=== PATIENT | female | born 1945 | race Caucasian/White ===

== ENCOUNTER 2021-07-09 05:37 | Emergency (ER) | payer MEDICARE ==
[2021-07-09 05:46] VITALS: TEMP 98.7
[2021-07-09] MEDS ORDERED: ACETAMINOPHEN TAB 325 MG TAB PO STA (06:08)
[2021-07-09] MEDS ORDERED: LIDOCAINE 1% INJ 10MG/ML (20 ML MDV) SQ ONE (06:08)
--- NOTE | 2021-07-09 06:48 | ED ---
General Adult HPI - General Chief complaint: Fall Stated complaint: Fall Source: patient, EMS, RN notes reviewed Mode of arrival: EMS Limitations: no limitations - History of Present Illness Initial comments: 76-year-old female that presents the emergency department via EMS. She notes that she was rolling over a bed when she fell out and hit her chin on a bedside table and gave herself a laceration to the right side of her chin upper neck. Galvanizing Pot Runner notes that the side table is a thick wood table with sharp edges. Gal[employer]izing Pot Runner notes the patient is up-to-date on her tetanus. Patient denied any other issues or complaints at this time. She was otherwise a well-appearing 76-year-old female in no apparent distress or pain. Patient denied any chest pain short of breath headache nausea vomiting diarrhea constipation fever fatigue chills. - Related Data Home Medications Medication Instructions Recorded Confirmed Dulaglutide [Trulicity] 0.75 mg SQ TH 08/26/15 08/26/15 Ezetimibe [Zetia] 10 mg PO DAILY 08/26/15 08/26/15 Valsartan [Diovan] 320 mg PO DAILY 08/26/15 08/26/15 gemfibroziL [Lopid] 600 mg PO DAILY 08/26/15 08/26/15 hydroCHLOROthiazide 25 mg PO DAILY 08/26/15 08/26/15 Previous Rx's Medication Instructions Recorded INSULIN ASPART (NovoLOG) [NovoLOG 12 unit SQ QAM #0 08/31/15 (formulary)] INSULIN ASPART (NovoLOG) [NovoLOG 13 unit SQ BID@1200,1700 #0 08/31/15 (formulary)] Insulin Glargine [Lantus Vial] 60 unit SQ HS #0 08/31/15 Levofloxacin [Levaquin] 500 mg PO DAILY #7 tab 08/31/15 amLODIPine [Norvasc] 5 mg PO DAILY #30 tab 08/31/15 Cephalexin [Keflex] 500 mg PO Q6HR #40 cap 07/09/21 Allergies Allergy/AdvReac Type Severity Reaction Status Date / Time No Known Allergies Allergy Verified 07/09/21 06:37 Review of Systems ROS Statement: Those systems with pertinent positive or pertinent negative responses have been documented in the HPI. ROS Other: All systems not noted in ROS Statement are negative. Past Medical History Past Medical History: Diabetes Mellitus, Hyperlipidemia, Hypertension Additional Past Medical History / Comment(s): high functioning developmentally disabled History of Any Multi-Drug Resistant Organisms: None Reported Past Surgical History: Appendectomy, Hysterectomy, Tonsillectomy Past Psychological History: No Psychological Hx Reported Smoking Status: Never smoker Past Alcohol Use History: None Reported Past Drug Use History: None Reported - Past Family History Father Family Medical History: Cancer, Diabetes Mellitus Additional Family Medical History / Comment(s): prostate and lung Mother Family Medical History: Cancer Additional Family Medical History / Comment(s): colon General Exam Limitations: no limitations General appearance: alert, in no apparent distress Head exam: Present: atraumatic, normocephalic, normal inspection Eye exam: Present: normal appearance, PERRL, EOMI. Absent: scleral icterus, conjunctival injection, periorbital swelling Neck exam: Present: normal inspection Respiratory exam: Present: normal lung sounds bilaterally. Absent: respiratory distress, wheezes, rales, rhonchi, stridor Cardiovascular Exam: Present: regular rate, normal rhythm, normal heart sounds. Absent: systolic murmur, diastolic murmur, rubs, gallop, clicks Extremities exam: Present: normal inspection, full ROM, normal capillary refill. Absent: tenderness, pedal edema, joint swelling, calf tenderness Neurological exam: Present: alert, oriented X3 Psychiatric exam: Present: normal affect, normal mood Skin exam: Present: warm, dry, intact, normal color. Absent: rash Expanded Type of lesion: Present: laceration (/Laceration to the right espinoza upper neck, clean margins, minimal bleeding, no debris seen.). Absent: foreign body Course Vital Signs 07/09/21 05:38 Temperature 98.7 F Pulse Rate 90 Respiratory 16 Rate Blood Pressure 176/78 O2 Sat by Pulse 96 Oximetry Procedures - Laceration Laceration #1 Consent Obtained: verbal consent Indication: laceration Site: neck (Right upper neck) Size (cm): 10 Description: linear Depth: simple, single layer Anesthetic Used: lidocaine 1% Anesthesia Technique: local infiltration Amount (mls): 5 Pre-repair: irrigated extensively Type of Sutures: nylon Size of Sutures: 4-0 Number of Sutures: 11 Technique: simple, interrupted Patient Tolerated Procedure: well, no complications Medical Decision Making - Medical Decision Making 76-year-old female with laceration to right espinoza upper neck. Lidocaine ordered for local anesthesia. Patient is up-to-date on tetanus. Patient tolerated suturing well. Antibiotics sent to pharmacy. Case discussed with Dr. Penn, patient can discharge home with follow-up primary care Disposition Clinical Impression: Fall, Laceration of neck without foreign body Disposition: HOME SELF-CARE Condition: Stable Instructions (If sedation given, give patient instructions): Fall Prevention for Older Adults (ED) Additional Instructions: Please return to the Emergency Department if symptoms worsen or any other concerns. Follow-up primary care 1-2 days. Please return in 7-10 days to have sutures removed. Take antibiotics as prescribed until complete. Is patient prescribed a controlled substance at d/c from ED?: No Referrals: Sarita Anderson MD [Primary Care Provider] - 1-2 days Time of Disposition: 06:47
[2021-07-09 07:01] VITALS: BP 155/68; PULSE 81; RESP 18
== END 2021-07-09 06:58 | disposition home or self-care (01) ==
LOC: EC 05:37
DX: S11.91XA Laceration without foreign body of unspecified part of neck, initial encounter (principal); S01.81XA Laceration without foreign body of other part of head, initial encounter; E11.9 Type 2 diabetes mellitus without complications; I10 Essential (primary) hypertension; Z79.899 Other long term (current) drug therapy; Z79.84 Long term (current) use of oral hypoglycemic drugs; W06.XXXA Fall from bed, initial encounter; W22.03XA Walked into furniture, initial encounter; Y92.009 Unspecified place in unspecified non-institutional (private) residence as the place of occurrence of the external cause
CPT/HCPCS: 99283; 12004; J2001

== ENCOUNTER 2021-10-30 16:17 | Inpatient (IN) | payer MEDICARE ==
--- NOTE | 2021-10-30 17:07 | ED ---
General Adult HPI - General Chief complaint: Neuro Symptoms/Deficit Stated complaint: facial drooping, slurred speech Time Seen by Provider: 10/30/21 16:32 Source: patient Mode of arrival: wheelchair Limitations: no limitations - History of Present Illness Initial comments: Dictation was produced using [employer] dictation software. please excuse any g rammatical, word or spelling errors. Chief Complaint: 76-year-old female presents emergency department for stroke symptoms History of Present Illness: Patient is 76-year-old female past medical history of diabetes, dyslipidemia and hypertension presents to emergency department for symptoms concerning for cerebrovascular accident. On patient was noticed to have symptoms concerning for CVA. She is noted to have slurred speech, confusion, left facial droop and left-sided weakness. Patient is never had a stroke before. Patient has history of developmental delay. She noticed her symptoms while trying to pull her pants felt like she had trouble lifting up her left leg to put her right leg. The ROS documented in this emergency department record has been reviewed and confirmed by me. Those systems with pertinent positive or negative responses have been documented in the HPI. All other systems are other negative and/or noncontributory. PHYSICAL EXAM: General Impression: Alert and oriented x3, not in acute distress HEENT: Normocephalic atraumatic, extra-ocular movements intact, pupils equal and reactive to light bilaterally, mucous membranes moist. Cardiovascular: Heart regular rate and rhythm Chest: Able to complete full sentences, no retractions, no tachypnea Abdomen: abdomen soft, non-tender, non-distended, no organomegaly Musculoskeletal: Pulses present and equal in all extremities, no peripheral edema Motor: no focal deficits noted Neurological: Slurred speech, left upper extremity drift, left lower extremity drift, slight left lower facial droop NIH of 4 Skin: Intact with no visualized rashes Psych: Normal affect and mood ED course: 76-year-old female presents emergency department for symptoms concerning for stroke. Alleged time of onset was 2 days ago. Patient medicated for TPA due to to be outside the window. Vital signs upon arrival are within acceptable limits. Lavatory evaluation obtained. CBC, coag panel, metabolic panel is unremarkable. Patient is negative for coronavirus. Computed tomography scan of the brain and CT angios shows no acute processes. Chest x-ray shows some prominence of the lung interstitium and cardiomegaly. Patient reevaluated the bedside at 7:30 PM on to be in stable medical condition. Patient not showing any signs of distress however still does have positive neurologic findings. Patient given an aspirin. Patient be admitted to [facility] with consultation to neurology. EKG interpretation: Ventricular rate 77, normal sinus rhythm, TX interval 142, QRS 84, QTC 450. No TX prolongation, no QTC prolongation, no ST or T-wave changes noted. EKG compared to a cover 2014 showing no changes. Overall, this EKG is unremarkable - Related Data Home Medications Medication Instructions Recorded Confirmed Dulaglutide [Trulicity] 0.75 mg SQ TH 08/26/15 08/26/15 Ezetimibe [Zetia] 10 mg PO DAILY 08/26/15 08/26/15 Valsartan [Diovan] 320 mg PO DAILY 08/26/15 08/26/15 gemfibroziL [Lopid] 600 mg PO DAILY 08/26/15 08/26/15 hydroCHLOROthiazide 25 mg PO DAILY 08/26/15 08/26/15 Previous Rx's Medication Instructions Recorded INSULIN ASPART (NovoLOG) [NovoLOG 12 unit SQ QAM #0 08/31/15 (formulary)] INSULIN ASPART (NovoLOG) [NovoLOG 13 unit SQ BID@1200,1700 #0 08/31/15 (formulary)] Insulin Glargine [Lantus Vial] 60 unit SQ HS #0 08/31/15 Levofloxacin [Levaquin] 500 mg PO DAILY #7 tab 08/31/15 amLODIPine [Norvasc] 5 mg PO DAILY #30 tab 08/31/15 Cephalexin [Keflex] 500 mg PO Q6HR #40 cap 07/09/21 Allergies Allergy/AdvReac Type Severity Reaction Status Date / Time No Known Allergies Allergy Verified 10/30/21 16:26 Review of Systems ROS Statement: Those systems with pertinent positive or pertinent negative responses have been documented in the HPI. ROS Other: All systems not noted in ROS Statement are negative. Past Medical History Past Medical History: Diabetes Mellitus, Hyperlipidemia, Hypertension Additional Past Medical History / Comment(s): high functioning developmentally disabled History of Any Multi-Drug Resistant Organisms: None Reported Past Surgical History: Appendectomy, Hysterectomy, Tonsillectomy Past Psychological History: No Psychological Hx Reported Smoking Status: Never smoker Past Alcohol Use History: None Reported Past Drug Use History: None Reported - Past Family History Father Family Medical History: Cancer, Diabetes Mellitus Additional Family Medical History / Comment(s): prostate and lung Mother Family Medical History: Cancer Additional Family Medical History / Comment(s): colon General Exam Limitations: no limitations Course Vital Signs 10/30/21 10/30/21 16:24 18:24 Temperature 98.4 F Pulse Rate 83 77 Respiratory 16 16 Rate Blood Pressure 175/83 166/82 O2 Sat by Pulse 100 97 Oximetry Medical Decision Making - Lab Data Result diagrams: 10/30/21 17:37 10/30/21 17:37 Lab Results 10/30/21 10/30/21 10/30/21 Range/Units 17:37 17:37 17:37 WBC 12.6 H (3.8-10.6) k/uL RBC 4.09 (3.80-5.40) m/uL Hgb 13.0 (11.4-16.0) gm/dL Hct 39.1 (34.0-46.0) % MCV 95.6 (80.0-100.0) fL MCH 31.8 (25.0-35.0) pg MCHC 33.3 (31.0-37.0) g/dL RDW 12.4 (11.5-15.5) % Plt Count 372 (150-450) k/uL MPV 9.2 Neutrophils % 72 % Lymphocytes % 17 % Monocytes % 5 % Eosinophils % 2 % Basophils % 1 % Neutrophils # 9.1 H (1.3-7.7) k/uL Lymphocytes # 2.2 (1.0-4.8) k/uL Monocytes # 0.6 (0-1.0) k/uL Eosinophils # 0.2 (0-0.7) k/uL Basophils # 0.1 (0-0.2) k/uL PT 10.1 (9.0-12.0) sec INR 0.9 (<1.2) APTT 24.8 (22.0-30.0) sec Sodium 138 (137-145) mmol/L Potassium 4.3 (3.5-5.1) mmol/L Chloride 103 (98-107) mmol/L Carbon Dioxide 20 L (22-30) mmol/L Anion Gap 15 mmol/L BUN 38 H (7-17) mg/dL Creatinine 1.15 H (0.52-1.04) mg/dL Est GFR (CKD-EPI)AfAm 54 (>60 ml/min/1.73 sqM) Est GFR (CKD-EPI)NonAf 47 (>60 ml/min/1.73 sqM) Glucose 201 H (74-99) mg/dL Calcium 9.4 (8.4-10.2) mg/dL Magnesium 1.8 (1.6-2.3) mg/dL Coronavirus (PCR) (Not Detectd) 10/30/21 Range/Units 17:37 WBC (3.8-10.6) k/uL RBC (3.80-5.40) m/uL Hgb (11.4-16.0) gm/dL Hct (34.0-46.0) % MCV (80.0-100.0) fL MCH (25.0-35.0) pg MCHC (31.0-37.0) g/dL RDW (11.5-15.5) % Plt Count (150-450) k/uL MPV Neutrophils % % Lymphocytes % % Monocytes % % Eosinophils % % Basophils % % Neutrophils # (1.3-7.7) k/uL Lymphocytes # (1.0-4.8) k/uL Monocytes # (0-1.0) k/uL Eosinophils # (0-0.7) k/uL Basophils # (0-0.2) k/uL PT (9.0-12.0) sec INR (<1.2) APTT (22.0-30.0) sec Sodium (137-145) mmol/L Potassium (3.5-5.1) mmol/L Chloride (98-107) mmol/L Carbon Dioxide (22-30) mmol/L Anion Gap mmol/L BUN (7-17) mg/dL Creatinine (0.52-1.04) mg/dL Est GFR (CKD-EPI)AfAm (>60 ml/min/1.73 sqM) Est GFR (CKD-EPI)NonAf (>60 ml/min/1.73 sqM) Glucose (74-99) mg/dL Calcium (8.4-10.2) mg/dL Magnesium (1.6-2.3) mg/dL Coronavirus (PCR) Not Detected (Not Detectd) Disposition Clinical Impression: Cerebrovascular accident (CVA) Disposition: ADMITTED IP TO THIS HOSP Condition: Fair Referrals: None,Stated [Primary Care Provider] - 1-2 days
[2021-10-30 17:49] LABS: Basophils # (A) 0.1 k/uL (0-0.2); Basophils % (A) 1 %; Eosinophils # (A) 0.2 k/uL (0-0.7); Eosinophils % (A) 2 %; HCT 39.1 % (34.0-46.0); Lymphocytes # (A) 2.2 k/uL (1.0-4.8); Lymphocytes % (A) 17 %; MCH 31.8 pg (25.0-35.0); MCHC 33.3 g/dL (31.0-37.0); MCV 95.6 fL (80.0-100.0); Mean Platelet Volume 9.2; Monocytes # (A) 0.6 k/uL (0-1.0); Monocytes % (A) 5 %; Neutrophils # (A) 9.1 k/uL (1.3-7.7); Neutrophils % (A) 72 %; Platelet Count 372 k/uL (150-450); RBC 4.09 m/uL (3.80-5.40); RDW 12.4 % (11.5-15.5); WBC 12.6 k/uL (3.8-10.6)
[2021-10-30 18:16] LABS: Calcium 9.4 mg/dL (8.4-10.2); Magnesium 1.8 mg/dL (1.6-2.3); Potassium 4.3 mmol/L (3.5-5.1)
--- NOTE | 2021-10-30 18:23 | CT ---
EXAMINATION TYPE: CT brain wo con DATE OF EXAM: 10/30/2021 COMPARISON: CT head 08/26/2015 HISTORY: Slurred speech x [address] DLP: 1085.8 mGycm. Automated Exposure Control for Dose Reduction was Utilized. TECHNIQUE: Multiple contiguous axial CT images of the head were performed from the skull base through the vertex without the administration of intravenous contrast. 2-D sagittal and coronal reformats we re obtained. FINDINGS: No acute intracranial hemorrhage, mass effect, or midline shift. The ventricles and sulci are within normal limits in size. Mcknight-white differentiation is preserved. No CT evidence of acute large vessel territorial ischemia. Mild burden of decreased attenuation within the periventricular white matter li suzi sequela of chronic small vessel ischemic change. Calvarium appears intact. Mild mucosal thickening of the maxillary sinuses. Mastoid air cells are alex ar. Bilateral lens extractions are present. IMPRESSION: No acute intracranial process.
--- NOTE | 2021-10-30 18:24 | XR ---
EXAMINATION TYPE: XR chest 1V portable DATE OF EXAM: 10/30/2021 COMPARISON: Chest radiograph 08/31/2015 HISTORY: Slurred speech for 2 days, cerebrovascular accident TECHNIQUE: Single frontal view of the chest is obtained. FINDINGS: Heart size appears enlarged. There is prominence of the lung interstitium. No definite pleural effusi on or pneumothorax. No dense focal consolidations. Osseous structures appear intact. IMPRESSION: Cardiomegaly with prominence of the lung interstitium. Findings may relate to fluid overload.
[2021-10-30 18:28] LABS: INR 0.9 (<1.2); Partial Thromboplastin Time 24.8 sec (22.0-30.0); Prothrombin Time 10.1 sec (9.0-12.0)
--- NOTE | 2021-10-30 18:46 | CT ---
EXAMINATION TYPE: CT angio head neck DATE OF EXAM: 10/30/2021 HISTORY: Slurred speech x 2 days. COMPARISON: None available CT DLP: 378.1 mGycm. Automated Exposure Control for Dose Reduction was Utilized. TECHNIQUE: CTA scan of the neck is performed with IV Contrast, patient injected with 65 mL of Isovue 370, axial images are obtained, coronal and sagittal reformatted images are reviewed. 3D reconstruct ed images are created on an independent workstation and reviewed. FINDINGS: Carotid/Vascular Structures: Three-vessel aortic arch with patent origins of the great vessels. Mild atherosclerotic vascular calcifications of the right carotid bifurcation and proximal right inte rnal carotid artery with minimal luminal narrowing (less than 10%). Mild atherosclerotic vascular kennedy cifications of the left carotid bifurcation and proximal internal carotid artery without luminal narr owing. Patent origins of the vertebral arteries. Dominant left vertebral artery. Hypoplastic right vertebral artery which terminates as the right posterior inferior cerebellar artery. Moderate atherosclerotic vascular calcifications of the cavernous and supraclinoid portions of the in tracranial internal carotid arteries with moderate luminal narrowing of the right supraclinoid portio n. Atretic A1 segment of the right anterior cerebral artery. Right A2 segment and distal appear patent. Left anterior cerebral artery appears normal. Anterior communicating artery is present. Middle cerebral arteries appear normal. Basilar artery appears normal. Posterior cerebral arteries appear normal. Other: Mild mucosal thickening of the maxillary sinuses. Moderate multilevel degenerative changes of the cervical spine. IMPRESSION: No high-grade stenosis, focal occlusion, or aneurysm involving the carotid arteries, vertebral arteri es, or major branches of the [place]. NASCET criteria was used in interpretation of this exam?
[2021-10-30] MEDS ORDERED: NALOXONE 0.4 MG/ML 1 ML VIAL IV PRN ×2 (19:23→19:31)
[2021-10-30] MEDS ORDERED: ASPIRIN 81 MG PO STA (19:24)
[2021-10-30] MEDS ORDERED: SODIUM CHLORIDE 0.9% 1,000 ML IV SCH (19:30)
[2021-10-30] MEDS ORDERED: ACETAMINOPHEN TAB 325 MG TAB PO PRN (19:31)
[2021-10-30 20:42] LABS: Glucose,Whole Blood 225 mg/dL (75-99)
--- NOTE | 2021-10-30 21:16 | P.HPIM ---
History of Present Illness H&P Date: 10/30/21 Chief Complaint: left sided weakness 76-year-old woman who is a person with mental disability and medical history of diabetes/hypertension/hyperlipidemia, chronic kidney disease stage III presented with left-sided weakness and slurred speech. Patient says that her symptoms started yesterday morning at [place]. She knows that she was having trouble lifting her leg on the left side to get dressed, also noted handgrip weakness on the left side. Her home care nurse also mentioned the patient was having slurring of speech which began at her visit yesterday. However, patient did not want to go to the hospital yesterday, and instead presented today with ongoing symptoms which have not improved. Patient otherwise denies fevers, chills, nausea, vomiting, chest pain, significant, presyncope, palpitations, cough, dyspnea, abdominal pain, diarrhea, constipation, dysuria, dyschezia, numbness of extremities. In the emergency room, patient was noted to be afebrile, hypertensive to 175/83, heart rate 83, 100% on room air. CBC was remarkable for mild leukocytosis. C reatinine was notable for mild elevation to 1.15, which represents her baseline from 2015. EKG demonstrates normal sinus rhythm with left axis deviation, no ischemic changes. Brain CT was negative for intracranial hemorrhage or large vessel occlusion. CT angiography of the head and neck did not demonstrate any high-grade stenosis or occlusion. Patient was loaded with aspirin, admitted for further stroke workup, neurology consult. Review of Systems All Systems reviewed and pertinent positives and negatives noted in HPI, all other symptoms are negative Past Medical History Past Medical History: Diabetes Mellitus, Hyperlipidemia, Hypertension Additional Past Medical History / Comment(s): high functioning developmentally disabled History of Any Multi-Drug Resistant Organisms: None Reported Past Surgical History: Appendectomy, Hysterectomy, Tonsillectomy Past Psychological History: No Psychological Hx Reported Smoking Status: Never smoker Past Alcohol Use History: None Reported Past Drug Use History: None Reported - Past Family History Father Family Medical History: Cancer, Diabetes Mellitus Additional Family Medical History / Comment(s): prostate and lung Mother Family Medical History: Cancer Additional Family Medical History / Comment(s): colon Medications and Allergies Home Medications Medication Instructions Recorded Confirmed Type Ezetimibe [Zetia] 10 mg PO DAILY 08/26/15 10/30/21 History gemfibroziL [Lopid] 600 mg PO BID 08/26/15 10/30/21 History hydroCHLOROthiazide 25 mg PO DAILY 08/26/15 10/30/21 History amLODIPine [Norvasc] 5 mg PO DAILY #30 tab 08/31/15 10/30/21 Rx INSULIN ASPART (NovoLOG) [NovoLOG 10 unit SQ DAILY@1200 10/30/21 10/30/21 History (formulary)] INSULIN ASPART (NovoLOG) [NovoLOG See Protocol SQ BID-W/MEALS 10/30/21 10/30/21 History (formulary)] Insulin Detemir (Levemir) [Levemir] 45 unit SQ HS 10/30/21 10/30/21 History Insulin Detemir (Levemir) [Levemir] 50 unit SQ QAM 10/30/21 10/30/21 History Metoprolol Succinate [Toprol XL] 100 mg PO DAILY 10/30/21 10/30/21 History Allergies Allergy/AdvReac Type Severity Reaction Status Date / Time No Known Allergies Allergy Verified 10/30/21 19:51 Physical Exam Osteopathic Statement: *. No significant issues noted on an osteopathic structural exam other than those noted in the History and Physical/Consult. Vitals: Vital Signs Temp Pulse Resp BP Pulse Ox 10/30/21 20:16 78 18 157/83 97 10/30/21 18:24 77 16 166/82 97 10/30/21 16:24 98.4 F 83 16 175/83 100 Intake and Output 10/30/21 10/30/21 10/30/21 06:59 14:59 22:59 Other: Weight 56.699 kg Gen: awake, alert HEENT: normocephalic, atraumatic, good hearing acuity, moist mucous membranes, poor dentition Resp: good air exchange, breathing comfortably with no accessory muscle use, clear to auscultation bilaterally CVS: good distal perfusion x 4, regular rate and rhythm without murmurs GI: soft, NTTP, ND : no SPT, no CVAT, ceron catheter not present MSK: no pitting edema, no clubbing Neuro: Left-sided 4 out of 5 hand equipment associate weakness on the left, 4 out of 5 lower extremity weakness on the left, pronator drift on the left, no sensory deficits Psych: cooperative, euthymic mood Results CBC & Chem 7: 10/30/21 17:37 10/30/21 17:37 Labs: Abnormal Lab Results - Last 24 Hours (Table) 10/30/21 10/30/21 10/30/21 Range/Units 17:37 17:37 20:41 WBC 12.6 H (3.8-10.6) k/uL Neutrophils # 9.1 H (1.3-7.7) k/uL Carbon Dioxide 20 L (22-30) mmol/L BUN 38 H (7-17) mg/dL Creatinine 1.15 H (0.52-1.04) mg/dL Glucose 201 H (74-99) mg/dL POC Glucose (mg/dL) 225 H (75-99) mg/dL Assessment and Plan Assessment: Left-sided weakness -Admit to inpatient, telemetry -MRI of the brain -Neurology consult -Echocardiogram -Lipid panel, TSH, A1c -Neurochecks -Aspirin, statin -Hold home blood pressure medications, except for metoprolol, until stroke is ruled out or in -PT/OT/ST Hypertension Hyperlipidemia Diabetes type 2 Chronic kidney disease, stage III -Home medications reviewed and reconciled, changes noted above Patient is a full code
[2021-10-30] MEDS: INSULIN DETEMIR (LEVEMIR) 100 UNIT/ML SYR SQ SCH (21:55)
[2021-10-31] MEDS: ATORVASTATIN 40 MG TAB PO SCH ×2 (01:43→20:53)
[2021-10-31 06:17] LABS: HCT 42.2 % (34.0-46.0); HGB 13.1 gm/dL (11.4-16.0); MCH 31.1 pg (25.0-35.0); MCV 100.2 fL (80.0-100.0); Mean Platelet Volume 9.3; Platelet Count 329 k/uL (150-450); RBC 4.21 m/uL (3.80-5.40); RDW 12.5 % (11.5-15.5); WBC 9.5 k/uL (3.8-10.6)
[2021-10-31 06:32] LABS: Glucose,Whole Blood 292 mg/dL (75-99)
[2021-10-31 06:36] LABS: Band Neutrophils % 2 %; Eosinophils # (M) 0.48 k/uL (0-0.7); Monocytes # (M) 0.38 k/uL (0-1.0); Neutrophils % (M) 68 %; Nucleated Red Blood Cells 0 /100 WBC (0-0); Total Cells Counted 100
[2021-10-31 06:37] LABS: Toxic Granulation Present
[2021-10-31 06:45] LABS: Calcium 9.1 mg/dL (8.4-10.2); Magnesium 1.9 mg/dL (1.6-2.3); Potassium 4.7 mmol/L (3.5-5.1)
[2021-10-31] MEDS: INSULIN ASPART (NovoLOG) 100 UNIT/ML VIAL SQ SCH ×3 (06:54→16:54)
[2021-10-31] MEDS: METOPROLOL SUCCINATE (ER) 100 MG TAB.ER.24H PO SCH (07:31)
[2021-10-31] MEDS: FENOFIBRATE 160 MG TAB PO SCH (07:32)
[2021-10-31] MEDS: EZETIMIBE 10 MG TAB PO SCH (07:32)
[2021-10-31] MEDS: INSULIN DETEMIR (LEVEMIR) 100 UNIT/ML SYR SQ SCH ×2 (07:34→20:48)
[2021-10-31] MEDS: ENOXAPARIN 30 MG/0.3 ML SYRINGE SQ SCH (09:50)
--- NOTE | 2021-10-31 11:00 | ECHOF ---
Referral Reason:cva MEASUREMENTS -------- HEIGHT: 132.1 cm WEIGHT: 56.7 kg BP: IVSd: 1.4 cm (0.6 - 1.1) LVIDd: 3.5 cm (3.9 - 5.3) LVPWd: 1.0 cm (0.6 - 1.1) IVSs: 2.2 cm LVIDs: 2.1 cm LVPWs: 1.5 cm LAESV Index (A-L): 39.43 ml/m Ao Diam: 3.1 cm (2.0 - 3.7) AV Cusp: 2.1 cm (1.5 - 2.6) LA Diam: 3.1 cm (2.7 - 3.8) RAP: 5.00 mmHg RVSP: 28.37 mmHg FINDINGS -------- Sinus rhythm. This was a technically adequate study. The left ventricular size is normal. There is moderate concentric left ventricular hypertrophy. O verall left ventricular systolic function is low-normal with, an EF between 50 - 55 %. The right ventricle is normal in size. LA is moderately dilated 34-39 ml/m2 The right atrial size is normal. The aortic valve is trileaflet, and appears structurally normal. No aortic stenosis or regurgitation. Mild mitral regurgitation is present. Mild tricuspid regurgitation present. Right ventricular systolic pressure is normal at < 35 mmHg. There is no pulmonic regurgitation present. The aortic root size is normal. There is no pericardial effusion. CONCLUSIONS -------- 1. The left ventricular size is normal. 2. There is moderate concentric left ventricular hypertrophy. 3. Overall left ventricular systolic function is low-normal with, an EF between 50 - 55 %. 4. The right ventricle is normal in size. 5. LA is moderately dilated 34-39 ml/m2 6. The right atrial size is normal. 7. The aortic valve is trileaflet, and appears structurally normal. No aortic stenosis or regurgitati on. 8. Mild mitral regurgitation is present. 9. Mild tricuspid regurgitation present. 10. The aortic root size is normal. 11. There is no pericardial effusion. GALLERY OR MUSEUM ATTENDANT: Sindy Cano RDCS
[2021-10-31 11:18] LABS: Glucose,Whole Blood 466 mg/dL (75-99)
[2021-10-31] MEDS: ASPIRIN 325 MG TAB PO SCH (11:29)
--- NOTE | 2021-10-31 13:36 | P.CNNES ---
History of Present Illness Consult date: 10/31/21 Requesting physician: Thanh Freed Reason for Consult: CVA History of Present Illness: This is a 76-year-old right-handed female with history of some developmental delays, hypertension, diabetes came to the hospital yesterday at 4:24 PM for slurred speech and left-sided weakness. Apparently symptoms started on the 10 2402/22/2021 in the evening with some slurring and left-sided weakness. Patient did not arrive to the hospital yesterday. Patient was not a candidate for TPA, as she was clearly outside the window. Patient states that she came to the hospital because she is having strokelike symptoms. She feels some slurred speech, and also notices that she keeps dropping things with her left hand. States she cannot walk far with her left leg, feels as if she will fall. Vital signs on arrival blood pressure 175/83, pulse rate 83 temperature 98.4. Computed tomography scan of head showed no acute intracranial process. Chest x- ray revealed cardiomegaly with prominence of the lung interstitial. Findings may related to fluid overload. CTA of head and neck showed no high-grade stenosis, focal occlusion, or aneurysm involving the carotid arteries, vertebral arteries or major branches of the [place]. EKG shows normal sinus rhythm, left axis deviation. Blood test shows WBC 12.6 hemoglobin 13.0, normal platelets 372. PT/PTT normal, electrolytes are normal, BUN 38, creatinine 1.15. TSH is normal. Regan virus PCR negative. Patient's last hemoglobin A1c 9.1 on 08/26/2015. Patient states that she has history of diabetes for couple years. She has hypertension. She has never smoked or drink alcohol. She has a caregiver Emma. Home medications includes Lopid 600 mg twice a day, Zetia 10 mg daily HCTZ 25 mg, amlodipine 5 mg, insulin, metoprolol. Patient does not take any antiplatelet medication at home. Review of Systems Denies any headache, any problem with the vision, any hoarseness, sore throat, dysphagia. Patient is very hard of hearing. Denies any chest pain, shortness of breath, wheezing or cough. Denies any abdominal pain nausea vomiting diarrhea. Denies any fever or chills. No rash. All other review of systems reviewed and unremarkable. Past Medical History Past Medical History: Diabetes Mellitus, Hyperlipidemia, Hypertension Additional Past Medical History / Comment(s): high functioning developmentally disabled History of Any Multi-Drug Resistant Organisms: None Reported Past Surgical History: Appendectomy, Hysterectomy, Tonsillectomy Past Psychological History: No Psychological Hx Reported Smoking Status: Never smoker Past Alcohol Use History: None Reported Past Drug Use History: None Reported - Past Family History Father Family Medical History: Cancer, Diabetes Mellitus Additional Family Medical History / Comment(s): prostate and lung Mother Family Medical History: Cancer Additional Family Medical History / Comment(s): colon Medications and Allergies Home Medications Medication Instructions Recorded Confirmed Type Ezetimibe [Zetia] 10 mg PO DAILY 08/26/15 10/30/21 History gemfibroziL [Lopid] 600 mg PO BID 08/26/15 10/30/21 History hydroCHLOROthiazide 25 mg PO DAILY 08/26/15 10/30/21 History amLODIPine [Norvasc] 5 mg PO DAILY #30 tab 08/31/15 10/30/21 Rx INSULIN ASPART (NovoLOG) [NovoLOG 10 unit SQ DAILY@1200 10/30/21 10/30/21 History (formulary)] INSULIN ASPART (NovoLOG) [NovoLOG See Protocol SQ BID-W/MEALS 10/30/21 10/30/21 History (formulary)] Insulin Detemir (Levemir) [Levemir] 45 unit SQ HS 10/30/21 10/30/21 History Insulin Detemir (Levemir) [Levemir] 50 unit SQ QAM 10/30/21 10/30/21 History Metoprolol Succinate [Toprol XL] 100 mg PO DAILY 10/30/21 10/30/21 History Allergies Allergy/AdvReac Type Severity Reaction Status Date / Time No Known Allergies Allergy Verified 10/30/21 19:51 Physical Examination - Vital Signs Vital Signs: Vital Signs Temp Pulse Pulse Resp BP BP Pulse Ox 10/31/21 07:41 96.9 F L 79 16 141/77 99 10/31/21 03:53 97.8 F 72 18 138/74 97 10/31/21 02:29 18 10/30/21 23:53 83 18 153/83 96 10/30/21 20:16 78 18 157/83 97 10/30/21 18:24 77 16 166/82 97 10/30/21 16:24 98.4 F 83 16 175/83 100 Intake and Output 10/30/21 10/31/21 10/31/21 22:59 06:59 14:59 Intake Total 30 Output Total 550 Balance -550 30 Intake: IV 10 Invasive Line 1 10 Oral 20 Output: Urine 550 Other: Voiding Method Bedside Commode Bedside Commode Diaper # Voids 1 Weight 56.699 kg 56.699 kg Patient is an elderly female, in no acute distress. Patient is alert awake oriented to time place and person. Patient knows it is October, thinks it's the and the year is 1920. She knows she is in [place] in [place], could not tell name of the current president although she states it is a "the new one". She knows name of the previous president Doroteo Mims. Speech and language functions are normal. She can name and repeat. Attention, concentration is intact and fund of knowledge is mild to moderately impaired. On cranial examination, pupils are round and reacting to light, visual engel are full on confrontation, extraocular muscles are intact with no nystagmus. Patient has left facial weakness, central type. Her tongue protrudes to the midline. Palatal elevation and sensation normal, hearing is at least moderately decreased and shoulder shrug normal, facial sensation normal. Shoulder shrug normal. On muscle strength testing, there is left-sided pronator drift and the strength is (right/left), deltoid has some pain bilaterally right worse. 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 Had hip flexion are weak bilaterally, but left worse. Ankle dorsiflexion is 5 on the right, 4-on the left. Deep tendon reflexes are 1+ in the upper limbs, 2+ at the knees, plantar is probably down on the right, but upon left. Sensory to touch is decreased on the left side as compared to right. Temperature is equal bilaterally.. Cerebellar function showed no ataxia for [id number] testing. Tone and bulk of muscles normal. Gait deferred. On general examination, there is no carotid bruit or murmur, S1-S2 audible. Abdomen is slightly protuberant, but soft nontender, no organomegaly. Chest is clear. Peripheral pulses are present. No edema. 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 Possible lacunar from small vessel disease. * Hypertension, not controlled * Diabetes, not controlled * History of mild developmental delays * Hard of hearing Plan: * MRI of the brain to evaluate for an acute stroke. * Patient to be placed on dual antiplatelet medications aspirin 81 mg and Plavix 75 mg for 21 days. Then may stop Plavix and continue aspirin 81 mg indefinitely. * CTA of head and neck showed no large vessel occlusion, no significant stenosis. * 2-D echo revealed normal left ventricle size. Moderate concentric LVH. Left ventricular systolic function is low normal with EF between 50-55%. The right ventricle is normal in size. Left atrium is moderately dilated. Mild MR. * Hemoglobin A1c * Lipid panel * Telemetry monitoring, rule out arrhythmia. * PT OT, speech therapy. * DVT prophylaxis. * Neurology will follow. Thank you for the consult.
[2021-10-31 13:45] LABS: Appearance,Urine Clear (Clear); Bilirubin,Urine Negative (Negative); Blood,Urine Negative (Negative); Color,Urine Light Yellow; Glucose,Urine (UA) 4+ (Negative); Hyaline Casts,Urine 5 /lpf (0-2); Ketones,Urine Negative (Negative); Leukocyte Esterase,Urine Moderate (Negative); Mucus,Urine Rare /hpf; Nitrite,Urine Negative (Negative); PH, Urine 5.5 (5.0-8.0); Protein,Urine 2+ (Negative); RBC,Urine 1 /hpf (0-5); Specific Gravity,Urine 1.018 (1.001-1.035); Squamous Epithelial Cell,Urine <1 /hpf (0-4); Urobilinogen,Urine <2.0 mg/dL (<2.0); WBC,Urine 7 /hpf (0-5)
--- NOTE | 2021-10-31 14:29 | MR ---
EXAMINATION TYPE: MR brain wo con DATE OF EXAM: 10/31/2021 2:15 PM COMPARISON: NONE HISTORY: Slurred speech upon arrival t0 hosipital, CVA FINDINGS: The ventricles, basal cisterns and sulci overlying the cerebral convexities are mildly enlarged. There is evidence of mild periventricular white matter ischemic demyelination. Remote deep white matter insults are also noted. There is acute edema noted on diffusion-weighted imaging within the right portion of the lupe compati ble with acute vascular insult. No additional abnormal areas of abnormal signal identified. There is no evidence for midline shift or mass effect. Acute intracranial hemorrhage or extra-axial collection is not evident. The paranasal sinuses and mastoid air cells are well-aerated. IMPRESSION: There is acute edema noted on diffusion-weighted imaging within the right portion of the lupe compati ble with acute vascular insult.
[2021-10-31] MEDS: CLOPIDOGREL 75 MG TAB PO SCH (14:50)
[2021-10-31 16:32] LABS: Chol/HDL Ratio 5.98 Ratio; LDL Cholesterol,Calculated 104.1 mg/dL (0.0-131.0)
[2021-10-31 16:32] LABS: Glucose,Whole Blood 246 mg/dL (75-99)
--- NOTE | 2021-10-31 19:11 | P.PN ---
<Naif Louie - Last Filed: 10/31/21 19:03> Subjective Progress Note Date: 10/31/21 Hospital course: Patient is a 76-year-old woman who is a person with mental disability and medical history of diabetes/hypertension/hyperlipidemia, chronic kidney disease stage III who presented to the emergency department on 10/30/21 with a chief complaint of left-sided weakness and slurred speech beginning approximately 24 hours prior to arrival. She was seen and fully evaluated in the emergency department and found to be hypertensive with blood pressure 175/83, have mild leukocytosis with WBC count of 12.6, and a slightly elevated creatinine of 1.15. EKG demonstrates normal sinus rhythm with left axis deviation, no ischemic changes. Brain CT was negative for intracranial hemorrhage or large vessel occl usion. CT angiography of the head and neck did not demonstrate any high-grade stenosis or occlusion. Patient was loaded with aspirin, and admitted under our services for further stroke workup, neurology consulted. Physical exam: Patient seen and fully evaluated at bedside this morning she continues to have expressive aphasia and reports of weakness in her left lower extremity. Full range of motion, strength, and sensation has returned to left upper extremity. Patient denies any dysphasia. Patient denies having any headache, lightheadedness, dizziness, chest pain, palpitations, shortness of breath, abdominal pain, nausea, or vomiting. Vital signs reviewed and stable. General: Nontoxic, no distress and appears stated age. Derm: Skin warm and dry, normal coloration for ethnicity. Head: Atraumatic, normocephalic and symmetric. Eyes: EOMs intact, no lid lag, and anicteric sclera Mouth: no lip lesions, mucus membranes moist Cardiovascular: regular rate and rhythm with normal S1S2, no murmur, positive posterior tibial pulses bilaterally, and cap refill < 2 seconds. Lungs: Respirations even, regular, and unlabored on room air. Lungs CTA bilaterally, no rhonchi, no rales, no wheezing, and no accessory muscle usage. Abdominal: soft, nontender to palpation, no guarding, no appreciable organomegaly Ext: ROM intact. No gross muscle atrophy, no edema, no contractures Neuro: Speech clear, face symmetrical and CN II-XII grossly intact with no noted focal neuro deficits Psych: Alert and oriented to person, place, time, and situation. Appropriate and pleasant affect. Assessment and Plan of Care: Expressive aphasia Left-sided weakness -Telemetry monitoring -MRI of the brain -Neurology consult -Echocardiogram -Lipid panel, TSH, A1c pending -Neurochecks -Aspirin, statin -Hold home blood pressure medications, except for metoprolol, until stroke is ruled out or in -PT/OT/ST Hypertension Hyperlipidemia Diabetes type 2 Chronic kidney disease, stage III -Home medications reviewed and reconciled, changes noted above CODE STATUS: Full code DVT prophylaxis: Lovenox Discussed with: Patient and RN Anticipated discharge date: Clinical course to determine Anticipated discharge place: Home versus SNF A total of 40 minutes was spent on the care of this complex patient more than 50% of the time was spent in counseling and care coordination. Objective - Vital Signs Vital signs: Vital Signs Temp 96.9 F L 10/31/21 07:41 Pulse 79 10/31/21 07:41 Resp 16 10/31/21 07:41 BP 141/77 10/31/21 07:41 Pulse Ox 99 10/31/21 07:41 Intake & Output 10/30/21 10/31/21 10/31/21 18:59 06:59 18:59 Intake Total 30 Output Total 550 Balance -550 30 Weight 56.699 kg 56.699 kg Intake: IV 10 Invasive Line 1 10 Oral 20 Output: Urine 550 Other: Voiding Method Bedside Commode Bedside Commode Diaper # Voids 1 - Labs CBC & Chem 7: 10/31/21 05:16 10/31/21 05:16 Labs: Abnormal Lab Results - Last 24 Hours (Table) 10/30/21 10/30/21 10/30/21 Range/Units 17:37 17:37 20:41 WBC 12.6 H (3.8-10.6) k/uL MCV (80.0-100.0) fL Neutrophils # 9.1 H (1.3-7.7) k/uL Chloride (98-107) mmol/L Carbon Dioxide 20 L (22-30) mmol/L BUN 38 H (7-17) mg/dL Creatinine 1.15 H (0.52-1.04) mg/dL Glucose 201 H (74-99) mg/dL POC Glucose (mg/dL) 225 H (75-99) mg/dL 10/31/21 10/31/21 10/31/21 Range/Units 05:16 05:16 06:31 WBC (3.8-10.6) k/uL MCV 100.2 H (80.0-100.0) fL Neutrophils # (1.3-7.7) k/uL Chloride 109 H (98-107) mmol/L Carbon Dioxide 19 L (22-30) mmol/L BUN 36 H (7-17) mg/dL Creatinine 1.23 H (0.52-1.04) mg/dL Glucose 293 H (74-99) mg/dL POC Glucose (mg/dL) 292 H (75-99) mg/dL <Tami Reyes - Last Filed: 10/31/21 20:38> Subjective Naif Louie NP rendered care for this patient independently, reviewed the findings and plan as documented in the note above. I did not physically speak with or examine the patient on this date. Objective - Vital Signs Vital signs: Vital Signs Temp 99.1 F 10/31/21 16:00 Pulse 73 10/31/21 16:00 Resp 16 10/31/21 16:00 BP 135/74 10/31/21 16:00 Pulse Ox 100 10/31/21 16:00 Intake & Output 10/31/21 10/31/21 11/01/21 06:59 18:59 06:59 Intake Total 210 Output Total 550 Balance -550 210 Weight 56.699 kg Intake: IV 10 Invasive Line 1 10 Oral 200 Output: Urine 550 Other: Voiding Method Bedside Commode Bedside Commode Diaper # Voids 1 - Labs CBC & Chem 7: 10/31/21 05:16 10/31/21 05:16 Labs: Abnormal Lab Results - Last 24 Hours (Table) 10/30/21 10/31/21 10/31/21 Range/Units 20:41 05:16 05:16 MCV 100.2 H (80.0-100.0) fL Chloride 109 H (98-107) mmol/L Carbon Dioxide 19 L (22-30) mmol/L BUN 36 H (7-17) mg/dL Creatinine 1.23 H (0.52-1.04) mg/dL Glucose 293 H (74-99) mg/dL POC Glucose (mg/dL) 225 H (75-99) mg/dL Hemoglobin A1c (4.0-6.0) % Triglycerides (0.00-149.00) mg/dL VLDL Cholesterol, Calc (5.00-40.00) mg/dL HDL Cholesterol (40.00-60.00) mg/dL Urine Protein (Negative) Urine Glucose (UA) (Negative) Ur Leukocyte Esterase (Negative) Urine WBC (0-5) /hpf Hyaline Casts (0-2) /lpf Urine Mucus (None) /hpf 10/31/21 10/31/21 10/31/21 Range/Units 05:16 05:16 06:31 MCV (80.0-100.0) fL Chloride (98-107) mmol/L Carbon Dioxide (22-30) mmol/L BUN (7-17) mg/dL Creatinine (0.52-1.04) mg/dL Glucose (74-99) mg/dL POC Glucose (mg/dL) 292 H (75-99) mg/dL Hemoglobin A1c 8.7 H (4.0-6.0) % Triglycerides 304.00 H (0.00-149.00) mg/dL VLDL Cholesterol, Calc 60.80 H (5.00-40.00) mg/dL HDL Cholesterol 33.10 L (40.00-60.00) mg/dL Urine Protein (Negative) Urine Glucose (UA) (Negative) Ur Leukocyte Esterase (Negative) Urine WBC (0-5) /hpf Hyaline Casts (0-2) /lpf Urine Mucus (None) /hpf 10/31/21 10/31/21 10/31/21 Range/Units 11:15 13:18 16:30 MCV (80.0-100.0) fL Chloride (98-107) mmol/L Carbon Dioxide (22-30) mmol/L BUN (7-17) mg/dL Creatinine (0.52-1.04) mg/dL Glucose (74-99) mg/dL POC Glucose (mg/dL) 466 H 246 H (75-99) mg/dL Hemoglobin A1c (4.0-6.0) % Triglycerides (0.00-149.00) mg/dL VLDL Cholesterol, Calc (5.00-40.00) mg/dL HDL Cholesterol (40.00-60.00) mg/dL Urine Protein 2+ H (Negative) Urine Glucose (UA) 4+ H (Negative) Ur Leukocyte Esterase Moderate H (Negative) Urine WBC 7 H (0-5) /hpf Hyaline Casts 5 H (0-2) /lpf Urine Mucus Rare H (None) /hpf 10/31/21 Range/Units 20:16 MCV (80.0-100.0) fL Chloride (98-107) mmol/L Carbon Dioxide (22-30) mmol/L BUN (7-17) mg/dL Creatinine (0.52-1.04) mg/dL Glucose (74-99) mg/dL POC Glucose (mg/dL) 319 H (75-99) mg/dL Hemoglobin A1c (4.0-6.0) % Triglycerides (0.00-149.00) mg/dL VLDL Cholesterol, Calc (5.00-40.00) mg/dL HDL Cholesterol (40.00-60.00) mg/dL Urine Protein (Negative) Urine Glucose (UA) (Negative) Ur Leukocyte Esterase (Negative) Urine WBC (0-5) /hpf Hyaline Casts (0-2) /lpf Urine Mucus (None) /hpf
[2021-10-31 20:17] LABS: Glucose,Whole Blood 319 mg/dL (75-99)
[2021-11-01 06:30] LABS: Glucose,Whole Blood 122 mg/dL (75-99)
[2021-11-01] MEDS: INSULIN ASPART (NovoLOG) 100 UNIT/ML VIAL SQ SCH ×3 (06:38→16:40)
[2021-11-01] MEDS: INSULIN DETEMIR (LEVEMIR) 100 UNIT/ML SYR SQ SCH (08:26)
[2021-11-01] MEDS: ENOXAPARIN 30 MG/0.3 ML SYRINGE SQ SCH (08:26)
[2021-11-01] MEDS: FENOFIBRATE 160 MG TAB PO SCH (08:27)
[2021-11-01] MEDS: METOPROLOL SUCCINATE (ER) 100 MG TAB.ER.24H PO SCH (08:27)
[2021-11-01] MEDS: ASPIRIN 325 MG TAB PO SCH (08:27)
[2021-11-01] MEDS: EZETIMIBE 10 MG TAB PO SCH (08:27)
[2021-11-01] MEDS: CLOPIDOGREL 75 MG TAB PO SCH (08:27)
[2021-11-01 11:31] LABS: Glucose,Whole Blood 264 mg/dL (75-99)
--- NOTE | 2021-11-01 15:35 | P.PN ---
<Naif Louie - Last Filed: 11/01/21 15:18> Subjective Progress Note Date: 11/01/21 Hospital course: Patient is a 76-year-old woman who is a person with mental disability and [facility] history of diabetes/hypertension/hyperlipidemia, chronic kidney disease stage III who presented to the emergency department on 10/30/21 with a chief complaint of left-sided weakness and slurred speech beginning approximately 24 hours prior to arrival. She was seen and fully evaluated in the emergency department and found to be hypertensive with blood pressure 175/83, have mild leukocytosis with WBC count of 12.6, and a slightly elevated creatinine of 1.15. EKG demonstrates normal sinus rhythm with left axis deviation, no ischemic changes. Brain CT was negative for intracranial hemorrhage or large vessel occlusion. CT angiography of the head and neck did not demonstrate any high-grade stenosis or occlusion. Patient was loaded with aspirin, and admitted under our services for further stroke workup, neurology consulted. Echocardiogram completed revealing an EF of 50-55% with moderate concentric left ventricular hypertrophy and moderately dilated left atrium. MRI revealed acute edema noted on diffuse weighted imaging within the right portion of the lupe compatible with acute vascular insults. Physical exam: Patient seen and fully evaluated at bedside this morning she continues to have expressive aphasia along with weakness in her left lower extremity. She also continues to have full range of motion, strength, and sensation to her left upper extremity with the exception of left hand in which weakness has returned and she is unable to make a fist or squeeze an object. Patient denies any dysphasia. Patient denies having any headache, lightheadedness, dizziness, chest pain, palpitations, shortness of breath, abdominal pain, nausea, or vomiting. She was updated on her MRI results. She has been placed on Plavix along with aspirin as well as fenofibrate and Zetia secondary to hypertriglyceridemia. Vital signs reviewed and stable. General: Nontoxic, no distress and appears stated age. Derm: Skin warm and dry, normal coloration for ethnicity. Head: Atraumatic, normocephalic and symmetric. Eyes: EOMs intact, no lid lag, and anicteric sclera Mouth: no lip lesions, mucus membranes moist Cardiovascular: regular rate and rhythm with normal S1S2, no murmur, positive posterior tibial pulses bilaterally, and cap refill < 2 seconds. Lungs: Respirations even, regular, and unlabored on room air. Lungs CTA bilaterally, no rhonchi, no rales, no wheezing, and no accessory muscle usage. Abdominal: soft, nontender to palpation, no guarding, no appreciable organomegaly Ext: ROM intact. No gross muscle atrophy, no edema, no contractures Neuro: Expressive aphasia present, face symmetrical and CN II-XII grossly intac t. 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 Patient reports sensation intact. Psych: Alert and oriented to person, place, time, and situation. Appropriate and pleasant affect. Assessment and Plan of Care: Acute CVA Expressive aphasia Left-sided weakness -Telemetry monitoring -MRI of the brain -Neurology consult -Echocardiogram -Lipid panel, TSH, A1c pending -Neurochecks -Aspirin, Plavix, and Lovenox -May resume metoprolol -PT/OT/ST Hypertriglyceridemia Hyperlipidemia -Fenofibrate 160 mg daily. -Zetia 10 mg daily -Continue atorvastatin 40 mg nightly. Hypertension Diabetes type 2 Chronic kidney disease, stage III -Home medications reviewed and reconciled, changes noted above CODE STATUS: Full code DVT prophylaxis: Lovenox Discussed with: Patient and RN Anticipated discharge date: Clinical course to determine Anticipated discharge place: Home versus SNF A total of 40 minutes was spent on the care of this complex patient more than 50% of the time was spent in counseling and care coordination. Objective - Vital Signs Vital signs: Vital Signs Temp 98.8 F 11/01/21 08:00 Pulse 80 11/01/21 08:00 Resp 16 11/01/21 08:00 BP 127/73 11/01/21 08:00 Pulse Ox 98 11/01/21 08:00 Intake & Output 10/31/21 11/01/21 11/01/21 18:59 06:59 18:59 Intake Total 210 118 Output Total 800 Balance 210 -800 118 Intake: IV 10 Invasive Line 1 10 Oral 200 118 Output: Urine 800 Other: Voiding Method Bedside Commode Bedside Commode Bedside Commode Diaper Diaper Diaper # Voids 1 1 - Labs CBC & Chem 7: 10/31/21 05:16 10/31/21 05:16 Labs: Abnormal Lab Results - Last 24 Hours (Table) 10/31/21 10/31/21 10/31/21 Range/Units 05:16 05:16 13:18 POC Glucose (mg/dL) (75-99) mg/dL Hemoglobin A1c 8.7 H (4.0-6.0) % Triglycerides 304.00 H (0.00-149.00) mg/dL VLDL Cholesterol, Calc 60.80 H (5.00-40.00) mg/dL HDL Cholesterol 33.10 L (40.00-60.00) mg/dL Urine Protein 2+ H (Negative) Urine Glucose (UA) 4+ H (Negative) Ur Leukocyte Esterase Moderate H (Negative) Urine WBC 7 H (0-5) /hpf Hyaline Casts 5 H (0-2) /lpf Urine Mucus Rare H (None) /hpf 10/31/21 10/31/21 11/01/21 Range/Units 16:30 20:16 06:02 POC Glucose (mg/dL) 246 H 319 H 122 H (75-99) mg/dL Hemoglobin A1c (4.0-6.0) % Triglycerides (0.00-149.00) mg/dL VLDL Cholesterol, Calc (5.00-40.00) mg/dL HDL Cholesterol (40.00-60.00) mg/dL Urine Protein (Negative) Urine Glucose (UA) (Negative) Ur Leukocyte Esterase (Negative) Urine WBC (0-5) /hpf Hyaline Casts (0-2) /lpf Urine Mucus (None) /hpf <Tami Reyes - Last Filed: 11/01/21 19:30> Subjective Naif Louie NP rendered care for this patient independently, reviewed the findings and plan as documented in the note above. I did not physically speak with or examine the patient on this date. Objective - Vital Signs Vital signs: Vital Signs Temp 98.8 F 11/01/21 08:00 Pulse 80 11/01/21 16:00 Resp 16 11/01/21 16:00 BP 175/74 11/01/21 16:00 Pulse Ox 97 11/01/21 16:00 Intake & Output 11/01/21 11/01/21 11/02/21 06:59 18:59 06:59 Intake Total 354 Output Total 800 Balance -800 354 Intake: Oral 354 Output: Urine 800 Other: Voiding Method Bedside Commode Bedside Commode Diaper Diaper # Voids 1 2 - Labs CBC & Chem 7: 10/31/21 05:16 10/31/21 05:16 Labs: Abnormal Lab Results - Last 24 Hours (Table) 10/31/21 11/01/21 11/01/21 Range/Units 20:16 06:02 11:29 POC Glucose (mg/dL) 319 H 122 H 264 H (75-99) mg/dL 11/01/21 Range/Units 16:29 POC Glucose (mg/dL) 343 H (75-99) mg/dL
[2021-11-01 16:31] LABS: Glucose,Whole Blood 343 mg/dL (75-99)
--- NOTE | 2021-11-01 19:15 | P.PN ---
Subjective Progress Note Date: 11/01/21 Patient was seen for a follow-up. Offers no new complaints. Continues to feel weak on the left side. Objective - Vital Signs Vital signs: Vital Signs Temp 98.8 F 11/01/21 08:00 Pulse 80 11/01/21 16:00 Resp 16 11/01/21 16:00 BP 175/74 11/01/21 16:00 Pulse Ox 97 11/01/21 16:00 Intake & Output 11/01/21 11/01/21 11/02/21 06:59 18:59 06:59 Intake Total 354 Output Total 800 Balance -800 354 Intake: Oral 354 Output: Urine 800 Other: Voiding Method Bedside Commode Bedside Commode Diaper Diaper # Voids 1 2 - Exam Patient is an elderly female, in no acute distress. Patient is alert awake oriented to time place and person. Speech is mildly slurred and language functions are normal. She can name and repeat. Attention, concentration is intact and fund of knowledge is mild to moderately impaired. On cranial examination, pupils are round and reacting to light, visual engel are full on confrontation, extraocular muscles are intact with no nystagmus. Patient has left facial weakness, central type. Her tongue protrudes to the midline. Palatal elevation and sensation normal, hearing is at least moderately decreased and shoulder shrug normal, facial sensation normal. Shoulder shrug normal. On muscle strength testing, there is left-sided pronator drift, almost hits the bed and the strength is (right/left), deltoid has some pain bilaterally right worse. Biceps 5/4+, triceps 5/4, court clerk is weak bilaterally, but left is worse 4- . Had hip flexion are weak bilaterally 4-/3+. Ankle dorsiflexion is 5/4. Deep tendon reflexes are 1+ in the upper limbs, 2+ at the knees, plantar is probably down on the right, but upon left. Sensory to touch is equal bilaterally, but temperature is decreased in the left side as compared to the right. (This is the correct exam, yesterday exam switched in error) Cerebellar function showed moderate ataxia for [id number] testing on the left (was present yesterday also). Tone and bulk of muscles normal. Gait deferred. 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 * Hypertension, not controlled * Diabetes, not controlled * History of mild developmental delays * Hard of hearing Plan: * MRI of the brain confirmed acute right pontine ischemic infarct. * Patient to be placed on dual antiplatelet medications aspirin 81 mg and Plavix 75 mg for 21 days. Then may stop Plavix and continue aspirin 81 mg indefinitely. * CTA of head and neck showed no large vessel occlusion, no significant stenosis. * 2-D echo revealed normal left ventricle size. Moderate concentric LVH. Left ventricular systolic function is low normal with EF between 50-55%. The right ventricle is normal in size. Left atrium is moderately dilated. Mild MR. * Hemoglobin A1c 8.7. Optimize control of diabetes to target A1c <7.0 * Lipid panel with cholesterol 198, LDL 104, HDL 33 and triglycerides 304. Continue Lipitor 40 mg. Patient placed on fenofibrate 160 mg daily. * Telemetry monitoring, showing sinus rhythm in the 70s. No other arrhythmia. * PT OT, speech therapy. * Blood pressure is 175/74. Continue permissive hypertension for 24 hours. * DVT prophylaxis. * Consider consultation with PMNR.
[2021-11-01 20:27] LABS: Glucose,Whole Blood 226 mg/dL (75-99)
[2021-11-01] MEDS ORDERED: INSULIN DETEMIR (LEVEMIR) 100 UNIT/ML SYR SQ SCH (21:00)
[2021-11-01] MEDS: ATORVASTATIN 40 MG TAB PO SCH (21:42)
[2021-11-02 05:42] VITALS: TEMP 97.9
[2021-11-02 06:19] LABS: Glucose,Whole Blood 139 mg/dL (75-99)
[2021-11-02] MEDS: INSULIN ASPART (NovoLOG) 100 UNIT/ML VIAL SQ SCH ×2 (06:34→12:30)
[2021-11-02] MEDS: ENOXAPARIN 30 MG/0.3 ML SYRINGE SQ SCH (08:21)
[2021-11-02] MEDS: INSULIN DETEMIR (LEVEMIR) 100 UNIT/ML SYR SQ SCH (08:21)
[2021-11-02] MEDS: CLOPIDOGREL 75 MG TAB PO SCH (08:22)
[2021-11-02] MEDS: ASPIRIN 325 MG TAB PO SCH (08:22)
[2021-11-02] MEDS: EZETIMIBE 10 MG TAB PO SCH (08:22)
[2021-11-02] MEDS: METOPROLOL SUCCINATE (ER) 100 MG TAB.ER.24H PO SCH (08:22)
[2021-11-02] MEDS: FENOFIBRATE 160 MG TAB PO SCH (08:22)
[2021-11-02 08:25] VITALS: RESP 16
--- NOTE | 2021-11-02 11:25 | P.DS ---
<Naif Louie - Last Filed: 11/02/21 12:52> Providers Expected date of discharge: 11/02/21 Hospital Course: Discharge Diagnosis: Acute ischemic CVA of the right lupe resulting in left-sided residual deficits and expressive aphasia Hypertriglyceridemia Hyperlipidemia Hypertension Diabetes type 2 with hemoglobin A1c of 8.7%. Chronic kidney disease, stage III Hospital Course: Patient is a 76-year-old woman who is a person with mental disability and medical history of diabetes/hypertension/hyperlipidemia, chronic kidney disease stage III who presented to the emergency department on 10/30/21 with a chief complaint of left-sided weakness and slurred speech beginning approximately 24 hours prior to arrival. She was seen and fully evaluated in the emergency department and found to be hypertensive with blood pressure 175/83, have mild leukocytosis with WBC count of 12.6, and a slightly elevated creatinine of 1.15. EKG demonstrates normal sinus rhythm with left axis deviation, no ischemic changes. Brain CT was negative for intracranial hemorrhage or large vessel occlusion. CT angiography of the head and neck did not demonstrate any high- grade stenosis or occlusion. Patient was loaded with aspirin, and admitted under our services for further stroke workup, neurology consulted. Echocardiogram completed revealing an EF of 50-55% with moderate concentric left ventricular hypertrophy and moderately dilated left atrium. MRI revealed acute edema noted on diffuse weighted imaging within the right portion of the lupe compatible with acute vascular insults. He medical and A1c 8.7. Lipid profile revealed elevated triglycerides at 304. Patient has been diagnosed with an acute ischemic CVA of the right lupe. She was started on dual antiplatelet therapy with Plavix and aspirin. Patient medically stabilized however she continues to have left-sided residual deficit and left lower extremity and left hand. Patient being discharged to rehabilitation Center where she will continue to receive PT/OT. Patient has been accepted at [facility]. Pt being discharged home on Lopid, Zetia, Atorvastatin, aspirin, and Plavix. Patient to continue Levemir, NovoLog sliding scale and scheduled insulin with meals and encouraged to follow heart healthy carb consistent diet to improve A1c and triglyceride levels. Patient to follow-up with neurology and PCP. Physical exam: Vital signs reviewed and stable. General: Nontoxic, no distress and appears stated age. Derm: Skin warm and dry, normal coloration for ethnicity. Head: Atraumatic, normocephalic and symmetric. Eyes: EOMs intact, no lid lag, and anicteric sclera Mouth: no lip lesions, mucus membranes moist Cardiovascular: regular rate and rhythm with normal S1S2, no murmur, positive posterior tibial pulses bilaterally, and cap refill < 2 seconds. Lungs: Respirations even, regular, and unlabored on room air. Lungs CTA bilaterally, no rhonchi, no rales, no wheezing, and no accessory muscle usage. Abdominal: soft, nontender to palpation, no guarding, no appreciable organomegaly Ext: ROM intact. No gross muscle atrophy, no edema, no contractures Neuro: Expressive aphasia present, face symmetrical and CN II-XII grossly intac t. 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 Patient reports sensation intact. Psych: Alert and oriented to person, place, time, and situation. Appropriate and pleasant affect. A total of 45 minutes of time were spent preparing this complex discharge summary. Patient Condition at Discharge: Stable Plan - Discharge Summary Discharge Rx Participant: No New Discharge Prescriptions: New Atorvastatin [Lipitor] 40 mg PO HS 30 Days #30 tab Pantoprazole [Protonix] 40 mg PO DAILY 30 Days #30 tab Aspirin 325 mg PO DAILY 30 Days #30 tab Clopidogrel [Plavix] 75 mg PO DAILY 30 Days #30 tab Continue gemfibroziL [Lopid] 600 mg PO BID Ezetimibe [Zetia] 10 mg PO DAILY hydroCHLOROthiazide 25 mg PO DAILY amLODIPine [Norvasc] 5 mg PO DAILY #30 tab Insulin Detemir (Levemir) [Levemir] 45 unit SQ HS Insulin Detemir (Levemir) [Levemir] 50 unit SQ QAM INSULIN ASPART (NovoLOG) [NovoLOG (formulary)] See Protocol SQ BID-W/MEALS INSULIN ASPART (NovoLOG) [NovoLOG (formulary)] 10 unit SQ DAILY@1200 Metoprolol Succinate [Toprol XL] 100 mg PO DAILY Discharge Medication List Ezetimibe [Zetia] 10 mg PO DAILY 08/26/15 [History] gemfibroziL [Lopid] 600 mg PO BID 08/26/15 [History] hydroCHLOROthiazide 25 mg PO DAILY 08/26/15 [History] amLODIPine [Norvasc] 5 mg PO DAILY #30 tab 08/31/15 [Rx] INSULIN ASPART (NovoLOG) [NovoLOG (formulary)] 10 unit SQ DAILY@1200 10/30/21 [History] INSULIN ASPART (NovoLOG) [NovoLOG (formulary)] See Protocol SQ BID-W/MEALS 10/30/21 [History] Insulin Detemir (Levemir) [Levemir] 45 unit SQ HS 10/30/21 [History] Insulin Detemir (Levemir) [Levemir] 50 unit SQ QAM 10/30/21 [History] Metoprolol Succinate [Toprol XL] 100 mg PO DAILY 10/30/21 [History] Aspirin 325 mg PO DAILY 30 Days #30 tab 11/02/21 [Rx] Atorvastatin [Lipitor] 40 mg PO HS 30 Days #30 tab 11/02/21 [Rx] Clopidogrel [Plavix] 75 mg PO DAILY 30 Days #30 tab 11/02/21 [Rx] Pantoprazole [Protonix] 40 mg PO DAILY 30 Days #30 tab 11/02/21 [Rx] Follow up Appointment(s)/Referral(s): Ezequiel Lambert MD [REFERRING] - 1-2 Days Nazia Girard MD [Medical Doctor] - 1 Week Activity/Diet/Wound Care/Special Instructions: Activity: As tolerated. Take breaks as needed. Diet: Heart healthy and carb consistent diet. Avoid salts, or foods with hidden salts such as canned or boxed foods and frozen dinners. Extra salt makes your heart work harder and traps the fluid in your body for longer. Special Instructions: Take all of your medications as directed and remember to keep all of your doctor's appointments and follow-up as needed. Wishing you a happy and healthy New Year!!! Thank you for allowing us to participate in your care, it was truly a pleasure having you for our patient!!! Discharge Disposition: TRANSFER TO SNF/ECF <EricTami A - Last Filed: 11/02/21 18:30> Providers Date of admission: 10/30/21 19:23 Attending physician: Trina Mustafa MD Consults: 10/30/21 19:24 Consult Physician Routine Consulting Provider: Leobardo Reid Consult Reason/Comments: cva Do you want consulting provider notified?: Yes Primary care physician: Stated None Hospital Course: Naif Louie NP rendered care for this patient independently, reviewed the findings and plan as documented in the note above. I did not physically speak with or examine the patient on this date.
[2021-11-02 11:48] LABS: Glucose,Whole Blood 320 mg/dL (75-99)
[2021-11-02 13:42] VITALS: BP 143/67; PULSE 78
== END 2021-11-02 15:08 | DRG 65 ==
LOC: EC 16:17 → 3SCARD 19:23
PROVIDERS: ADMIT Internal Medicine; ATTEND Internal Medicine
DX: I63.9 Cerebral infarction, unspecified (principal); G81.94 Hemiplegia, unspecified affecting left nondominant side; R29.810 Facial weakness; R47.81 Slurred speech; D72.829 Elevated white blood cell count, unspecified; E11.22 Type 2 diabetes mellitus with diabetic chronic kidney disease; E78.1 Pure hyperglyceridemia; E78.5 Hyperlipidemia, unspecified; E87.70 Fluid overload, unspecified; H91.90 Unspecified hearing loss, unspecified ear; I12.9 Hypertensive chronic kidney disease with stage 1 through stage 4 chronic kidney disease, or unspecified chronic kidney disease; I51.7 Cardiomegaly; Z20.822 Contact with and (suspected) exposure to COVID-19; N18.30 Chronic kidney disease, stage 3 unspecified; R47.01 Aphasia; Z79.4 Long term (current) use of insulin; Z79.899 Other long term (current) drug therapy; Z83.3 Family history of diabetes mellitus; Z90.710 Acquired absence of both cervix and uterus; F79 Unspecified intellectual disabilities
CPT/HCPCS: 36415; 70450; 70496; 70498; 70551; 71045; 80048; 80061; 81001; 83036; 83735; 84443; 85025; 85610; 85730; 87635; 93005; 93306; 99285

== ENCOUNTER → 2023-12-15 | Outpatient (CLI) | payer MEDICARE ==
[2023-12-15 13:30] LABS: Eosinophils # (A) 0.23 X 10*3/uL (0.04-0.35); Eosinophils % (A) 2.3 %; Lymphocytes # (A) 2.19 X 10*3/uL (0.90-5.00); Lymphocytes % (A) 22.1 %; MCH 29.5 pg (27.0-32.0); MCHC 32.4 g/dL (32.0-37.0); MCV 90.9 FL (80.0-97.0); Mean Platelet Volume 11.9 FL (9.5-12.2); Monocytes # (A) 0.73 X 10*3/uL (0.20-1.00); Monocytes % (A) 7.4 %; NRBC Per 100 WBC 0 X 10*3/uL (0.00-0.01); Neutrophils # (A) 6.63 X 10*3/uL (1.80-7.70); Neutrophils % (A) 66.7 %; Platelet Count 406 X 10*3/uL (140-440); RBC 4.07 X 10*6/uL (4.10-5.20); RDW 13.2 % (11.5-14.5); WBC 9.93 X 10*3/uL (4.50-10.00)
[2023-12-15 15:13] LABS: ALT 17 U/L (8-44); AST 28 U/L (13-35); Albumin 3.9 g/dL (3.8-4.9); Albumin/Globulin Ratio 1.08 Ratio (1.60-3.17); Alkaline Phosphatase 121 U/L (41-126); BUN/Creat Ratio 20.69 Ratio (12.00-20.00); Blood Urea Nitrogen 26.9 mg/dL (9.0-27.0); Calcium 9.5 mg/dL (8.7-10.3); Chloride 105 mmol/L (96-109); Chol/HDL Ratio 5.61 Ratio; Globulin 3.6 g/dL (1.6-3.3); Glucose 122 mg/dL (70-110); LDL Cholesterol,Calculated 111.5 mg/dL (0.0-131.0); Potassium 4.3 mmol/L (3.5-5.5); Sodium 143 mmol/L (135-145); Total Bilirubin <0.2 mg/dL (0.3-1.2); Total Protein 7.5 g/dL (6.2-8.2)
== END | disposition home or self-care (01) ==
LOC: LABWHC1 09:41
PROVIDERS: ATTEND Student in an Organized Health Care Education/Training Program
DX: Z79.899 Other long term (current) drug therapy (principal)
CPT/HCPCS: 36415; 80053; 80061; 82306; 83036; 85025

== ENCOUNTER 2024-04-16 12:03 | Emergency (ER) | payer MEDICARE ==
[2024-04-16 12:15] VITALS: TEMP 98
[2024-04-16] MEDS: DIPH,PERTUS(ACELL)TETVAC-LF 0.5 ML VIAL IM ONE (12:35)
[2024-04-16 12:43] LABS: Basophils % (A) 0 %; Eosinophils % (A) 0 %; HCT 29.1 % (34.0-46.0); HGB 9.5 gm/dL (11.4-16.0); Lymphocytes # (A) 1.2 k/uL (1.0-4.8); Lymphocytes % (A) 13 %; MCHC 32.8 g/dL (31.0-37.0); MCV 94.6 fL (80.0-100.0); Monocytes # (A) 0.5 k/uL (0-1.0); Monocytes % (A) 5 %; Neutrophils # (A) 7.2 k/uL (1.3-7.7); Neutrophils % (A) 77 %; Platelet Count 290 k/uL (150-450); RBC 3.08 m/uL (3.80-5.40); RDW 14.5 % (11.5-15.5); WBC 9.3 k/uL (3.8-10.6)
--- NOTE | 2024-04-16 12:43 | ED ---
General Adult HPI - General Chief complaint: Fall Stated complaint: fall head injury Time Seen by Provider: 04/16/24 12:10 Source: patient, EMS, RN notes reviewed, old records reviewed, Caregiver Mode of arrival: EMS Limitations: no limitations - History of Present Illness Initial comments: This is a 79-year-old female who presents to the emergency department with a past medical history significant for stroke and Plavix. Patient comes in today because she fell hit her head and there was quite a bit of bleeding. Patient denies any loss of consciousness. Patient denies any neck pain patient has numbness weakness. Patient denies any significant headache. Patient denies being lightheaded or dizzy prior to the fall she just tripped and fell. Patient denies any chest or back pain. Patient also complains of the right middle finger causing her quite a bit of pain and she is unable to straighten it. Patient states the finger hurts more than anything she has a little bit of pain where the scalp is bleeding. - Related Data Home Medications Medication Instructions Recorded Confirmed Ezetimibe [Zetia] 10 mg PO DAILY 08/26/15 10/30/21 gemfibroziL [Lopid] 600 mg PO BID 08/26/15 10/30/21 hydroCHLOROthiazide 25 mg PO DAILY 08/26/15 10/30/21 INSULIN ASPART (NovoLOG) [NovoLOG 10 unit SQ DAILY@1200 10/30/21 10/30/21 (formulary)] INSULIN ASPART (NovoLOG) [NovoLOG See Protocol SQ BID-W/MEALS 10/30/21 10/30/21 (formulary)] Insulin Detemir (Levemir) [Levemir] 45 unit SQ HS 10/30/21 10/30/21 Insulin Detemir (Levemir) [Levemir] 50 unit SQ QAM 10/30/21 10/30/21 Metoprolol Succinate [Toprol XL] 100 mg PO DAILY 10/30/21 10/30/21 Previous Rx's Medication Instructions Recorded amLODIPine [Norvasc] 5 mg PO DAILY #30 tab 08/31/15 Aspirin 325 mg PO DAILY 30 Days #30 tab 11/02/21 Atorvastatin [Lipitor] 40 mg PO HS 30 Days #30 tab 11/02/21 Clopidogrel [Plavix] 75 mg PO DAILY 30 Days #30 tab 11/02/21 Pantoprazole [Protonix] 40 mg PO DAILY 30 Days #30 tab 11/02/21 Allergies Allergy/AdvReac Type Severity Reaction Status Date / Time No Known Allergies Allergy Verified 04/16/24 12:15 Review of Systems ROS Statement: Those systems with pertinent positive or pertinent negative responses have been documented in the HPI. ROS Other: All systems not noted in ROS Statement are negative. 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 History of Any Multi-Drug Resistant Organisms: None Reported Past Surgical History: Appendectomy, Hysterectomy, Tonsillectomy Past Psychological History: No Psychological Hx Reported Smoking Status: Never smoker Past Alcohol Use History: None Reported Past Drug Use History: None Reported - Past Family History Father Family Medical History: Cancer, Diabetes Mellitus Additional Family Medical History / Comment(s): prostate and lung Mother Family Medical History: Cancer Additional Family Medical History / Comment(s): colon General Exam - General Exam Comments Initial Comments: GENERAL: Patient is well-developed and well-nourished. Patient is nontoxic and well- hydrated and is in mild distress. ENT: Neck is soft and supple. No significant lymphadenopathy is noted. Oropharynx is clear. Moist mucous membranes. Neck has full range of motion without eliciting any pain. EYES: The sclera were anicteric and conjunctiva were pink and moist. Extraocular movements were intact and pupils were equal round and reactive to light. Eyelids were unremarkable. PULMONARY: Unlabored respirations. Good breath sounds bilaterally. No audible rales rhonchi or wheezing was noted. CARDIOVASCULAR: There is a regular rate and rhythm without any murmurs gallops or rubs. ABDOMEN: Soft and nontender with normal bowel sounds. No palpable organomegaly was noted. There is no palpable pulsatile mass. SKIN: Patient has a scalp laceration NEUROLOGIC: Patient is alert and oriented x3. Cranial nerves II through XII are grossly intact. Motor and sensory are also intact. Normal speech, volume and content. Symmetrical smile. Cerebellar exam grossly intact. MUSCULOSKELETAL: The right middle finger is bent at the PIP joint and she is unable to completely extend at it is stuck in flexed position LYMPHATICS: No significant lymphadenopathy is noted PSYCHIATRIC: Normal psychiatric evaluation. Limitations: no limitations Course Vital Signs 04/16/24 04/16/24 04/16/24 12:09 13:47 14:06 Temperature 98.0 F Pulse Rate 78 77 77 Respiratory 16 18 18 Rate Blood Pressure 130/60 127/63 142/70 O2 Sat by Pulse 98 97 97 Oximetry Procedures - Orthopedic Joint Reduction Joint #1 Consent Obtained: verbal consent Side: right Joint Reduction Location: finger Analgesia: digital block Local Anesthetic Used: Lidocaine 1% Technique Used: traction/counter-traction Post Reduction X-Ray Obtained: No Post Reduction X-Ray Results: reduced Patient Tolerated Procedure: well Medical Decision Making - Medical Decision Making EKG is interpreted by myself but EKG shows a sinus rhythm at 77 bpm parables under 46 QRS is 82 QT interval is 387 QTc is 419. Patient's EKG shows no ST seg ment elevation Was pt. sent in by a medical professional or institution (ROGER Hinds, RING ROLLING MACHINE OPERATOR, urgent care, hospital, or skilled nursing...) When possible be specific @ -No Did you speak to anyone other than the patient for history (EMS, parent, family, police, friend...)? What history was obtained from this source @ -No Did you review nursing and triage notes (agree or disagree)? Why? @ -I reviewed and agree with nursing and triage notes Were old charts reviewed (outside hosp., previous admission, EMS record, old EKG, old radiological studies, urgent care reports/EKG's, skilled nursing records)? Report findings @ -No old charts were reviewed Differential Diagnosis (chest pain, altered mental status, abdominal pain women, abdominal pain men, vaginal bleeding, weakness, fever, dyspnea, syncope, headac he, dizziness, GI bleed, back pain, seizure, CVA, palpatations, mental health, musculoskeletal)? @ -Cervical spine fracture, skull fracture, subdural, intraparenchymal hemorrhage, subarachnoid, this is not an all-inclusive list EKG interpreted by me (3pts min.). @ -As above X-rays interpreted by me (1pt min.). @ -X-ray of the finger shows no obvious fracture possible dislocation of the PIP joint. CT interpreted by me (1pt min.). @ -CT of the brain shows a subdural acute hemorrhage. 8 mm in thickness. Patient has no cervical spine fracture on the CT of the C-spine U/S interpreted by me (1pt. min.). @ -None done What testing was considered but not performed or refused? (CT, X-rays, U/S, lab s)? Why? @ -None What meds were considered but not given or refused? Why? @ -None Did you discuss the management of the patient with other professionals (professionals i.e. ., PA, RING ROLLING MACHINE OPERATOR, lab, RT, psych nurse, psychosocial rehabilitation counselor, party bus driver, teacher, medical corps officer, community case manager)? Give summary @ -I spoke with Susanann Hook and he accepted the patient. Was smoking cessation discussed for >3mins.? @ -No Was critical care preformed (if so, how long)? @ -35 minutes Were there social determinants of health that impacted care today? How? (Homelessness, low income, unemployed, alcoholism, drug addiction, transportation, low edu. Level, literacy, decrease access to med. care, correction, rehab)? @ -No Was there de-escalation of care discussed even if they declined (Discuss DNR or withdrawal of care, Hospice)? DNR status @ -No What co-morbidities impacted this encounter? (DM, HTN, Smoking, COPD, CAD, Cancer, CVA, ARF, Chemo, Hep., AIDS, mental health diagnosis, sleep apnea, morbid obesity)? @ -None Was patient admitted / discharged? Hospital course, mention meds given and route, prescriptions, significant lab abnormalities, going to OR and other pertinent info. @ -I did a digital block in the patient's middle finger and put the PIP joint back in place. Patient had a subdural hemorrhage I spoke with trauma service at [facility] and will be transferring the patient there Undiagnosed new problem with uncertain prognosis? @ -No Drug Therapy requiring intensive monitoring for toxicity (Heparin, Nitro, Insulin, Cardizem)? @ -No Were any procedures done? @ -No Diagnosis/symptom? @ -Subdural hemorrhage Acute, or Chronic, or Acute on Chronic? @ -Acute Uncomplicated (without systemic symptoms) or Complicated (systemic symptoms)? @ -Complicated Side effects of treatment? @ -No Exacerbation, Progression, or Severe Exacerbation? @ -No Poses a threat to life or bodily function? How? (Chest pain, USA, VT, pneumonia, PE, COPD, DKA, ARF, appy, cholecystitis, CVA, Diverticulitis, Homicidal, Suicidal, threat to staff... and all critical care pts) @ -Yes this can lead to further bleeding and midline shift which can cause morbidity or mortality. Diagnosis/symptom? @ -PIP joint dislocation Acute, or Chronic, or Acute on Chronic? @ -Acute Uncomplicated (without systemic symptoms) or Complicated (systemic symptoms)? @ -Uncomplicated Side effects of treatment? @ -None Exacerbation, Progression, or Severe Exacerbation] @ -No Poses a threat to life or bodily function? @ -No - Lab Data Result diagrams: 04/16/24 12:27 04/16/24 12: Lab Results 04/16/24 04/16/24 04/16/24 Range/Units 12: 12: 12: WBC 9.3 (3.8-10.6) k/uL RBC 3.08 L (3.80-5.40) m/uL Hgb 9.5 L (11.4-16.0) gm/dL Hct 29.1 L (34.0-46.0) % MCV 94.6 (80.0-100.0) fL MCH 31.0 (25.0-35.0) pg MCHC 32.8 (31.0-37.0) g/dL RDW 14.5 (11.5-15.5) % Plt Count 290 (150-450) k/uL MPV 10.0 Neutrophils % 77 % Lymphocytes % 13 % Monocytes % 5 % Eosinophils % 0 % Basophils % 0 % Neutrophils # 7.2 (1.3-7.7) k/uL Lymphocytes # 1.2 (1.0-4.8) k/uL Monocytes # 0.5 (0-1.0) k/uL Eosinophils # 0.0 (0-0.7) k/uL Basophils # 0.0 (0-0.2) k/uL PT 10.5 (10.0-12.5) sec INR 1.0 (<1.2) APTT 22.5 (22.0-30.0) sec Sodium 138 (137-145) mmol/L Potassium 4.7 (3.5-5.1) mmol/L Chloride 112 H (98-107) mmol/L Carbon Dioxide 17 L (22-30) mmol/L Anion Gap 9 mmol/L BUN 39 H (7-17) mg/dL Creatinine 1.42 H (0.52-1.04) mg/dL Est GFR (CKD-EPI)AfAm 41 (>60 ml/min/1.73 sqM) Est GFR (CKD-EPI)NonAf 36 (>60 ml/min/1.73 sqM) Glucose 441 H (74-99) mg/dL Calcium 7.6 L (8.4-10.2) mg/dL Total Bilirubin 0.3 (0.2-1.3) mg/dL AST 23 (14-36) U/L ALT 14 (4-34) U/L Alkaline Phosphatase 86 (38-126) U/L Total Protein 5.9 L (6.3-8.2) g/dL Albumin 3.1 L (3.5-5.0) g/dL Disposition Clinical Impression: Fall, Subdural hemorrhage, Dislocation of PIP joint of finger Disposition: OTHER INSTITUTION NOT DEFINED Referrals: Lana Hunter [Primary Care Provider] - 1-2 days Time of Disposition: 14:13 - Out of Hospital Transfer - Req. Specs Out of Hospital Transfer - Requested Specifics: Other Emergency Center (Susan Funez)
[2024-04-16 12:47] LABS: Partial Thromboplastin Time 22.5 sec (22.0-30.0); Prothrombin Time 10.5 sec (10.0-12.5)
[2024-04-16 12:50] LABS: ALT 14 U/L (4-34); AST 23 U/L (14-36); African American GFR (CKD) 41 (>60 ml/min/1.73 sqM); Albumin 3.1 g/dL (3.5-5.0); Alkaline Phosphatase 86 U/L (38-126); Anion Gap 9 mmol/L; Blood Urea Nitrogen 39 mg/dL (7-17); Calcium 7.6 mg/dL (8.4-10.2); Carbon Dioxide 17 mmol/L (22-30); Chloride 112 mmol/L (98-107); Glucose 441 mg/dL (74-99); Non-African American GFR(CKD) 36 (>60 ml/min/1.73 sqM); Potassium 4.7 mmol/L (3.5-5.1); Sodium 138 mmol/L (137-145); Total Bilirubin 0.3 mg/dL (0.2-1.3); Total Protein 5.9 g/dL (6.3-8.2)
--- NOTE | 2024-04-16 13:00 | XR ---
EXAMINATION TYPE: XR finger RT DATE OF EXAM: 04/16/2024 CLINICAL HISTORY: pain TECHNIQUE: 5 views of the right-sided digits are submitted. The study is limited given overlapping os seous structures and soft tissues. The third digit is fixed in flexion at the PIP joint correlate for dislocation. There is well-corticated ossific density at the third metacarpal head which could refle ct a fracture. Correlate clinically point tenderness. COMPARISON: None FINDINGS: The study is limited given overlapping osseous structures and soft tissues. The third digit is fixed in flexion at the PIP joint correlate for dislocation. There is well-corticated ossific den sity at the third metacarpal head which could reflect a fracture versus ossicle. Correlate clinically point tenderness. IMPRESSION: As above
--- NOTE | 2024-04-16 13:43 | CT ---
EXAMINATION TYPE: CT brain cspine wo con DATE OF EXAM: 04/16/2024 COMPARISON: Prior brain CT October 30, 2021 HISTORY: FELL AND HIT HER HEAD ON TOILET. Trauma injury. CT DLP: 1273.6 mGycm. Automated Exposure Control for Dose Reduction was Utilized. TECHNIQUE: CT scan of the head and cervical spine are performed without contrast. FINDINGS: There is right-sided acute extra-axial dural or subdural hemorrhage measuring up to 8 mm in thickness axial image 35. Perhaps minimal left-sided midline shift. No new hydrocephalus. The calvar ium is intact.. Cervical spine is visualized in its entirety from C1 through upper thoracic levels and demonstrates s light grade 1 retrolisthesis C4 on C5 without evidence of acute fracture or dislocation. Prevertebra l soft tissue appears within normal limits. The C1-C2 articulation is within normal limits on the co halle images. Vertebral body heights are maintained. Moderate disc space narrowing and spurring at C 4-C5 and C5-C6 levels is seen. Lung apices are clear without pneumothorax. Mild/moderate calcified pl aque right carotid bulb level is seen. Multilevel facet arthropathy noted on axial images. IMPRESSION: 1. There is no acute fracture or dislocation evident in the cervical spine. 2. There is small right-sided acute subdural hemorrhage up to 8 mm with perhaps minimal left-sided sh ift. Results of acute intracranial hemorrhage discussed with ordering emergency room physician by phone nakul navarro at time of dictation.
[2024-04-16 13:49] VITALS: RESP 18
[2024-04-16] MEDS: LIDOCAINE 1% INJ 10MG/ML (20 ML MDV) SQ ONE (13:49)
[2024-04-16 14:53] VITALS: BP 135/74; PULSE 77
== END 2024-04-16 14:56 | disposition other institution (70) ==
LOC: EC 12:03
DX: S06.5X0A Traumatic subdural hemorrhage without loss of consciousness, initial encounter (principal); S63.272A Dislocation of unspecified interphalangeal joint of right middle finger, initial encounter; R40.2362 Coma scale, best motor response, obeys commands, at arrival to emergency department; R40.2142 Coma scale, eyes open, spontaneous, at arrival to emergency department; R40.2242 Coma scale, best verbal response, confused conversation, at arrival to emergency department; Z23 Encounter for immunization; Z86.73 Personal history of transient ischemic attack (TIA), and cerebral infarction without residual deficits; Z79.02 Long term (current) use of antithrombotics/antiplatelets; W01.0XXA Fall on same level from slipping, tripping and stumbling without subsequent striking against object, initial encounter
CPT/HCPCS: 99291; 90471; 36415; 93005; 80053; 85025; 85610; 85730; 73140; 72125; 70450; 90715; 26770; J2001

== ENCOUNTER 2024-07-07 17:31 | Inpatient (IN) | payer MEDICARE ==
[2024-07-07 17:35] LABS: Glucose,Whole Blood 39 mg/dL (70-110)
[2024-07-07] MEDS: DEXTROSE 50% SYRINGE 50 ML IVP STA (17:42)
[2024-07-07 17:59] LABS: Glucose,Whole Blood 205 mg/dL (70-110)
[2024-07-07 18:05] LABS: Anisocytosis Slight; Basophils % (A) 0 %; Eosinophils % (A) 0 %; HCT 33.8 % (34.0-46.0); HGB 10.7 gm/dL (11.4-16.0); Hypochromasia Moderate; Lymphocytes # (A) 0.4 k/uL (1.0-4.8); Lymphocytes % (A) 3 %; MCH 29.1 pg (25.0-35.0); MCHC 31.6 g/dL (31.0-37.0); MCV 91.9 fL (80.0-100.0); Monocytes # (A) 0.4 k/uL (0-1.0); Monocytes % (A) 4 %; Neutrophils # (A) 11.1 k/uL (1.3-7.7); Neutrophils % (A) 92 %; Platelet Count 223 k/uL (150-450); RBC 3.67 m/uL (3.80-5.40); RDW 16.7 % (11.5-15.5)
[2024-07-07 18:16] LABS: ALT 18 U/L (4-34); AST 26 U/L (14-36); African American GFR (CKD) 46 (>60 ml/min/1.73 sqM); Albumin 2.8 g/dL (3.5-5.0); Alkaline Phosphatase 113 U/L (38-126); Anion Gap 8 mmol/L; Blood Urea Nitrogen 27 mg/dL (7-17); Calcium 8.2 mg/dL (8.4-10.2); Carbon Dioxide 19 mmol/L (22-30); Chloride 107 mmol/L (98-107); Glucose 353 mg/dL (74-99); Magnesium 1.2 mg/dL (1.6-2.3); Non-African American GFR(CKD) 40 (>60 ml/min/1.73 sqM); Potassium 4.2 mmol/L (3.5-5.1); Sodium 134 mmol/L (137-145); Total Bilirubin 0.4 mg/dL (0.2-1.3); Total Protein 5.5 g/dL (6.3-8.2)
[2024-07-07 18:17] LABS: Glucose,Whole Blood 141 mg/dL (70-110)
[2024-07-07 18:24] LABS: Appearance,Urine Turbid (Clear); Bacteria,Urine Occasional /hpf; Bilirubin,Urine Negative (Negative); Blood,Urine Large (Negative); Color,Urine Red; Glucose,Urine (UA) Trace (Negative); Ketones,Urine Negative (Negative); Leukocyte Esterase,Urine Large (Negative); Nitrite,Urine Negative (Negative); Protein,Urine 2+ (Negative); RBC,Urine >182 /hpf (0-5); Specific Gravity,Urine 1.019 (1.001-1.035); Urobilinogen,Urine <2.0 mg/dL (<2.0); WBC,Urine >182 /hpf (0-5)
[2024-07-07 18:34] LABS: Glucose,Whole Blood 128 mg/dL (70-110)
--- NOTE | 2024-07-07 18:49 | ED ---
General Adult HPI - General Chief complaint: Altered Mental Status Stated complaint: AMS Time Seen by Provider: 07/07/24 17:37 Source: EMS Mode of arrival: EMS Limitations: altered mental status - History of Present Illness Initial comments: Dictation was produced using [employer] dictation software. please excuse any grammatical, word or spelling errors. 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 Per EMS patient was in her usual state of health when all of a sudden she had some seizure-like activity lasted for several seconds. She had her sugar checked was found to be extremely low. EMS was contacted patient was brought to the ER. Was attempted to be corrected by staff however unsuccessful. Is a poor historian secondary to mental debility. Allegedly tested positive for influenza A recently. She was just taken off her steroids per EMS. Obtain ROS secondary to mental status - Related Data Home Medications Medication Instructions Recorded Confirmed gemfibroziL [Lopid] 600 mg PO DAILY 08/26/15 07/07/24 Insulin Detemir (Levemir) [Levemir] 30 unit SQ Q12H 10/30/21 07/07/24 Metoprolol Succinate [Toprol XL] 100 mg PO DAILY 10/30/21 07/07/24 Aspirin EC [Ecotrin Low Dose] 81 mg PO DAILY 07/07/24 07/07/24 Budesonide [Pulmicort] 0.5 mg INHALATION RT-Q12H 07/07/24 07/07/24 Folic Acid 1 mg PO DAILY 07/07/24 07/07/24 HYDROcodone/APAP 5-325MG [[place] 0.5 tab PO Q6H PRN 07/07/24 07/07/24 5-325] INSULIN LISPRO (humaLOG) [humaLOG] See Protocol SQ ACHS 07/07/24 07/07/24 Insulin Lispro 5 units SQ TID-W/MEALS 07/07/24 07/07/24 Ipratropium-Albuterol Nebulize 3 ml INHALATION RT-Q6H 07/07/24 07/07/24 [Duoneb 0.5 mg-3 mg/3 ml Soln] Magnesium Hydroxide [Milk of 7,200 mg PO DAILY PRN 07/07/24 07/07/24 Magnesia Concentrate] Na Phos,M-B/Na Phos,Di-Ba [Fleet 133 ml RECTAL DAILY PRN 07/07/24 07/07/24 Adult] Pantoprazole [Protonix] 40 mg PO BID 07/07/24 07/07/24 QUEtiapine [SEROquel] 25 mg PO DAILY 07/07/24 07/07/24 Thiamine [Vitamin B-1] 100 mg PO DAILY 07/07/24 07/07/24 bisacodyL [Dulcolax] 10 mg RECTAL DAILY PRN 07/07/24 07/07/24 traZODone HCL [Desyrel] 25 mg PO DAILY 07/07/24 07/07/24 traZODone HCL [Desyrel] 50 mg PO DAILY 07/07/24 07/07/24 Previous Rx's Medication Instructions Recorded Atorvastatin [Lipitor] 40 mg PO HS 30 Days #30 tab 11/02/21 Clopidogrel [Plavix] 75 mg PO DAILY 30 Days #30 tab 11/02/21 Allergies Allergy/AdvReac Type Severity Reaction Status Date / Time No Known Allergies Allergy Verified 07/07/24 17:41 Review of Systems ROS Statement: Those systems with pertinent positive or pertinent negative responses have been documented in the HPI. ROS Other: All systems not noted in ROS Statement are negative. 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 History of Any Multi-Drug Resistant Organisms: None Reported Past Surgical History: Appendectomy, Hysterectomy, Tonsillectomy Past Psychological History: No Psychological Hx Reported Smoking Status: Never smoker Past Alcohol Use History: None Reported Past Drug Use History: None Reported - Past Family History Father Family Medical History: Cancer, Diabetes Mellitus Additional Family Medical History / Comment(s): prostate and lung Mother Family Medical History: Cancer Additional Family Medical History / Comment(s): colon General Exam - General Exam Comments Initial Comments: PHYSICAL EXAM: General Impression: Alert, speech HEENT: Normocephalic atraumatic, extra-ocular movements intact, pupils equal and reactive to light bilaterally, mucous membranes moist. Cardiovascular: Heart regular rate and rhythm Chest: Able to complete full sentences, no retractions, no tachypnea Abdomen: abdomen soft, non-tender, non-distended, no organomegaly Musculoskeletal: Pulses present and equal in all extremities, no peripheral edema Motor: no focal deficits noted Neurological: CN II-XII grossly intact, no focal motor or sensory deficits noted Skin: Ecchymoses to the abdomen Psych: Normal affect and mood Limitations: altered mental status Course Vital Signs 07/07/24 07/07/24 07/07/24 17:33 17:45 18:31 Temperature 99.5 F Pulse Rate 134 H 98 Respiratory 20 20 Rate Blood Pressure 163/94 128/6 O2 Sat by Pulse 96 95 Oximetry - Reevaluation(s) Reevaluation #1: 07/07/24 18:48 Blood glucose on arrival was 39. IV was placed patient was given dextrose with improvement to a 5. Laboratory evaluation obtained. Leukocytosis 12. Hemoglobin 10.7. Lactic acidosis 3.4. Urinalysis positive for UTI. Viral testing is negative. Procedures - [place] Protocol (Time Out) Nurse: Deepak Love Medical Decision Making - Medical Decision Making Was pt. sent in by a medical professional or institution (, PA, TRUCKMAN, urgent care, hospital, or intermediate...) When possible be specific @ -No Did you speak to anyone other than the patient for history (EMS, parent, family, police, friend...)? What history was obtained from this source @ -EMS as described above Did you review nursing and triage notes (agree or disagree)? Why? @ -I reviewed and agree with nursing and triage notes Were old charts reviewed (outside hosp., previous admission, EMS record, old EKG, old radiological studies, urgent care reports/EKG's, intermediate records)? Report findings @ -No old charts were reviewed Differential Diagnosis (chest pain, altered mental status, abdominal pain women, abdominal pain men, vaginal bleeding, musculoskeletal, weakness, fever, dyspnea, syncope, headache, dizziness, GI bleed, back pain, seizure, CVA, palpatations, mental health)? @ -Differential Altered Mental Status: Hypoglycemia, DKA, hypercapnia, ETOH, overdose, CO poisoning, trauma, myxedema coma, HTN encephalopathy, infection, encephalitis, psychosis, intercranial hemorrhage, hepatic encephalopathy, meningitis, CVA, this is not meant to be an all-inclusive list EKG interpreted by me (3pts min.). @ -My EKG interpretation: Ventricular rate 123, sinus tachycardia,. 127, QRS 74, QTc 369. No TN prolongation, no QTC prolongation, no ST or T-wave changes noted. Overall, this EKG is unremarkable X-rays interpreted by me (1pt min.). @ -None done CT interpreted by me (1pt min.). @ -None done U/S interpreted by me (1pt. min.). @ -None done What testing was considered but not performed or refused? (CT, X-rays, U/S, labs)? Why? @ -None What meds were considered but not given or refused? Why? @ -None Was smoking cessation discussed for >3mins.? @ -No Were there social determinants of health that impacted care today? How? (Homelessness, low income, unemployed, alcoholism, drug addiction, trans portation, low edu. Level, literacy, decrease access to med. care, fdc, rehab)? @ -No Was there de-escalation of care discussed even if they declined (Discuss DNR or withdrawal of care, Hospice)? DNR status @ -No What co-morbidities impacted this encounter? (DM, HTN, Smoking, COPD, CAD, Cancer, CVA, ARF, Chemo, Hep., AIDS, mental health diagnosis, sleep apnea, morbid obesity)? @ -None Was patient admitted / discharged? Hospital course, mention meds given and route, prescriptions, significant lab abnormalities, going to OR and other pertinent info. @ -79-year-old female presents to the emergency department for hypoglycemia. Vital signs upon arrival shows sinus tachycardia. Patient's blood glucose on arrival was 39. Access was obtained patient is given dextrose amp. Glucose improved. Laboratory evaluation obtained. Patient has UTI. Given antibiotics will be admitted. Did you discuss the management of the patient with other professionals (professionals i.e. , PA, TRUCKMAN, lab, RT, psych nurse, oncology social work, vacuum cleaner repair person, teacher, agricultural extension officer, rn case manager)? Give summary @ -No Was critical care preformed (if so, how long)? @ -No Undiagnosed new problem with uncertain prognosis? @ -No Drug Therapy requiring intensive monitoring for toxicity (Heparin, Nitro, Insulin, Cardizem)? @ -No Were any procedures done? @ -No Diagnosis/symptom? Acute, or Chronic, or Acute on Chronic? Uncomplicated (without systemic symptoms) or Complicated (systemic symptoms)? @ -hypoglycemia, UTI Side effects of treatment? @ -No Exacerbation, Progression, or Severe Exacerbation? @ -No Poses a threat to life or bodily function? How? (Chest pain, USA, DC, pneumonia, PE, COPD, DKA, ARF, appy, cholecystitis, CVA, Diverticulitis, Homicidal, Suicidal, threat to staff... and all critical care pts) @ -yes - Lab Data Result diagrams: 07/07/24 17:53 07/07/24 17:53 Lab Results 07/07/24 07/07/24 07/07/24 Range/Units 17:34 17:53 17:53 WBC 12.0 H (3.8-10.6) k/uL RBC 3.67 L (3.80-5.40) m/uL Hgb 10.7 L (11.4-16.0) gm/dL Hct 33.8 L (34.0-46.0) % MCV 91.9 (80.0-100.0) fL MCH 29.1 (25.0-35.0) pg MCHC 31.6 (31.0-37.0) g/dL RDW 16.7 H (11.5-15.5) % Plt Count 223 (150-450) k/uL MPV 9.0 Neutrophils % 92 % Lymphocytes % 3 % Monocytes % 4 % Eosinophils % 0 % Basophils % 0 % Neutrophils # 11.1 H (1.3-7.7) k/uL Lymphocytes # 0.4 L (1.0-4.8) k/uL Monocytes # 0.4 (0-1.0) k/uL Eosinophils # 0.0 (0-0.7) k/uL Basophils # 0.0 (0-0.2) k/uL Hypochromasia Moderate Anisocytosis Slight Sodium (137-145) mmol/L Potassium (3.5-5.1) mmol/L Chloride (98-107) mmol/L Carbon Dioxide (22-30) mmol/L Anion Gap mmol/L BUN (7-17) mg/dL Creatinine (0.52-1.04) mg/dL Est GFR (CKD-EPI)AfAm (>60 ml/min/1.73 sqM) Est GFR (CKD-EPI)NonAf (>60 ml/min/1.73 sqM) Glucose (74-99) mg/dL POC Glucose (mg/dL) 39 L* (70-110) mg/dL POC Glu Weighing Station Operator ID Amelia Melara Plasma Lactic Acid Ronaldo (0.7-2.0) mmol/L Calcium (8.4-10.2) mg/dL Magnesium (1.6-2.3) mg/dL Total Bilirubin (0.2-1.3) mg/dL AST (14-36) U/L ALT (4-34) U/L Alkaline Phosphatase (38-126) U/L Total Protein (6.3-8.2) g/dL Albumin (3.5-5.0) g/dL Urine Color Red Urine Appearance Turbid H (Clear) Urine pH 6.0 (5.0-8.0) Ur Specific [place] 1.019 (1.001-1.035) Urine Protein 2+ H (Negative) Urine Glucose (UA) Trace H (Negative) Urine Ketones Negative (Negative) Urine Blood Large H (Negative) Urine Nitrite Negative (Negative) Urine Bilirubin Negative (Negative) Urine Urobilinogen <2.0 (<2.0) mg/dL Ur Leukocyte Esterase Large H (Negative) Urine RBC >182 H (0-5) /hpf Urine WBC >182 H (0-5) /hpf Urine WBC Clumps Many H (None) /hpf Urine Bacteria Occasional H (None) /hpf Influenza Type A (PCR) (Not Detectd) Influenza Type B (PCR) (Not Detectd) RSV (PCR) (Not Detectd) SARS-CoV-2 (PCR) (Not Detectd) 07/07/24 07/07/24 07/07/24 Range/Units 17:53 17:53 17:53 WBC (3.8-10.6) k/uL RBC (3.80-5.40) m/uL Hgb (11.4-16.0) gm/dL Hct (34.0-46.0) % MCV (80.0-100.0) fL MCH (25.0-35.0) pg MCHC (31.0-37.0) g/dL RDW (11.5-15.5) % Plt Count (150-450) k/uL MPV Neutrophils % % Lymphocytes % % Monocytes % % Eosinophils % % Basophils % % Neutrophils # (1.3-7.7) k/uL Lymphocytes # (1.0-4.8) k/uL Monocytes # (0-1.0) k/uL Eosinophils # (0-0.7) k/uL Basophils # (0-0.2) k/uL Hypochromasia Anisocytosis Sodium 134 L (137-145) mmol/L Potassium 4.2 (3.5-5.1) mmol/L Chloride 107 (98-107) mmol/L Carbon Dioxide 19 L (22-30) mmol/L Anion Gap 8 mmol/L BUN 27 H (7-17) mg/dL Creatinine 1.30 H (0.52-1.04) mg/dL Est GFR (CKD-EPI)AfAm 46 (>60 ml/min/1.73 sqM) Est GFR (CKD-EPI)NonAf 40 (>60 ml/min/1.73 sqM) Glucose 353 H (74-99) mg/dL POC Glucose (mg/dL) (70-110) mg/dL POC Glu Weighing Station Operator ID Plasma Lactic Acid Ronaldo 3.4 H* (0.7-2.0) mmol/L Calcium 8.2 L (8.4-10.2) mg/dL Magnesium 1.2 L (1.6-2.3) mg/dL Total Bilirubin 0.4 (0.2-1.3) mg/dL AST 26 (14-36) U/L ALT 18 (4-34) U/L Alkaline Phosphatase 113 (38-126) U/L Total Protein 5.5 L (6.3-8.2) g/dL Albumin 2.8 L (3.5-5.0) g/dL Urine Color Urine Appearance (Clear) Urine pH (5.0-8.0) Ur Specific [place] (1.001-1.035) Urine Protein (Negative) Urine Glucose (UA) (Negative) Urine Ketones (Negative) Urine Blood (Negative) Urine Nitrite (Negative) Urine Bilirubin (Negative) Urine Urobilinogen (<2.0) mg/dL Ur Leukocyte Esterase (Negative) Urine RBC (0-5) /hpf Urine WBC (0-5) /hpf Urine WBC Clumps (None) /hpf Urine Bacteria (None) /hpf Influenza Type A (PCR) Not Detected (Not Detectd) Influenza Type B (PCR) Not Detected (Not Detectd) RSV (PCR) Not Detected (Not Detectd) SARS-CoV-2 (PCR) Not Detected (Not Detectd) 07/07/24 07/07/24 07/07/24 Range/Units 17:57 18:15 18:32 WBC (3.8-10.6) k/uL RBC (3.80-5.40) m/uL Hgb (11.4-16.0) gm/dL Hct (34.0-46.0) % MCV (80.0-100.0) fL MCH (25.0-35.0) pg MCHC (31.0-37.0) g/dL RDW (11.5-15.5) % Plt Count (150-450) k/uL MPV Neutrophils % % Lymphocytes % % Monocytes % % Eosinophils % % Basophils % % Neutrophils # (1.3-7.7) k/uL Lymphocytes # (1.0-4.8) k/uL Monocytes # (0-1.0) k/uL Eosinophils # (0-0.7) k/uL Basophils # (0-0.2) k/uL Hypochromasia Anisocytosis Sodium (137-145) mmol/L Potassium (3.5-5.1) mmol/L Chloride (98-107) mmol/L Carbon Dioxide (22-30) mmol/L Anion Gap mmol/L BUN (7-17) mg/dL Creatinine (0.52-1.04) mg/dL Est GFR (CKD-EPI)AfAm (>60 ml/min/1.73 sqM) Est GFR (CKD-EPI)NonAf (>60 ml/min/1.73 sqM) Glucose (74-99) mg/dL POC Glucose (mg/dL) 205 H 141 H 128 H (70-110) mg/dL POC Glu Weighing Station Operator Brenna Do Alayna KippFebruary Plasma Lactic Acid Ronaldo (0.7-2.0) mmol/L Calcium (8.4-10.2) mg/dL Magnesium (1.6-2.3) mg/dL Total Bilirubin (0.2-1.3) mg/dL AST (14-36) U/L ALT (4-34) U/L Alkaline Phosphatase (38-126) U/L Total Protein (6.3-8.2) g/dL Albumin (3.5-5.0) g/dL Urine Color Urine Appearance (Clear) Urine pH (5.0-8.0) Ur Specific [place] (1.001-1.035) Urine Protein (Negative) Urine Glucose (UA) (Negative) Urine Ketones (Negative) Urine Blood (Negative) Urine Nitrite (Negative) Urine Bilirubin (Negative) Urine Urobilinogen (<2.0) mg/dL Ur Leukocyte Esterase (Negative) Urine RBC (0-5) /hpf Urine WBC (0-5) /hpf Urine WBC Clumps (None) /hpf Urine Bacteria (None) /hpf Influenza Type A (PCR) (Not Detectd) Influenza Type B (PCR) (Not Detectd) RSV (PCR) (Not Detectd) SARS-CoV-2 (PCR) (Not Detectd) Disposition Clinical Impression: Hypoglycemia, UTI (urinary tract infection) Disposition: ADMITTED IP TO THIS [facility] Condition: Fair Referrals: Lana Hunter [Primary Care Provider] - 1-2 days Decision Time: 18:58
[2024-07-07] MEDS ORDERED: NALOXONE 0.4 MG/ML 1 ML VIAL IV PRN (18:52)
[2024-07-07 19:12] LABS: Glucose,Whole Blood 101 mg/dL (70-110)
[2024-07-07] MEDS: cefTRIAXone IN SWFI 1,000 MG/10 ML SYRINGE IVP STA (19:26)
[2024-07-07] MEDS: SODIUM CHLORIDE 0.9% 1,000 ML IV SCH (19:26)
[2024-07-07 20:01] LABS: Glucose,Whole Blood 84 mg/dL (70-110)
[2024-07-07] MEDS: QUEtiapine 25 MG TAB PO SCH (20:52)
[2024-07-07] MEDS: traZODone HCL 50 MG TAB PO SCH ×2 (20:52)
[2024-07-07] MEDS: DEXTROSE 10% IN WATER 1,000 ML with SODIUM CHLORIDE 4MEQ/ML VIAL 153.8 MEQ IV SCH (20:53)
[2024-07-07 20:55] LABS: Glucose,Whole Blood 74 mg/dL (70-110)
[2024-07-07 22:11] LABS: Glucose,Whole Blood 114 mg/dL (70-110)
[2024-07-07 23:31] LABS: Glucose,Whole Blood 173 mg/dL (70-110)
[2024-07-08] MEDS: HALOPERIDOL LACTATE 5 MG/ML 1 ML VIAL IM STA ×2 (01:46→13:43)
[2024-07-08 01:54] LABS: Glucose,Whole Blood 198 mg/dL (70-110)
[2024-07-08 03:44] LABS: Glucose,Whole Blood 204 mg/dL (70-110)
[2024-07-08 06:23] LABS: Glucose,Whole Blood 175 mg/dL (70-110)
[2024-07-08] MEDS: SODIUM CHLORIDE 0.9% 500 ML 500 ML IV ONE (06:44)
[2024-07-08] MEDS: HALOPERIDOL LACTATE 5 MG/ML 1 ML VIAL IVP ONE (09:49)
[2024-07-08] MEDS ORDERED: Magnesium Replacement Protocol 1 EACH MISC MISCELLANE PRN (10:18)
--- NOTE | 2024-07-08 10:19 | XR ---
EXAMINATION TYPE: XR chest 1V DATE OF EXAM: 07/08/2024 10:01 AM CLINICAL INDICATION: Female, 79 years old with history of hypotension; [facility] COMPARISON: Chest radiographs from 10/30/2021. TECHNIQUE: XR chest 1V Frontal view of the chest. FINDINGS: Lungs/Pleura: There is no evidence of pleural effusion, focal consolidation, or pneumothorax. Pulmonary vascularity: Pulmonary vascular congestion. Heart/mediastinum: Cardiomediastinal silhouette is enlarged. Musculoskeletal: No acute osseous pathology. Other findings: None Lines/Tubes: IMPRESSION: Cardiomegaly and mild pulmonary vascular congestion. Correlate with BNP for congestive heart failure.
--- NOTE | 2024-07-08 10:23 | P.HPIM ---
History of Present Illness This is a pleasant 79 years old female who was sent from monitor for hypoglycemia and seizure-like activity Patient is awake but not follow commands or answer questions appropriately. She could just tell me her name and then she keep saying" take it out" referring to her mittens in the right hand. She could not answer why it is bothering her. I called her caregiver And her power of field operations coordinator Josesito Blake at [phone] who confirmed to me she has son out of state and she is with her caregiver because there is no one to take care of her, she was with her at home till she fell about 2 to 3 months ago at her home and she had a brain bleed, after that she was sent tomorrow with because her caregiver thought is safer for her. At baseline she is awake alert and oriented x 3 as per caregiver. She was told she is sent to the hospital because of hypoglycemia and she is not aware about her seizure-like activity. No previous seizure history but she has history of brain bleed about 2 to 3 months ago. No further information available currently Patient blood pressure on the low side 96/49, slightly tachycardic around 102, she has some low-grade temperature 99.1 Labs showing WBC mildly elevated at 12,000, hemoglobin 10.7 Creatinine at baseline 1.3, baseline 1.2-1.4 Lactic acid elevated 3-5 Magnesium level is low 1.2 EKG showing sinus tachycardia at [address]-T changes and QTc 369 Urinalysis is suspicious of UTI 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 dysphagia History of Any Multi-Drug Resistant Organisms: None Reported Past Surgical History: Appendectomy, Hysterectomy, Tonsillectomy Past Anesthesia/Blood Transfusion Reactions: Unable to Obtain Past Psychological History: No Psychological Hx Reported, Unable to Obtain Smoking Status: Never smoker Past Alcohol Use History: None Reported Past Drug Use History: None Reported - Past Family History Father Family Medical History: Cancer, Diabetes Mellitus Additional Family Medical History / Comment(s): prostate and lung Mother Family Medical History: Cancer Additional Family Medical History / Comment(s): colon Medications and Allergies Home Medications Medication Instructions Recorded Confirmed Type gemfibroziL [Lopid] 600 mg PO DAILY 08/26/15 07/07/24 History Insulin Detemir (Levemir) [Levemir] 30 unit SQ Q12H 10/30/21 07/07/24 History Metoprolol Succinate [Toprol XL] 100 mg PO DAILY 10/30/21 07/07/24 History Atorvastatin [Lipitor] 40 mg PO HS 30 Days #30 tab 11/02/21 07/07/24 Rx Clopidogrel [Plavix] 75 mg PO DAILY 30 Days #30 tab 11/02/21 07/07/24 Rx Aspirin EC [Ecotrin Low Dose] 81 mg PO DAILY 07/07/24 07/07/24 History Budesonide [Pulmicort] 0.5 mg INHALATION RT-Q12H 07/07/24 07/07/24 History Folic Acid 1 mg PO DAILY 07/07/24 07/07/24 History HYDROcodone/APAP 5-325MG [Victoria 0.5 tab PO Q6H PRN 07/07/24 07/07/24 History 5-325] INSULIN LISPRO (humaLOG) [humaLOG] See Protocol SQ ACHS 07/07/24 07/07/24 History Insulin Lispro 5 units SQ TID-W/MEALS 07/07/24 07/07/24 History Ipratropium-Albuterol Nebulize 3 ml INHALATION RT-Q6H 07/07/24 07/07/24 History [Duoneb 0.5 mg-3 mg/3 ml Soln] Magnesium Hydroxide [Milk of 7,200 mg PO DAILY PRN 07/07/24 07/07/24 History Magnesia Concentrate] Na Phos,M-B/Na Phos,Di-Ba [Fleet 133 ml RECTAL DAILY PRN 07/07/24 07/07/24 History Adult] Pantoprazole [Protonix] 40 mg PO BID 07/07/24 07/07/24 History QUEtiapine [SEROquel] 25 mg PO DAILY 07/07/24 07/07/24 History Thiamine [Vitamin B-1] 100 mg PO DAILY 07/07/24 07/07/24 History bisacodyL [Dulcolax] 10 mg RECTAL DAILY PRN 07/07/24 07/07/24 History traZODone HCL [Desyrel] 25 mg PO DAILY 07/07/24 07/07/24 History traZODone HCL [Desyrel] 50 mg PO DAILY 07/07/24 07/07/24 History Allergies Allergy/AdvReac Type Severity Reaction Status Date / Time No Known Allergies Allergy Verified 07/07/24 17:41 Physical Exam Vitals: Vital Signs Temp Pulse Resp BP Pulse Ox 07/08/24 02:00 92 17 96/44 95 07/08/24 01:00 102 H 20 99/62 94 L 07/08/24 00:00 106 H 20 98/56 95 07/07/24 23:00 99.1 F 107 H 16 97/67 97 07/07/24 22:05 94 16 103/53 95 07/07/24 21:58 99.3 F 96 16 73/46 96 07/07/24 21:47 108 H 120/83 07/07/24 20:00 108 H 07/07/24 19:00 105 H 18 103/74 94 L 07/07/24 18:31 98 20 128/6 95 07/07/24 17:45 99.5 F 07/07/24 17:33 134 H 20 163/94 96 Intake and Output 07/07/24 07/08/24 07/08/24 22:59 06:59 14:59 Output Total 0 Balance 0 Output: Urine 0 Other: Weight 74.389 kg -GENERAL: The patient is awake but confused, she does not answer questions appropriately and does not follow commands, she keep repeating herself " take it out" referring to her mittens in the right hand HEENT: Pupils are round and equally reacting to light. EOMI. No scleral icterus. No conjunctival pallor. Normocephalic, atraumatic. No pharyngeal erythema. No thyromegaly. CARDIOVASCULAR: S1 and S2 present. No murmurs, rubs, or gallops. PULMONARY: Chest is clear to auscultation, no wheezing , no crackles. ABDOMEN: Soft, nontender, nondistended, normoactive bowel sounds. No palpable organomegaly. MUSCULOSKELETAL: No joint swelling or deformity. EXTREMITIES: No cyanosis, clubbing, or pedal edema. NEUROLOGICAL: Gross neurological examination did not reveal any focal deficits. SKIN: No rashes. no petechiae. Results CBC & Chem 7: 07/07/24 17:53 07/07/24 17:53 Labs: Abnormal Lab Results - Last 24 Hours (Table) 07/07/24 07/07/24 07/07/24 Range/Units 17:34 17:53 17:53 WBC 12.0 H (3.8-10.6) k/uL RBC 3.67 L (3.80-5.40) m/uL Hgb 10.7 L (11.4-16.0) gm/dL Hct 33.8 L (34.0-46.0) % RDW 16.7 H (11.5-15.5) % Neutrophils # 11.1 H (1.3-7.7) k/uL Lymphocytes # 0.4 L (1.0-4.8) k/uL Sodium (137-145) mmol/L Carbon Dioxide (22-30) mmol/L BUN (7-17) mg/dL Creatinine (0.52-1.04) mg/dL Glucose (74-99) mg/dL POC Glucose (mg/dL) 39 L* (70-110) mg/dL Plasma Lactic Acid Ronaldo (0.7-2.0) mmol/L Calcium (8.4-10.2) mg/dL Magnesium (1.6-2.3) mg/dL Total Protein (6.3-8.2) g/dL Albumin (3.5-5.0) g/dL Urine Appearance Turbid H (Clear) Urine Protein 2+ H (Negative) Urine Glucose (UA) Trace H (Negative) Urine Blood Large H (Negative) Ur Leukocyte Esterase Large H (Negative) Urine RBC >182 H (0-5) /hpf Urine WBC >182 H (0-5) /hpf Urine WBC Clumps Many H (None) /hpf Urine Bacteria Occasional H (None) /hpf 07/07/24 07/07/24 07/07/24 Range/Units 17:53 17:53 17:57 WBC (3.8-10.6) k/uL RBC (3.80-5.40) m/uL Hgb (11.4-16.0) gm/dL Hct (34.0-46.0) % RDW (11.5-15.5) % Neutrophils # (1.3-7.7) k/uL Lymphocytes # (1.0-4.8) k/uL Sodium 134 L (137-145) mmol/L Carbon Dioxide 19 L (22-30) mmol/L BUN 27 H (7-17) mg/dL Creatinine 1.30 H (0.52-1.04) mg/dL Glucose 353 H (74-99) mg/dL POC Glucose (mg/dL) 205 H (70-110) mg/dL Plasma Lactic Acid Ronaldo 3.4 H* (0.7-2.0) mmol/L Calcium 8.2 L (8.4-10.2) mg/dL Magnesium 1.2 L (1.6-2.3) mg/dL Total Protein 5.5 L (6.3-8.2) g/dL Albumin 2.8 L (3.5-5.0) g/dL Urine Appearance (Clear) Urine Protein (Negative) Urine Glucose (UA) (Negative) Urine Blood (Negative) Ur Leukocyte Esterase (Negative) Urine RBC (0-5) /hpf Urine WBC (0-5) /hpf Urine WBC Clumps (None) /hpf Urine Bacteria (None) /hpf 07/07/24 07/07/24 07/07/24 Range/Units 18:15 18:32 20:47 WBC (3.8-10.6) k/uL RBC (3.80-5.40) m/uL Hgb (11.4-16.0) gm/dL Hct (34.0-46.0) % RDW (11.5-15.5) % Neutrophils # (1.3-7.7) k/uL Lymphocytes # (1.0-4.8) k/uL Sodium (137-145) mmol/L Carbon Dioxide (22-30) mmol/L BUN (7-17) mg/dL Creatinine (0.52-1.04) mg/dL Glucose (74-99) mg/dL POC Glucose (mg/dL) 141 H 128 H (70-110) mg/dL Plasma Lactic Acid Ronaldo 3.3 H* (0.7-2.0) mmol/L Calcium (8.4-10.2) mg/dL Magnesium (1.6-2.3) mg/dL Total Protein (6.3-8.2) g/dL Albumin (3.5-5.0) g/dL Urine Appearance (Clear) Urine Protein (Negative) Urine Glucose (UA) (Negative) Urine Blood (Negative) Ur Leukocyte Esterase (Negative) Urine RBC (0-5) /hpf Urine WBC (0-5) /hpf Urine WBC Clumps (None) /hpf Urine Bacteria (None) /hpf 07/07/24 07/07/24 07/08/24 Range/Units 22:09 23:28 00:07 WBC (3.8-10.6) k/uL RBC (3.80-5.40) m/uL Hgb (11.4-16.0) gm/dL Hct (34.0-46.0) % RDW (11.5-15.5) % Neutrophils # (1.3-7.7) k/uL Lymphocytes # (1.0-4.8) k/uL Sodium (137-145) mmol/L Carbon Dioxide (22-30) mmol/L BUN (7-17) mg/dL Creatinine (0.52-1.04) mg/dL Glucose (74-99) mg/dL POC Glucose (mg/dL) 114 H 173 H (70-110) mg/dL Plasma Lactic Acid Ronaldo 3.0 H* (0.7-2.0) mmol/L Calcium (8.4-10.2) mg/dL Magnesium (1.6-2.3) mg/dL Total Protein (6.3-8.2) g/dL Albumin (3.5-5.0) g/dL Urine Appearance (Clear) Urine Protein (Negative) Urine Glucose (UA) (Negative) Urine Blood (Negative) Ur Leukocyte Esterase (Negative) Urine RBC (0-5) /hpf Urine WBC (0-5) /hpf Urine WBC Clumps (None) /hpf Urine Bacteria (None) /hpf 07/08/24 07/08/24 07/08/24 Range/Units 01:51 03:42 04:06 WBC (3.8-10.6) k/uL RBC (3.80-5.40) m/uL Hgb (11.4-16.0) gm/dL Hct (34.0-46.0) % RDW (11.5-15.5) % Neutrophils # (1.3-7.7) k/uL Lymphocytes # (1.0-4.8) k/uL Sodium (137-145) mmol/L Carbon Dioxide (22-30) mmol/L BUN (7-17) mg/dL Creatinine (0.52-1.04) mg/dL Glucose (74-99) mg/dL POC Glucose (mg/dL) 198 H 204 H (70-110) mg/dL Plasma Lactic Acid Ronaldo 5.9 H* (0.7-2.0) mmol/L Calcium (8.4-10.2) mg/dL Magnesium (1.6-2.3) mg/dL Total Protein (6.3-8.2) g/dL Albumin (3.5-5.0) g/dL Urine Appearance (Clear) Urine Protein (Negative) Urine Glucose (UA) (Negative) Urine Blood (Negative) Ur Leukocyte Esterase (Negative) Urine RBC (0-5) /hpf Urine WBC (0-5) /hpf Urine WBC Clumps (None) /hpf Urine Bacteria (None) /hpf 07/08/24 07/08/24 Range/Units 06:22 09:29 WBC (3.8-10.6) k/uL RBC (3.80-5.40) m/uL Hgb (11.4-16.0) gm/dL Hct (34.0-46.0) % RDW (11.5-15.5) % Neutrophils # (1.3-7.7) k/uL Lymphocytes # (1.0-4.8) k/uL Sodium (137-145) mmol/L Carbon Dioxide (22-30) mmol/L BUN (7-17) mg/dL Creatinine (0.52-1.04) mg/dL Glucose (74-99) mg/dL POC Glucose (mg/dL) 175 H (70-110) mg/dL Plasma Lactic Acid Ronaldo 3.6 H* (0.7-2.0) mmol/L Calcium (8.4-10.2) mg/dL Magnesium (1.6-2.3) mg/dL Total Protein (6.3-8.2) g/dL Albumin (3.5-5.0) g/dL Urine Appearance (Clear) Urine Protein (Negative) Urine Glucose (UA) (Negative) Urine Blood (Negative) Ur Leukocyte Esterase (Negative) Urine RBC (0-5) /hpf Urine WBC (0-5) /hpf Urine WBC Clumps (None) /hpf Urine Bacteria (None) /hpf Thrombosis Risk Factor Assmnt - Choose All That Apply Any of the Below Risk Factors Present?: Yes Each Factor Represents 1 point: Obesity (BMI >25), Swollen legs (current) Other Risk Factors: Yes Each Risk Factor Represents 3 Points: Age 75 years or older Thrombosis Risk Factor Assessment Total Risk Factor Score: 5 Thrombosis Risk Factor Assessment Level: High Risk Assessment and Plan Assessment: Altered mental status, could be toxic/metabolic encephalopathy. Rule out intracranial lesion Acute urinary tract infection Sepsis with low-grade fever, tachycardia and leukocytosis, also has high lactic acid Hyperglycemia Seizure-like activity related to hypoglycemia Hypotension with elevated lactic acid CKD stage III History of kidney stone with recent hospitalization for this purpose Elevated lactic acid Recent history of brain bleed about 2 to 3 months earlier Plan: Continue with aggressive fluid resuscitation Start midodrine to help with blood pressure support Follow-up urine culture Continue with ceftriaxone 2 g Check urinary bladder scan. Check renal ultrasound as well Obtain CT of the brain. Hold anticoagulation till came back negative Neurology consult Check chest x-ray DVT prophylaxis: Mechanical GI prophylaxis: Pepcid Full code this is confirmed with the caregiver Prognosis is guarded
[2024-07-08] MEDS: MIDODRINE 5 MG TAB PO SCH (11:15)
--- NOTE | 2024-07-08 11:16 | US ---
EXAMINATION TYPE: US renals and bladder DATE OF EXAM: 07/08/2024 COMPARISON: CT 2014 CLINICAL INDICATION: Female, 79 years old with history of uti, h/o stone; UTI, hx of stone. EXAM MEASUREMENTS: Right Kidney: 11.2 x 6.5 x 6.5 cm Left Kidney: 11.9 x 5.0 x 6.1 cm Right Kidney: Cortex appears thin. Hypoechoic area with posterior shadowing seen upper pole: 1.7 x1.8 x 2.2 cm. Left Kidney: Cortex appears thin. *Anechoic area seen upper pole: 1.2 x 1.1 x 1.1 cm. Bladder: Possible thickened wall measured at 0.47 cm. Bilateral Jets seen: No, unable to properly evaluate due to patient's movement. Incidental finding: *Multiple hyperechoic foci with posterior shadowing seen within the gallbladder . Appearance of fluid seen adjacent: 3.7 x 2.7 x 0.4 cm. Wall measured at: 0.42 cm-thickened. IMPRESSION: 1. Cholelithiasis with prominent berkowitz and pericholecystic fluid correlate for cholecystitis. 2. No evidence for obstructive uropathy. Renal cortical scarring bilaterally possible nonobstructing cortical calcification's. Consider complete evaluation of the kidneys with noncontrast CT renal ston e protocol.
--- NOTE | 2024-07-08 11:50 | CT ---
EXAMINATION TYPE: CT brain wo con CT DLP: 1196.4 mGycm, Automated exposure control for dose reduction was used. DATE OF EXAM: 07/08/2024 11:43 AM COMPARISON: CT brain C-spine 04/16/2024, CT brain 10/30/2021 CLINICAL INDICATION:Female, 79 years old with history of confused ,,h/o brain bleed, AMS TECHNIQUE: Brain: Multiple axial CT images of the brain were obtained without IV contrast. . Coronal and sagitta l reformats reviewed. FINDINGS: Brain: Extra-axial spaces: No abnormal extra-axial fluid collections. Resolution of previously seen right-si ded subdural hemorrhage. Ventricular system: Within normal limits Cerebral parenchyma: No acute intraparenchymal hemorrhage or mass effect. The fam-white junction is well differentiated. Scattered hypoattenuating areas are seen within the periventricular white matte r. Cerebellum: Unremarkable. Mass effect: No evidence of midline shift. Intracranial vasculature: Atherosclerotic calcifications of the intracranial vessels. Soft tissues: Normal. Calvarium/osseous structures: No depressed skull fracture. Paranasal sinuses and mastoid air cells: Clear Visualized orbits: Bilateral aphakia IMPRESSION: 1. No acute intracranial process. Resolution of previously seen right-sided subdural hemorrhage from prior CT 04/16/2024. 2. Nonspecific white matter changes, likely secondary to chronic small vessel ischemic disease.
[2024-07-08] MEDS: MAGNESIUM SULFATE-D5W PMX 1 GM in DEXTROSE/WATER 1 100ML.BAG IVPB ONE (13:38)
--- NOTE | 2024-07-08 13:43 | P.PN ---
Subjective Progress Note Date: 07/08/24 Principal diagnosis: right upper quadrant pain the patient had an ultrasound performed. There is evidence of cholelithiasis and thickened gallbladder wall and pericholecystic fluid consistent with cholecystitis. Patient will be scheduled for laparoscopic cholecystectomy in th e a.m. Objective - Vital Signs Vital signs: Vital Signs Temp 99.1 F 07/07/24 23:00 Pulse 112 H 07/08/24 13:18 Resp 20 07/08/24 13:18 BP 110/90 07/08/24 13:18 Pulse Ox 94 L 07/08/24 13:18 FiO2 Intake & Output 07/07/24 07/08/24 07/08/24 18:59 06:59 18:59 Output Total 0 Balance 0 Weight 74.389 kg 74.389 kg Output: Urine 0 - Labs CBC & Chem 7: 07/07/24 17:53 07/07/24 17:53 Labs: Abnormal Lab Results - Last 24 Hours (Table) 07/07/24 07/07/24 07/07/24 Range/Units 17:34 17:53 17:53 WBC 12.0 H (3.8-10.6) k/uL RBC 3.67 L (3.80-5.40) m/uL Hgb 10.7 L (11.4-16.0) gm/dL Hct 33.8 L (34.0-46.0) % RDW 16.7 H (11.5-15.5) % Neutrophils # 11.1 H (1.3-7.7) k/uL Lymphocytes # 0.4 L (1.0-4.8) k/uL Sodium (137-145) mmol/L Carbon Dioxide (22-30) mmol/L BUN (7-17) mg/dL Creatinine (0.52-1.04) mg/dL Glucose (74-99) mg/dL POC Glucose (mg/dL) 39 L* (70-110) mg/dL Plasma Lactic Acid Ronaldo (0.7-2.0) mmol/L Calcium (8.4-10.2) mg/dL Magnesium (1.6-2.3) mg/dL Total Protein (6.3-8.2) g/dL Albumin (3.5-5.0) g/dL Urine Appearance Turbid H (Clear) Urine Protein 2+ H (Negative) Urine Glucose (UA) Trace H (Negative) Urine Blood Large H (Negative) Ur Leukocyte Esterase Large H (Negative) Urine RBC >182 H (0-5) /hpf Urine WBC >182 H (0-5) /hpf Urine WBC Clumps Many H (None) /hpf Urine Bacteria Occasional H (None) /hpf 07/07/24 07/07/24 07/07/24 Range/Units 17:53 17:53 17:57 WBC (3.8-10.6) k/uL RBC (3.80-5.40) m/uL Hgb (11.4-16.0) gm/dL Hct (34.0-46.0) % RDW (11.5-15.5) % Neutrophils # (1.3-7.7) k/uL Lymphocytes # (1.0-4.8) k/uL Sodium 134 L (137-145) mmol/L Carbon Dioxide 19 L (22-30) mmol/L BUN 27 H (7-17) mg/dL Creatinine 1.30 H (0.52-1.04) mg/dL Glucose 353 H (74-99) mg/dL POC Glucose (mg/dL) 205 H (70-110) mg/dL Plasma Lactic Acid Ronaldo 3.4 H* (0.7-2.0) mmol/L Calcium 8.2 L (8.4-10.2) mg/dL Magnesium 1.2 L (1.6-2.3) mg/dL Total Protein 5.5 L (6.3-8.2) g/dL Albumin 2.8 L (3.5-5.0) g/dL Urine Appearance (Clear) Urine Protein (Negative) Urine Glucose (UA) (Negative) Urine Blood (Negative) Ur Leukocyte Esterase (Negative) Urine RBC (0-5) /hpf Urine WBC (0-5) /hpf Urine WBC Clumps (None) /hpf Urine Bacteria (None) /hpf 07/07/24 07/07/24 07/07/24 Range/Units 18:15 18:32 20:47 WBC (3.8-10.6) k/uL RBC (3.80-5.40) m/uL Hgb (11.4-16.0) gm/dL Hct (34.0-46.0) % RDW (11.5-15.5) % Neutrophils # (1.3-7.7) k/uL Lymphocytes # (1.0-4.8) k/uL Sodium (137-145) mmol/L Carbon Dioxide (22-30) mmol/L BUN (7-17) mg/dL Creatinine (0.52-1.04) mg/dL Glucose (74-99) mg/dL POC Glucose (mg/dL) 141 H 128 H (70-110) mg/dL Plasma Lactic Acid Ronaldo 3.3 H* (0.7-2.0) mmol/L Calcium (8.4-10.2) mg/dL Magnesium (1.6-2.3) mg/dL Total Protein (6.3-8.2) g/dL Albumin (3.5-5.0) g/dL Urine Appearance (Clear) Urine Protein (Negative) Urine Glucose (UA) (Negative) Urine Blood (Negative) Ur Leukocyte Esterase (Negative) Urine RBC (0-5) /hpf Urine WBC (0-5) /hpf Urine WBC Clumps (None) /hpf Urine Bacteria (None) /hpf 07/07/24 07/07/24 07/08/24 Range/Units 22:09 23:28 00:07 WBC (3.8-10.6) k/uL RBC (3.80-5.40) m/uL Hgb (11.4-16.0) gm/dL Hct (34.0-46.0) % RDW (11.5-15.5) % Neutrophils # (1.3-7.7) k/uL Lymphocytes # (1.0-4.8) k/uL Sodium (137-145) mmol/L Carbon Dioxide (22-30) mmol/L BUN (7-17) mg/dL Creatinine (0.52-1.04) mg/dL Glucose (74-99) mg/dL POC Glucose (mg/dL) 114 H 173 H (70-110) mg/dL Plasma Lactic Acid Ronaldo 3.0 H* (0.7-2.0) mmol/L Calcium (8.4-10.2) mg/dL Magnesium (1.6-2.3) mg/dL Total Protein (6.3-8.2) g/dL Albumin (3.5-5.0) g/dL Urine Appearance (Clear) Urine Protein (Negative) Urine Glucose (UA) (Negative) Urine Blood (Negative) Ur Leukocyte Esterase (Negative) Urine RBC (0-5) /hpf Urine WBC (0-5) /hpf Urine WBC Clumps (None) /hpf Urine Bacteria (None) /hpf 07/08/24 07/08/24 07/08/24 Range/Units 01:51 03:42 04:06 WBC (3.8-10.6) k/uL RBC (3.80-5.40) m/uL Hgb (11.4-16.0) gm/dL Hct (34.0-46.0) % RDW (11.5-15.5) % Neutrophils # (1.3-7.7) k/uL Lymphocytes # (1.0-4.8) k/uL Sodium (137-145) mmol/L Carbon Dioxide (22-30) mmol/L BUN (7-17) mg/dL Creatinine (0.52-1.04) mg/dL Glucose (74-99) mg/dL POC Glucose (mg/dL) 198 H 204 H (70-110) mg/dL Plasma Lactic Acid Ronaldo 5.9 H* (0.7-2.0) mmol/L Calcium (8.4-10.2) mg/dL Magnesium (1.6-2.3) mg/dL Total Protein (6.3-8.2) g/dL Albumin (3.5-5.0) g/dL Urine Appearance (Clear) Urine Protein (Negative) Urine Glucose (UA) (Negative) Urine Blood (Negative) Ur Leukocyte Esterase (Negative) Urine RBC (0-5) /hpf Urine WBC (0-5) /hpf Urine WBC Clumps (None) /hpf Urine Bacteria (None) /hpf 07/08/24 07/08/24 07/08/24 Range/Units 06:22 09:29 12:05 WBC (3.8-10.6) k/uL RBC (3.80-5.40) m/uL Hgb (11.4-16.0) gm/dL Hct (34.0-46.0) % RDW (11.5-15.5) % Neutrophils # (1.3-7.7) k/uL Lymphocytes # (1.0-4.8) k/uL Sodium (137-145) mmol/L Carbon Dioxide (22-30) mmol/L BUN (7-17) mg/dL Creatinine (0.52-1.04) mg/dL Glucose (74-99) mg/dL POC Glucose (mg/dL) 175 H (70-110) mg/dL Plasma Lactic Acid Ronaldo 3.6 H* 2.2 H* (0.7-2.0) mmol/L Calcium (8.4-10.2) mg/dL Magnesium (1.6-2.3) mg/dL Total Protein (6.3-8.2) g/dL Albumin (3.5-5.0) g/dL Urine Appearance (Clear) Urine Protein (Negative) Urine Glucose (UA) (Negative) Urine Blood (Negative) Ur Leukocyte Esterase (Negative) Urine RBC (0-5) /hpf Urine WBC (0-5) /hpf Urine WBC Clumps (None) /hpf Urine Bacteria (None) /hpf Microbiology - Last 24 Hours (Table) 07/07/24 18:11 Blood Culture Gram Stain - Preliminary Blood Blood Culture - Preliminary Molecular ID
[2024-07-08 15:28] LABS: Glucose,Whole Blood 272 mg/dL (70-110)
[2024-07-08] MEDS: PIPERACILLIN-TAZOBACTAM 3.375 GM in SODIUM CHLORIDE 0.9% 100 ML IVPB SCH (17:02)
--- NOTE | 2024-07-08 17:16 | P.CNPUL ---
History of Present Illness Consult date: 07/08/24 Chief complaint: Seizure and hypoglycemia History of present illness: This is a 79-year-old female patient, retirement resident with developmental delay, who was recently hospitalized at [facility] in time she was treated for pneumonia and she also had a pleural effusion that was drained. The exact site of the pneumonia and the drainage is not known to me at this point. The patient came into our hospital after having an episode of hypoglycemia with a blood sugar in the low 40s and a seizure-like activity. The patient was awake however she was not answering questions appropriately. The power of corporate attorney was at the bedside. In the emergency, the patient was found to be septic. The white cell count was 12 with a hemoglobin 10.7 and a blood culture was positive for gram-negative bacillus. BUN was 27 with a creatinine of 1.3 and a sodium level of 134. Initial lactic acid level was at 3.3 and repeat level was also 3.3. UA was consistent with infection as the patient had blood and white cells within the urine analysis along with +2 protein and occasional bacteria and many WBC clumps. The viral screen was negative. Also, the patient's LFTs were essentially within normal limits. Nevertheless, the patient was given a ultrasound of the bladder and the kidneys. There was evidence of cholelithiasis with prominent wall and pericholecystic fluid suggestive of cholecystitis. No evidence of any obstructive uropathy. There was renal cortical scarring bilaterally possible nonobstructing cortical calcifications. No evidence of any hydronephrosis. The patient is currently on IV Zosyn. She was given a dose of Rocephin in the emergency department. The patient was also given IV fluids and currently she is on normal saline at rate of 130 cc an hour. CAT scan of the brain showed a resolution of the previously described right subdural hemorrhage from 04/16/2024. There was some nonspecific white matter changes. X-ray of the chest showed no evidence of any pleural effusion for consolidation. The patient had increased pulm vascular markings. At this point in time the patient is currently on 4 L of oxygen by nasal cannula with a pulse ox of 94%. Normotensive. Slightly tachycardic. 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 Subdural hematoma Secondary to a fall in April 2024. Seizure. dysphagia History of Any Multi-Drug Resistant Organisms: None Reported Past Surgical History: Appendectomy, Hysterectomy, Tonsillectomy Past Anesthesia/Blood Transfusion Reactions: Unable to Obtain Past Psychological History: No Psychological Hx Reported, Unable to Obtain Smoking Status: Never smoker Past Alcohol Use History: None Reported Past Drug Use History: None Reported - Past Family History Father Family Medical History: Cancer, Diabetes Mellitus Additional Family Medical History / Comment(s): prostate and lung Mother Family Medical History: Cancer Additional Family Medical History / Comment(s): colon Medications and Allergies Home Medications Medication Instructions Recorded Confirmed Type gemfibroziL [Lopid] 600 mg PO DAILY 08/26/15 07/07/24 History Insulin Detemir (Levemir) [Levemir] 30 unit SQ Q12H 10/30/21 07/07/24 History Metoprolol Succinate [Toprol XL] 100 mg PO DAILY 10/30/21 07/07/24 History Atorvastatin [Lipitor] 40 mg PO HS 30 Days #30 tab 11/02/21 07/07/24 Rx Clopidogrel [Plavix] 75 mg PO DAILY 30 Days #30 tab 11/02/21 07/07/24 Rx Aspirin EC [Ecotrin Low Dose] 81 mg PO DAILY 07/07/24 07/07/24 History Budesonide [Pulmicort] 0.5 mg INHALATION RT-Q12H 07/07/24 07/07/24 History Folic Acid 1 mg PO DAILY 07/07/24 07/07/24 History HYDROcodone/APAP 5-325MG [[place] 0.5 tab PO Q6H PRN 07/07/24 07/07/24 History 5-325] INSULIN LISPRO (humaLOG) [humaLOG] See Protocol SQ ACHS 07/07/24 07/07/24 History Insulin Lispro 5 units SQ TID-W/MEALS 07/07/24 07/07/24 History Ipratropium-Albuterol Nebulize 3 ml INHALATION RT-Q6H 07/07/24 07/07/24 History [Duoneb 0.5 mg-3 mg/3 ml Soln] Magnesium Hydroxide [Milk of 7,200 mg PO DAILY PRN 07/07/24 07/07/24 History Magnesia Concentrate] Na Phos,M-B/Na Phos,Di-Ba [Fleet 133 ml RECTAL DAILY PRN 07/07/24 07/07/24 History Adult] Pantoprazole [Protonix] 40 mg PO BID 07/07/24 07/07/24 History QUEtiapine [SEROquel] 25 mg PO DAILY 07/07/24 07/07/24 History Thiamine [Vitamin B-1] 100 mg PO DAILY 07/07/24 07/07/24 History bisacodyL [Dulcolax] 10 mg RECTAL DAILY PRN 07/07/24 07/07/24 History traZODone HCL [Desyrel] 25 mg PO DAILY 07/07/24 07/07/24 History traZODone HCL [Desyrel] 50 mg PO DAILY 07/07/24 07/07/24 History Allergies Allergy/AdvReac Type Severity Reaction Status Date / Time No Known Allergies Allergy Verified 07/07/24 17:41 Physical Exam Vitals: Vital Signs Temp Pulse Resp BP Pulse Ox 07/08/24 14:32 115 H 24 102/62 94 L 07/08/24 14:09 98.9 F 112 H 20 121/44 94 L 07/08/24 13:18 112 H 20 110/90 94 L 07/08/24 12:11 20 95/50 95 07/08/24 11:18 114 H 20 96/69 95 07/08/24 02:00 92 17 96/44 95 07/08/24 01:00 102 H 20 99/62 94 L 07/08/24 00:00 106 H 20 98/56 95 07/07/24 23:00 99.1 F 107 H 16 97/67 97 07/07/24 22:05 94 16 103/53 95 07/07/24 21:58 99.3 F 96 16 73/46 96 07/07/24 21:47 108 H 120/83 07/07/24 20:00 108 H 07/07/24 19:00 105 H 18 103/74 94 L 07/07/24 18:31 98 20 128/6 95 07/07/24 17:45 99.5 F 07/07/24 17:33 134 H 20 163/94 96 Intake and Output 07/08/24 07/08/24 07/08/24 06:59 14:59 22:59 Output Total 0 Balance 0 Output: Urine 0 -GENERAL: The patient is awake but confused, she does not answer questions appropriately and does not follow commands, she keep repeating hersel, no significant respiratory distress and the patient is currently on 4 L of oxygen by nasal cannula HEENT: Pupils are round and equally reacting to light. EOMI. No scleral icterus. No conjunctival pallor. Normocephalic, atraumatic. No pharyngeal erythema. No thyromegaly. CARDIOVASCULAR: S1 and S2 present. No murmurs, rubs, or gallops. PULMONARY: Chest is clear to auscultation, no wheezing , no crackles. ABDOMEN: Soft, nontender, nondistended, normoactive bowel sounds. No palpable organomegaly. No direct tenderness. No rebound tenderness in the upper quadr ant. No guarding. MUSCULOSKELETAL: No joint swelling or deformity. EXTREMITIES: No cyanosis, clubbing, or pedal edema. NEUROLOGICAL: Gross neurological examination did not reveal any focal deficits. Diminished level of consciousness, unable to communicate. Withdrawing to painful stimulation in all 4 extremities. SKIN: No rashes. no petechiae. Results - Laboratory Findings CBC and BMP: 07/07/24 17:53 07/07/24 17:53 Abnormal lab findings: Abnormal Labs 07/07/24 07/07/24 07/07/24 17:34 17:53 17:53 WBC 12.0 H RBC 3.67 L Hgb 10.7 L Hct 33.8 L RDW 16.7 H Neutrophils # 11.1 H Lymphocytes # 0.4 L Sodium Carbon Dioxide BUN Creatinine Glucose POC Glucose (mg/dL) 39 L* Plasma Lactic Acid Ronaldo Calcium Magnesium Total Protein Albumin Urine Appearance Turbid H Urine Protein 2+ H Urine Glucose (UA) Trace H Urine Blood Large H Ur Leukocyte Esterase Large H Urine RBC >182 H Urine WBC >182 H Urine WBC Clumps Many H Urine Bacteria Occasional H 07/07/24 07/07/24 07/07/24 17:53 17:53 17:57 WBC RBC Hgb Hct RDW Neutrophils # Lymphocytes # Sodium 134 L Carbon Dioxide 19 L BUN 27 H Creatinine 1.30 H Glucose 353 H POC Glucose (mg/dL) 205 H Plasma Lactic Acid Ronaldo 3.4 H* Calcium 8.2 L Magnesium 1.2 L Total Protein 5.5 L Albumin 2.8 L Urine Appearance Urine Protein Urine Glucose (UA) Urine Blood Ur Leukocyte Esterase Urine RBC Urine WBC Urine WBC Clumps Urine Bacteria 07/07/24 07/07/24 07/07/24 18:15 18:32 20:47 WBC RBC Hgb Hct RDW Neutrophils # Lymphocytes # Sodium Carbon Dioxide BUN Creatinine Glucose POC Glucose (mg/dL) 141 H 128 H Plasma Lactic Acid Ronaldo 3.3 H* Calcium Magnesium Total Protein Albumin Urine Appearance Urine Protein Urine Glucose (UA) Urine Blood Ur Leukocyte Esterase Urine RBC Urine WBC Urine WBC Clumps Urine Bacteria 07/07/24 07/07/24 07/08/24 22:09 23:28 00:07 WBC RBC Hgb Hct RDW Neutrophils # Lymphocytes # Sodium Carbon Dioxide BUN Creatinine Glucose POC Glucose (mg/dL) 114 H 173 H Plasma Lactic Acid Ronaldo 3.0 H* Calcium Magnesium Total Protein Albumin Urine Appearance Urine Protein Urine Glucose (UA) Urine Blood Ur Leukocyte Esterase Urine RBC Urine WBC Urine WBC Clumps Urine Bacteria 07/08/24 07/08/24 07/08/24 01:51 03:42 04:06 WBC RBC Hgb Hct RDW Neutrophils # Lymphocytes # Sodium Carbon Dioxide BUN Creatinine Glucose POC Glucose (mg/dL) 198 H 204 H Plasma Lactic Acid Ronaldo 5.9 H* Calcium Magnesium Total Protein Albumin Urine Appearance Urine Protein Urine Glucose (UA) Urine Blood Ur Leukocyte Esterase Urine RBC Urine WBC Urine WBC Clumps Urine Bacteria 07/08/24 07/08/24 07/08/24 06:22 09:29 12:05 WBC RBC Hgb Hct RDW Neutrophils # Lymphocytes # Sodium Carbon Dioxide BUN Creatinine Glucose POC Glucose (mg/dL) 175 H Plasma Lactic Acid Ronaldo 3.6 H* 2.2 H* Calcium Magnesium Total Protein Albumin Urine Appearance Urine Protein Urine Glucose (UA) Urine Blood Ur Leukocyte Esterase Urine RBC Urine WBC Urine WBC Clumps Urine Bacteria 07/08/24 07/08/24 15:26 15:33 WBC RBC Hgb Hct RDW Neutrophils # Lymphocytes # Sodium Carbon Dioxide BUN Creatinine Glucose POC Glucose (mg/dL) 272 H Plasma Lactic Acid Ronaldo 3.3 H* Calcium Magnesium Total Protein Albumin Urine Appearance Urine Protein Urine Glucose (UA) Urine Blood Ur Leukocyte Esterase Urine RBC Urine WBC Urine WBC Clumps Urine Bacteria Assessment and Plan Plan: Acute gram-negative sepsis, likely urinary source. Possibility of an acute cholecystitis cannot be completely ruled out. LFTs are normal. No right upper quadrant pain or tenderness. Ultrasound the gallbladder showed some pericholecystic fluid suggestive of cholecystitis. The patient is currently on IV Zosyn. Hypoglycemia, recovered Seizures, could be related to hypoglycemia Encephalopathy related to toxic/metabolic encephalopathy/sepsis. CAT scan of the brain showed no evidence of any bleed and there is resolution of the previous described subdural hematoma sinus tachycardia secondary to above Lactic acidosis secondary to above CKD stage III History of kidney stone with recent hospitalization for this purpose Recent hospitalization for pneumonia and pleural effusion, post thoracentesis. This was done at [facility] History of CVA History of subdural hematoma secondary to fall/anticoagulation. Diabetes mellitus Hyperlipidemia Developmental delay and the patient is a retirement resident Plan: Continue with aggressive fluid resuscitation, the patient on normal saline at rate of 130 cc an hour Awaiting final blood cultures IV Zosyn Monitor lactic acid levels Surgery consultation Neurology consult Obtain a blood gas Titrate oxygen flow to maintain saturation above 90%, currently on 4 L Discussed CODE STATUS with the power of corporate attorney. Final decision on the CODE STATUS has not been made yet. Will continue to follow make further recommendations based on progress. May decide to take her to the intensive depending on the blood he has results and depending on her progress here in the emergency. Time with Patient: Greater than 30
[2024-07-08 17:55] LABS: ABG HCO3 18 mmol/L (21-25); ABG Oxygen Saturation 94.8 % (94-97); ABG PCO2 30 mmHg (35-45); ABG PH 7.39 (7.35-7.45); ABG PO2 76 mmHg (83-108); ABG TCO2 19 mmol/L (19-24); Allen Test Performed? Yes
[2024-07-08] MEDS: FAMOTIDINE 20 MG/2 ML VIAL IV SCH (21:23)
[2024-07-08] MEDS: metroNIDAZOLE-NS PMX 500 MG in SALINE 1 100ML.BAG IVPB SCH (22:46)
[2024-07-08 23:00] LABS: Glucose,Whole Blood 319 mg/dL (70-110)
[2024-07-09] MEDS ORDERED: ONDANSETRON 4 MG/2 ML VIAL IVP PRN (00:25)
[2024-07-09] MEDS: MORPHINE SULFATE 2 MG/ML SYRINGE IVP PRN (00:44)
[2024-07-09] MEDS: SODIUM CHLORIDE 0.9% 1,000 ML IV SCH (00:51)
[2024-07-09] MEDS: MORPHINE SULFATE 2 MG/ML SYRINGE IVP STA (01:35)
[2024-07-09 06:19] LABS: Glucose,Whole Blood 233 mg/dL (70-110)
[2024-07-09] MEDS: INSULIN ASPART (NovoLOG) 100 UNIT/ML VIAL SQ SCH ×2 (06:38→17:33)
[2024-07-09 07:10] LABS: Anisocytosis Slight; Basophils % (A) 0 %; Eosinophils % (A) 0 %; Hypochromasia Marked; Lymphocytes # (A) 0.4 k/uL (1.0-4.8); Lymphocytes % (A) 2 %; MCH 28.9 pg (25.0-35.0); MCHC 30.8 g/dL (31.0-37.0); MCV 93.7 fL (80.0-100.0); Mean Platelet Volume 9.6; Monocytes # (A) 0.9 k/uL (0-1.0); Monocytes % (A) 4 %; Neutrophils # (A) 22.9 k/uL (1.3-7.7); Neutrophils % (A) 94 %; Platelet Count 134 k/uL (150-450); RBC 2.78 m/uL (3.80-5.40); WBC 24.5 k/uL (3.8-10.6)
[2024-07-09 07:25] LABS: African American GFR (CKD) 16 (>60 ml/min/1.73 sqM); Anion Gap 11 mmol/L; Blood Urea Nitrogen 57 mg/dL (7-17); Calcium 6.8 mg/dL (8.4-10.2); Carbon Dioxide 18 mmol/L (22-30); Chloride 110 mmol/L (98-107); Glucose 223 mg/dL (74-99); Magnesium 1.8 mg/dL (1.6-2.3); Non-African American GFR(CKD) 14 (>60 ml/min/1.73 sqM); Potassium 5.9 mmol/L (3.5-5.1); Sodium 139 mmol/L (137-145)
--- NOTE | 2024-07-09 07:27 | XR ---
EXAMINATION TYPE: XR chest 1V portable DATE OF EXAM: 07/09/2024 6:52 AM CLINICAL INDICATION: Female, 79 years old with history of shortness of breath; PHH COMPARISON: Chest radiograph from one day prior. TECHNIQUE: XR chest 1V portable Frontal view of the chest. FINDINGS: Lungs/Pleura: No evidence of focal consolidation or pneumothorax. Blunting of the costophrenic angles is present. Pulmonary vascularity: Pulmonary vascular congestion. Heart/mediastinum: Cardiomediastinal silhouette is enlarged. Musculoskeletal: No acute osseous pathology. Other findings: None Lines/Tubes: IMPRESSION: Cardiomegaly, pulmonary vascular congestion and bilateral pleural effusions. Correlate with BNP for c ongestive heart failure.
--- NOTE | 2024-07-09 07:29 | P.CONS ---
History of Present Illness - Reason for Consult Consult date: 07/08/24 Bacteremia Requesting physician: Kaveh E Sheet - Chief Complaint Mental status changes x 1 day - History of Present Illness Patient is a 79-year-old female with a past medical history significant for diabetes mellitus hypertension hyperlipidemia CVA TIA in this patient who is a shelter resident patient has been brought into the ER by EMS after apparently the patient did have some seizure-like activity at the shelter patient was noticed to have low blood sugar and the patient had been subsequently brought into the ER patient on presentation to the hospital did have a low-grade fever of 99.5 F patient was tachycardic and hypoxic requiring supplemental oxygen currently on 3 to nasal cannula did have elevated lactic acid white count of 12,000 with a left shift BUN of 27 creatinine 1.30 liver enzymes are normal urine has been positive influenza RSV COVID testing negative patient did have a positive blood culture with gram-negative bacilli probably this consultation patient did have renal ultrasound no evidence for obstructive uropathy did shows a cholelithiasis with prominent berkowitz and pericholecystic fluid correlate for cholecystitis patient started on Rocephin and Flagyl infectious disease was consulted for further management of antibiotic therapy, most information has been obtained from review the chart talking nursing staff the patient has several management for any history because of underlying mental debility Review of Systems Positive points has been mentioned in HPI complete review could not be obtained because of his underlying mental status Past Medical History Past Medical History: CVA/TIA, Diabetes Mellitus, Hyperlipidemia, Hypertension, Respiratory Disorder Additional Past Medical History / Comment(s): 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 dysphagia History of Any Multi-Drug Resistant Organisms: None Reported Past Surgical History: Appendectomy, Hysterectomy, Tonsillectomy Past Anesthesia/Blood Transfusion Reactions: Unable to Obtain Past Psychological History: No Psychological Hx Reported, Unable to Obtain Smoking Status: Never smoker Past Alcohol Use History: None Reported Past Drug Use History: None Reported - Past Family History Father Family Medical History: Cancer, Diabetes Mellitus Additional Family Medical History / Comment(s): prostate and lung Mother Family Medical History: Cancer Additional Family Medical History / Comment(s): colon Medications and Allergies Home Medications Medication Instructions Recorded Confirmed Type gemfibroziL [Lopid] 600 mg PO DAILY 08/26/15 07/07/24 History Insulin Detemir (Levemir) [Levemir] 30 unit SQ Q12H 10/30/21 07/07/24 History Metoprolol Succinate [Toprol XL] 100 mg PO DAILY 10/30/21 07/07/24 History Atorvastatin [Lipitor] 40 mg PO HS 30 Days #30 tab 11/02/21 07/07/24 Rx Clopidogrel [Plavix] 75 mg PO DAILY 30 Days #30 tab 11/02/21 07/07/24 Rx Aspirin EC [Ecotrin Low Dose] 81 mg PO DAILY 07/07/24 07/07/24 History Budesonide [Pulmicort] 0.5 mg INHALATION RT-Q12H 07/07/24 07/07/24 History Folic Acid 1 mg PO DAILY 07/07/24 07/07/24 History HYDROcodone/APAP 5-325MG [[place] 0.5 tab PO Q6H PRN 07/07/24 07/07/24 History 5-325] INSULIN LISPRO (humaLOG) [humaLOG] See Protocol SQ ACHS 07/07/24 07/07/24 History Insulin Lispro 5 units SQ TID-W/MEALS 07/07/24 07/07/24 History Ipratropium-Albuterol Nebulize 3 ml INHALATION RT-Q6H 07/07/24 07/07/24 History [Duoneb 0.5 mg-3 mg/3 ml Soln] Magnesium Hydroxide [Milk of 7,200 mg PO DAILY PRN 07/07/24 07/07/24 History Magnesia Concentrate] Na Phos,M-B/Na Phos,Di-Ba [Fleet 133 ml RECTAL DAILY PRN 07/07/24 07/07/24 History Adult] Pantoprazole [Protonix] 40 mg PO BID 07/07/24 07/07/24 History QUEtiapine [SEROquel] 25 mg PO DAILY 07/07/24 07/07/24 History Thiamine [Vitamin B-1] 100 mg PO DAILY 07/07/24 07/07/24 History bisacodyL [Dulcolax] 10 mg RECTAL DAILY PRN 07/07/24 07/07/24 History traZODone HCL [Desyrel] 25 mg PO DAILY 07/07/24 07/07/24 History traZODone HCL [Desyrel] 50 mg PO DAILY 07/07/24 07/07/24 History Allergies Allergy/AdvReac Type Severity Reaction Status Date / Time No Known Allergies Allergy Verified 07/07/24 17:41 Physical Exam Vitals: Vital Signs Temp Pulse Resp BP Pulse Ox 07/08/24 13:18 112 H 20 110/90 94 L 07/08/24 12:11 20 95/50 95 07/08/24 11:18 114 H 20 96/69 95 07/08/24 02:00 92 17 96/44 95 07/08/24 01:00 102 H 20 99/62 94 L 07/08/24 00:00 106 H 20 98/56 95 07/07/24 23:00 99.1 F 107 H 16 97/67 97 07/07/24 22:05 94 16 103/53 95 07/07/24 21:58 99.3 F 96 16 73/46 96 07/07/24 21:47 108 H 120/83 07/07/24 20:00 108 H 07/07/24 19:00 105 H 18 103/74 94 L 07/07/24 18:31 98 20 128/6 95 07/07/24 17:45 99.5 F 07/07/24 17:33 134 H 20 163/94 96 Intake and Output 07/07/24 07/08/24 07/08/24 22:59 06:59 14:59 Output Total 0 Balance 0 Output: Urine 0 Other: Weight 74.389 kg GENERAL DESCRIPTION: Elderly female lying in bed, no distress. No tachypnea or accessory muscle of respiration use. HEENT: Shows Pallor , no scleral icterus. Oral mucous membrane is dry. NECK: Trachea central, no thyromegaly. LUNGS: Unlabored breathing. Clear to auscultation anteriorly. No wheeze or crackle. HEART: S1, S2, regular rate and rhythm. No loud murmur ABDOMEN: Soft, no tenderness , EXTREMITIES: No edema of feet. SKIN: No rash, no masses palpable. NEUROLOGICAL: The patient is lethargic orientation could not determine Results CBC & Chem 7: 07/07/24 17:53 07/09/24 06:42 Labs: Abnormal Lab Results - Last 24 Hours (Table) 07/07/24 07/07/24 07/07/24 Range/Units 17:34 17:53 17:53 WBC 12.0 H (3.8-10.6) k/uL RBC 3.67 L (3.80-5.40) m/uL Hgb 10.7 L (11.4-16.0) gm/dL Hct 33.8 L (34.0-46.0) % RDW 16.7 H (11.5-15.5) % Neutrophils # 11.1 H (1.3-7.7) k/uL Lymphocytes # 0.4 L (1.0-4.8) k/uL Sodium (137-145) mmol/L Carbon Dioxide (22-30) mmol/L BUN (7-17) mg/dL Creatinine (0.52-1.04) mg/dL Glucose (74-99) mg/dL POC Glucose (mg/dL) 39 L* (70-110) mg/dL Plasma Lactic Acid Ronaldo (0.7-2.0) mmol/L Calcium (8.4-10.2) mg/dL Magnesium (1.6-2.3) mg/dL Total Protein (6.3-8.2) g/dL Albumin (3.5-5.0) g/dL Urine Appearance Turbid H (Clear) Urine Protein 2+ H (Negative) Urine Glucose (UA) Trace H (Negative) Urine Blood Large H (Negative) Ur Leukocyte Esterase Large H (Negative) Urine RBC >182 H (0-5) /hpf Urine WBC >182 H (0-5) /hpf Urine WBC Clumps Many H (None) /hpf Urine Bacteria Occasional H (None) /hpf 07/07/24 07/07/24 07/07/24 Range/Units 17:53 17:53 17:57 WBC (3.8-10.6) k/uL RBC (3.80-5.40) m/uL Hgb (11.4-16.0) gm/dL Hct (34.0-46.0) % RDW (11.5-15.5) % Neutrophils # (1.3-7.7) k/uL Lymphocytes # (1.0-4.8) k/uL Sodium 134 L (137-145) mmol/L Carbon Dioxide 19 L (22-30) mmol/L BUN 27 H (7-17) mg/dL Creatinine 1.30 H (0.52-1.04) mg/dL Glucose 353 H (74-99) mg/dL POC Glucose (mg/dL) 205 H (70-110) mg/dL Plasma Lactic Acid Ronaldo 3.4 H* (0.7-2.0) mmol/L Calcium 8.2 L (8.4-10.2) mg/dL Magnesium 1.2 L (1.6-2.3) mg/dL Total Protein 5.5 L (6.3-8.2) g/dL Albumin 2.8 L (3.5-5.0) g/dL Urine Appearance (Clear) Urine Protein (Negative) Urine Glucose (UA) (Negative) Urine Blood (Negative) Ur Leukocyte Esterase (Negative) Urine RBC (0-5) /hpf Urine WBC (0-5) /hpf Urine WBC Clumps (None) /hpf Urine Bacteria (None) /hpf 07/07/24 07/07/24 07/07/24 Range/Units 18:15 18:32 20:47 WBC (3.8-10.6) k/uL RBC (3.80-5.40) m/uL Hgb (11.4-16.0) gm/dL Hct (34.0-46.0) % RDW (11.5-15.5) % Neutrophils # (1.3-7.7) k/uL Lymphocytes # (1.0-4.8) k/uL Sodium (137-145) mmol/L Carbon Dioxide (22-30) mmol/L BUN (7-17) mg/dL Creatinine (0.52-1.04) mg/dL Glucose (74-99) mg/dL POC Glucose (mg/dL) 141 H 128 H (70-110) mg/dL Plasma Lactic Acid Ronaldo 3.3 H* (0.7-2.0) mmol/L Calcium (8.4-10.2) mg/dL Magnesium (1.6-2.3) mg/dL Total Protein (6.3-8.2) g/dL Albumin (3.5-5.0) g/dL Urine Appearance (Clear) Urine Protein (Negative) Urine Glucose (UA) (Negative) Urine Blood (Negative) Ur Leukocyte Esterase (Negative) Urine RBC (0-5) /hpf Urine WBC (0-5) /hpf Urine WBC Clumps (None) /hpf Urine Bacteria (None) /hpf 07/07/24 07/07/24 07/08/24 Range/Units 22:09 23:28 00:07 WBC (3.8-10.6) k/uL RBC (3.80-5.40) m/uL Hgb (11.4-16.0) gm/dL Hct (34.0-46.0) % RDW (11.5-15.5) % Neutrophils # (1.3-7.7) k/uL Lymphocytes # (1.0-4.8) k/uL Sodium (137-145) mmol/L Carbon Dioxide (22-30) mmol/L BUN (7-17) mg/dL Creatinine (0.52-1.04) mg/dL Glucose (74-99) mg/dL POC Glucose (mg/dL) 114 H 173 H (70-110) mg/dL Plasma Lactic Acid Ronaldo 3.0 H* (0.7-2.0) mmol/L Calcium (8.4-10.2) mg/dL Magnesium (1.6-2.3) mg/dL Total Protein (6.3-8.2) g/dL Albumin (3.5-5.0) g/dL Urine Appearance (Clear) Urine Protein (Negative) Urine Glucose (UA) (Negative) Urine Blood (Negative) Ur Leukocyte Esterase (Negative) Urine RBC (0-5) /hpf Urine WBC (0-5) /hpf Urine WBC Clumps (None) /hpf Urine Bacteria (None) /hpf 07/08/24 07/08/24 07/08/24 Range/Units 01:51 03:42 04:06 WBC (3.8-10.6) k/uL RBC (3.80-5.40) m/uL Hgb (11.4-16.0) gm/dL Hct (34.0-46.0) % RDW (11.5-15.5) % Neutrophils # (1.3-7.7) k/uL Lymphocytes # (1.0-4.8) k/uL Sodium (137-145) mmol/L Carbon Dioxide (22-30) mmol/L BUN (7-17) mg/dL Creatinine (0.52-1.04) mg/dL Glucose (74-99) mg/dL POC Glucose (mg/dL) 198 H 204 H (70-110) mg/dL Plasma Lactic Acid Ronaldo 5.9 H* (0.7-2.0) mmol/L Calcium (8.4-10.2) mg/dL Magnesium (1.6-2.3) mg/dL Total Protein (6.3-8.2) g/dL Albumin (3.5-5.0) g/dL Urine Appearance (Clear) Urine Protein (Negative) Urine Glucose (UA) (Negative) Urine Blood (Negative) Ur Leukocyte Esterase (Negative) Urine RBC (0-5) /hpf Urine WBC (0-5) /hpf Urine WBC Clumps (None) /hpf Urine Bacteria (None) /hpf 07/08/24 07/08/24 07/08/24 Range/Units 06:22 09:29 12:05 WBC (3.8-10.6) k/uL RBC (3.80-5.40) m/uL Hgb (11.4-16.0) gm/dL Hct (34.0-46.0) % RDW (11.5-15.5) % Neutrophils # (1.3-7.7) k/uL Lymphocytes # (1.0-4.8) k/uL Sodium (137-145) mmol/L Carbon Dioxide (22-30) mmol/L BUN (7-17) mg/dL Creatinine (0.52-1.04) mg/dL Glucose (74-99) mg/dL POC Glucose (mg/dL) 175 H (70-110) mg/dL Plasma Lactic Acid Ronaldo 3.6 H* 2.2 H* (0.7-2.0) mmol/L Calcium (8.4-10.2) mg/dL Magnesium (1.6-2.3) mg/dL Total Protein (6.3-8.2) g/dL Albumin (3.5-5.0) g/dL Urine Appearance (Clear) Urine Protein (Negative) Urine Glucose (UA) (Negative) Urine Blood (Negative) Ur Leukocyte Esterase (Negative) Urine RBC (0-5) /hpf Urine WBC (0-5) /hpf Urine WBC Clumps (None) /hpf Urine Bacteria (None) /hpf Microbiology - Last 24 Hours (Table) 07/07/24 18:11 Blood Culture Gram Stain - Preliminary Blood Blood Culture - Preliminary Molecular ID Assessment and Plan (1) Gram-negative bacteremia Current Visit: Yes Status: Acute Code(s): R78.81 - BACTEREMIA SNOMED Code(s): 888058312867 (2) UTI (urinary tract infection) Current Visit: Yes Status: Acute Code(s): N39.0 - URINARY TRACT INFECTION, SITE NOT SPECIFIED SNOMED Code(s): 41227755 Plan: 1patient presented to hospital with sepsis in this patient who did have low- grade fever tachycardia elevated white count elevated lactic acid and now with a positive blood culture likely related to the urinary source as the patient did have significantly positive UA patient also have abnormality seen of the gall bladder however did have a normal liver enzymes 2-E. coli bacteremia source likely urinary that is a sensitive pathogen 3-Rocephin 2 g daily while waiting for the culture to finalize We will follow on clinical condition and cultures to further adjust medication if needed Thank you for this consultation we will follow the patient along with you Dictation was produced using iiko dictation software. please excuse any grammatical, word or spelling errors. Time with Patient: Greater than 30
[2024-07-09] MEDS: MORPHINE SULFATE 4 MG/ML SYRINGE IVP PRN (07:53)
[2024-07-09 09:45] LABS: African American GFR (CKD) 15 (>60 ml/min/1.73 sqM); Anion Gap 13 mmol/L; Blood Urea Nitrogen 57 mg/dL (7-17); Calcium 6.6 mg/dL (8.4-10.2); Carbon Dioxide 17 mmol/L (22-30); Chloride 109 mmol/L (98-107); Glucose 246 mg/dL (74-99); Non-African American GFR(CKD) 13 (>60 ml/min/1.73 sqM); Potassium 5.9 mmol/L (3.5-5.1); Sodium 139 mmol/L (137-145)
[2024-07-09] MEDS: DEXTROSE 5% IN WATER 1,000 ML with SODIUM BICARB (1 MEQ/ML) 150 ML IV SCH (10:14)
[2024-07-09] MEDS: CALCIUM GLUCONATE IN NACL 1 GM in SALINE 1 100ML.BAG IVPB ONE (10:14)
[2024-07-09] MEDS: SODIUM CHLORIDE 0.9% 500 ML 500 ML IV ONE (10:15)
[2024-07-09] MEDS: DEXTROSE 50% SYRINGE 50 ML IVP STA (10:15)
[2024-07-09] MEDS: INSULIN REGULAR 100 UNIT/ML VIAL (IV) IV ONE ×2 (10:17→11:41)
[2024-07-09 11:06] LABS: Glucose,Whole Blood 314 mg/dL (70-110)
[2024-07-09] MEDS: ALBUTEROL NEBULIZED 2.5 MG/3 ML INHALATION STA (11:19)
[2024-07-09 11:48] LABS: African American GFR (CKD) 16 (>60 ml/min/1.73 sqM); Anion Gap 10 mmol/L; Blood Urea Nitrogen 59 mg/dL (7-17); Carbon Dioxide 18 mmol/L (22-30); Chloride 111 mmol/L (98-107); Glucose 306 mg/dL (74-99); Non-African American GFR(CKD) 14 (>60 ml/min/1.73 sqM); Potassium 5.8 mmol/L (3.5-5.1); Sodium 139 mmol/L (137-145)
[2024-07-09] MEDS: SODIUM CHLORIDE 0.45% 1,000 ML with SODIUM BICARB (1 MEQ/ML) 100 ML IV SCH (11:58)
--- NOTE | 2024-07-09 12:00 | P.PN ---
Subjective Progress Note Date: 07/09/24 This is a 79-year-old female patient, [facility] resident with developmental delay, who was recently hospitalized at [facility] in time she was treated for pneumonia and she also had a pleural effusion that was drained. The exact site of the pneumonia and the drainage is not known to me at this point. The patient came into our hospital after having an episode of hypoglycemia with a blood sugar in the low 40s and a seizure-like activity. The patient was awake however she was not answering questions appropriately. The power of real estate associate attorney was at the bedside. In the emergency, the patient was found to be septic. The white cell count was 12 with a hemoglobin 10.7 and a blood culture was positive for gram-negative bacillus. BUN was 27 with a creatinine of 1.3 and a sodium level of 134. Initial lactic acid level was at 3.3 and repeat level was also 3.3. UA was consistent with infection as the patient had blood and white cells within the urine analysis along with +2 protein and occasional bacteria and many WBC clumps. The viral screen was negative. Also, the patient's LFTs were essentially within normal limits. Nevertheless, the patient was given a ultrasound of the bladder and the kidneys. There was evidence of cholelithiasis with prominent wall and pericholecystic fluid suggestive of cholecystitis. No evidence of any obstructive uropathy. There was renal cortical scarring bilaterally possible nonobstructing cortical calcifications. No evidence of any hydronephrosis. The patient is currently on IV Zosyn. She was given a dose of Rocephin in the emergency department. The patient was also given IV fluids and currently she is on normal saline at rate of 130 cc an hour. CAT scan of the brain showed a resolution of the previously described right subdural hemorrhage from 04/16/2024. There was some nonspecific white matter changes. X-ray of the chest showed no evidence of any pleural effusion for consolidation. The patient had increased pulm vascular markings. At this point in time the patient is currently on 4 L of oxygen by nasal cannula with a pulse ox of 94%. Normotensive. Slightly tachycardic. On today's evaluation of 07/09/2024, the patient's condition is further decompensated compared to yesterday. She seems to be much more obtunded. Urine output is low. The patient has developed further increase the white cell count and has developed an acute kidney injury in addition. The patient's blood cultures positive for E. coli and the patient is prepped and IV Zosyn. Abdomen seems to be slightly more firm compared to yesterday. Is currently the patient afebrile, slightly tachycardic, on 4 L of oxygen by nasal cannula with a pulse ox of 94%. Follow-up chest x-ray from today shows evidence of pulmonary edema. IV fluids are running in the form of a normal saline at rate of 75 cc an hour. She was given another bolus of 500 cc earlier today. The white cell count is at 24.5 hemoglobin is 8 with a platelet count of 134. She has 94% neutrophilia. Sodium levels at 139 with a potassium level of 5.8. Serum bicarb is 18 with a BUN of 59 and a creatinine of 3.10. Blood sugar is at 306. As stated, urine cultures are still pending. Blood culture is positive for E. coli. Lactic acid level has improved compared to yesterday and is currently down to 1.4 from 3.2. The highest lactic acid level was at 5.9 Objective - Vital Signs Vital signs: Vital Signs Temp 98.1 F 07/09/24 07:51 Pulse 76 07/09/24 11:32 Resp 24 07/09/24 07:51 BP 94/48 07/09/24 07:51 Pulse Ox 94 L 07/09/24 07:51 FiO2 Intake & Output 07/08/24 07/09/24 07/09/24 18:59 06:59 18:59 Output Total 100 Balance -100 Output: Urine 100 Straight 100 Other: # Voids 3 # Bowel Movements 0 - Exam -GENERAL: The patient is awake but confused, she does not answer questions appropriately and does not follow commands, she keep repeating hersel, no significant respiratory distress and the patient is currently on 4 L of oxygen by nasal cannula HEENT: Pupils are round and equally reacting to light. EOMI. No scleral icterus. No conjunctival pallor. Normocephalic, atraumatic. No pharyngeal erythema. No thyromegaly. CARDIOVASCULAR: S1 and S2 present. No murmurs, rubs, or gallops. PULMONARY: Chest is clear to auscultation, no wheezing , no crackles. ABDOMEN: Soft, nontender, nondistended, normoactive bowel sounds. No palpable organomegaly. No direct tenderness. No rebound tenderness in the upper quadrant. No guarding. MUSCULOSKELETAL: No joint swelling or deformity. EXTREMITIES: No cyanosis, clubbing, or pedal edema. NEUROLOGICAL: Gross neurological examination did not reveal any focal deficits. Diminished level of consciousness, unable to communicate. Withdrawing to painful stimulation in all 4 extremities. SKIN: No rashes. no petechiae. - Labs CBC & Chem 7: 07/09/24 06:42 07/09/24 11:14 Labs: Abnormal Lab Results - Last 24 Hours (Table) 07/08/24 07/08/24 07/08/24 Range/Units 12:05 15:26 15:33 WBC (3.8-10.6) k/uL RBC (3.80-5.40) m/uL Hgb (11.4-16.0) gm/dL Hct (34.0-46.0) % MCHC (31.0-37.0) g/dL RDW (11.5-15.5) % Plt Count (150-450) k/uL Neutrophils # (1.3-7.7) k/uL Lymphocytes # (1.0-4.8) k/uL ABG pCO2 (35-45) mmHg ABG pO2 (83-108) mmHg ABG HCO3 (21-25) mmol/L Potassium (3.5-5.1) mmol/L Chloride (98-107) mmol/L Carbon Dioxide (22-30) mmol/L BUN (7-17) mg/dL Creatinine (0.52-1.04) mg/dL Glucose (74-99) mg/dL POC Glucose (mg/dL) 272 H (70-110) mg/dL Plasma Lactic Acid Ronaldo 2.2 H* 3.3 H* (0.7-2.0) mmol/L Calcium (8.4-10.2) mg/dL 07/08/24 07/08/24 07/08/24 Range/Units 17:52 18:40 22:58 WBC (3.8-10.6) k/uL RBC (3.80-5.40) m/uL Hgb (11.4-16.0) gm/dL Hct (34.0-46.0) % MCHC (31.0-37.0) g/dL RDW (11.5-15.5) % Plt Count (150-450) k/uL Neutrophils # (1.3-7.7) k/uL Lymphocytes # (1.0-4.8) k/uL ABG pCO2 30 L (35-45) mmHg ABG pO2 76 L (83-108) mmHg ABG HCO3 18 L (21-25) mmol/L Potassium (3.5-5.1) mmol/L Chloride (98-107) mmol/L Carbon Dioxide (22-30) mmol/L BUN (7-17) mg/dL Creatinine (0.52-1.04) mg/dL Glucose (74-99) mg/dL POC Glucose (mg/dL) 319 H (70-110) mg/dL Plasma Lactic Acid Ronaldo 3.2 H* (0.7-2.0) mmol/L Calcium (8.4-10.2) mg/dL 07/09/24 07/09/24 07/09/24 Range/Units 06:17 06:42 06:42 WBC 24.5 H (3.8-10.6) k/uL RBC 2.78 L (3.80-5.40) m/uL Hgb 8.0 L D (11.4-16.0) gm/dL Hct 26.0 L (34.0-46.0) % MCHC 30.8 L (31.0-37.0) g/dL RDW 17.0 H (11.5-15.5) % Plt Count 134 L (150-450) k/uL Neutrophils # 22.9 H (1.3-7.7) k/uL Lymphocytes # 0.4 L (1.0-4.8) k/uL ABG pCO2 (35-45) mmHg ABG pO2 (83-108) mmHg ABG HCO3 (21-25) mmol/L Potassium 5.9 H (3.5-5.1) mmol/L Chloride 110 H (98-107) mmol/L Carbon Dioxide 18 L (22-30) mmol/L BUN 57 H (7-17) mg/dL Creatinine 3.07 H (0.52-1.04) mg/dL Glucose 223 H (74-99) mg/dL POC Glucose (mg/dL) 233 H (70-110) mg/dL Plasma Lactic Acid Rnoaldo (0.7-2.0) mmol/L Calcium 6.8 L (8.4-10.2) mg/dL 07/09/24 07/09/24 Range/Units 09:00 11:04 WBC (3.8-10.6) k/uL RBC (3.80-5.40) m/uL Hgb (11.4-16.0) gm/dL Hct (34.0-46.0) % MCHC (31.0-37.0) g/dL RDW (11.5-15.5) % Plt Count (150-450) k/uL Neutrophils # (1.3-7.7) k/uL Lymphocytes # (1.0-4.8) k/uL ABG pCO2 (35-45) mmHg ABG pO2 (83-108) mmHg ABG HCO3 (21-25) mmol/L Potassium 5.9 H (3.5-5.1) mmol/L Chloride 109 H (98-107) mmol/L Carbon Dioxide 17 L (22-30) mmol/L BUN 57 H (7-17) mg/dL Creatinine 3.24 H (0.52-1.04) mg/dL Glucose 246 H (74-99) mg/dL POC Glucose (mg/dL) 314 H (70-110) mg/dL Plasma Lactic Acid Ronaldo (0.7-2.0) mmol/L Calcium 6.6 L (8.4-10.2) mg/dL Microbiology - Last 24 Hours (Table) 07/07/24 18:11 Blood Culture Gram Stain - Preliminary Blood Blood Culture - Preliminary Escherichia coli Molecular ID Assessment and Plan Plan: Sepsis suspected secondary to E. coli. Suspect UTI with sepsis. Suspect underlying acute cholecystitis as a source of for E. coli septicemia and bacteremia.. LFTs are normal. . Ultrasound the gallbladder showed some pericholecystic fluid suggestive of cholecystitis. The patient is currently on IV Zosyn. Acute leukocytosis Seizures, could be related to hypoglycemia Encephalopathy related to toxic/metabolic encephalopathy/sepsis. CAT scan of the brain showed no evidence of any bleed and there is resolution of the previous described subdural hematoma sinus tachycardia secondary to above Lactic acidosis secondary to above Acute kidney injury on top of CKD stage III Acute hypoxic respiratory failure secondary to above and she is on 02 at 4 liters History of kidney stone with recent hospitalization for this purpose Recent hospitalization for pneumonia and pleural effusion, post thoracentesis. This was done at [facility] History of CVA History of subdural hematoma secondary to fall/anticoagulation. Diabetes mellitus Hyperlipidemia Developmental delay and the patient is a [facility] resident Plan: Change IV fluids to bicarb infusion at a rate of 75 cc/hr IV Zosyn Lactic acid levels have dropped White cell count is elevated Urine output is diminished and the patient has a St catheter in place Surgery consultation Neurology consult Obtain a blood gas Titrate oxygen flow to maintain saturation above 90%, currently on 4 L Discussed CODE STATUS with the power of real estate associate attorney. Final decision is full CODE STATUS for now. Surgical risk for cholecystectomy at this point in time. I personally believe that the source of the sepsis is most likely the underlying urine tract infection. Infectious disease also shared the same opinion. LFTs are still within normal limits. We are going to treat her medically for the time being and optimize his situation. Continue fluid resuscitation. Utilize pressors if needed. Intubate if needed. Monitor renal function. General surgery is on board. The patient will be transferred to the intensive care unit. Further recommendations are to follow based on progress. This evaluation was done more than 30 minutes. I did a full discussion with the power of real estate associate attorney. I also discussed the case with the infectious disease doctor. Will continue to follow make further recommendations based on progress. Evaluation was done more than 30 minutes. Time with Patient: Greater than 30
[2024-07-09 12:15] LABS: Glucose,Whole Blood 306 mg/dL (70-110)
[2024-07-09] MEDS ORDERED: NALOXONE 0.4 MG/ML 1 ML VIAL IV PRN (12:35)
--- NOTE | 2024-07-09 12:39 | P.PN ---
Subjective Progress Note Date: 07/09/24 Principal diagnosis: Reason for follow-up is UTI and bacteremia Patient is a 79-year-old female with a past medical history significant for diabetes mellitus hypertension hyperlipidemia CVA TIA in this patient who is a [facility] resident patient has been brought into the ER by EMS after apparently the patient did have some seizure-like activity, patient did have a fever positive UA and blood culture positive for E. coli. On today's evaluation that is 07/09/2024, patient did have low-grade fever of 99.9 F this morning, the patient is currently sleepy lethargic and cannot provide any history is on 4 L nasal cannula oxygen no vomiting diarrhea or any change reported by the nursing staff. Patient white count is up to 24.5, creatinine is 3.10 urine is growing E. coli Objective - Vital Signs Vital signs: Vital Signs Temp 96.5 F L 07/09/24 11:52 Pulse 99 07/09/24 11:52 Resp 24 07/09/24 11:52 BP 108/56 07/09/24 11:52 Pulse Ox 97 07/09/24 11:52 FiO2 Intake & Output 07/08/24 07/09/24 07/09/24 18:59 06:59 18:59 Output Total 100 Balance -100 Output: Urine 100 Straight 100 Other: # Voids 3 # Bowel Movements 0 - Exam GENERAL DESCRIPTION: An elderly female lying in bed in no distress RESPIRATORY SYSTEM: Unlabored breathing , decreased breath sounds at bases HEART: S1 S2 regular rate and rhythm , ABDOMEN: Soft , no tenderness EXTREMITIES: No edema feet - Labs CBC & Chem 7: 07/09/24 06:42 07/09/24 11:14 Labs: Abnormal Lab Results - Last 24 Hours (Table) 07/08/24 07/08/24 07/08/24 Range/Units 12:05 15:26 15:33 WBC (3.8-10.6) k/uL RBC (3.80-5.40) m/uL Hgb (11.4-16.0) gm/dL Hct (34.0-46.0) % MCHC (31.0-37.0) g/dL RDW (11.5-15.5) % Plt Count (150-450) k/uL Neutrophils # (1.3-7.7) k/uL Lymphocytes # (1.0-4.8) k/uL ABG pCO2 (35-45) mmHg ABG pO2 (83-108) mmHg ABG HCO3 (21-25) mmol/L Potassium (3.5-5.1) mmol/L Chloride (98-107) mmol/L Carbon Dioxide (22-30) mmol/L BUN (7-17) mg/dL Creatinine (0.52-1.04) mg/dL Glucose (74-99) mg/dL POC Glucose (mg/dL) 272 H (70-110) mg/dL Plasma Lactic Acid Ronaldo 2.2 H* 3.3 H* (0.7-2.0) mmol/L Calcium (8.4-10.2) mg/dL 07/08/24 07/08/24 07/08/24 Range/Units 17:52 18:40 22:58 WBC (3.8-10.6) k/uL RBC (3.80-5.40) m/uL Hgb (11.4-16.0) gm/dL Hct (34.0-46.0) % MCHC (31.0-37.0) g/dL RDW (11.5-15.5) % Plt Count (150-450) k/uL Neutrophils # (1.3-7.7) k/uL Lymphocytes # (1.0-4.8) k/uL ABG pCO2 30 L (35-45) mmHg ABG pO2 76 L (83-108) mmHg ABG HCO3 18 L (21-25) mmol/L Potassium (3.5-5.1) mmol/L Chloride (98-107) mmol/L Carbon Dioxide (22-30) mmol/L BUN (7-17) mg/dL Creatinine (0.52-1.04) mg/dL Glucose (74-99) mg/dL POC Glucose (mg/dL) 319 H (70-110) mg/dL Plasma Lactic Acid Ronaldo 3.2 H* (0.7-2.0) mmol/L Calcium (8.4-10.2) mg/dL 07/09/24 07/09/24 07/09/24 Range/Units 06:17 06:42 06:42 WBC 24.5 H (3.8-10.6) k/uL RBC 2.78 L (3.80-5.40) m/uL Hgb 8.0 L D (11.4-16.0) gm/dL Hct 26.0 L (34.0-46.0) % MCHC 30.8 L (31.0-37.0) g/dL RDW 17.0 H (11.5-15.5) % Plt Count 134 L (150-450) k/uL Neutrophils # 22.9 H (1.3-7.7) k/uL Lymphocytes # 0.4 L (1.0-4.8) k/uL ABG pCO2 (35-45) mmHg ABG pO2 (83-108) mmHg ABG HCO3 (21-25) mmol/L Potassium 5.9 H (3.5-5.1) mmol/L Chloride 110 H (98-107) mmol/L Carbon Dioxide 18 L (22-30) mmol/L BUN 57 H (7-17) mg/dL Creatinine 3.07 H (0.52-1.04) mg/dL Glucose 223 H (74-99) mg/dL POC Glucose (mg/dL) 233 H (70-110) mg/dL Plasma Lactic Acid Ronaldo (0.7-2.0) mmol/L Calcium 6.8 L (8.4-10.2) mg/dL 07/09/24 07/09/24 07/09/24 Range/Units 09:00 11:04 11:14 WBC (3.8-10.6) k/uL RBC (3.80-5.40) m/uL Hgb (11.4-16.0) gm/dL Hct (34.0-46.0) % MCHC (31.0-37.0) g/dL RDW (11.5-15.5) % Plt Count (150-450) k/uL Neutrophils # (1.3-7.7) k/uL Lymphocytes # (1.0-4.8) k/uL ABG pCO2 (35-45) mmHg ABG pO2 (83-108) mmHg ABG HCO3 (21-25) mmol/L Potassium 5.9 H 5.8 H (3.5-5.1) mmol/L Chloride 109 H 111 H (98-107) mmol/L Carbon Dioxide 17 L 18 L (22-30) mmol/L BUN 57 H 59 H (7-17) mg/dL Creatinine 3.24 H 3.10 H (0.52-1.04) mg/dL Glucose 246 H 306 H (74-99) mg/dL POC Glucose (mg/dL) 314 H (70-110) mg/dL Plasma Lactic Acid Ronaldo (0.7-2.0) mmol/L Calcium 6.6 L 7.0 L (8.4-10.2) mg/dL 07/09/24 Range/Units 12:13 WBC (3.8-10.6) k/uL RBC (3.80-5.40) m/uL Hgb (11.4-16.0) gm/dL Hct (34.0-46.0) % MCHC (31.0-37.0) g/dL RDW (11.5-15.5) % Plt Count (150-450) k/uL Neutrophils # (1.3-7.7) k/uL Lymphocytes # (1.0-4.8) k/uL ABG pCO2 (35-45) mmHg ABG pO2 (83-108) mmHg ABG HCO3 (21-25) mmol/L Potassium (3.5-5.1) mmol/L Chloride (98-107) mmol/L Carbon Dioxide (22-30) mmol/L BUN (7-17) mg/dL Creatinine (0.52-1.04) mg/dL Glucose (74-99) mg/dL POC Glucose (mg/dL) 306 H (70-110) mg/dL Plasma Lactic Acid Ronaldo (0.7-2.0) mmol/L Calcium (8.4-10.2) mg/dL Microbiology - Last 24 Hours (Table) 07/07/24 18:11 Blood Culture Gram Stain - Preliminary Blood Blood Culture - Preliminary Escherichia coli Molecular ID Assessment and Plan (1) Gram-negative bacteremia Current Visit: Yes Status: Acute Code(s): R78.81 - BACTEREMIA SNOMED Code(s): 215536504798 (2) UTI (urinary tract infection) Current Visit: Yes Status: Acute Code(s): N39.0 - URINARY TRACT INFECTION, SITE NOT SPECIFIED SNOMED Code(s): 50943458 Plan: 1patient presented to hospital with sepsis in this patient who did have low- grade fever tachycardia elevated white count elevated lactic acid and now with a positive blood culture likely related to the urinary source as the patient did have significantly positive UA patient also have abnormality seen of the gallbladder however did have a normal liver enzymes 2-E. coli bacteremia source likely urinary that is a sensitive pathogen 3-patient did have worsening of the white count and did have persistent mental status changes being transferred to the ICU, antibiotic has been adjusted to Zosyn to continue and monitor clinical course closely Dictation was produced using [employer] dictation software. please excuse any grammatical, word or spelling errors. Time with Patient: Less than 30
--- NOTE | 2024-07-09 12:54 | P.PN ---
Subjective Progress Note Date: 07/09/24 CHIEF COMPLAINT: RUQ pain HISTORY OF PRESENT ILLNESS: patient is worse today. White count has gone from 12-24. She is tachycardic and hypotensive. She is in acute kidney injury with creatinine of 3 and potassium elevated at 5.9. Surgical service following regards to cholecystitis. Urine output is low. patient seen and examined with Dr. pena PHYSICAL EXAM: VITAL SIGNS: Reviewed. GENERAL: more lethargic HEENT: No sclera icterus. Extraocular movements grossly intact. Moist buccal mucosa. Head is atraumatic, normocephalic. ABDOMEN: Soft. Nondistended. Nontender. ASSESSMENT: 1. Cholecystitis. Gallbladder ultrasound reported cholelithiasis, thickened gallbladder wall and pericholecystic fluid 2. Sepsis 3. Acute kidney injury 4. Hyperkalemia PLAN: -Dr. Pena discussing case with critical care service and recommending possible transfer to the ICU -Further recommendations forthcoming for surgeon regarding cholecystectomy -continue antibiotics -Continue supportive care -Continue to correct hyperkalemia Physician Spring Fitter Helper note has been reviewed by physician. Signing provider agrees with the documented findings, assessment, and plan of care. Objective - Vital Signs Vital signs: Vital Signs Temp 96.5 F L 07/09/24 11:52 Pulse 99 07/09/24 11:52 Resp 24 07/09/24 11:52 BP 108/56 07/09/24 11:52 Pulse Ox 97 07/09/24 11:52 FiO2 Intake & Output 07/08/24 07/09/24 07/09/24 18:59 06:59 18:59 Output Total 100 Balance -100 Output: Urine 100 Straight 100 Other: # Voids 3 # Bowel Movements 0 - Labs CBC & Chem 7: 07/09/24 06:42 07/09/24 11:14 Labs: Abnormal Lab Results - Last 24 Hours (Table) 07/08/24 07/08/24 07/08/24 Range/Units 12:05 15:26 15:33 WBC (3.8-10.6) k/uL RBC (3.80-5.40) m/uL Hgb (11.4-16.0) gm/dL Hct (34.0-46.0) % MCHC (31.0-37.0) g/dL RDW (11.5-15.5) % Plt Count (150-450) k/uL Neutrophils # (1.3-7.7) k/uL Lymphocytes # (1.0-4.8) k/uL ABG pCO2 (35-45) mmHg ABG pO2 (83-108) mmHg ABG HCO3 (21-25) mmol/L Potassium (3.5-5.1) mmol/L Chloride (98-107) mmol/L Carbon Dioxide (22-30) mmol/L BUN (7-17) mg/dL Creatinine (0.52-1.04) mg/dL Glucose (74-99) mg/dL POC Glucose (mg/dL) 272 H (70-110) mg/dL Plasma Lactic Acid Ronaldo 2.2 H* 3.3 H* (0.7-2.0) mmol/L Calcium (8.4-10.2) mg/dL 07/08/24 07/08/24 07/08/24 Range/Units 17:52 18:40 22:58 WBC (3.8-10.6) k/uL RBC (3.80-5.40) m/uL Hgb (11.4-16.0) gm/dL Hct (34.0-46.0) % MCHC (31.0-37.0) g/dL RDW (11.5-15.5) % Plt Count (150-450) k/uL Neutrophils # (1.3-7.7) k/uL Lymphocytes # (1.0-4.8) k/uL ABG pCO2 30 L (35-45) mmHg ABG pO2 76 L (83-108) mmHg ABG HCO3 18 L (21-25) mmol/L Potassium (3.5-5.1) mmol/L Chloride (98-107) mmol/L Carbon Dioxide (22-30) mmol/L BUN (7-17) mg/dL Creatinine (0.52-1.04) mg/dL Glucose (74-99) mg/dL POC Glucose (mg/dL) 319 H (70-110) mg/dL Plasma Lactic Acid Ronaldo 3.2 H* (0.7-2.0) mmol/L Calcium (8.4-10.2) mg/dL 07/09/24 07/09/24 07/09/24 Range/Units 06:17 06:42 06:42 WBC 24.5 H (3.8-10.6) k/uL RBC 2.78 L (3.80-5.40) m/uL Hgb 8.0 L D (11.4-16.0) gm/dL Hct 26.0 L (34.0-46.0) % MCHC 30.8 L (31.0-37.0) g/dL RDW 17.0 H (11.5-15.5) % Plt Count 134 L (150-450) k/uL Neutrophils # 22.9 H (1.3-7.7) k/uL Lymphocytes # 0.4 L (1.0-4.8) k/uL ABG pCO2 (35-45) mmHg ABG pO2 (83-108) mmHg ABG HCO3 (21-25) mmol/L Potassium 5.9 H (3.5-5.1) mmol/L Chloride 110 H (98-107) mmol/L Carbon Dioxide 18 L (22-30) mmol/L BUN 57 H (7-17) mg/dL Creatinine 3.07 H (0.52-1.04) mg/dL Glucose 223 H (74-99) mg/dL POC Glucose (mg/dL) 233 H (70-110) mg/dL Plasma Lactic Acid Ronaldo (0.7-2.0) mmol/L Calcium 6.8 L (8.4-10.2) mg/dL 07/09/24 07/09/24 07/09/24 Range/Units 09:00 11:04 11:14 WBC (3.8-10.6) k/uL RBC (3.80-5.40) m/uL Hgb (11.4-16.0) gm/dL Hct (34.0-46.0) % MCHC (31.0-37.0) g/dL RDW (11.5-15.5) % Plt Count (150-450) k/uL Neutrophils # (1.3-7.7) k/uL Lymphocytes # (1.0-4.8) k/uL ABG pCO2 (35-45) mmHg ABG pO2 (83-108) mmHg ABG HCO3 (21-25) mmol/L Potassium 5.9 H 5.8 H (3.5-5.1) mmol/L Chloride 109 H 111 H (98-107) mmol/L Carbon Dioxide 17 L 18 L (22-30) mmol/L BUN 57 H 59 H (7-17) mg/dL Creatinine 3.24 H 3.10 H (0.52-1.04) mg/dL Glucose 246 H 306 H (74-99) mg/dL POC Glucose (mg/dL) 314 H (70-110) mg/dL Plasma Lactic Acid Ronaldo (0.7-2.0) mmol/L Calcium 6.6 L 7.0 L (8.4-10.2) mg/dL 07/09/24 Range/Units 12:13 WBC (3.8-10.6) k/uL RBC (3.80-5.40) m/uL Hgb (11.4-16.0) gm/dL Hct (34.0-46.0) % MCHC (31.0-37.0) g/dL RDW (11.5-15.5) % Plt Count (150-450) k/uL Neutrophils # (1.3-7.7) k/uL Lymphocytes # (1.0-4.8) k/uL ABG pCO2 (35-45) mmHg ABG pO2 (83-108) mmHg ABG HCO3 (21-25) mmol/L Potassium (3.5-5.1) mmol/L Chloride (98-107) mmol/L Carbon Dioxide (22-30) mmol/L BUN (7-17) mg/dL Creatinine (0.52-1.04) mg/dL Glucose (74-99) mg/dL POC Glucose (mg/dL) 306 H (70-110) mg/dL Plasma Lactic Acid Ronaldo (0.7-2.0) mmol/L Calcium (8.4-10.2) mg/dL Microbiology - Last 24 Hours (Table) 07/07/24 18:11 Blood Culture Gram Stain - Preliminary Blood Blood Culture - Preliminary Escherichia coli Molecular ID
--- NOTE | 2024-07-09 14:29 | P.NPCON ---
History of Present Illness - Reason for Consult acute renal failure - History of Present Illness 79-year-old female with a past medical history of CVA/TIA, diabetes mellitus, hyperlipidemia, hypertension, CKD III presents due to altered mental status and seizure-like activity. Patient has a caregiver who reports at baseline she is awake alert and oriented x 3. Nephrology consulted for EUSEBIO. Creatinine at admission was 1.3 and increased to 3.07 on 07/09/24. History of CKD stage III A/B with baseline Cr of 1.2-1.3. BP noted to be low with systolic at 94. Nurse reports no significant urine output. Bladder scan from (07/08) 11-30 ml only. No NSAID's noted on home med list. No Arthur-i or Arb's noted in home meds. No toxins from IV dyes. Potassium was elevated 5.9, and received IV medications for hyperkalemia. Past Medical History Past Medical History: CVA/TIA, Diabetes Mellitus, Hyperlipidemia, Hypertension, Respiratory Disorder Additional Past Medical History / Comment(s): 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 dysphagia History of Any Multi-Drug Resistant Organisms: None Reported Past Surgical History: Appendectomy, Hysterectomy, Tonsillectomy Past Anesthesia/Blood Transfusion Reactions: Unable to Obtain Past Psychological History: No Psychological Hx Reported, Unable to Obtain Smoking Status: Never smoker Past Alcohol Use History: None Reported Past Drug Use History: None Reported - Past Family History Father Family Medical History: Cancer, Diabetes Mellitus Additional Family Medical History / Comment(s): prostate and lung Mother Family Medical History: Cancer Additional Family Medical History / Comment(s): colon Medications and Allergies Home Medications Medication Instructions Recorded Confirmed Type gemfibroziL [Lopid] 600 mg PO DAILY 08/26/15 07/07/24 History Insulin Detemir (Levemir) [Levemir] 30 unit SQ Q12H 10/30/21 07/07/24 History Metoprolol Succinate [Toprol XL] 100 mg PO DAILY 10/30/21 07/07/24 History Atorvastatin [Lipitor] 40 mg PO HS 30 Days #30 tab 11/02/21 07/07/24 Rx Clopidogrel [Plavix] 75 mg PO DAILY 30 Days #30 tab 11/02/21 07/07/24 Rx Aspirin EC [Ecotrin Low Dose] 81 mg PO DAILY 07/07/24 07/07/24 History Budesonide [Pulmicort] 0.5 mg INHALATION RT-Q12H 07/07/24 07/07/24 History Folic Acid 1 mg PO DAILY 07/07/24 07/07/24 History HYDROcodone/APAP 5-325MG [[place] 0.5 tab PO Q6H PRN 07/07/24 07/07/24 History 5-325] INSULIN LISPRO (humaLOG) [humaLOG] See Protocol SQ ACHS 07/07/24 07/07/24 History Insulin Lispro 5 units SQ TID-W/MEALS 07/07/24 07/07/24 History Ipratropium-Albuterol Nebulize 3 ml INHALATION RT-Q6H 07/07/24 07/07/24 History [Duoneb 0.5 mg-3 mg/3 ml Soln] Magnesium Hydroxide [Milk of 7,200 mg PO DAILY PRN 07/07/24 07/07/24 History Magnesia Concentrate] Na Phos,M-B/Na Phos,Di-Ba [Fleet 133 ml RECTAL DAILY PRN 07/07/24 07/07/24 History Adult] Pantoprazole [Protonix] 40 mg PO BID 07/07/24 07/07/24 History QUEtiapine [SEROquel] 25 mg PO DAILY 07/07/24 07/07/24 History Thiamine [Vitamin B-1] 100 mg PO DAILY 07/07/24 07/07/24 History bisacodyL [Dulcolax] 10 mg RECTAL DAILY PRN 07/07/24 07/07/24 History traZODone HCL [Desyrel] 25 mg PO DAILY 07/07/24 07/07/24 History traZODone HCL [Desyrel] 50 mg PO DAILY 07/07/24 07/07/24 History Allergies Allergy/AdvReac Type Severity Reaction Status Date / Time No Known Allergies Allergy Verified 07/07/24 17:41 Physical Exam Vitals: Vital Signs Temp Pulse Pulse Resp BP BP Pulse Ox 07/09/24 07:51 98.1 F 110 H 24 94/48 94 L 07/09/24 06:00 99.9 F H 112 H 34 H 99/54 95 07/09/24 01:57 110 H 07/09/24 00:55 99.1 F 110 H 40 H 154/66 99 07/08/24 23:00 99.1 F 102 H 36 H 139/69 99 07/08/24 22:29 108 H 19 144/85 94 L 07/08/24 18:15 99.3 F 97 22 108/69 95 07/08/24 14:32 115 H 24 102/62 94 L 07/08/24 14:09 98.9 F 112 H 20 121/44 94 L 07/08/24 13:18 112 H 20 110/90 94 L 07/08/24 12:11 20 95/50 95 07/08/24 11:18 114 H 20 96/69 95 Intake and Output 07/08/24 07/09/24 07/09/24 22:59 06:59 14:59 Other: # Voids 3 # Bowel Movements 0 General: Nontoxic, appears stated age. A&O x0, patient asleep and minimally respondent during exam Derm: Skin warm and dry, normal coloration Head: Atraumatic, normocephalic and symmetric. Eyes: EOM's intact, no lid lag, and anicteric sclera Mouth: no lip lesions, mucus membranes moist Cardiovascular: regular rate and rhythm with normal S1S2, and cap refill < 2 seconds. Lungs: Respirations even, regular, and unlabored on room air. Lungs CTA bilaterally, no rhonchi, no rales, no wheezing, and no accessory muscle usage. Abdominal: soft, non tender no appreciable organomegaly Ext: ROM intact. No gross muscle atrophy, no edema, no contractures Neuro: Speech clear, face symmetrical and CN II-XII grossly intact with no noted focal neuro deficits Results - Lab Results Most recent lab results ABG pH 7.39 (7.35-7.45) 07/08/24 17:52 ABG pCO2 30 mmHg (35-45) L 07/08/24 17:52 ABG pO2 76 mmHg (83-108) L 07/08/24 17:52 ABG HCO3 18 mmol/L (21-25) L 07/08/24 17:52 ABG O2 Saturation 94.8 % (94-97) 07/08/24 17:52 Calcium 6.6 mg/dL (8.4-10.2) L 07/09/24 09:00 Magnesium 1.8 mg/dL (1.6-2.3) 07/09/24 06:42 07/09/24 06:42 07/09/24 11:14 Assessment and Plan Assessment: 1. EUSEBIO, ATN, oliguric from low BP and underlying infection, UA: suggestive of UTI, no evidence of obstructive urophaty based on renal u/s (07/08/24) 2. Hyperkalemia 2/2 EUSEBIO and metabolic acidosis and hyperglycemia. 3. Metabolic Acidosis. Non gap. 2/2 to EUSEBIO. 4. CKD stage III A/B, baseline Cr 1.2-1.3 mg/dl, likely etiology 2/2 diabetic kidney disease 5 Altered mental status (toxic/metabolic encephalopathy). Brain CT scan showed no acute findings. 6. Nephrolithiasis which are non- obstructive, possible non obstructing cortical calcifications noted on renal u/s 7. History of brain bleed about 2 to 3 months ago as per H&P 8. Hypotension 2/2 to underlying infection 9. Lactic acidosis, lactate 3.4 on admission and peaked to 5.9 (07/08) and now is 1.4. 10. Hyperglycemia 11. Volume overload/ CHF based on CXR 12. Choleystitis 13. Sepsis with gram-negative bacteremia, BCX preliminary shows E. coli 10. UTI Plan: - Treat hyperglcymeia - Cont. bicarb drip, change composition to half NS with 100meq sodium bicarb due to hyperglycemia - Insert St catheter - Cont. ABX - Avoid nephrotoxic agents. - Repeat labs later on today - Add IV lasix if volume status worsens. - Thank you for the consultation and we will cont to follow the pt with you. Patient is seen and examined with the resident. I agree with resident's findings, assessment and plan.
[2024-07-09 15:31] LABS: ABG Base Excess -6.7 mmol/L; ABG HCO3 19 mmol/L (21-25); ABG Oxygen Saturation 96.4 % (94-97); ABG PCO2 40 mmHg (35-45); ABG PH 7.29 (7.35-7.45); ABG PO2 90 mmHg (83-108); ABG TCO2 21 mmol/L (19-24); Allen Test Performed? Yes
[2024-07-09] MEDS ORDERED: DEXTROSE 50% SYRINGE 50 ML IVP PRN (16:37)
[2024-07-09] MEDS: propofoL 100 ML IV ONE ×2 (16:43→20:14)
[2024-07-09] MEDS: CISATRACURIUM 2 MG/ML 5 ML VIAL IV ONE ×2 (16:44→17:10)
[2024-07-09 16:48] LABS: African American GFR (CKD) 16 (>60 ml/min/1.73 sqM); Anion Gap 9 mmol/L; Blood Urea Nitrogen 61 mg/dL (7-17); Calcium 6.9 mg/dL (8.4-10.2); Carbon Dioxide 19 mmol/L (22-30); Chloride 112 mmol/L (98-107); Glucose 127 mg/dL (74-99); Magnesium 1.9 mg/dL (1.6-2.3); Non-African American GFR(CKD) 14 (>60 ml/min/1.73 sqM); Potassium 5.1 mmol/L (3.5-5.1); Sodium 140 mmol/L (137-145)
--- NOTE | 2024-07-09 16:49 | XR ---
EXAMINATION TYPE: XR chest 1V confirm line plcin DATE OF EXAM: 07/09/2024 COMPARISON: 07/09/2024 HISTORY: 79-year-old female post intubation and central line insertion TECHNIQUE: Single frontal view of the chest is obtained. FINDINGS: ET tube tip 1.8 cm from the kimberly. NG tube is short. Advance by 8 cm so that the sidehole enters the stomach. Heart is mildly moderately enlarged. Diffuse interstitial and patchy opacities. Background hyperinfla tion. Some Vineet B lines noted at the left lung base. Left IJ CVC tip at the mid to lower SVC. IMPRESSION: 1. Mild to moderate cardiomegaly with superimposed CHF and patchy interstitial pulmonary edema. Backg round COPD. 2. ET tube tip 1.8 cm from the kimberly. Consider pulling back by 5 mm. 3. Advance the NG tube by 8 cm so that the side hole enters the stomach.
[2024-07-09 17:05] LABS: ABG Base Excess -5.2 mmol/L; ABG HCO3 19 mmol/L (21-25); ABG Oxygen Saturation 100.3 % (94-97); ABG PCO2 33 mmHg (35-45); ABG PH 7.38 (7.35-7.45); ABG PO2 388 mmHg (83-108); ABG TCO2 20 mmol/L (19-24); Allen Test Performed? Yes
[2024-07-09 17:33] LABS: Glucose,Whole Blood 113 mg/dL (70-110)
--- NOTE | 2024-07-09 18:39 | P.CNNES ---
History of Present Illness Consult date: 07/09/24 Requesting physician: Kaveh E Sheet Reason for Consult: ams, seizure at f History of Present Illness: Patient is a 79-year-old female was brought to the hospital by ambulance on 07/07/2024 at 5:31 PM for altered mental status and seizure. As per EMS flowsheet, they were called by [facility] staff that patient is unresponsive. Patient's blood sugar was 45 mg/dL. While feeding her, she became unresponsive with a tonic behavior lasting approximately 10 seconds. Per staff, the patient has a normal cognitive level and answers questions for herself and cannot care for some of her daily needs. Patient had a low-grade fever of 99 degrees. She had a recent flu diagnosis. On assessment, her blood sugar was 61 mg/dL. Patient remained nonresponsive and was continuously screaming throughout EMS care. EMS assessed temperature was 102 F axillary. Patient's vitals at the scene was blood pressure 159/89, pulse rate 141 respiration 24. Saturation 96%. Patient's Tmax has been 99.9 F in the hospital. EKG showed sinus tachycardia. Chest x-ray showed cardiomegaly and mild pulmonary vascular congestion. Correlate with BNP for congestive heart failure. CT head revealed no acute intracranial process. Resolution of previously seen right-sided subdural hemorrhage from prior CT 04/16/2024. Nonspecific white matter changes, likely secondary to chronic small vessel ischemic disease. Repeat chest x-ray showed cardiomegaly, pulmonary vascular congestion and bilateral pleural effusions. Correlate with BNP for CHF. Blood test shows WBC 12.0, which has gone up to 24.5. Hemoglobin 8.0, platelets 134. Sodium is normal potassium 5.8. BUN 59 creatinine 3.10. Lactate 3.4. UA shows large amount of leukocyte esterase, more than 182 WBCs and more than 182 RBCs. Nitrite negative. Influenza, RSV and coronavirus PCR negative. Patient's blood sugar on arrival was 39, which has been normal since then. Lactate has gone up to 5.9. Patient at present appears severely encephalopathic, not able to provide any history. Patient is having some very sporadic myoclonic jerking of the arm noticed. Patient has been seen by myself on 11/01/2021 for acute right pontine stroke, possibly lacunar from small vessel disease. Patient has history of hypertension, diabetes and mild developmental delays. Patient has history of right-sided subdural hematoma on 04/16/2024. Patient was treated at [facility]. 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 dysphagia History of Any Multi-Drug Resistant Organisms: None Reported Past Surgical History: Appendectomy, Hysterectomy, Tonsillectomy Past Anesthesia/Blood Transfusion Reactions: Unable to Obtain Past Psychological History: No Psychological Hx Reported, Unable to Obtain Smoking Status: Never smoker Past Alcohol Use History: None Reported Past Drug Use History: None Reported - Past Family History Father Family Medical History: Cancer, Diabetes Mellitus Additional Family Medical History / Comment(s): prostate and lung Mother Family Medical History: Cancer Additional Family Medical History / Comment(s): colon Medications and Allergies Home Medications Medication Instructions Recorded Confirmed Type gemfibroziL [Lopid] 600 mg PO DAILY 08/26/15 07/07/24 History Insulin Detemir (Levemir) [Levemir] 30 unit SQ Q12H 10/30/21 07/07/24 History Metoprolol Succinate [Toprol XL] 100 mg PO DAILY 10/30/21 07/07/24 History Atorvastatin [Lipitor] 40 mg PO HS 30 Days #30 tab 11/02/21 07/07/24 Rx Clopidogrel [Plavix] 75 mg PO DAILY 30 Days #30 tab 11/02/21 07/07/24 Rx Aspirin EC [Ecotrin Low Dose] 81 mg PO DAILY 07/07/24 07/07/24 History Budesonide [Pulmicort] 0.5 mg INHALATION RT-Q12H 07/07/24 07/07/24 History Folic Acid 1 mg PO DAILY 07/07/24 07/07/24 History HYDROcodone/APAP 5-325MG [[place] 0.5 tab PO Q6H PRN 07/07/24 07/07/24 History 5-325] INSULIN LISPRO (humaLOG) [humaLOG] See Protocol SQ ACHS 07/07/24 07/07/24 History Insulin Lispro 5 units SQ TID-W/MEALS 07/07/24 07/07/24 History Ipratropium-Albuterol Nebulize 3 ml INHALATION RT-Q6H 07/07/24 07/07/24 History [Duoneb 0.5 mg-3 mg/3 ml Soln] Magnesium Hydroxide [Milk of 7,200 mg PO DAILY PRN 07/07/24 07/07/24 History Magnesia Concentrate] Na Phos,M-B/Na Phos,Di-Ba [Fleet 133 ml RECTAL DAILY PRN 07/07/24 07/07/24 History Adult] Pantoprazole [Protonix] 40 mg PO BID 07/07/24 07/07/24 History QUEtiapine [SEROquel] 25 mg PO DAILY 07/07/24 07/07/24 History Thiamine [Vitamin B-1] 100 mg PO DAILY 07/07/24 07/07/24 History bisacodyL [Dulcolax] 10 mg RECTAL DAILY PRN 07/07/24 07/07/24 History traZODone HCL [Desyrel] 25 mg PO DAILY 07/07/24 07/07/24 History traZODone HCL [Desyrel] 50 mg PO DAILY 07/07/24 07/07/24 History Allergies Allergy/AdvReac Type Severity Reaction Status Date / Time No Known Allergies Allergy Verified 07/07/24 17:41 Physical Examination - Vital Signs Vital Signs: Vital Signs Temp Pulse Pulse Resp BP BP Pulse Ox 07/09/24 13:20 91 15 108/64 97 07/09/24 13:10 92 15 106/65 97 07/09/24 13:00 89 14 107/61 96 07/09/24 12:50 91 14 107/61 97 07/09/24 12:42 94 16 112/63 96 07/09/24 11:52 96.5 F L 99 24 108/56 97 07/09/24 11:32 76 07/09/24 11:19 84 07/09/24 08:00 109 H 07/09/24 07:51 98.1 F 110 H 24 94/48 94 L 07/09/24 06:00 99.9 F H 112 H 34 H 99/54 95 07/09/24 01:57 110 H 07/09/24 00:55 99.1 F 110 H 40 H 154/66 99 07/08/24 23:00 99.1 F 102 H 36 H 139/69 99 07/08/24 22:29 108 H 19 144/85 94 L 07/08/24 18:15 99.3 F 97 22 108/69 95 07/08/24 14:32 115 H 24 102/62 94 L 07/08/24 14:09 98.9 F 112 H 20 121/44 94 L Intake and Output 07/08/24 07/09/24 07/09/24 22:59 06:59 14:59 Intake Total 175 Output Total 200 Balance -25 Intake: IV 175 Piperacillin-Tazobactam 3 100 .375 gm In Sodium Chloride 0.9% 100 ml @ 25 mls/hr IVPB Q8HR MANDIE Rx# :[id number] Sodium Chloride 0.45% 1, 75 000 ml @ 75 mls/hr IV . [id number] MANDIE with Sodium Bicarb (1 Meq/ml) 100 ml Rx#:[id number] Output: Urine 200 Straight 100 Other: Voiding Method Indwelling Catheter # Voids 3 # Bowel Movements 0 Patient is an elderly female, who appears severely encephalopathic. Her skin is dry, lips are chapped. Patient is very encephalopathic. Patient sometimes moans. Patient does not open her eyes to calling her name. On cranial nerve examination, pupils are equal, round and reacting to light, visual engel cannot be tested. Oculocephalics are slightly present. Patient does not cooperate with otherwise extraocular muscles testing. No obvious nystagmus. Face is symmetric. Patient did not protrude her tongue and lower cranial nerves cannot be tested. On muscle strength testing, patient not cooperating with examination because of mental status. She did not squeeze the hand. Patient does have facial grimacing equal bilaterally with painful stimuli in the upper limbs. In the lower limbs patient has bilateral withdrawal of the lower extremities, purposeful movement. No obvious focality noted. Deep tendon reflexes diminished and plantars are flat. Sensory to touch cannot be assessed. Regarding response to painful stimuli as above. Cerebellar function cannot be assessed. Tone and bulk of muscles normal. Gait cannot be assessed. On general examination, there is no carotid bruit or murmur, S1-S2 audible. Chest is clear on consultation. Abdomen is soft nontender. No organomegaly, bowel sounds present. Patient has peripheral edema. Results - Laboratory Findings CBC and BMP: 07/09/24 06:42 07/09/24 16:15 Abnormal Lab Findings: Abnormal Labs 07/07/24 07/07/24 07/07/24 17:34 17:53 17:53 WBC 12.0 H RBC 3.67 L Hgb 10.7 L Hct 33.8 L MCHC RDW 16.7 H Plt Count Neutrophils # 11.1 H Lymphocytes # 0.4 L ABG pCO2 ABG pO2 ABG HCO3 Sodium Potassium Chloride Carbon Dioxide BUN Creatinine Glucose POC Glucose (mg/dL) 39 L* Plasma Lactic Acid Ronaldo Calcium Magnesium Total Protein Albumin Urine Appearance Turbid H Urine Protein 2+ H Urine Glucose (UA) Trace H Urine Blood Large H Ur Leukocyte Esterase Large H Urine RBC >182 H Urine WBC >182 H Urine WBC Clumps Many H Urine Bacteria Occasional H 07/07/24 07/07/24 07/07/24 17:53 17:53 17:57 WBC RBC Hgb Hct MCHC RDW Plt Count Neutrophils # Lymphocytes # ABG pCO2 ABG pO2 ABG HCO3 Sodium 134 L Potassium Chloride Carbon Dioxide 19 L BUN 27 H Creatinine 1.30 H Glucose 353 H POC Glucose (mg/dL) 205 H Plasma Lactic Acid Ronaldo 3.4 H* Calcium 8.2 L Magnesium 1.2 L Total Protein 5.5 L Albumin 2.8 L Urine Appearance Urine Protein Urine Glucose (UA) Urine Blood Ur Leukocyte Esterase Urine RBC Urine WBC Urine WBC Clumps Urine Bacteria 07/07/24 07/07/24 07/07/24 18:15 18:32 20:47 WBC RBC Hgb Hct MCHC RDW Plt Count Neutrophils # Lymphocytes # ABG pCO2 ABG pO2 ABG HCO3 Sodium Potassium Chloride Carbon Dioxide BUN Creatinine Glucose POC Glucose (mg/dL) 141 H 128 H Plasma Lactic Acid Ronaldo 3.3 H* Calcium Magnesium Total Protein Albumin Urine Appearance Urine Protein Urine Glucose (UA) Urine Blood Ur Leukocyte Esterase Urine RBC Urine WBC Urine WBC Clumps Urine Bacteria 07/07/24 07/07/24 07/08/24 22:09 23:28 00:07 WBC RBC Hgb Hct MCHC RDW Plt Count Neutrophils # Lymphocytes # ABG pCO2 ABG pO2 ABG HCO3 Sodium Potassium Chloride Carbon Dioxide BUN Creatinine Glucose POC Glucose (mg/dL) 114 H 173 H Plasma Lactic Acid Ronaldo 3.0 H* Calcium Magnesium Total Protein Albumin Urine Appearance Urine Protein Urine Glucose (UA) Urine Blood Ur Leukocyte Esterase Urine RBC Urine WBC Urine WBC Clumps Urine Bacteria 07/08/24 07/08/24 07/08/24 01:51 03:42 04:06 WBC RBC Hgb Hct MCHC RDW Plt Count Neutrophils # Lymphocytes # ABG pCO2 ABG pO2 ABG HCO3 Sodium Potassium Chloride Carbon Dioxide BUN Creatinine Glucose POC Glucose (mg/dL) 198 H 204 H Plasma Lactic Acid Ronaldo 5.9 H* Calcium Magnesium Total Protein Albumin Urine Appearance Urine Protein Urine Glucose (UA) Urine Blood Ur Leukocyte Esterase Urine RBC Urine WBC Urine WBC Clumps Urine Bacteria 07/08/24 07/08/24 07/08/24 06:22 09:29 12:05 WBC RBC Hgb Hct MCHC RDW Plt Count Neutrophils # Lymphocytes # ABG pCO2 ABG pO2 ABG HCO3 Sodium Potassium Chloride Carbon Dioxide BUN Creatinine Glucose POC Glucose (mg/dL) 175 H Plasma Lactic Acid Ronaldo 3.6 H* 2.2 H* Calcium Magnesium Total Protein Albumin Urine Appearance Urine Protein Urine Glucose (UA) Urine Blood Ur Leukocyte Esterase Urine RBC Urine WBC Urine WBC Clumps Urine Bacteria 07/08/24 07/08/24 07/08/24 15:26 15:33 17:52 WBC RBC Hgb Hct MCHC RDW Plt Count Neutrophils # Lymphocytes # ABG pCO2 30 L ABG pO2 76 L ABG HCO3 18 L Sodium Potassium Chloride Carbon Dioxide BUN Creatinine Glucose POC Glucose (mg/dL) 272 H Plasma Lactic Acid Ronaldo 3.3 H* Calcium Magnesium Total Protein Albumin Urine Appearance Urine Protein Urine Glucose (UA) Urine Blood Ur Leukocyte Esterase Urine RBC Urine WBC Urine WBC Clumps Urine Bacteria 07/08/24 07/08/24 07/09/24 18:40 22:58 06:17 WBC RBC Hgb Hct MCHC RDW Plt Count Neutrophils # Lymphocytes # ABG pCO2 ABG pO2 ABG HCO3 Sodium Potassium Chloride Carbon Dioxide BUN Creatinine Glucose POC Glucose (mg/dL) 319 H 233 H Plasma Lactic Acid Ronaldo 3.2 H* Calcium Magnesium Total Protein Albumin Urine Appearance Urine Protein Urine Glucose (UA) Urine Blood Ur Leukocyte Esterase Urine RBC Urine WBC Urine WBC Clumps Urine Bacteria 07/09/24 07/09/24 07/09/24 06:42 06:42 09:00 WBC 24.5 H RBC 2.78 L Hgb 8.0 L D Hct 26.0 L MCHC 30.8 L RDW 17.0 H Plt Count 134 L Neutrophils # 22.9 H Lymphocytes # 0.4 L ABG pCO2 ABG pO2 ABG HCO3 Sodium Potassium 5.9 H 5.9 H Chloride 110 H 109 H Carbon Dioxide 18 L 17 L BUN 57 H 57 H Creatinine 3.07 H 3.24 H Glucose 223 H 246 H POC Glucose (mg/dL) Plasma Lactic Acid Ronaldo Calcium 6.8 L 6.6 L Magnesium Total Protein Albumin Urine Appearance Urine Protein Urine Glucose (UA) Urine Blood Ur Leukocyte Esterase Urine RBC Urine WBC Urine WBC Clumps Urine Bacteria 07/09/24 07/09/24 07/09/24 11:04 11:14 12:13 WBC RBC Hgb Hct MCHC RDW Plt Count Neutrophils # Lymphocytes # ABG pCO2 ABG pO2 ABG HCO3 Sodium Potassium 5.8 H Chloride 111 H Carbon Dioxide 18 L BUN 59 H Creatinine 3.10 H Glucose 306 H POC Glucose (mg/dL) 314 H 306 H Plasma Lactic Acid Ronaldo Calcium 7.0 L Magnesium Total Protein Albumin Urine Appearance Urine Protein Urine Glucose (UA) Urine Blood Ur Leukocyte Esterase Urine RBC Urine WBC Urine WBC Clumps Urine Bacteria Assessment and Plan Assessment: * Altered mental status due to toxic metabolic encephalopathy. Reasons multifactorial as mentioned below. * Septic encephalopathy * E. coli bacteremia * Hypoglycemia with hypoglycemic encephalopathy. * Rule out seizures. * Possible cholecystitis * History of right hemispheric subdural hematoma 04/16/2024, treated conservatively. * Acute kidney injury * Acute hypoxic respiratory failure. * History of right pontine lacunar stroke 11/01/2021. * Diabetes * Hyperlipidemia * Developmental delay, and patient is half-way resident. Plan: * Stat EEG was performed. It was abnormal due to background slowing, suggestive of moderate to severe encephalopathy. Also evidence of sporadic generalized spike and slow wave seen at later part of the study. No electrographic seiz ure was recorded. No electrographic evidence of status epilepticus. * We will empirically start Keppra 500 mg IV once daily, due to very poor renal functions. * We will consider repeating EEG in 1 to 2 days. * CT head showed no acute process. Resolution of previously seen right sided subdural hematoma. * Patient currently on Zosyn. * Avoid episodes of hypoglycemia. * Medical management as per IM/critical care. * Neurology will follow. Thank you for the consult. Time with Patient: Greater than 30
[2024-07-09] MEDS: levETIRAcetam IV 500 MG/5 ML VIAL IVP SCH (19:42)
--- NOTE | 2024-07-09 20:06 | P.PCN ---
Date of Procedure: 07/09/24 Preoperative Diagnosis: Septic shock Postoperative Diagnosis: Septic shock Procedure(s) Performed: Intubation, central line insertion Anesthesia: MAC Surgeon: Jude Lee Estimated Blood Loss (ml): 0 Pathology: other Condition: critical Disposition: ICU Operative Findings: Intubation A time out was performed. My hands were washed immediately prior to the procedure. I wore a surgical cap, mask with protective eyewear, gown and gloves throughout the procedure. The patient was placed on a vehicle monitor technician including continuous pulse oximetry. The patient received IV propofol a total of 100 mg for induction. Cricoid pressure was maintained from time induction agent was given to time of cuff balloon inflation. Using a glidoscope and a size #8 endotracheal tube with stylet, the patient was intubated on the 1 attempt. The stylet was removed and cuff balloon was inflated. Appropriate endotracheal tube position was confirmed by direct visualization of vocal cord passage, fogging of the tube, CO2 colormetric indicator and symmetric breath sounds. The tube was secured at 21 cm at the lips. Post intubation chest x-ray showed adequate positioning of the orotracheal tube Central Line Indication: Hemodynamic monitoring/Intravenous access. A time-out was completed verifying correct patient, procedure, site, positioning, and implant(s) or special equipment if applicable. The patient was placed in a dependent position appropriate for central line placement based on the vein to be cannulated. The patients left neck was prepped and draped in sterile fashion. 1% Lidocaine was used to anesthetize the surrounding skin area. A triple lumen 9F Cordis catheter was introduced into the left internal jugular vein using Seldinger technique. The catheter was threaded smoothly over the guide wire and appropriate blood return was obtained. Each lumen of the catheter was evacuated of air and flushed with sterile saline. The catheter was then sutured in place to the skin and a sterile dressing applied. Perfusion to the extremity distal to the point of catheter insertion was checked and found to be adequate. The patient tolerated the procedure well and there were no complications.
[2024-07-09] MEDS: PIPERACILLIN-TAZOBACTAM 3.375 GM in SODIUM CHLORIDE 0.9% 100 ML IVPB SCH (20:27)
[2024-07-09] MEDS: CHLORHEXIDINE GLUCONATE 15 ML CUP MUCOUS MEM SCH (20:27)
--- NOTE | 2024-07-09 20:31 | EEG ---
ELECTROENCEPHALOGRAM REPORT PREAMBLE: This is a 79-year-old female with altered mental status. The patient came from extended care facility with a seizure-like activity and then the patient was noted to be hypoglycemic. The patient has persistent altered mental status. CURRENT MEDICATIONS: 1. Insulin. 2. Morphine. 3. Zosyn. 4. Seroquel. 5. Desyrel. EEG FINDINGS: This is a 21-channel portable EEG recorded with video component, utilizing 10/20 international system with referential and bipolar montages. Background consists of moderately well-developed, poorly regulated, mixed frequencies of diffuse 4 to 6 hertz theta, intermixed with some delta slowing in bihemispheric region. Background does not seem to be reactive to eye opening or closing. Photic stimulation or hyperventilation were not done. During middle part of the study, lot of movement artifacts were seen because of some coughing spells. At later part of the study, generalized spike and sharp waves were seen sporadically during the study. No electrographic seizure was recorded. Different stages of sleep were not seen. IMPRESSION: This is an abnormal EEG due to, 1. Background slowing and disorganization, suggestive of moderate to severe encephalopathy. 2. Sporadic generalized spike and slow waves seen, suggestive of underlying cortical irritability and tendency for seizures. No electrographic seizure was recorded. MMODL / IJN: [id number] /
[2024-07-10 00:02] LABS: Glucose,Whole Blood 66 mg/dL (70-110)
[2024-07-10] MEDS: DEXTROSE 50% SYRINGE 50 ML IVP PRN (00:05)
[2024-07-10 00:24] LABS: Glucose,Whole Blood 145 mg/dL (70-110)
[2024-07-10] MEDS: NOREPINEPHRINE 4 MG in SODIUM CHLORIDE 0.9% 250 ML IV SCH (04:25)
--- NOTE | 2024-07-10 04:38 | P.PN ---
Subjective Progress Note Date: 07/09/24 This is a pleasant 79 years old female who was sent from monitor for hypoglycemia and seizure-like activity Patient is awake but not follow commands or answer questions appropriately. She could just tell me her name and then she keep saying" take it out" referring to her mittens in the right hand. She could not answer why it is bothering her. I called her caregiver And her power of commonwealth attorney Josesito Blake at [phone] who confirmed to me she has son out of state and she is with her caregiver be cause there is no one to take care of her, she was with her at home till she fell about 2 to 3 months ago at her home and she had a brain bleed, after that she was sent tomorrow with because her caregiver thought is safer for her. At baseline she is awake alert and oriented x 3 as per caregiver. She was told she is sent to the hospital because of hypoglycemia and she is not aware about her seizure-like activity. No previous seizure history but she has history of brain bleed about 2 to 3 months ago. No further information available currently Patient blood pressure on the low side 96/49, slightly tachycardic around 102, she has some low-grade temperature 99.1 Labs showing WBC mildly elevated at 12,000, hemoglobin 10.7 Creatinine at baseline 1.3, baseline 1.2-1.4 Lactic acid elevated 3-5 Magnesium level is low 1.2 EKG showing sinus tachycardia at [address]-T changes and QTc 369 Urinalysis is suspicious of UTI 07/09/2024 Patient is seen in follow-up today and per nursing staff is more obtunded today and unresponsive. 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 Plan initially was for laparoscopic cholecystectomy today with concerns of sepsis. Patient also has significant urinary tract infection and indwelling St catheter placed with hematuria and thick purulent urine noted. Kidney functions also worsened and creatinine is above 3 today with nephrology on consult. Sodium bicarb is being added. Patient also becoming more hypotensive and possibly moving down to ICU for closer monitoring. Discussed with surgery and feel patient is extremely high risk at this time. White count is also elevated at 24 and patient is afebrile. Hemoglobin is 8.0, platelets are 134, sodium 140, potassium initially this morning was 5.9 and being corrected at 5.1, creatinine is 3.12, blood sugars remain uncontrolled and will continue current insulin regimen. Lactic acid improved at 1.4 and patient had received fluid bolus earlier. Patient appears to be volume overloaded as well and again nephrology is consulted and following. Review of systems: Unable to completely assess as patient is obtunded and unresponsive at this time All medications have been reviewed Active Medications Chlorhexidine Gluconate (Chlorhexidine Gluconate 15 Ml Cup) 15 ml MUCOUS MEM BID MANDIE Last Admin: 07/09/24 20:27 Dose: 15 ml Dextrose/Water (Dextrose 50% Syringe 50 Ml) 25 ml IVP PER PROTOCOL PRN; Protocol PRN Reason: Hypoglycemia Last Admin: 07/10/24 00:05 Dose: 25 ml Dextrose/Water (Dextrose 50% Syringe 50 Ml) 50 ml IVP PER PROTOCOL PRN; Protocol PRN Reason: Hypoglycemia Famotidine (Famotidine 20 Mg/2 Ml Vial) 10 mg IV Q12HR MANDIE Last Admin: 07/09/24 20:27 Dose: 10 mg Piperacillin Sod/Tazobactam (Sod 3.375 gm/ Sodium Chloride) 100 mls @ 25 mls/hr IVPB Q12HR MANDIE; Protocol Last Admin: 07/09/24 20:27 Dose: 25 mls/hr Sodium Bicarbonate 100 ml/ (Sodium Chloride) 1,100 mls @ 75 mls/hr IV .[id number] MANDIE Last Admin: 07/10/24 02:45 Dose: 75 mls/hr Propofol 1,000 mg/ IV Solution 100 mls @ 6.695 mls/hr IV .[id number] [facility]; Protocol Last Admin: 07/09/24 23:19 Dose: 20 mcg/kg/min, 8.927 mls/hr Norepinephrine Bitartrate 4 mg (/ Sodium Chloride) 254 mls @ 8.503 mls/hr IV .Q24H MANDIE; Protocol Last Admin: 07/10/24 04:25 Dose: Not Given Insulin Aspart (Insulin Aspart (Novolog) 100 Unit/Ml Vial) 0 unit SQ Q6H MANDIE; Protocol Last Admin: 07/10/24 01:01 Dose: Not Given Levetiracetam (Levetiracetam Iv 500 Mg/5 Ml Vial) 500 mg IVP DAILY [facility] Last Admin: 07/09/24 19:42 Dose: 500 mg Midodrine (Midodrine 5 Mg Tab) 10 mg PO AC-TID [facility] Stop: 07/13/24 10:59 Last Admin: 07/09/24 18:04 Dose: 10 mg Miscellaneous Information (Magnesium Replacement Protocol 1 Each Misc) 1 each MISCELLANE DAILY PRN; Protocol PRN Reason: Per Protocol Morphine Sulfate (Morphine Sulfate 4 Mg/Ml Syringe) 4 mg IVP Q4HR PRN PRN Reason: Pain Last Admin: 07/09/24 12:29 Dose: 4 mg Naloxone HCl (Naloxone 0.4 Mg/Ml 1 Ml Vial) 0.2 mg IV Q2M PRN PRN Reason: Opioid Reversal Ondansetron HCl (Ondansetron 4 Mg/2 Ml Vial) 4 mg IVP Q6HR PRN PRN Reason: Nausea And Vomiting Quetiapine Fumarate (Quetiapine 25 Mg Tab) 25 mg PO DAILY [facility] Last Admin: 07/09/24 10:17 Dose: Not Given Trazodone HCl (Trazodone Hcl 50 Mg Tab) 25 mg PO DAILY [facility] Last Admin: 07/09/24 10:17 Dose: Not Given Trazodone HCl (Trazodone Hcl 50 Mg Tab) 50 mg PO DAILY [facility] Last Admin: 07/09/24 10:17 Dose: Not Given Physical exam: GENERAL: The patient is obtunded and unresponsive only moaning out in pain, appears elderly, ill-appearing, unkempt HEENT: Pupils are round and equally reacting to light. EOMI. No scleral icterus. No conjunctival pallor. Normocephalic, atraumatic. No pharyngeal erythema. No thyromegaly. CARDIOVASCULAR: S1 and S2 muffled PULMONARY: Diminished breath sounds bilaterally with some scattered rhonchi noted, bronchial congestion as well, currently on 3 L via nasal cannula ABDOMEN: Soft, tender on palpation, slightly more distended, normoactive bowel sounds. No palpable organomegaly. MUSCULOSKELETAL: No joint swelling or deformity. EXTREMITIES: No cyanosis, clubbing, or pedal edema. NEUROLOGICAL: Gross neurological examination did not reveal any focal deficits. Diffusely weak SKIN: No rashes. no petechiae. Assessment: Altered mental status, likely toxic/metabolic encephalopathy secondary to sepsis, present on admission Acute hypoxic respiratory failure secondary to above requiring 3 to 4 L currently and pulmonary following considering mechanical ventilation Acute urinary tract infection, present on admission Sepsis with low-grade fever, tachycardia and leukocytosis, also has high lactic acid due to urinary tract infection Diabetes mellitus, type II, uncontrolled with hyperglycemia and hypoglycemia Cholecystitis with gallbladder wall thickening noted on ultrasound, tentatively scheduled for acute laparoscopic cholecystectomy Seizure-like activity related to hypoglycemia Hypotension with elevated lactic acid CKD stage III with acute EUSEBIO History of kidney stone with recent hospitalization for this purpose Recent history of brain bleed about 2 to 3 months earlier GI prophylaxis DVT prophylaxis Full code Plan: Continue with multiple consultations following including now nephrology, pulmonary electric motor controls assembler and general surgery. Patient was initially scheduled to undergo cholecystectomy today with general surgery although white count has become elevated, patient is more obtunded, clinical features of sepsis have worsened and recommend transferring to ICU for close monitoring and maximizing medical management prior to surgical intervention. Patient is extremely high risk and conversation was had with power of commonwealth attorney regarding CODE STATUS as well as intervention. Patient may require pressor support as blood pressures have been lower. Midodrine was started Patient being started on bicarb per nephrology Patient received an indwelling St catheter and output noted to be purulent with hematuria noted Infectious disease following and patient is being started on IV Zosyn Neurology consulted and CT of the brain negative showing some resolution of the previous hematoma. EEG ordered and pending CODE STATUS was addressed with power of commonwealth attorney and is full code. Patient resides at [facility] and primary care provider is Dr. Terrazas who will resume services starting 07/10/2024 Repeat labs ordered for a.m. Given multiple complex medical issues and current clinical condition, overall prognosis is extremely guarded The impression and plan of care has been dictated by Gail Nichole, Nurse Practitioner as directed. Dr. Kyle MD I have performed a history and examination and MDM of this patient, discussed the same with the dictator, and agree with the dictator's assessment and plan as written ,documented as a scribe. Based on total visit time, I have performed more than 50% of the visit. Objective - Vital Signs Vital signs: Vital Signs Temp 98.1 F 07/09/24 07:51 Pulse 110 H 07/09/24 07:51 Resp 24 07/09/24 07:51 BP 94/48 07/09/24 07:51 Pulse Ox 94 L 07/09/24 07:51 FiO2 Intake & Output 07/08/24 07/09/24 07/09/24 18:59 06:59 18:59 Other: # Voids 3 # Bowel Movements 0 - Labs CBC & Chem 7: 07/09/24 06:42 07/09/24 16:15 Labs: Abnormal Lab Results - Last 24 Hours (Table) 07/08/24 07/08/24 07/08/24 Range/Units 09:29 12:05 15:26 WBC (3.8-10.6) k/uL RBC (3.80-5.40) m/uL Hgb (11.4-16.0) gm/dL Hct (34.0-46.0) % MCHC (31.0-37.0) g/dL RDW (11.5-15.5) % Plt Count (150-450) k/uL Neutrophils # (1.3-7.7) k/uL Lymphocytes # (1.0-4.8) k/uL ABG pCO2 (35-45) mmHg ABG pO2 (83-108) mmHg ABG HCO3 (21-25) mmol/L Potassium (3.5-5.1) mmol/L Chloride (98-107) mmol/L Carbon Dioxide (22-30) mmol/L BUN (7-17) mg/dL Creatinine (0.52-1.04) mg/dL Glucose (74-99) mg/dL POC Glucose (mg/dL) 272 H (70-110) mg/dL Plasma Lactic Acid Ronaldo 3.6 H* 2.2 H* (0.7-2.0) mmol/L Calcium (8.4-10.2) mg/dL 07/08/24 07/08/24 07/08/24 Range/Units 15:33 17:52 18:40 WBC (3.8-10.6) k/uL RBC (3.80-5.40) m/uL Hgb (11.4-16.0) gm/dL Hct (34.0-46.0) % MCHC (31.0-37.0) g/dL RDW (11.5-15.5) % Plt Count (150-450) k/uL Neutrophils # (1.3-7.7) k/uL Lymphocytes # (1.0-4.8) k/uL ABG pCO2 30 L (35-45) mmHg ABG pO2 76 L (83-108) mmHg ABG HCO3 18 L (21-25) mmol/L Potassium (3.5-5.1) mmol/L Chloride (98-107) mmol/L Carbon Dioxide (22-30) mmol/L BUN (7-17) mg/dL Creatinine (0.52-1.04) mg/dL Glucose (74-99) mg/dL POC Glucose (mg/dL) (70-110) mg/dL Plasma Lactic Acid Ronaldo 3.3 H* 3.2 H* (0.7-2.0) mmol/L Calcium (8.4-10.2) mg/dL 07/08/24 07/09/24 07/09/24 Range/Units 22:58 06:17 06:42 WBC 24.5 H (3.8-10.6) k/uL RBC 2.78 L (3.80-5.40) m/uL Hgb 8.0 L D (11.4-16.0) gm/dL Hct 26.0 L (34.0-46.0) % MCHC 30.8 L (31.0-37.0) g/dL RDW 17.0 H (11.5-15.5) % Plt Count 134 L (150-450) k/uL Neutrophils # 22.9 H (1.3-7.7) k/uL Lymphocytes # 0.4 L (1.0-4.8) k/uL ABG pCO2 (35-45) mmHg ABG pO2 (83-108) mmHg ABG HCO3 (21-25) mmol/L Potassium (3.5-5.1) mmol/L Chloride (98-107) mmol/L Carbon Dioxide (22-30) mmol/L BUN (7-17) mg/dL Creatinine (0.52-1.04) mg/dL Glucose (74-99) mg/dL POC Glucose (mg/dL) 319 H 233 H (70-110) mg/dL Plasma Lactic Acid Ronaldo (0.7-2.0) mmol/L Calcium (8.4-10.2) mg/dL 07/09/24 07/09/24 Range/Units 06:42 09:00 WBC (3.8-10.6) k/uL RBC (3.80-5.40) m/uL Hgb (11.4-16.0) gm/dL Hct (34.0-46.0) % MCHC (31.0-37.0) g/dL RDW (11.5-15.5) % Plt Count (150-450) k/uL Neutrophils # (1.3-7.7) k/uL Lymphocytes # (1.0-4.8) k/uL ABG pCO2 (35-45) mmHg ABG pO2 (83-108) mmHg ABG HCO3 (21-25) mmol/L Potassium 5.9 H 5.9 H (3.5-5.1) mmol/L Chloride 110 H 109 H (98-107) mmol/L Carbon Dioxide 18 L 17 L (22-30) mmol/L BUN 57 H 57 H (7-17) mg/dL Creatinine 3.07 H 3.24 H (0.52-1.04) mg/dL Glucose 223 H 246 H (74-99) mg/dL POC Glucose (mg/dL) (70-110) mg/dL Plasma Lactic Acid Ronaldo (0.7-2.0) mmol/L Calcium 6.8 L 6.6 L (8.4-10.2) mg/dL Microbiology - Last 24 Hours (Table) 07/07/24 18:11 Blood Culture Gram Stain - Preliminary Blood Blood Culture - Preliminary Escherichia coli Molecular ID
[2024-07-10 05:52] LABS: Glucose,Whole Blood 89 mg/dL (70-110)
[2024-07-10 06:14] LABS: ABG HCO3 20 mmol/L (21-25); ABG PCO2 31 mmHg (35-45); ABG PH 7.41 (7.35-7.45); ABG PO2 152 mmHg (83-108); ABG TCO2 21 mmol/L (19-24); Allen Test Performed? Yes
[2024-07-10 06:16] LABS: ABG Oxygen Saturation 99.9 % (94-97)
[2024-07-10 07:10] LABS: Anisocytosis Slight; Basophils % (A) 0 %; Eosinophils # (A) 0.2 k/uL (0-0.7); Eosinophils % (A) 1 %; HCT 24.5 % (34.0-46.0); HGB 7.6 gm/dL (11.4-16.0); Hypochromasia Moderate; Lymphocytes # (A) 1.3 k/uL (1.0-4.8); Lymphocytes % (A) 7 %; MCH 29.4 pg (25.0-35.0); MCHC 31.1 g/dL (31.0-37.0); MCV 94.6 fL (80.0-100.0); Monocytes # (A) 0.7 k/uL (0-1.0); Monocytes % (A) 4 %; Neutrophils # (A) 15.4 k/uL (1.3-7.7); Neutrophils % (A) 86 %; Platelet Count 112 k/uL (150-450); RBC 2.59 m/uL (3.80-5.40); RDW 17.3 % (11.5-15.5); WBC 17.8 k/uL (3.8-10.6)
[2024-07-10 07:17] LABS: African American GFR (CKD) 17 (>60 ml/min/1.73 sqM); Anion Gap 13 mmol/L; Blood Urea Nitrogen 62 mg/dL (7-17); Calcium 6.7 mg/dL (8.4-10.2); Carbon Dioxide 17 mmol/L (22-30); Chloride 111 mmol/L (98-107); Glucose 80 mg/dL (74-99); Non-African American GFR(CKD) 15 (>60 ml/min/1.73 sqM); Potassium 4.5 mmol/L (3.5-5.1); Sodium 141 mmol/L (137-145)
--- NOTE | 2024-07-10 08:57 | XR ---
EXAMINATION TYPE: XR chest 1V portable DATE OF EXAM: 07/10/2024 Comparison: 07/09/2024 Clinical History: 79-year-old female Tube placement Findings: ET tube tip 1.9 cm from the kimberly. NG tube sidehole remains above the GE junction level. Advanced by 5 cm. Left CVC tip at the lower SVC level. Patient is prominently rotated toward the left ultra norm al cardiac and mediastinal contours. Worsening interstitial and perihilar/hazy opacity throughout the lungs. Worsening left basilar opacity. Possible old surgical neck fracture right humerus. Impression: 1. Exam limited by prominent patient rotation. 2. Advance the NG tube by 5 cm. 3. Aeration appears to be worsening. Consider diffuse pneumonitis versus developing pulmonary edema. 4. Particularly worsened at the left base where there may be a small pleural effusion with adjacent a telectasis and/or consolidation.
[2024-07-10 11:18] LABS: Sodium 142 mmol/L (137-145)
[2024-07-10 11:19] LABS: ALT 21 U/L (4-34); AST 34 U/L (14-36); African American GFR (CKD) 17 (>60 ml/min/1.73 sqM); Albumin 2.4 g/dL (3.5-5.0); Alkaline Phosphatase 129 U/L (38-126); Anion Gap 22 mmol/L; Blood Urea Nitrogen 62 mg/dL (7-17); Calcium 6.8 mg/dL (8.4-10.2); Carbon Dioxide 18 mmol/L (22-30); Chloride 102 mmol/L (98-107); Glucose 98 mg/dL (74-99); Non-African American GFR(CKD) 15 (>60 ml/min/1.73 sqM); Potassium 4.7 mmol/L (3.5-5.1); Total Bilirubin 0.6 mg/dL (0.2-1.3); Total Protein 4.9 g/dL (6.3-8.2)
[2024-07-10] MEDS: LORazepam 2 MG/ML INJ IV STA (11:41)
--- NOTE | 2024-07-10 11:55 | P.PN ---
Subjective patient is seen for follow-up for acute kidney injury and hyperkalemia. Currently maintained on bicarb drip based in half normal saline due to hyper glycemia. Patient has been intubated. FiO2 at 50%. Currently not on pressors. Scheduled for surgery later on today. Urine output at 30-40 mL an hour. Objective - Vital Signs Vital signs: Vital Signs Temp 98.1 F 07/10/24 08:00 Pulse 99 07/10/24 09:00 Resp 13 07/10/24 09:00 BP 105/60 07/10/24 09:00 Pulse Ox 96 07/10/24 09:00 FiO2 50 07/10/24 11:16 Intake & Output 07/09/24 07/10/24 07/10/24 18:59 06:59 18:59 Intake Total 625 1046.407 325 Output Total 405 275 110 Balance 220 771.407 215 Weight 62 kg Intake: IV 625 925 325 Piperacillin-Tazobactam 3 100 100 100 .375 gm In Sodium Chloride 0.9% 100 ml @ 25 mls/hr IVPB Q8HR MANDIE Rx# :[id number] Sodium Chloride 0.45% 1, 525 825 225 000 ml @ 75 mls/hr IV . [id number] MANDIE with Sodium Bicarb (1 Meq/ml) 100 ml Rx#:[id number] Intake, IV Titration 121.407 Amount propofoL 1,000 mg In 121.407 Empty Bag 1 bag @ 15 MCG/ KG/MIN 6.695 mls/hr IV . [id number] MANDIE Rx#:[id number] Output: Urine 405 275 110 Straight 200 Other: Voiding Method Indwelling Catheter Indwelling Catheter Indwelling Catheter - Exam patient is sedated and on the vent. Examination of the heart S1 and S2 Examination of the lungs bilateral breath sounds are heard Abdomen is soft, distended Examination of lower extremities shows no edema - Labs CBC & Chem 7: 07/10/24 06:29 07/10/24 10:44 Labs: Abnormal Lab Results - Last 24 Hours (Table) 07/09/24 07/09/24 07/09/24 Range/Units 11:14 12:13 15:29 WBC (3.8-10.6) k/uL RBC (3.80-5.40) m/uL Hgb (11.4-16.0) gm/dL Hct (34.0-46.0) % RDW (11.5-15.5) % Plt Count (150-450) k/uL Neutrophils # (1.3-7.7) k/uL ABG pH 7.29 L (7.35-7.45) ABG pCO2 (35-45) mmHg ABG pO2 (83-108) mmHg ABG HCO3 19 L (21-25) mmol/L ABG O2 Saturation (94-97) % Potassium 5.8 H (3.5-5.1) mmol/L Chloride 111 H (98-107) mmol/L Carbon Dioxide 18 L (22-30) mmol/L BUN 59 H (7-17) mg/dL Creatinine 3.10 H (0.52-1.04) mg/dL Glucose 306 H (74-99) mg/dL POC Glucose (mg/dL) 306 H (70-110) mg/dL Calcium 7.0 L (8.4-10.2) mg/dL Alkaline Phosphatase (38-126) U/L Total Protein (6.3-8.2) g/dL Albumin (3.5-5.0) g/dL 07/09/24 07/09/24 07/09/24 Range/Units 16:15 17:03 17:31 WBC (3.8-10.6) k/uL RBC (3.80-5.40) m/uL Hgb (11.4-16.0) gm/dL Hct (34.0-46.0) % RDW (11.5-15.5) % Plt Count (150-450) k/uL Neutrophils # (1.3-7.7) k/uL ABG pH (7.35-7.45) ABG pCO2 33 L (35-45) mmHg ABG pO2 388 H (83-108) mmHg ABG HCO3 19 L (21-25) mmol/L ABG O2 Saturation 100.3 H (94-97) % Potassium (3.5-5.1) mmol/L Chloride 112 H (98-107) mmol/L Carbon Dioxide 19 L (22-30) mmol/L BUN 61 H (7-17) mg/dL Creatinine 3.12 H (0.52-1.04) mg/dL Glucose 127 H (74-99) mg/dL POC Glucose (mg/dL) 113 H (70-110) mg/dL Calcium 6.9 L (8.4-10.2) mg/dL Alkaline Phosphatase (38-126) U/L Total Protein (6.3-8.2) g/dL Albumin (3.5-5.0) g/dL 07/10/24 07/10/24 07/10/24 Range/Units 00:00 00:23 06:12 WBC (3.8-10.6) k/uL RBC (3.80-5.40) m/uL Hgb (11.4-16.0) gm/dL Hct (34.0-46.0) % RDW (11.5-15.5) % Plt Count (150-450) k/uL Neutrophils # (1.3-7.7) k/uL ABG pH (7.35-7.45) ABG pCO2 31 L (35-45) mmHg ABG pO2 152 H (83-108) mmHg ABG HCO3 20 L (21-25) mmol/L ABG O2 Saturation 99.9 H (94-97) % Potassium (3.5-5.1) mmol/L Chloride (98-107) mmol/L Carbon Dioxide (22-30) mmol/L BUN (7-17) mg/dL Creatinine (0.52-1.04) mg/dL Glucose (74-99) mg/dL POC Glucose (mg/dL) 66 L 145 H (70-110) mg/dL Calcium (8.4-10.2) mg/dL Alkaline Phosphatase (38-126) U/L Total Protein (6.3-8.2) g/dL Albumin (3.5-5.0) g/dL 07/10/24 07/10/24 07/10/24 Range/Units 06:29 06:29 10:44 WBC 17.8 H (3.8-10.6) k/uL RBC 2.59 L (3.80-5.40) m/uL Hgb 7.6 L (11.4-16.0) gm/dL Hct 24.5 L (34.0-46.0) % RDW 17.3 H (11.5-15.5) % Plt Count 112 L (150-450) k/uL Neutrophils # 15.4 H (1.3-7.7) k/uL ABG pH (7.35-7.45) ABG pCO2 (35-45) mmHg ABG pO2 (83-108) mmHg ABG HCO3 (21-25) mmol/L ABG O2 Saturation (94-97) % Potassium (3.5-5.1) mmol/L Chloride 111 H (98-107) mmol/L Carbon Dioxide 17 L 18 L (22-30) mmol/L BUN 62 H 62 H (7-17) mg/dL Creatinine 2.96 H 2.91 H (0.52-1.04) mg/dL Glucose (74-99) mg/dL POC Glucose (mg/dL) (70-110) mg/dL Calcium 6.7 L 6.8 L (8.4-10.2) mg/dL Alkaline Phosphatase 129 H (38-126) U/L Total Protein 4.9 L (6.3-8.2) g/dL Albumin 2.4 L (3.5-5.0) g/dL Microbiology - Last 24 Hours (Table) 07/07/24 17:53 Urine Culture - Final Urine,Voided Escherichia coli 07/07/24 18:11 Blood Culture Gram Stain - Final Blood Blood Culture - Final Escherichia coli Molecular ID Assessment and Plan Assessment: 1. EUSEBIO, ATN, oliguric from low BP and sepsis. UA: suggestive of UTI, no evidence of obstructive uropathy based on renal u/s (07/08/24) 2. Hyperkalemia 2/2 EUSEBIO and metabolic acidosis and hyperglycemia. 3. Metabolic Acidosis. Non gap. 2/2 to EUSEBIO. 4. CKD stage III A/B, baseline Cr 1.2-1.3 mg/dl, likely etiology 2/2 diabetic kidney disease 5 Altered mental status (toxic/metabolic encephalopathy). Brain CT scan showed no acute findings. 6. Nephrolithiasis which are non- obstructive, possible non obstructing cortical calcifications noted on renal u/s 7. History of intracranial bleed about 2 to 3 months ago as per H&P 8. Hypotension 2/2 to underlying infection 9. Lactic acidosis, lactate 3.4 on admission and peaked to 5.9 (07/08) and now is 1.4. 10. Hyperglycemia 11. Volume overload/ CHF based on CXR 12. Choleystitis 13. Sepsis with gram-negative bacteremia, BCX preliminary shows E. coli 10. Urosepsis with urine culture growing E. coli 11. Anemia rule out GI bleed Plan: change bicarb drip composition to D5W with 3 amps as this is currently a hypertonic solution with 3 A of bicarb in half normal saline. Patient was previously maintained on half normal saline with 100 mEq of sodium bicarb. Continue with antibiotics. Repeat labs in a.m.
[2024-07-10] MEDS ORDERED: SODIUM CHLORIDE 0.45% 1,000 ML with SODIUM BICARB (1 MEQ/ML) 150 ML IV SCH (12:00)
[2024-07-10 12:01] LABS: Glucose,Whole Blood 104 mg/dL (70-110)
[2024-07-10 12:51] LABS: Prothrombin Time 10.5 sec (10.0-12.5)
[2024-07-10] MEDS: DEXTROSE 5% IN WATER 1,000 ML with SODIUM BICARB (1 MEQ/ML) 150 ML IV ONE (13:05)
[2024-07-10] MEDS: ENOXAPARIN 30 MG/0.3 ML SYRINGE SQ SCH (13:05)
--- NOTE | 2024-07-10 14:20 | P.PN ---
Subjective Progress Note Date: 07/10/24 CHIEF COMPLAINT: RUQ pain HISTORY OF PRESENT ILLNESS: Patient required transfer to the ICU yesterday. She is currently intubated and on mechanical ventilation. Her blood pressure improved with IV fluids. Levophed never was started. Patient followed by neurology and undergoing EEG this morning. They are concerned for seizure activity. Afebrile. WBC is down from 24-17 Hgb 7.6 platelets 112 creatinine is down from 3.12-2.91 potassium normalized at 4.7. LFTs normal. Alk phos mildly elevated 120 gallbladder ultrasound from today is pending. Positive blood cultures PHYSICAL EXAM: VITAL SIGNS: Reviewed. GENERAL: Intubated ABDOMEN: Soft. Nondistended. ASSESSMENT: 1. Acute cholecystitis. ultrasound reported cholelithiasis, thickened gallbladder wall and pericholecystic fluid 2. Sepsis 3. Acute kidney injury 4. Hyperkalemia PLAN: -Awaiting family's decision regarding possible comfort care -Continue antibiotics -Continue ICU management -Repeat labs in AM Physician Transfer Station Attendant note has been reviewed by physician. Signing provider agrees with the documented findings, assessment, and plan of care. Objective - Vital Signs Vital signs: Vital Signs Temp 98.1 F 07/10/24 08:00 Pulse 99 07/10/24 09:00 Resp 13 07/10/24 09:00 BP 105/60 07/10/24 09:00 Pulse Ox 96 07/10/24 09:00 FiO2 50 07/10/24 11:16 Intake & Output 07/09/24 07/10/24 07/10/24 18:59 06:59 18:59 Intake Total 625 1046.407 325 Output Total 405 275 110 Balance 220 771.407 215 Weight 62 kg Intake: IV 625 925 325 Piperacillin-Tazobactam 3 100 100 100 .375 gm In Sodium Chloride 0.9% 100 ml @ 25 mls/hr IVPB Q8HR [facility] Rx# :[id number] Sodium Chloride 0.45% 1, 525 825 225 000 ml @ 75 mls/hr IV . [id number] [facility] with Sodium Bicarb (1 Meq/ml) 100 ml Rx#:[id number] Intake, IV Titration 121.407 Amount propofoL 1,000 mg In 121.407 Empty Bag 1 bag @ 15 MCG/ KG/MIN 6.695 mls/hr IV . [id number] [facility] Rx#:[id number] Output: Urine 405 275 110 Straight 200 Other: Voiding Method Indwelling Catheter Indwelling Catheter Indwelling Catheter - Labs CBC & Chem 7: 07/10/24 06:29 07/10/24 10:44 Labs: Abnormal Lab Results - Last 24 Hours (Table) 07/09/24 07/09/24 07/09/24 Range/Units 15:29 16:15 17:03 WBC (3.8-10.6) k/uL RBC (3.80-5.40) m/uL Hgb (11.4-16.0) gm/dL Hct (34.0-46.0) % RDW (11.5-15.5) % Plt Count (150-450) k/uL Neutrophils # (1.3-7.7) k/uL ABG pH 7.29 L (7.35-7.45) ABG pCO2 33 L (35-45) mmHg ABG pO2 388 H (83-108) mmHg ABG HCO3 19 L 19 L (21-25) mmol/L ABG O2 Saturation 100.3 H (94-97) % Chloride 112 H (98-107) mmol/L Carbon Dioxide 19 L (22-30) mmol/L BUN 61 H (7-17) mg/dL Creatinine 3.12 H (0.52-1.04) mg/dL Glucose 127 H (74-99) mg/dL POC Glucose (mg/dL) (70-110) mg/dL Calcium 6.9 L (8.4-10.2) mg/dL Alkaline Phosphatase (38-126) U/L Total Protein (6.3-8.2) g/dL Albumin (3.5-5.0) g/dL 07/09/24 07/10/24 07/10/24 Range/Units 17:31 00:00 00:23 WBC (3.8-10.6) k/uL RBC (3.80-5.40) m/uL Hgb (11.4-16.0) gm/dL Hct (34.0-46.0) % RDW (11.5-15.5) % Plt Count (150-450) k/uL Neutrophils # (1.3-7.7) k/uL ABG pH (7.35-7.45) ABG pCO2 (35-45) mmHg ABG pO2 (83-108) mmHg ABG HCO3 (21-25) mmol/L ABG O2 Saturation (94-97) % Chloride (98-107) mmol/L Carbon Dioxide (22-30) mmol/L BUN (7-17) mg/dL Creatinine (0.52-1.04) mg/dL Glucose (74-99) mg/dL POC Glucose (mg/dL) 113 H 66 L 145 H (70-110) mg/dL Calcium (8.4-10.2) mg/dL Alkaline Phosphatase (38-126) U/L Total Protein (6.3-8.2) g/dL Albumin (3.5-5.0) g/dL 07/10/24 07/10/24 07/10/24 Range/Units 06:12 06:29 06:29 WBC 17.8 H (3.8-10.6) k/uL RBC 2.59 L (3.80-5.40) m/uL Hgb 7.6 L (11.4-16.0) gm/dL Hct 24.5 L (34.0-46.0) % RDW 17.3 H (11.5-15.5) % Plt Count 112 L (150-450) k/uL Neutrophils # 15.4 H (1.3-7.7) k/uL ABG pH (7.35-7.45) ABG pCO2 31 L (35-45) mmHg ABG pO2 152 H (83-108) mmHg ABG HCO3 20 L (21-25) mmol/L ABG O2 Saturation 99.9 H (94-97) % Chloride 111 H (98-107) mmol/L Carbon Dioxide 17 L (22-30) mmol/L BUN 62 H (7-17) mg/dL Creatinine 2.96 H (0.52-1.04) mg/dL Glucose (74-99) mg/dL POC Glucose (mg/dL) (70-110) mg/dL Calcium 6.7 L (8.4-10.2) mg/dL Alkaline Phosphatase (38-126) U/L Total Protein (6.3-8.2) g/dL Albumin (3.5-5.0) g/dL 07/10/24 Range/Units 10:44 WBC (3.8-10.6) k/uL RBC (3.80-5.40) m/uL Hgb (11.4-16.0) gm/dL Hct (34.0-46.0) % RDW (11.5-15.5) % Plt Count (150-450) k/uL Neutrophils # (1.3-7.7) k/uL ABG pH (7.35-7.45) ABG pCO2 (35-45) mmHg ABG pO2 (83-108) mmHg ABG HCO3 (21-25) mmol/L ABG O2 Saturation (94-97) % Chloride (98-107) mmol/L Carbon Dioxide 18 L (22-30) mmol/L BUN 62 H (7-17) mg/dL Creatinine 2.91 H (0.52-1.04) mg/dL Glucose (74-99) mg/dL POC Glucose (mg/dL) (70-110) mg/dL Calcium 6.8 L (8.4-10.2) mg/dL Alkaline Phosphatase 129 H (38-126) U/L Total Protein 4.9 L (6.3-8.2) g/dL Albumin 2.4 L (3.5-5.0) g/dL Microbiology - Last 24 Hours (Table) 07/07/24 17:53 Urine Culture - Final Urine,Voided Escherichia coli 07/07/24 18:11 Blood Culture Gram Stain - Final Blood Blood Culture - Final Escherichia coli Molecular ID
--- NOTE | 2024-07-10 14:23 | US ---
EXAMINATION TYPE: US gallbladder DATE OF EXAM: 07/10/2024 COMPARISON: 07/08/24 (renal ultrasound showing cholelithiasis) CLINICAL INDICATION: Female, 79 years old with history of cholelithiasis; cholelithiasis *ICU patient on vent TECHNIQUE: Multiple sonographic images of the right upper quadrant are obtained. FINDINGS: EXAM MEASUREMENTS: Liver Length: 18.4 cm Gallbladder Wall: 0.31 cm CBD: 0.47 cm Right Kidney: 12.1 x 4.4 x 6.9 cm Pancreas: parts seen appear wnl Liver: wnl Gallbladder: multiple gallstones seen in neck and body of GB. Mild pericholecystic fluid seen Evidence for sonographic Bar's sign: unable to evaluate due to pt being on vent CBD: wnl Right Kidney: hyperechoic area with posterior shadowing seen measuring 1.3 x 1.2 x 1.1cm on superior lateral border. IMPRESSION: 1. Cholelithiasis with pericholecystic fluid collections or signs and symptoms of acute cholecystiti s. No other acute process. 2. Right renal calculus
--- NOTE | 2024-07-10 14:55 | P.PN ---
Subjective Progress Note Date: 07/10/24 This is a 79-year-old female patient, senior living resident with developmental delay, who was recently hospitalized at [facility] in time she was treated for pneumonia and she also had a pleural effusion that was drained. The exact site of the pneumonia and the drainage is not known to me at this point. The patient came into our hospital after having an episode of hypoglycemia with a blood sugar in the low 40s and a seizure-like activity. The patient was awake however she was not answering questions appropriately. The power of finance attorney was at the bedside. In the emergency, the patient was found to be septic. The white cell count was 12 with a hemoglobin 10.7 and a blood culture was positive for gram-negative bacillus. BUN was 27 with a creatinine of 1.3 and a sodium level of 134. Initial lactic acid level was at 3.3 and repeat level was also 3.3. UA was consistent with infection as the patient had blood and white cells within the urine analysis along with +2 protein and occasional bacteria and many WBC clumps. The viral screen was negative. Also, the patient's LFTs were essentially within normal limits. Nevertheless, the patient was given a ultrasound of the bladder and the kidneys. There was evidence of cholelithiasis with prominent wall and pericholecystic fluid suggestive of cholecystitis. No evidence of any obstructive uropathy. There was renal cortical scarring bilaterally possible nonobstructing cortical calcifications. No evidence of any hydronephrosis. The patient is currently on IV Zosyn. She was given a dose of Rocephin in the emergency department. The patient was also given IV fluids and currently she is on normal saline at rate of 130 cc an hour. CAT scan of the brain showed a resolution of the previously described right subdural hemorrhage from 04/16/2024. There was some nonspecific white matter changes. X-ray of the chest showed no evidence of any pleural effusion for consolidation. The patient had increased pulm vascular markings. At this point in time the patient is currently on 4 L of oxygen by nasal cannula with a pulse ox of 94%. Normotensive. Slightly tachycardic. On today's evaluation of 07/09/2024, the patient's condition is further decompensated compared to yesterday. She seems to be much more obtunded. Urine output is low. The patient has developed further increase the white cell count and has developed an acute kidney injury in addition. The patient's blood cultures positive for E. coli and the patient is prepped and IV Zosyn. Abdomen seems to be slightly more firm compared to yesterday. Is currently the patient afebrile, slightly tachycardic, on 4 L of oxygen by nasal cannula with a pulse ox of 94%. Follow-up chest x-ray from today shows evidence of pulmonary edema. IV fluids are running in the form of a normal saline at rate of 75 cc an hour. She was given another bolus of 500 cc earlier today. The white cell count is at 24.5 hemoglobin is 8 with a platelet count of 134. She has 94% neutrophilia. Sodium levels at 139 with a potassium level of 5.8. Serum bicarb is 18 with a BUN of 59 and a creatinine of 3.10. Blood sugar is at 306. As stated, urine cultures are still pending. Blood culture is positive for E. coli. Lactic acid level has improved compared to yesterday and is currently down to 1.4 from 3.2. The highest lactic acid level was at 5.9 07/10/2024, the patient is being seen for a follow-up. The patient is currently intubated on mechanical ventilator due to septic shock. Blood cultures positive for E. coli, urine cultures also positive for E. coli. Patient is currently on IV Zosyn. Repeat ultrasound the gallbladder was done and shows cholelithiasis with pericholecystic fluid collection and the patient has multiple gallstones seen in the neck and the body of the gallbladder. The amount of pericholecystic fluid is mild. Unable to evaluate the patient's Bar sign. There is also a right renal calculus. The liver function tests remain essentially within normal limits with an alkaline phosphatase of 129, and the patient's bilirubin is at 0.6. Being the source of septicemia is a urine. The patient is still on propofol which is running at 20 mcg/kg/min. She is on mechanical ventilator assist-control mode with rate of 22, tidal volume of 350, FiO2 of 50% with a PEEP of 5. Blood gas from today showed a pH of 7.41 with a pCO2 of 81 and pO2 of 152. Chest x-ray showing diffuse bilateral pulmonary for trace, could be related to interstitial edema versus acute lung injury secondary to sepsis. Serum bicarb is 18 and the patient remains on a bicarb infusion at rate of 75 cc an hour. BUN is 62 with a creatinine of 2.9 and a sodium levels at 142. LFTs are normal. The patient had dropped her platelet count 212 with a WBC count of 7.8 which is improved compared to yesterday and a hemoglobin of 7.6. Antibiotic coverage with IV Zosyn. Objective - Vital Signs Vital signs: Vital Signs Temp 98.1 F 07/10/24 12:00 Pulse 78 07/10/24 14:00 Resp 22 07/10/24 14:00 BP 102/59 07/10/24 14:00 Pulse Ox 100 07/10/24 14:00 FiO2 50 07/10/24 12:00 Intake & Output 07/09/24 07/10/24 07/10/24 18:59 06:59 18:59 Intake Total 625 1046.407 856.686 Output Total 405 275 290 Balance 220 771.407 566.686 Weight 62 kg Intake: IV 625 925 325 Piperacillin-Tazobactam 3 100 100 100 .375 gm In Sodium Chloride 0.9% 100 ml @ 25 mls/hr IVPB Q8HR [facility] Rx# :[id number] Sodium Chloride 0.45% 1, 525 825 225 000 ml @ 75 mls/hr IV . [id number] [facility] with Sodium Bicarb (1 Meq/ml) 100 ml Rx#:[id number] Intake, IV Titration 121.407 531.686 Amount Dextrose 5% in Water 1, 375 000 ml @ 75 mls/hr IV . [id number] ONE with Sodium Bicarb (1 Meq/ml) 150 ml Rx#:[id number] Piperacillin-Tazobactam 3 100 .375 gm In Sodium Chloride 0.9% 100 ml @ 25 mls/hr IVPB Q12HR [facility] Rx #:[id number] propofoL 1,000 mg In 121.407 56.686 Empty Bag 1 bag @ 15 MCG/ KG/MIN 6.695 mls/hr IV . [id number] [facility] Rx#:[id number] Output: Urine 405 275 290 Straight 200 Other: Voiding Method Indwelling Catheter Indwelling Catheter Indwelling Catheter - Exam -GENERAL: The patient is calm and comfortable sedated on propofol, intubated and mechanically ventilated. Orogastric and orotracheal tube are both in place. HEENT: Pupils are round and equally reacting to light. EOMI. No scleral icterus. No conjunctival pallor. Normocephalic, atraumatic. No pharyngeal erythema. No thyromegaly. CARDIOVASCULAR: S1 and S2 present. No murmurs, rubs, or gallops. PULMONARY: Chest is clear to auscultation, no wheezing , no crackles. ABDOMEN: Soft, nontender, nondistended, normoactive bowel sounds. No palpable organomegaly. No direct tenderness. No rebound tenderness in the upper quadrant. No guarding. MUSCULOSKELETAL: No joint swelling or deformity. EXTREMITIES: No cyanosis, clubbing, or pedal edema. NEUROLOGICAL: Gross neurological examination did not reveal any focal deficits. Patient remains sedated and she grimaces to painful stimulation. SKIN: No rashes. no petechiae. - Labs CBC & Chem 7: 07/10/24 06:29 07/10/24 10:44 Labs: Abnormal Lab Results - Last 24 Hours (Table) 07/09/24 07/09/24 07/09/24 Range/Units 15:29 16:15 17:03 WBC (3.8-10.6) k/uL RBC (3.80-5.40) m/uL Hgb (11.4-16.0) gm/dL Hct (34.0-46.0) % RDW (11.5-15.5) % Plt Count (150-450) k/uL Neutrophils # (1.3-7.7) k/uL Fibrinogen (200-500) mg/dL ABG pH 7.29 L (7.35-7.45) ABG pCO2 33 L (35-45) mmHg ABG pO2 388 H (83-108) mmHg ABG HCO3 19 L 19 L (21-25) mmol/L ABG O2 Saturation 100.3 H (94-97) % Chloride 112 H (98-107) mmol/L Carbon Dioxide 19 L (22-30) mmol/L BUN 61 H (7-17) mg/dL Creatinine 3.12 H (0.52-1.04) mg/dL Glucose 127 H (74-99) mg/dL POC Glucose (mg/dL) (70-110) mg/dL Calcium 6.9 L (8.4-10.2) mg/dL Alkaline Phosphatase (38-126) U/L Total Protein (6.3-8.2) g/dL Albumin (3.5-5.0) g/dL 07/09/24 07/10/24 07/10/24 Range/Units 17:31 00:00 00:23 WBC (3.8-10.6) k/uL RBC (3.80-5.40) m/uL Hgb (11.4-16.0) gm/dL Hct (34.0-46.0) % RDW (11.5-15.5) % Plt Count (150-450) k/uL Neutrophils # (1.3-7.7) k/uL Fibrinogen (200-500) mg/dL ABG pH (7.35-7.45) ABG pCO2 (35-45) mmHg ABG pO2 (83-108) mmHg ABG HCO3 (21-25) mmol/L ABG O2 Saturation (94-97) % Chloride (98-107) mmol/L Carbon Dioxide (22-30) mmol/L BUN (7-17) mg/dL Creatinine (0.52-1.04) mg/dL Glucose (74-99) mg/dL POC Glucose (mg/dL) 113 H 66 L 145 H (70-110) mg/dL Calcium (8.4-10.2) mg/dL Alkaline Phosphatase (38-126) U/L Total Protein (6.3-8.2) g/dL Albumin (3.5-5.0) g/dL 07/10/24 07/10/24 07/10/24 Range/Units 06:12 06:29 06:29 WBC 17.8 H (3.8-10.6) k/uL RBC 2.59 L (3.80-5.40) m/uL Hgb 7.6 L (11.4-16.0) gm/dL Hct 24.5 L (34.0-46.0) % RDW 17.3 H (11.5-15.5) % Plt Count 112 L (150-450) k/uL Neutrophils # 15.4 H (1.3-7.7) k/uL Fibrinogen (200-500) mg/dL ABG pH (7.35-7.45) ABG pCO2 31 L (35-45) mmHg ABG pO2 152 H (83-108) mmHg ABG HCO3 20 L (21-25) mmol/L ABG O2 Saturation 99.9 H (94-97) % Chloride 111 H (98-107) mmol/L Carbon Dioxide 17 L (22-30) mmol/L BUN 62 H (7-17) mg/dL Creatinine 2.96 H (0.52-1.04) mg/dL Glucose (74-99) mg/dL POC Glucose (mg/dL) (70-110) mg/dL Calcium 6.7 L (8.4-10.2) mg/dL Alkaline Phosphatase (38-126) U/L Total Protein (6.3-8.2) g/dL Albumin (3.5-5.0) g/dL 07/10/24 07/10/24 Range/Units 10:44 10:44 WBC (3.8-10.6) k/uL RBC (3.80-5.40) m/uL Hgb (11.4-16.0) gm/dL Hct (34.0-46.0) % RDW (11.5-15.5) % Plt Count (150-450) k/uL Neutrophils # (1.3-7.7) k/uL Fibrinogen 986 H (200-500) mg/dL ABG pH (7.35-7.45) ABG pCO2 (35-45) mmHg ABG pO2 (83-108) mmHg ABG HCO3 (21-25) mmol/L ABG O2 Saturation (94-97) % Chloride (98-107) mmol/L Carbon Dioxide 18 L (22-30) mmol/L BUN 62 H (7-17) mg/dL Creatinine 2.91 H (0.52-1.04) mg/dL Glucose (74-99) mg/dL POC Glucose (mg/dL) (70-110) mg/dL Calcium 6.8 L (8.4-10.2) mg/dL Alkaline Phosphatase 129 H (38-126) U/L Total Protein 4.9 L (6.3-8.2) g/dL Albumin 2.4 L (3.5-5.0) g/dL Microbiology - Last 24 Hours (Table) 07/07/24 17:53 Urine Culture - Final Urine,Voided Escherichia coli 07/07/24 18:11 Blood Culture Gram Stain - Final Blood Blood Culture - Final Escherichia coli Molecular ID Assessment and Plan Plan: Sepsis suspected secondary to E. coli. Suspect UTI with sepsis. Urine culture was positive for E. coli and blood cultures also positive for E. coli. We suspected also acute cholecystitis as a source of for E. coli septicemia and bacteremia.. LFTs are normal. . Ultrasound the gallbladder showed some pericholecystic fluid suggestive of cholecystitis. The patient had a repeat ultrasound of the gallbladder today that showed mild cholecystic/pericholecystic fluid. No evidence of any biliary obstruction. LFTs remain unchanged. Acute leukocytosis, improving Seizures, could be related to hypoglycemia, currently inactive and stable Encephalopathy related to toxic/metabolic encephalopathy/sepsis. CAT scan of the brain showed no evidence of any bleed and there is resolution of the previous described subdural hematoma Lactic acidosis secondary to above Acute kidney injury on top of CKD stage III Acute hypoxic respiratory failure, currently intubated on mechanical ventilator. Chest x-ray shows bilateral pulmonary filtrates. No history of edema versus acute lung injury secondary to sepsis. History of kidney stone with recent hospitalization for this purpose Recent hospitalization for pneumonia and pleural effusion, post thoracentesis. This was done at [facility] History of CVA History of subdural hematoma secondary to fall/anticoagulation. Diabetes mellitus Hyperlipidemia Developmental delay and the patient is a senior living resident Thrombocytopenia, rule out underlying DIC Plan: Continue bicarb infusion with 3 A of sodium bicarb at the rate of 75 cc an hour Continue IV Zosyn Lactic acid levels have dropped White cell count is elevated, improving Urine output is diminished and the patient has a St catheter in place, renal function continues to improve Surgery consultation Neurology consult Repeat ultrasound the gallbladder was noted. LFTs remain unchanged. Patient is currently off pressors Will do a DIC workup Monitor platelet count Lovenox for DVT prophylaxis Obtain a 2D echocardiogram May start enteral feeding for nutrition support as long as clearance is obtained by general surgery Condition remains critical. This evaluation was done more than 30 minutes. I did a full discussion with the power of finance attorney. I also discussed the case with the infectious disease doctor. Will continue to follow make further recommendations based on progress. Evaluation was done more than 30 minutes. Time with Patient: Greater than 30
--- NOTE | 2024-07-10 15:50 | P.PN ---
Subjective Progress Note Date: 07/10/24 Patient was seen for a follow-up. Patient apparently developed respiratory distress overnight, and was intubated. Patient currently on sedation with propofol 20 mcg/kg/min, also on Zosyn. No obvious seizure-like activity noted. Objective - Vital Signs Vital signs: Vital Signs Temp 98.1 F 07/10/24 12:00 Pulse 78 07/10/24 14:00 Resp 22 07/10/24 14:00 BP 102/59 07/10/24 14:00 Pulse Ox 100 07/10/24 14:00 FiO2 50 07/10/24 12:00 Intake & Output 07/09/24 07/10/24 07/10/24 18:59 06:59 18:59 Intake Total 625 1046.407 856.686 Output Total 405 275 290 Balance 220 771.407 566.686 Weight 62 kg Intake: IV 625 925 325 Piperacillin-Tazobactam 3 100 100 100 .375 gm In Sodium Chloride 0.9% 100 ml @ 25 mls/hr IVPB Q8HR [facility] Rx# :[id number] Sodium Chloride 0.45% 1, 525 825 225 000 ml @ 75 mls/hr IV . [id number] [facility] with Sodium Bicarb (1 Meq/ml) 100 ml Rx#:[id number] Intake, IV Titration 121.407 531.686 Amount Dextrose 5% in Water 1, 375 000 ml @ 75 mls/hr IV . [id number] ONE with Sodium Bicarb (1 Meq/ml) 150 ml Rx#:[id number] Piperacillin-Tazobactam 3 100 .375 gm In Sodium Chloride 0.9% 100 ml @ 25 mls/hr IVPB Q12HR [facility] Rx #:[id number] propofoL 1,000 mg In 121.407 56.686 Empty Bag 1 bag @ 15 MCG/ KG/MIN 6.695 mls/hr IV . [id number] [facility] Rx#:[id number] Output: Urine 405 275 290 Straight 200 Other: Voiding Method Indwelling Catheter Indwelling Catheter Indwelling Catheter - Exam Patient is sedated, also severely encephalopathic. Patient is intubated on mechanical ventilator. No obvious seizure-like activity noted. Her pupils are pinpoint, but slightly reactive to light. Both are equal in size. Gaze is midline. Oculocephalics present. Patient does have a gag and cough. Tone is equal bilaterally. Rest of the examination could not be checked. - Labs CBC & Chem 7: 07/10/24 06:29 07/10/24 10:44 Labs: Abnormal Lab Results - Last 24 Hours (Table) 07/09/24 07/09/24 07/09/24 Range/Units 15:29 16:15 17:03 WBC (3.8-10.6) k/uL RBC (3.80-5.40) m/uL Hgb (11.4-16.0) gm/dL Hct (34.0-46.0) % RDW (11.5-15.5) % Plt Count (150-450) k/uL Neutrophils # (1.3-7.7) k/uL Fibrinogen (200-500) mg/dL ABG pH 7.29 L (7.35-7.45) ABG pCO2 33 L (35-45) mmHg ABG pO2 388 H (83-108) mmHg ABG HCO3 19 L 19 L (21-25) mmol/L ABG O2 Saturation 100.3 H (94-97) % Chloride 112 H (98-107) mmol/L Carbon Dioxide 19 L (22-30) mmol/L BUN 61 H (7-17) mg/dL Creatinine 3.12 H (0.52-1.04) mg/dL Glucose 127 H (74-99) mg/dL POC Glucose (mg/dL) (70-110) mg/dL Calcium 6.9 L (8.4-10.2) mg/dL Alkaline Phosphatase (38-126) U/L Total Protein (6.3-8.2) g/dL Albumin (3.5-5.0) g/dL 07/09/24 07/10/24 07/10/24 Range/Units 17:31 00:00 00:23 WBC (3.8-10.6) k/uL RBC (3.80-5.40) m/uL Hgb (11.4-16.0) gm/dL Hct (34.0-46.0) % RDW (11.5-15.5) % Plt Count (150-450) k/uL Neutrophils # (1.3-7.7) k/uL Fibrinogen (200-500) mg/dL ABG pH (7.35-7.45) ABG pCO2 (35-45) mmHg ABG pO2 (83-108) mmHg ABG HCO3 (21-25) mmol/L ABG O2 Saturation (94-97) % Chloride (98-107) mmol/L Carbon Dioxide (22-30) mmol/L BUN (7-17) mg/dL Creatinine (0.52-1.04) mg/dL Glucose (74-99) mg/dL POC Glucose (mg/dL) 113 H 66 L 145 H (70-110) mg/dL Calcium (8.4-10.2) mg/dL Alkaline Phosphatase (38-126) U/L Total Protein (6.3-8.2) g/dL Albumin (3.5-5.0) g/dL 07/10/24 07/10/24 07/10/24 Range/Units 06:12 06:29 06:29 WBC 17.8 H (3.8-10.6) k/uL RBC 2.59 L (3.80-5.40) m/uL Hgb 7.6 L (11.4-16.0) gm/dL Hct 24.5 L (34.0-46.0) % RDW 17.3 H (11.5-15.5) % Plt Count 112 L (150-450) k/uL Neutrophils # 15.4 H (1.3-7.7) k/uL Fibrinogen (200-500) mg/dL ABG pH (7.35-7.45) ABG pCO2 31 L (35-45) mmHg ABG pO2 152 H (83-108) mmHg ABG HCO3 20 L (21-25) mmol/L ABG O2 Saturation 99.9 H (94-97) % Chloride 111 H (98-107) mmol/L Carbon Dioxide 17 L (22-30) mmol/L BUN 62 H (7-17) mg/dL Creatinine 2.96 H (0.52-1.04) mg/dL Glucose (74-99) mg/dL POC Glucose (mg/dL) (70-110) mg/dL Calcium 6.7 L (8.4-10.2) mg/dL Alkaline Phosphatase (38-126) U/L Total Protein (6.3-8.2) g/dL Albumin (3.5-5.0) g/dL 07/10/24 07/10/24 Range/Units 10:44 10:44 WBC (3.8-10.6) k/uL RBC (3.80-5.40) m/uL Hgb (11.4-16.0) gm/dL Hct (34.0-46.0) % RDW (11.5-15.5) % Plt Count (150-450) k/uL Neutrophils # (1.3-7.7) k/uL Fibrinogen 986 H (200-500) mg/dL ABG pH (7.35-7.45) ABG pCO2 (35-45) mmHg ABG pO2 (83-108) mmHg ABG HCO3 (21-25) mmol/L ABG O2 Saturation (94-97) % Chloride (98-107) mmol/L Carbon Dioxide 18 L (22-30) mmol/L BUN 62 H (7-17) mg/dL Creatinine 2.91 H (0.52-1.04) mg/dL Glucose (74-99) mg/dL POC Glucose (mg/dL) (70-110) mg/dL Calcium 6.8 L (8.4-10.2) mg/dL Alkaline Phosphatase 129 H (38-126) U/L Total Protein 4.9 L (6.3-8.2) g/dL Albumin 2.4 L (3.5-5.0) g/dL Microbiology - Last 24 Hours (Table) 07/07/24 17:53 Urine Culture - Final Urine,Voided Escherichia coli 07/07/24 18:11 Blood Culture Gram Stain - Final Blood Blood Culture - Final Escherichia coli Molecular ID Assessment and Plan Assessment: * Altered mental status due to toxic metabolic encephalopathy. Reasons multifactorial as mentioned below. * Abnormal EEG, with evidence of sporadic generalized sharp waves. * Septic encephalopathy * E. coli bacteremia * Hypoglycemia with hypoglycemic encephalopathy. * Rule out seizures. * Possible cholecystitis * History of right hemispheric subdural hematoma 04/16/2024, treated conservatively. * Acute kidney injury * Acute hypoxic respiratory failure. * History of right pontine lacunar stroke 11/01/2021. * Diabetes * Hyperlipidemia * Developmental delay, and patient is retirement resident. Plan: * Repeat prolonged EEG for 1 hour was completed. It was severely abnormal, with background slowing and disorganization, suggestive of severe encephalopathy. Also revealed evidence of intermittent high amplitude sharp waves seen occasionally involving right hemispheric, but more often bihemispheric region. At times these sharp waves have triphasic in quality as well. No electr ographic seizure was recorded. * Patient to be increased on Keppra 500 mg twice daily. Also start Vimpat 100 mg twice daily. * Repeat EEG in the morning. * Consider transfer to higher level of care for continuous EEG monitoring. * Initial EEG 06/08/2024 was abnormal due to background slowing, suggestive of moderate to severe encephalopathy. Also evidence of sporadic generalized spike and slow wave seen at later part of the study. No electrographic seizure was recorded. No electrographic evidence of status epilepticus. * CT head showed no acute process. Resolution of previously seen right sided subdural hematoma. * Patient currently on Zosyn. * Avoid episodes of hypoglycemia. * Medical management as per IM/critical care. * Patient is critically sick.
[2024-07-10] MEDS: levETIRAcetam IV 500 MG/5 ML VIAL IVP SCH (15:59)
[2024-07-10] MEDS: Lacosamide IV (ages 17+ yrs) 200 MG/20 ML ML IVP SCH (15:59)
[2024-07-10 17:36] LABS: Glucose,Whole Blood 156 mg/dL (70-110)
--- NOTE | 2024-07-10 19:43 | EEG ---
ELECTROENCEPHALOGRAM REPORT PREAMBLE: This is a 79-year-old female with altered mental status. The patient had a significantly abnormal EEG yesterday. This is a followup EEG. The patient is currently on Keppra. EEG FINDINGS: This is a 21-channel digital EEG recorded with video component, utilizing 10/20 international system with referential and bipolar montages. This is a prolonged EEG for 1 hour. Recording start time is 11:13 a.m. on 07/10/2024, and recording end time is 12:17 p.m. on 07/10/2024. The recording starts and continues with presence of significantly disorganized background, consisting of mixed frequencies of moderate to high amplitude mixed theta and delta slowing in bihemispheric region. Background does not seem to be reactive to eye opening or closing. There is frequent, high amplitude sharp appearing waves seen, sometimes involving the right hemispheric region, sometimes bihemispheric region. At times, these sharp waves have triphasic type quality as well. However, no electrographic seizure was recorded. Different stages of sleep were not seen. The patient was given Ativan 1 mg IV push at 11:40 a.m. There was some reduction in this- high amplitude sharp wave activity seen after the administration of Ativan. IMPRESSION: This is an abnormal EEG due to, 1. Background slowing suggestive of moderate to severe encephalopathy. 2. The presence of high amplitude sharp appearing waves, occasionally involving the right hemispheric region, often bilateral, which at times have triphasic type quality. This indicate underlying cortical irritability and tendency for seizure. The high amplitude sharp waves seen intermittently seemed to have reduced in frequency after receiving Ativan 1 mg IV. Nonconvulsive status cannot be ruled out. 3. Clinical correlation, followup EEG recommended. Continuous EEG monitoring may be considered for further evaluation. MMODL / IJN: [id number] / MTDD
[2024-07-11 00:14] LABS: Glucose,Whole Blood 186 mg/dL (70-110)
[2024-07-11 03:44] LABS: Anisocytosis Slight; Basophils % (A) 0 %; Eosinophils # (A) 0.2 k/uL (0-0.7); Eosinophils % (A) 2 %; HCT 22.5 % (34.0-46.0); Hypochromasia Marked; Lymphocytes % (A) 10 %; MCH 28.5 pg (25.0-35.0); MCV 91.9 fL (80.0-100.0); Mean Platelet Volume 10.2; Monocytes # (A) 0.5 k/uL (0-1.0); Monocytes % (A) 5 %; Neutrophils # (A) 8.5 k/uL (1.3-7.7); Neutrophils % (A) 81 %; Platelet Count 124 k/uL (150-450); RBC 2.44 m/uL (3.80-5.40); WBC 10.5 k/uL (3.8-10.6)
[2024-07-11 03:51] LABS: Anion Gap 10 mmol/L; Blood Urea Nitrogen 61 mg/dL (7-17); Calcium 6.9 mg/dL (8.4-10.2); Carbon Dioxide 25 mmol/L (22-30); Chloride 105 mmol/L (98-107); Glucose 183 mg/dL (74-99); Sodium 140 mmol/L (137-145)
[2024-07-11 03:52] LABS: African American GFR (CKD) 21 (>60 ml/min/1.73 sqM); Non-African American GFR(CKD) 18 (>60 ml/min/1.73 sqM)
[2024-07-11 05:30] LABS: ABG Base Excess 2.4 mmol/L; ABG HCO3 25 mmol/L (21-25); ABG Oxygen Saturation 99.8 % (94-97); ABG PCO2 31 mmHg (35-45); ABG PH 7.52 (7.35-7.45); ABG PO2 159 mmHg (83-108); ABG TCO2 26 mmol/L (19-24); Allen Test Performed? Yes
[2024-07-11 06:06] LABS: Glucose,Whole Blood 218 mg/dL (70-110)
--- NOTE | 2024-07-11 08:59 | P.PN ---
Subjective Progress Note Date: 07/10/24 Principal diagnosis: Reason for follow-up is UTI and bacteremia Patient is a 79-year-old female with a past medical history significant for diabetes mellitus hypertension hyperlipidemia CVA TIA in this patient who is a [facility] resident patient has been brought into the ER by EMS after apparently the patient did have some seizure-like activity, patient did have a fever positive UA and blood culture positive for E. coli. On today's evaluation that is 07/10/2024, Patient is afebrile this morning patient did continue bed last evening patient FiO2 is currently stable at 50% no significant purulent secretion through the ET vomiting diarrhea or any other changes reported by nursing staff. Patient white count is down to 17.8 creatinine is 2.91 blood and urine is growing E. coli Objective - Vital Signs Vital signs: Vital Signs Temp 98.1 F 07/10/24 12:00 Pulse 78 07/10/24 14:00 Resp 22 07/10/24 14:00 BP 102/59 07/10/24 14:00 Pulse Ox 100 07/10/24 14:00 FiO2 50 07/10/24 15:17 Intake & Output 07/09/24 07/10/24 07/10/24 18:59 06:59 18:59 Intake Total 625 1046.407 856.686 Output Total 405 275 290 Balance 220 771.407 566.686 Weight 62 kg Intake: IV 625 925 325 Piperacillin-Tazobactam 3 100 100 100 .375 gm In Sodium Chloride 0.9% 100 ml @ 25 mls/hr IVPB Q8HR [facility] Rx# :[id number] Sodium Chloride 0.45% 1, 525 825 225 000 ml @ 75 mls/hr IV . [id number] MANDIE with Sodium Bicarb (1 Meq/ml) 100 ml Rx#:[id number] Intake, IV Titration 121.407 531.686 Amount Dextrose 5% in Water 1, 375 000 ml @ 75 mls/hr IV . [id number] ONE with Sodium Bicarb (1 Meq/ml) 150 ml Rx#:[id number] Piperacillin-Tazobactam 3 100 .375 gm In Sodium Chloride 0.9% 100 ml @ 25 mls/hr IVPB Q12HR [facility] Rx #:[id number] propofoL 1,000 mg In 121.407 56.686 Empty Bag 1 bag @ 15 MCG/ KG/MIN 6.695 mls/hr IV . [id number] Rx#:[id number] Output: Urine 405 275 290 Straight 200 Other: Voiding Method Indwelling Catheter Indwelling Catheter Indwelling Catheter - Exam GENERAL DESCRIPTION: An elderly female lying in bed in no distress RESPIRATORY SYSTEM: Unlabored breathing , decreased breath sounds at bases HEART: S1 S2 regular rate and rhythm , ABDOMEN: Soft , no tenderness EXTREMITIES: No edema feet - Labs CBC & Chem 7: 07/11/24 03:15 07/11/24 03:15 Labs: Abnormal Lab Results - Last 24 Hours (Table) 07/09/24 07/09/24 07/09/24 Range/Units 16:15 17:03 17:31 WBC (3.8-10.6) k/uL RBC (3.80-5.40) m/uL Hgb (11.4-16.0) gm/dL Hct (34.0-46.0) % RDW (11.5-15.5) % Plt Count (150-450) k/uL Neutrophils # (1.3-7.7) k/uL Fibrinogen (200-500) mg/dL ABG pCO2 33 L (35-45) mmHg ABG pO2 388 H (83-108) mmHg ABG HCO3 19 L (21-25) mmol/L ABG O2 Saturation 100.3 H (94-97) % Chloride 112 H (98-107) mmol/L Carbon Dioxide 19 L (22-30) mmol/L BUN 61 H (7-17) mg/dL Creatinine 3.12 H (0.52-1.04) mg/dL Glucose 127 H (74-99) mg/dL POC Glucose (mg/dL) 113 H (70-110) mg/dL Calcium 6.9 L (8.4-10.2) mg/dL Alkaline Phosphatase (38-126) U/L Total Protein (6.3-8.2) g/dL Albumin (3.5-5.0) g/dL 07/10/24 07/10/24 07/10/24 Range/Units 00:00 00:23 06:12 WBC (3.8-10.6) k/uL RBC (3.80-5.40) m/uL Hgb (11.4-16.0) gm/dL Hct (34.0-46.0) % RDW (11.5-15.5) % Plt Count (150-450) k/uL Neutrophils # (1.3-7.7) k/uL Fibrinogen (200-500) mg/dL ABG pCO2 31 L (35-45) mmHg ABG pO2 152 H (83-108) mmHg ABG HCO3 20 L (21-25) mmol/L ABG O2 Saturation 99.9 H (94-97) % Chloride (98-107) mmol/L Carbon Dioxide (22-30) mmol/L BUN (7-17) mg/dL Creatinine (0.52-1.04) mg/dL Glucose (74-99) mg/dL POC Glucose (mg/dL) 66 L 145 H (70-110) mg/dL Calcium (8.4-10.2) mg/dL Alkaline Phosphatase (38-126) U/L Total Protein (6.3-8.2) g/dL Albumin (3.5-5.0) g/dL 07/10/24 07/10/24 07/10/24 Range/Units 06:29 06:29 10:44 WBC 17.8 H (3.8-10.6) k/uL RBC 2.59 L (3.80-5.40) m/uL Hgb 7.6 L (11.4-16.0) gm/dL Hct 24.5 L (34.0-46.0) % RDW 17.3 H (11.5-15.5) % Plt Count 112 L (150-450) k/uL Neutrophils # 15.4 H (1.3-7.7) k/uL Fibrinogen 986 H (200-500) mg/dL ABG pCO2 (35-45) mmHg ABG pO2 (83-108) mmHg ABG HCO3 (21-25) mmol/L ABG O2 Saturation (94-97) % Chloride 111 H (98-107) mmol/L Carbon Dioxide 17 L (22-30) mmol/L BUN 62 H (7-17) mg/dL Creatinine 2.96 H (0.52-1.04) mg/dL Glucose (74-99) mg/dL POC Glucose (mg/dL) (70-110) mg/dL Calcium 6.7 L (8.4-10.2) mg/dL Alkaline Phosphatase (38-126) U/L Total Protein (6.3-8.2) g/dL Albumin (3.5-5.0) g/dL 07/10/24 Range/Units 10:44 WBC (3.8-10.6) k/uL RBC (3.80-5.40) m/uL Hgb (11.4-16.0) gm/dL Hct (34.0-46.0) % RDW (11.5-15.5) % Plt Count (150-450) k/uL Neutrophils # (1.3-7.7) k/uL Fibrinogen (200-500) mg/dL ABG pCO2 (35-45) mmHg ABG pO2 (83-108) mmHg ABG HCO3 (21-25) mmol/L ABG O2 Saturation (94-97) % Chloride (98-107) mmol/L Carbon Dioxide 18 L (22-30) mmol/L BUN 62 H (7-17) mg/dL Creatinine 2.91 H (0.52-1.04) mg/dL Glucose (74-99) mg/dL POC Glucose (mg/dL) (70-110) mg/dL Calcium 6.8 L (8.4-10.2) mg/dL Alkaline Phosphatase 129 H (38-126) U/L Total Protein 4.9 L (6.3-8.2) g/dL Albumin 2.4 L (3.5-5.0) g/dL Microbiology - Last 24 Hours (Table) 07/07/24 17:53 Urine Culture - Final Urine,Voided Escherichia coli 07/07/24 18:11 Blood Culture Gram Stain - Final Blood Blood Culture - Final Escherichia coli Molecular ID Assessment and Plan (1) Gram-negative bacteremia Current Visit: Yes Status: Acute Code(s): R78.81 - BACTEREMIA SNOMED Code(s): 564113539297 (2) UTI (urinary tract infection) Current Visit: Yes Status: Acute Code(s): N39.0 - URINARY TRACT INFECTION, SITE NOT SPECIFIED SNOMED Code(s): 45350942 Plan: 1patient presented to hospital with sepsis in this patient who did have low- grade fever tachycardia elevated white count elevated lactic acid and now with a positive blood culture likely related to the urinary source as the patient did have significantly positive UA patient also have abnormality seen of the gallbladder however did have a normal liver enzymes 2-E. coli bacteremia source likely urinary that is a sensitive pathogen, urine did grew the same pathogen 3-patient did have worsening of the respiratory status requiring intubation question of possible aspiration pneumonitis patient is broadly covered with Zosyn we will try to obtain a sputum culture and monitor clinical course closely Dictation was produced using [employer] dictation software. please excuse any grammatical, word or spelling errors. Time with Patient: Less than 30
--- NOTE | 2024-07-11 10:17 | CA ---
Transthoracic Echo Report Name: Loreto King Age: 79 Gender: F : 1945 Exam Date: 07/10/2024 14:35 Exam Location: [place] [facility] Ht (in): 64 Wt (lb): 136 Ordering Physician: Jude Lee MD Attending/Referring Phys: Bottle Dealer Dafne Bangura RDCS Procedure CPT: Indications: sepsis Cardiac Hx: Technical Quality: Good Contrast 1: Total Dose (mL): Contrast 2: Total Dose (mL): MEASUREMENTS (Male / Female) Normal Values 2D ECHO LV Diastolic Diameter PLAX 3.6 cm 4.2 - 5.9 / 3.9 - 5.3 cm LV Systolic Diameter PLAX 2.3 cm IVS Diastolic Thickness 1.6 cm 0.6 - 1.0 / 0.6 - 0.9 cm LVPW Diastolic Thickness 1.3 cm 0.6 - 1.0 / 0.6 - 0.9 cm LV Relative Wall Thickness 0.8 RV Internal Dim ED PLAX 3.0 cm LA Systolic Diameter LX 3.4 cm 3.0 - 4.0 / 2.7 - 3.8 cm LV Diastolic Volume MOD 4C 88.0 cm??? LV Systolic Volume MOD 4C 49.3 cm??? LV Ejection Fraction MOD 4C 44.0 % LV Cardiac Index MOD 4C 2198.5 cm???/min???m??? LV Diastolic Length 4C 8.0 cm LV Systolic Length 4C 6.7 cm LV Diastolic Volume MOD 2C 126.9 cm??? LV Systolic Volume MOD 2C 73.2 cm??? LV Ejection Fraction MOD 2C 42.3 % LV Cardiac Index MOD 2C 3045.3 cm???/min???m??? LV Diastolic Length 2C 7.5 cm LV Systolic Length 2C 6.6 cm LA Volume 58.0 cm??? 18 - 58 / 22 - 52 cm??? LA Volume Index 34.6 cm???/m??? 16 - 28 cm???/m??? M-MODE Aortic Root Diameter MM 3.1 cm AV Cusp Separation MM 2.0 cm DOPPLER AV Peak Velocity 133.2 cm/s AV Peak Gradient 7.1 mmHg MV Area PHT 3.7 cm??? Mitral E Point Velocity 134.3 cm/s Mitral A Point Velocity 118.7 cm/s Mitral E to A Ratio 1.1 MV Deceleration Time 202.3 ms TR Peak Velocity 291.9 cm/s TR Peak Gradient 34.1 mmHg Right Ventricular Systolic Press 38.4 mmHg FINDINGS Left Ventricle Left ventricular ejection fraction is estimated at 55 %. Small left ventricular cavity. Severely increased septal wall thickness. Moderately increased posterior wall thickness. No obvious regional wall motion abnormalities. Preserved LV systolic Right Ventricle Normal right ventricular size and function. Mild pulmonary hypertension. Right Atrium Normal right atrial size. No right atrial thrombus or mass seen. Left Atrium Mildly increased left atrial volume. Mildly increased left atrial area. Mitral Valve Mitral valve thickened. Mild mitral annular calcification. Mild mitral regurgitation. Aortic Valve Trileaflet aortic valve. No aortic valve stenosis or regurgitation. Aortic valve sclerosis. Tricuspid Valve Structurally normal tricuspid valve. Mild tricuspid regurgitation. Pulmonic Valve Structurally normal pulmonic valve. Trace pulmonic regurgitation. Pericardium No pericardial or pleural effusion. Aorta Normal size aortic root and proximal ascending aorta. CONCLUSIONS LV size and systolic function is normal. There is moderate to severe concentric LVH. There is mitral annular calcification. There is aortic valve sclerosis no restriction. No pericardial effusion. No significant pulmonary hypertension Previewed by: Dr. Yoselyn Alvarenga MD (Electronically Signed) Final Date: 11 July 2024 10:16
[2024-07-11 11:53] LABS: Glucose,Whole Blood 232 mg/dL (70-110)
--- NOTE | 2024-07-11 12:16 | XR ---
EXAMINATION TYPE: XR chest 1V portable DATE OF EXAM: 07/11/2024 Comparison: 07/10/2024 Clinical History: 79-year-old female Tube placement Findings: ET tube tip estimated 1.3 cm from the kimberly. Pull back 1.5 cm and reassess at follow-up. NG tube cou rses below the diaphragm. Side hole not well seen on the present exam. Atherosclerotic calcifications within the aorta. Left CVC tip within the lower SVC. Heart moderately enlarged. Diffuse interstitial and patchy airspace opacities bilaterally similar to slightly increased. Suspect old healed surgical neck fracture of the proximal right humerus. Possible underlying full-thickness rotator cuff tear ri ght shoulder. Impression: 1. Moderate cardiomegaly with ongoing patchy pulmonary edema. Slight interval worsening. 2. Pullback the ET tube by 1.5 cm and reassess on follow-up.
--- NOTE | 2024-07-11 12:20 | P.PN ---
Subjective Subjective: Patient seen at bedside. Patient is seen for follow-up for acute kidney injury and hyperkalemia. Patient is in the ICU. Patient has been intubated. FiO2 at 50%. Currently maintained on 1/2 NS 50. Off of bicarb drip. Currently not on pressers. Family deciding on comfort care Urine output at 40-50 mL an hour. Cr improved to 2.46 from 2.91 yesterday (07/10) Vitals Signs Reveiwed. PE: Patient currently under sedation and on ventilator. S1 and S2 auscultated with no murmurs rubs or gallops Bilateral breath sounds auscultated on examination of lungs Abdomen is soft, with some distention No appreciable lower extremity edema Assesment: 1. EUSEBIO, ATN, oliguric from low BP and sepsis. UA: suggestive of UTI, no evidence of obstructive uropathy based on renal u/s (07/08/24) 2. Hyperkalemia 2/2 EUSEBIO and metabolic acidosis and hyperglycemia. (RESOLVED) 3. Metabolic Acidosis. Non gap. 2/2 to EUSEBIO. (RESOLVED) 4. CKD stage III A/B, baseline Cr 1.2-1.3 mg/dl, likely etiology 2/2 diabetic kidney disease 5 Altered mental status (toxic/metabolic encephalopathy). Brain CT scan showed no acute findings. 6. Nephrolithiasis which are non- obstructive, possible non obstructing cortical calcifications noted on renal u/s 7. History of intracranial bleed about 2 to 3 months ago as per H&P 8. Hypotension 2/2 to underlying infection 9. Lactic acidosis, lactate 3.4 on admission and peaked to 5.9 (07/08) and now is 1.4. 10. Hyperglycemia 11. Volume overload/ CHF based on CXR 12. Choleystitis 13. Sepsis with gram-negative bacteremia, BCX preliminary shows E. coli 10. Urosepsis with urine culture growing E. coli 11. Anemia rule out GI bleed Plan: Continue 1/2 NS 50 ml/hr Avoid nephrotoxic agents Repeat labs in AM Patient is seen and examined with the resident. Agree with the resident's assessment plan and findings. Objective - Vital Signs Vital signs: Vital Signs Temp 98.2 F 07/11/24 08:00 Pulse 66 07/11/24 08:00 Resp 22 07/11/24 08:00 BP 126/58 07/11/24 08:00 Pulse Ox 100 07/11/24 08:00 FiO2 50 07/11/24 08:20 Intake & Output 07/10/24 07/11/24 07/11/24 18:59 06:59 18:59 Intake Total 9989.817 2208.687 223.299 Output Total 480 475 90 Balance 723.999 577.687 133.299 Weight 65.9 kg Intake: IV 325 925 150 Dextrose 5% in Water 1, 825 150 000 ml @ 75 mls/hr IV . [id number] ONE with Sodium Bicarb (1 Meq/ml) 150 ml Rx#:[id number] Piperacillin-Tazobactam 3 100 100 .375 gm In Sodium Chloride 0.9% 100 ml @ 25 mls/hr IVPB Q8HR [facility] Rx# :[id number] Sodium Chloride 0.45% 1, 225 000 ml @ 75 mls/hr IV . [id number] [facility]IE with Sodium Bicarb (1 Meq/ml) 100 ml Rx#:[id number] Intake, IV Titration 878.999 127.687 73.299 Amount Dextrose 5% in Water 1, 675 75 000 ml @ 75 mls/hr IV . [id number] ONE with Sodium Bicarb (1 Meq/ml) 150 ml Rx#:[id number] Piperacillin-Tazobactam 3 100 .375 gm In Sodium Chloride 0.9% 100 ml @ 25 mls/hr IVPB Q12HR [facility] Rx #:[id number] propofoL 1,000 mg In 103.999 52.687 62.299 Empty Bag 1 bag @ 15 MCG/ KG/MIN 6.695 mls/hr IV . [id number] [facility] Rx#:[id number] propofoL 100 ml @ 0 mls/ 11 hr IV .STK-MED ONE Rx#: [id number] Output: Urine 480 475 90 Other: Voiding Method Indwelling Catheter Indwelling Catheter Indwelling Catheter - Labs CBC & Chem 7: 07/11/24 03:15 07/11/24 03:15 Labs: Abnormal Lab Results - Last 24 Hours (Table) 07/10/24 07/10/24 07/10/24 Range/Units 10:44 10:44 17:34 RBC (3.80-5.40) m/uL Hgb (11.4-16.0) gm/dL Hct (34.0-46.0) % RDW (11.5-15.5) % Plt Count (150-450) k/uL Neutrophils # (1.3-7.7) k/uL Fibrinogen 986 H (200-500) mg/dL ABG pH (7.35-7.45) ABG pCO2 (35-45) mmHg ABG pO2 (83-108) mmHg ABG Total CO2 (19-24) mmol/L ABG O2 Saturation (94-97) % Carbon Dioxide 18 L (22-30) mmol/L BUN 62 H (7-17) mg/dL Creatinine 2.91 H (0.52-1.04) mg/dL Glucose (74-99) mg/dL POC Glucose (mg/dL) 156 H (70-110) mg/dL Calcium 6.8 L (8.4-10.2) mg/dL Alkaline Phosphatase 129 H (38-126) U/L Total Protein 4.9 L (6.3-8.2) g/dL Albumin 2.4 L (3.5-5.0) g/dL 07/11/24 07/11/24 07/11/24 Range/Units 00:13 03:15 03:15 RBC 2.44 L (3.80-5.40) m/uL Hgb 7.0 L (11.4-16.0) gm/dL Hct 22.5 L (34.0-46.0) % RDW 17.0 H (11.5-15.5) % Plt Count 124 L (150-450) k/uL Neutrophils # 8.5 H (1.3-7.7) k/uL Fibrinogen (200-500) mg/dL ABG pH (7.35-7.45) ABG pCO2 (35-45) mmHg ABG pO2 (83-108) mmHg ABG Total CO2 (19-24) mmol/L ABG O2 Saturation (94-97) % Carbon Dioxide (22-30) mmol/L BUN 61 H (7-17) mg/dL Creatinine 2.46 H (0.52-1.04) mg/dL Glucose 183 H (74-99) mg/dL POC Glucose (mg/dL) 186 H (70-110) mg/dL Calcium 6.9 L (8.4-10.2) mg/dL Alkaline Phosphatase (38-126) U/L Total Protein (6.3-8.2) g/dL Albumin (3.5-5.0) g/dL 07/11/24 07/11/24 Range/Units 05:23 06:05 RBC (3.80-5.40) m/uL Hgb (11.4-16.0) gm/dL Hct (34.0-46.0) % RDW (11.5-15.5) % Plt Count (150-450) k/uL Neutrophils # (1.3-7.7) k/uL Fibrinogen (200-500) mg/dL ABG pH 7.52 H (7.35-7.45) ABG pCO2 31 L (35-45) mmHg ABG pO2 159 H (83-108) mmHg ABG Total CO2 26 H (19-24) mmol/L ABG O2 Saturation 99.8 H (94-97) % Carbon Dioxide (22-30) mmol/L BUN (7-17) mg/dL Creatinine (0.52-1.04) mg/dL Glucose (74-99) mg/dL POC Glucose (mg/dL) 218 H (70-110) mg/dL Calcium (8.4-10.2) mg/dL Alkaline Phosphatase (38-126) U/L Total Protein (6.3-8.2) g/dL Albumin (3.5-5.0) g/dL Microbiology - Last 24 Hours (Table) 07/07/24 17:53 Urine Culture - Final Urine,Voided Escherichia coli 07/07/24 18:11 Blood Culture Gram Stain - Final Blood Blood Culture - Final Escherichia coli Molecular ID
[2024-07-11] MEDS: SODIUM CHLORIDE 0.45% 1,000 ML IV SCH (12:47)
--- NOTE | 2024-07-11 13:07 | P.PN ---
Subjective Progress Note Date: 07/11/24 CHIEF COMPLAINT: RUQ pain HISTORY OF PRESENT ILLNESS: this remains in the ICU. She is intubated and on m echanical ventilation. Patient having another EEG today.she is followed closely by neurology due to abnormal EEG. Afebrile. WBC has normalized from 17.8-10.5 Hgb 7.0. Gallbladder ultrasound reports cholelithiasis with pericholecystic fluid. Right renal calculus. PHYSICAL EXAM: VITAL SIGNS: Reviewed. GENERAL: Intubated and sedated. ABDOMEN: Soft. Nondistended. ASSESSMENT: 1. Acute cholecystitis. ultrasound reported cholelithiasis, thickened gallbladder wall and pericholecystic fluid 2. Sepsis and bacteremia 3. Acute kidney injury 4. Hyperkalemia 5. UTI PLAN: -Awaiting family's decision regarding possible comfort care -Continue antibiotics -Continue ICU management -Repeat labs in AM Physician Senior Applications Developer note has been reviewed by physician. Signing provider agrees with the documented findings, assessment, and plan of care. Objective - Vital Signs Vital signs: Vital Signs Temp 98.2 F 07/11/24 08:00 Pulse 62 07/11/24 11:00 Resp 22 07/11/24 11:00 BP 124/67 07/11/24 11:00 Pulse Ox 99 07/11/24 11:00 FiO2 40 07/11/24 11:12 Intake & Output 07/10/24 07/11/24 07/11/24 18:59 06:59 18:59 Intake Total 0521.980 8577.687 373.299 Output Total 480 475 215 Balance 723.999 577.687 158.299 Weight 65.9 kg Intake: IV 325 925 300 Dextrose 5% in Water 1, 825 300 000 ml @ 75 mls/hr IV . [id number] ONE with Sodium Bicarb (1 Meq/ml) 150 ml Rx#:[id number] Piperacillin-Tazobactam 3 100 100 .375 gm In Sodium Chloride 0.9% 100 ml @ 25 mls/hr IVPB Q8HR [facility] Rx# :[id number] Sodium Chloride 0.45% 1, 225 000 ml @ 75 mls/hr IV . [id number] [facility] with Sodium Bicarb (1 Meq/ml) 100 ml Rx#:[id number] Intake, IV Titration 878.999 127.687 73.299 Amount Dextrose 5% in Water 1, 675 75 000 ml @ 75 mls/hr IV . [id number] ONE with Sodium Bicarb (1 Meq/ml) 150 ml Rx#:[id number] Piperacillin-Tazobactam 3 100 .375 gm In Sodium Chloride 0.9% 100 ml @ 25 mls/hr IVPB Q12HR [facility] Rx #:[id number] propofoL 1,000 mg In 103.999 52.687 62.299 Empty Bag 1 bag @ 15 MCG/ KG/MIN 6.695 mls/hr IV . [id number] [facility] Rx#:[id number] propofoL 100 ml @ 0 mls/ 11 hr IV .STK-MED ONE Rx#: [id number] Output: Urine 480 475 215 Other: Voiding Method Indwelling Catheter Indwelling Catheter Indwelling Catheter - Labs CBC & Chem 7: 07/11/24 03:15 07/11/24 03:15 Labs: Abnormal Lab Results - Last 24 Hours (Table) 07/10/24 07/11/24 07/11/24 Range/Units 17:34 00:13 03:15 RBC 2.44 L (3.80-5.40) m/uL Hgb 7.0 L (11.4-16.0) gm/dL Hct 22.5 L (34.0-46.0) % RDW 17.0 H (11.5-15.5) % Plt Count 124 L (150-450) k/uL Neutrophils # 8.5 H (1.3-7.7) k/uL ABG pH (7.35-7.45) ABG pCO2 (35-45) mmHg ABG pO2 (83-108) mmHg ABG Total CO2 (19-24) mmol/L ABG O2 Saturation (94-97) % BUN (7-17) mg/dL Creatinine (0.52-1.04) mg/dL Glucose (74-99) mg/dL POC Glucose (mg/dL) 156 H 186 H (70-110) mg/dL Calcium (8.4-10.2) mg/dL 07/11/24 07/11/24 07/11/24 Range/Units 03:15 05:23 06:05 RBC (3.80-5.40) m/uL Hgb (11.4-16.0) gm/dL Hct (34.0-46.0) % RDW (11.5-15.5) % Plt Count (150-450) k/uL Neutrophils # (1.3-7.7) k/uL ABG pH 7.52 H (7.35-7.45) ABG pCO2 31 L (35-45) mmHg ABG pO2 159 H (83-108) mmHg ABG Total CO2 26 H (19-24) mmol/L ABG O2 Saturation 99.8 H (94-97) % BUN 61 H (7-17) mg/dL Creatinine 2.46 H (0.52-1.04) mg/dL Glucose 183 H (74-99) mg/dL POC Glucose (mg/dL) 218 H (70-110) mg/dL Calcium 6.9 L (8.4-10.2) mg/dL 07/11/24 Range/Units 11:51 RBC (3.80-5.40) m/uL Hgb (11.4-16.0) gm/dL Hct (34.0-46.0) % RDW (11.5-15.5) % Plt Count (150-450) k/uL Neutrophils # (1.3-7.7) k/uL ABG pH (7.35-7.45) ABG pCO2 (35-45) mmHg ABG pO2 (83-108) mmHg ABG Total CO2 (19-24) mmol/L ABG O2 Saturation (94-97) % BUN (7-17) mg/dL Creatinine (0.52-1.04) mg/dL Glucose (74-99) mg/dL POC Glucose (mg/dL) 232 H (70-110) mg/dL Calcium (8.4-10.2) mg/dL Microbiology - Last 24 Hours (Table) 07/07/24 17:53 Urine Culture - Final Urine,Voided Escherichia coli 07/07/24 18:11 Blood Culture Gram Stain - Final Blood Blood Culture - Final Escherichia coli Molecular ID
--- NOTE | 2024-07-11 14:15 | P.PN ---
Subjective Progress Note Date: 07/11/24 This is a 79-year-old female patient, skilled nursing resident with developmental delay, who was recently hospitalized at [facility] in time she was treated for pneumonia and she also had a pleural effusion that was drained. The exact site of the pneumonia and the drainage is not known to me at this point. The patient came into our hospital after having an episode of hypoglycemia with a blood sugar in the low 40s and a seizure-like activity. The patient was awake however she was not answering questions appropriately. The power of trade mark attorney was at the bedside. In the emergency, the patient was found to be septic. The white cell count was 12 with a hemoglobin 10.7 and a blood culture was positive for gram-negative bacillus. BUN was 27 with a creatinine of 1.3 and a sodium level of 134. Initial lactic acid level was at 3.3 and repeat level was also 3.3. UA was consistent with infection as the patient had blood and white cells within the urine analysis along with +2 protein and occasional bacteria and many WBC clumps. The viral screen was negative. Also, the patient's LFTs were essentially within normal limits. Nevertheless, the patient was given a ultrasound of the bladder and the kidneys. There was evidence of cholelithiasis with prominent wall and pericholecystic fluid suggestive of cholecystitis. No evidence of any obstructive uropathy. There was renal cortical scarring bilaterally possible nonobstructing cortical calcifications. No evidence of any hydronephrosis. The patient is currently on IV Zosyn. She was given a dose of Rocephin in the emergency department. The patient was also given IV fluids and currently she is on normal saline at rate of 130 cc an hour. CAT scan of the brain showed a resolution of the previously described right subdural hemorrhage from 04/16/2024. There was some nonspecific white matter changes. X-ray of the chest showed no evidence of any pleural effusion for consolidation. The patient had increased pulm vascular markings. At this point in time the patient is currently on 4 L of oxygen by nasal cannula with a pulse ox of 94%. Normotensive. Slightly tachycardic. On today's evaluation of 07/09/2024, the patient's condition is further decompensated compared to yesterday. She seems to be much more obtunded. Urine output is low. The patient has developed further increase the white cell count and has developed an acute kidney injury in addition. The patient's blood cultures positive for E. coli and the patient is prepped and IV Zosyn. Abdomen seems to be slightly more firm compared to yesterday. Is currently the patient afebrile, slightly tachycardic, on 4 L of oxygen by nasal cannula with a pulse ox of 94%. Follow-up chest x-ray from today shows evidence of pulmonary edema. IV fluids are running in the form of a normal saline at rate of 75 cc an hour. She was given another bolus of 500 cc earlier today. The white cell count is at 24.5 hemoglobin is 8 with a platelet count of 134. She has 94% neutrophilia. Sodium levels at 139 with a potassium level of 5.8. Serum bicarb is 18 with a BUN of 59 and a creatinine of 3.10. Blood sugar is at 306. As stated, urine cultures are still pending. Blood culture is positive for E. coli. Lactic acid level has improved compared to yesterday and is currently down to 1.4 from 3.2. The highest lactic acid level was at 5.9 07/10/2024, the patient is being seen for a follow-up. The patient is currently intubated on mechanical ventilator due to septic shock. Blood cultures positive for E. coli, urine cultures also positive for E. coli. Patient is currently on IV Zosyn. Repeat ultrasound the gallbladder was done and shows cholelithiasis with pericholecystic fluid collection and the patient has multiple gallstones seen in the neck and the body of the gallbladder. The amount of pericholecystic fluid is mild. Unable to evaluate the patient's Bar sign. There is also a right renal calculus. The liver function tests remain essentially within normal limits with an alkaline phosphatase of 129, and the patient's bilirubin is at 0.6. Being the source of septicemia is a urine. The patient is still on propofol which is running at 20 mcg/kg/min. She is on mechanical ventilator assist-control mode with rate of 22, tidal volume of 350, FiO2 of 50% with a PEEP of 5. Blood gas from today showed a pH of 7.41 with a pCO2 of 81 and pO2 of 152. Chest x-ray showing diffuse bilateral pulmonary for trace, could be related to interstitial edema versus acute lung injury secondary to sepsis. Serum bicarb is 18 and the patient remains on a bicarb infusion at rate of 75 cc an hour. BUN is 62 with a creatinine of 2.9 and a sodium levels at 142. LFTs are normal. The patient had dropped her platelet count 212 with a WBC count of 7.8 which is improved compared to yesterday and a hemoglobin of 7.6. Antibiotic coverage with IV Zosyn. 07/11/2024, the patient is being seen for a follow-up. The patient remains intubated on the mechanical ventilator. Of concern is her abnormal EEG which was done yesterday and it showed some background slowing suggestive of moderate to severe encephalopathy. The patient also had high amplitude sharp appearing waves from the right and often bilateral, triphasic in quality indicating cortical irritation/irritability and tendency for seizures. Based on that, the patient was covered with Vimpat 100 mg IV every 12 hours. The patient remains on propofol and Keppra in addition. This morning, propofol running at 30 mcg/kg/min. The patient is calm and comfortable and synchronous with mechanical ventilator. She remains on assist-control mode at rate of 22, tidal volume of 350, FiO2 of 45% with a PEEP of 4. Blood gas showed a pH of 7.52 with a pCO2 of 31 and pO2 of 139. Hemodynamically stable on no pressors. BUN is 61 with a creatinine of 2.46 and the creatinine continues to improve. Sodium is at 140. Potassium is at 4.0. Bicarb is at 25. WBC 10.5 with a Hemoglobin of 7 and a Platelet Count of 124. Chest X-Ray from Today Shows Cardiomegaly and Patchy Interstitial Edema/Pulmonary Edema with Slight Interval Worsening Compared to Yesterday. Nevertheless, This Has Not Affected the Patient's Oxygenation. In Terms of Antibiotic Coverage, the Patient Remains on IV Zosyn. Ultrasound the Gallbladder Was Noted. LFTs from Yesterday Was Essentially within normal limits. Objective - Vital Signs Vital signs: Vital Signs Temp 98.2 F 07/11/24 08:00 Pulse 66 07/11/24 08:00 Resp 22 07/11/24 08:00 BP 126/58 07/11/24 08:00 Pulse Ox 100 07/11/24 08:00 FiO2 50 07/11/24 08:20 Intake & Output 07/10/24 07/11/24 07/11/24 18:59 06:59 18:59 Intake Total 2872.939 6739.687 223.299 Output Total 480 475 90 Balance 723.999 577.687 133.299 Weight 65.9 kg Intake: IV 325 925 150 Dextrose 5% in Water 1, 825 150 000 ml @ 75 mls/hr IV . [id number] ONE with Sodium Bicarb (1 Meq/ml) 150 ml Rx#:[id number] Piperacillin-Tazobactam 3 100 100 .375 gm In Sodium Chloride 0.9% 100 ml @ 25 mls/hr IVPB Q8HR [facility] Rx# :[id number] Sodium Chloride 0.45% 1, 225 000 ml @ 75 mls/hr IV . [id number] [facility] with Sodium Bicarb (1 Meq/ml) 100 ml Rx#:[id number] Intake, IV Titration 878.999 127.687 73.299 Amount Dextrose 5% in Water 1, 675 75 000 ml @ 75 mls/hr IV . [id number] ONE with Sodium Bicarb (1 Meq/ml) 150 ml Rx#:[id number] Piperacillin-Tazobactam 3 100 .375 gm In Sodium Chloride 0.9% 100 ml @ 25 mls/hr IVPB Q12HR [facility] Rx #:[id number] propofoL 1,000 mg In 103.999 52.687 62.299 Empty Bag 1 bag @ 15 MCG/ KG/MIN 6.695 mls/hr IV . [id number] [facility] Rx#:[id number] propofoL 100 ml @ 0 mls/ 11 hr IV .[facility] Rx#: [id number] Output: Urine 480 475 90 Other: Voiding Method Indwelling Catheter Indwelling Catheter Indwelling Catheter - Exam -GENERAL: The patient is calm and comfortable sedated on propofol, intubated and mechanically ventilated. Orogastric and orotracheal tube are both in place. HEENT: Pupils are round and equally reacting to light. EOMI. No scleral icterus. No conjunctival pallor. Normocephalic, atraumatic. No pharyngeal erythema. No thyromegaly. CARDIOVASCULAR: S1 and S2 present. No murmurs, rubs, or gallops. PULMONARY: Chest is clear to auscultation, no wheezing , no crackles. ABDOMEN: Soft, nontender, nondistended, normoactive bowel sounds. No palpable or ganomegaly. No direct tenderness. No rebound tenderness in the upper quadrant. No guarding. MUSCULOSKELETAL: No joint swelling or deformity. EXTREMITIES: No cyanosis, clubbing, or pedal edema. NEUROLOGICAL: Gross neurological examination did not reveal any focal deficits. Patient remains sedated and she grimaces to painful stimulation. SKIN: No rashes. no petechiae. - Labs CBC & Chem 7: 07/11/24 03:15 07/11/24 03:15 Labs: Abnormal Lab Results - Last 24 Hours (Table) 07/10/24 07/10/24 07/10/24 Range/Units 10:44 10:44 17:34 RBC (3.80-5.40) m/uL Hgb (11.4-16.0) gm/dL Hct (34.0-46.0) % RDW (11.5-15.5) % Plt Count (150-450) k/uL Neutrophils # (1.3-7.7) k/uL Fibrinogen 986 H (200-500) mg/dL ABG pH (7.35-7.45) ABG pCO2 (35-45) mmHg ABG pO2 (83-108) mmHg ABG Total CO2 (19-24) mmol/L ABG O2 Saturation (94-97) % Carbon Dioxide 18 L (22-30) mmol/L BUN 62 H (7-17) mg/dL Creatinine 2.91 H (0.52-1.04) mg/dL Glucose (74-99) mg/dL POC Glucose (mg/dL) 156 H (70-110) mg/dL Calcium 6.8 L (8.4-10.2) mg/dL Alkaline Phosphatase 129 H (38-126) U/L Total Protein 4.9 L (6.3-8.2) g/dL Albumin 2.4 L (3.5-5.0) g/dL 07/11/24 07/11/24 07/11/24 Range/Units 00:13 03:15 03:15 RBC 2.44 L (3.80-5.40) m/uL Hgb 7.0 L (11.4-16.0) gm/dL Hct 22.5 L (34.0-46.0) % RDW 17.0 H (11.5-15.5) % Plt Count 124 L (150-450) k/uL Neutrophils # 8.5 H (1.3-7.7) k/uL Fibrinogen (200-500) mg/dL ABG pH (7.35-7.45) ABG pCO2 (35-45) mmHg ABG pO2 (83-108) mmHg ABG Total CO2 (19-24) mmol/L ABG O2 Saturation (94-97) % Carbon Dioxide (22-30) mmol/L BUN 61 H (7-17) mg/dL Creatinine 2.46 H (0.52-1.04) mg/dL Glucose 183 H (74-99) mg/dL POC Glucose (mg/dL) 186 H (70-110) mg/dL Calcium 6.9 L (8.4-10.2) mg/dL Alkaline Phosphatase (38-126) U/L Total Protein (6.3-8.2) g/dL Albumin (3.5-5.0) g/dL 07/11/24 07/11/24 Range/Units 05:23 06:05 RBC (3.80-5.40) m/uL Hgb (11.4-16.0) gm/dL Hct (34.0-46.0) % RDW (11.5-15.5) % Plt Count (150-450) k/uL Neutrophils # (1.3-7.7) k/uL Fibrinogen (200-500) mg/dL ABG pH 7.52 H (7.35-7.45) ABG pCO2 31 L (35-45) mmHg ABG pO2 159 H (83-108) mmHg ABG Total CO2 26 H (19-24) mmol/L ABG O2 Saturation 99.8 H (94-97) % Carbon Dioxide (22-30) mmol/L BUN (7-17) mg/dL Creatinine (0.52-1.04) mg/dL Glucose (74-99) mg/dL POC Glucose (mg/dL) 218 H (70-110) mg/dL Calcium (8.4-10.2) mg/dL Alkaline Phosphatase (38-126) U/L Total Protein (6.3-8.2) g/dL Albumin (3.5-5.0) g/dL Microbiology - Last 24 Hours (Table) 07/07/24 17:53 Urine Culture - Final Urine,Voided Escherichia coli 07/07/24 18:11 Blood Culture Gram Stain - Final Blood Blood Culture - Final Escherichia coli Molecular ID Assessment and Plan Plan: E. coli sepsis secondary to urinary tract infection. Urine culture was positive for E. coli and blood cultures also positive for E. coli. We suspected also acute cholecystitis as a source of for E. coli septicemia and bacteremia.. LFTs are normal. . Ultrasound the gallbladder showed some pericholecystic fluid suggestive of cholecystitis. The patient had a repeat ultrasound of the gallbladder today that showed mild cholecystic/pericholecystic fluid. No evidence of any biliary obstruction. LFTs remain unchanged. Hemodynamically stable on no pressors. Acute leukocytosis, improving Seizures, could be related to hypoglycemia,, nevertheless the patient continues to have abnormal triphasic activity from the right and bilateral. Patient was started on Vimpat. Repeat EEG from today is in progress. Patient remains on Keppra. Patient is also on propofol. Encephalopathy related to toxic/metabolic encephalopathy/sepsis. CAT scan of the brain showed no evidence of any bleed and there is resolution of the previous described subdural hematoma Lactic acidosis secondary to above, improved Acute kidney injury on top of CKD stage III, improving Acute hypoxic respiratory failure, currently intubated on mechanical ventilator. Chest x-ray shows bilateral pulmonary filtrates. No history of edema versus acute lung injury secondary to sepsis. History of kidney stone with recent hospitalization for this purpose Recent hospitalization for pneumonia and pleural effusion, post thoracentesis. This was done at [facility] History of CVA History of subdural hematoma secondary to fall/anticoagulation. Diabetes mellitus Hyperlipidemia Developmental delay and the patient is a skilled nursing resident Thrombocytopenia, rule out underlying DIC, platelet counts are slightly improved compared to yesterday. Plan: Dropped respiratory rate down to 14 Discontinue the bicarb infusion and switch this patient to half-normal saline at rate of 50 cc an hour Continue IV Zosyn Lactic acid levels have dropped White cell count is elevated, improving Urine output is diminished and the patient has a St catheter in place, renal function continues to improve Surgery consultation Neurology consult Repeat ultrasound the gallbladder was noted. LFTs remain unchanged. Patient is currently off pressors The patient on on low-dose enteral feeding at rate of 10 cc an hour Monitor platelet count Lovenox for DVT prophylaxis Obtain a 2D echocardiogram from yesterday showed a preserved LV function with moderate to severe concentric ventricular hypertrophy Condition remains critical. This evaluation was done more than 30 minutes. I did a full discussion with the power of trade mark attorney. I also discussed the case with the infectious disease doctor. Will continue to follow make further recommendations based on progress. Eval uation was done more than 30 minutes. Time with Patient: Greater than 30
--- NOTE | 2024-07-11 14:58 | P.PN ---
Subjective Progress Note Date: 07/11/24 Principal diagnosis: Reason for follow-up is UTI and bacteremia Patient is a 79-year-old female with a past medical history significant for diabetes mellitus hypertension hyperlipidemia CVA TIA in this patient who is a jail resident patient has been brought into the ER by EMS after apparently the patient did have some seizure-like activity, patient did have a fever positive UA and blood culture positive for E. coli. On today's evaluation that is 07/11/2024,the patient continues to be afebrile patient remains to be debated on the vent FiO2 currently at 40% no significant purulent secretions through the ET patient not requiring any pressor support and no diarrhea has been reported. Patient white count normalized to 10.5, creatinine is 2.46 Objective - Vital Signs Vital signs: Vital Signs Temp 98.2 F 07/11/24 08:00 Pulse 62 07/11/24 11:00 Resp 22 07/11/24 11:00 BP 124/67 07/11/24 11:00 Pulse Ox 99 07/11/24 11:00 FiO2 40 07/11/24 11:12 Intake & Output 07/10/24 07/11/24 07/11/24 18:59 06:59 18:59 Intake Total 7114.930 8554.687 373.299 Output Total 480 475 215 Balance 723.999 577.687 158.299 Weight 65.9 kg Intake: IV 325 925 300 Dextrose 5% in Water 1, 825 300 000 ml @ 75 mls/hr IV . [id number] ONE with Sodium Bicarb (1 Meq/ml) 150 ml Rx#:[id number] Piperacillin-Tazobactam 3 100 100 .375 gm In Sodium Chloride 0.9% 100 ml @ 25 mls/hr IVPB Q8HR [facility] Rx# :[id number] Sodium Chloride 0.45% 1, 225 000 ml @ 75 mls/hr IV . [id number] [facility] with Sodium Bicarb (1 Meq/ml) 100 ml Rx#:[id number] Intake, IV Titration 878.999 127.687 73.299 Amount Dextrose 5% in Water 1, 675 75 000 ml @ 75 mls/hr IV . [id number] ONE with Sodium Bicarb (1 Meq/ml) 150 ml Rx#:[id number] Piperacillin-Tazobactam 3 100 .375 gm In Sodium Chloride 0.9% 100 ml @ 25 mls/hr IVPB Q12HR [facility] Rx #:[id number] propofoL 1,000 mg In 103.999 52.687 62.299 Empty Bag 1 bag @ 15 MCG/ KG/MIN 6.695 mls/hr IV . [id number] [facility] Rx#:[id number] propofoL 100 ml @ 0 mls/ 11 hr IV .[facility] Rx#: [id number] Output: Urine 480 475 215 Other: Voiding Method Indwelling Catheter Indwelling Catheter Indwelling Catheter - Exam GENERAL DESCRIPTION: An elderly female intubated on the vent RESPIRATORY SYSTEM: Unlabored breathing , decreased breath sounds at bases HEART: S1 S2 regular rate and rhythm , ABDOMEN: Soft , no tenderness EXTREMITIES: No edema feet - Labs CBC & Chem 7: 07/11/24 03:15 07/11/24 03:15 Labs: Abnormal Lab Results - Last 24 Hours (Table) 07/10/24 07/11/24 07/11/24 Range/Units 17:34 00:13 03:15 RBC 2.44 L (3.80-5.40) m/uL Hgb 7.0 L (11.4-16.0) gm/dL Hct 22.5 L (34.0-46.0) % RDW 17.0 H (11.5-15.5) % Plt Count 124 L (150-450) k/uL Neutrophils # 8.5 H (1.3-7.7) k/uL ABG pH (7.35-7.45) ABG pCO2 (35-45) mmHg ABG pO2 (83-108) mmHg ABG Total CO2 (19-24) mmol/L ABG O2 Saturation (94-97) % BUN (7-17) mg/dL Creatinine (0.52-1.04) mg/dL Glucose (74-99) mg/dL POC Glucose (mg/dL) 156 H 186 H (70-110) mg/dL Calcium (8.4-10.2) mg/dL 07/11/24 07/11/24 07/11/24 Range/Units 03:15 05:23 06:05 RBC (3.80-5.40) m/uL Hgb (11.4-16.0) gm/dL Hct (34.0-46.0) % RDW (11.5-15.5) % Plt Count (150-450) k/uL Neutrophils # (1.3-7.7) k/uL ABG pH 7.52 H (7.35-7.45) ABG pCO2 31 L (35-45) mmHg ABG pO2 159 H (83-108) mmHg ABG Total CO2 26 H (19-24) mmol/L ABG O2 Saturation 99.8 H (94-97) % BUN 61 H (7-17) mg/dL Creatinine 2.46 H (0.52-1.04) mg/dL Glucose 183 H (74-99) mg/dL POC Glucose (mg/dL) 218 H (70-110) mg/dL Calcium 6.9 L (8.4-10.2) mg/dL 07/11/24 Range/Units 11:51 RBC (3.80-5.40) m/uL Hgb (11.4-16.0) gm/dL Hct (34.0-46.0) % RDW (11.5-15.5) % Plt Count (150-450) k/uL Neutrophils # (1.3-7.7) k/uL ABG pH (7.35-7.45) ABG pCO2 (35-45) mmHg ABG pO2 (83-108) mmHg ABG Total CO2 (19-24) mmol/L ABG O2 Saturation (94-97) % BUN (7-17) mg/dL Creatinine (0.52-1.04) mg/dL Glucose (74-99) mg/dL POC Glucose (mg/dL) 232 H (70-110) mg/dL Calcium (8.4-10.2) mg/dL Microbiology - Last 24 Hours (Table) 07/07/24 17:53 Urine Culture - Final Urine,Voided Escherichia coli 07/07/24 18:11 Blood Culture Gram Stain - Final Blood Blood Culture - Final Escherichia coli Molecular ID Assessment and Plan (1) Gram-negative bacteremia Current Visit: Yes Status: Acute Code(s): R78.81 - BACTEREMIA SNOMED Code(s): 682642256323 (2) UTI (urinary tract infection) Current Visit: Yes Status: Acute Code(s): N39.0 - URINARY TRACT INFECTION, SITE NOT SPECIFIED SNOMED Code(s): 69873977 Plan: 1patient presented to hospital with sepsis in this patient who did have low- grade fever tachycardia elevated white count elevated lactic acid and now with a positive blood culture likely related to the urinary source as the patient did have significantly positive UA patient also have abnormality seen of the gallbladder however did have a normal liver enzymes 2-E. coli bacteremia source likely urinary that is a sensitive pathogen, urine did grew the same pathogen 3-patient did have worsening of the respiratory status requiring intubation question of possible aspiration pneumonitis 4-sputum culture has been requested the patient white count normalized continue with the Zosyn and monitor clinical course closely Dictation was produced using [employer] dictation software. please excuse any grammatical, word or spelling errors. Time with Patient: Less than 30
--- NOTE | 2024-07-11 15:07 | P.PN ---
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 Her potassium on that admission was quite bit high patient had cardiomegaly with interstitial pulmonary edema proBNP was quite bit high ejection fraction was 50-55 percentile but had tricuspid regurgitation with RVSP of 35 to 40 mmHg she was kept for total of almost 2 weeks sent back to [facility] on multi medication including Pulmicort with ipratropium albuterol, insulin lispro, hydrocodone, aspirin, atorvastatin, Plavix, gemfibrozil, Levemir, metoprolol succinate, pantoprazole, Seroquel and trazodone. She did well for the first 10 days then on July developed to have seizure activity with severe episode of hypoglycemia the patient was awake but not able to follow command at the time she was able to tell her name only but kept repeating the word take it out referring to her mitten on her hand apparently the [employer] architect Lou Miranda was called and were notified of patient's condition her episode at [facility] apparently was with hypoglycemia and seizure activity with hypotension and hypertensive and hyperthermia found to have white blood cell of 12,000 hemoglobin 10.7 with creatinine 1.2 at the time lactic acid was 325 magnesium was low EKG showed sinus tachycardia with no ST changes at the time UA was suspicious for UTI. She was admitted to the hospital originally with altered mental status could be toxic versus metabolic encephalopathy rule out intracranial etiology also found to have UTI with sepsis with low-grade fever and tachycardia with leukocytosis with elevated lactic acid and active seizure activity with hypoglycemia and found to have significant decline in kidney function at the time. Found to have abnormal liver function test sent for ultrasound of the liver came back with cholelithiasis and cholecystitis no evidence of obstruction at the time kidney function start declining quite bit and become stage IV chronic kidney disease. Patient become more hypoxemic with her seizure activity ended up being intubated on mechanical ventilation. Neurology consultation was obtained with the kidney function decline and surgical consultation was obtained as well for the gallbladder patient is not in any condition to go for cholecystectomy at the time nephrology felt the need to be more aggressive with hydration and avoid any nephrotoxic agent and kidney function started improving slight bed did not require any dialysis. Neurology decided to do EEG which shows seizure activity while she is on the vent could not abort her seizure required to go on Vimpat to help with her seizure activity. Patient is more stabilized on mechanical ventilation currently but kept sedated for her seizure activity and current condition. UTI been treated kidney function has improved some patient family on the bedside all their question were answered today. REVIEW OF SYSTEMS: CONSTITUTIONAL: Very small for her age sedated on mechanical ventilation. EYES: No icterus sclerae, no conjunctivitis. EARS, NOSE, MOUTH, THROAT, and FACE: No sore throat, lymphadenopathy, carotid bruits or deformity. RESPIRATORY: Currently resting on mechanical ventilation. CARDIOVASCULAR: Mild tachycardia on monitor. GASTROINTESTINAL: Patient is currently on mechanical ventilation does not seem there is any sign of GI bleed. GENITOURINARY: Been treated for UTI. INTEGUMENT/BREAST: Negative for any muscular injury with mild osteoarthritis.. HEMATOLOGIC/LYMPHATIC: Negative for bleed or purpura. MUSCULOSKELTAL: Negative for Myalgia or arthralgia. NEURLOGICAL: Currently sedated on mechanical ventilation. BEHAVIORAL/PSYCH: Negative. ENDOCRINE: Negative. PHYSICAL EXAMINATION: General Appearance: Sedated on mechanical ventilation. Neck HEENT: Supple, no lymphadenopathy, no thyroid enlargement, no carotid bruits. ET tube back in place. Lungs: Clear to auscultation without crackles or wheezes no rhonchi, no defor mity. Chest Wall: Chest wall normal expansion with deep inspiration no tenderness and no deformity was found on exam, no costochondral pain or discomfort. Heart: Regular rate and rhythm, S1, S2 normal, no murmur, rub or gallop. Back: Symmetric, no curvature, ROM normal, no CVA tenderness. Abdomen: Soft slightly distended, non-tender, bowel sounds active all four quadrants, no masses, no organomegaly. Extremities: Extremities normal, atraumatic, no cyanosis or edema. Pulses: 2+ and symmetric. Skin: Skin color, texture, tugor normal, no rashes or lesions. Neurologic: Sedated on mechanical ventilation still withdrawing her extremity to pain stimuli. ASSESSMENT AND PLAN: _Acute hypoxic respiratory failure: Continue mechanical ventilation currently continue to see pulmonary. _Sepsis secondary to UTI and possible cholecystitis with cholelithiasis with signs and symptoms consistent with sepsis including high lactic acid, tachycardia, leukocytosis and hypotension. Continue aggressive medical management with IV antibiotics still on Zosyn currently for good coverage of gram-negative. _Acute urinary tract infection: Still on IV antibiotics seem to respond well to it. _Acute kidney injury with much worsening kidney function most likely aggravated by sepsis still seen nephrology no hemodialysis required at this point continue conservative management still hydration and watching her vitals carefully continue to watch for urine output. _Seizure like activity: Has been seen neurology Originally was on Keppra will add Vimpat continue to watch for any further seizure activity. _Hypotension: Require no vasopressor currently with the treatment of sepsis has improved. _Cholecystitis and cholelithiasis at some point patient might have her gallbladder out she is not stable currently for any intervention or surgery. _Type 2 diabetes with significant hypo-/hyperglycemia: Will continue patient on Accu-Chek with sliding scales coverage titrate medication gradually if needed but watch for any hypoglycemia. _Recent history of intracranial hemorrhage 2 to 3 months ago still recovering from complication related to. _Recent admission with acute on chronic congestive heart failure he was seen cardiology with well-preserved ejection fraction on echocardiogram was on medical management. GI prophylaxis: Still on pantoprazole. DVT prophylaxis: Still on Lovenox. CODE STATUS: DO NOT RESUSCITATE. Discussion: Family is around the bedside apparently discussed the fact that patient wishes not to be on mechanical ventilation for any extended period of time but they were encouraged at this point not to make any rational decision to wait if she is going to be on mechanical ventilation past a week to 10 days and decision to terminate vent can be reasonable in the meanwhile just continue supportive care awaiting for improvement of her sepsis and infection. Objective - Vital Signs Vital signs: Vital Signs Temp 98.5 F 07/10/24 04:00 Pulse 71 07/10/24 06:00 Resp 22 07/10/24 06:00 BP 108/62 07/10/24 06:00 Pulse Ox 100 07/10/24 06:00 FiO2 50 07/10/24 07:43 Intake & Output 09/04/24 09/05/24 09/05/24 18:59 06:59 18:59 Intake Total 625 1046.407 75 Output Total 405 275 35 Balance 220 771.407 40 Weight 62 kg Intake: IV 625 925 75 Piperacillin-Tazobactam 3 100 100 .375 gm In Sodium Chloride 0.9% 100 ml @ 25 mls/hr IVPB Q8HR [facility] Rx# :[id number] Sodium Chloride 0.45% 1, 525 825 75 000 ml @ 75 mls/hr IV . [id number] [facility] with Sodium Bicarb (1 Meq/ml) 100 ml Rx#:[id number] Intake, IV Titration 121.407 Amount propofoL 1,000 mg In 121.407 Empty Bag 1 bag @ 15 MCG/ KG/MIN 6.695 mls/hr IV . [id number] [facility] Rx#:[id number] Output: Urine 405 275 35 Straight 200 Other: Voiding Method Indwelling Catheter Indwelling Catheter - Labs CBC & Chem 7: 07/11/24 03:15 07/11/24 03:15 Labs: Abnormal Lab Results - Last 24 Hours (Table) 07/09/24 07/09/24 07/09/24 Range/Units 09:00 11:04 11:14 WBC (3.8-10.6) k/uL RBC (3.80-5.40) m/uL Hgb (11.4-16.0) gm/dL Hct (34.0-46.0) % RDW (11.5-15.5) % Plt Count (150-450) k/uL Neutrophils # (1.3-7.7) k/uL ABG pH (7.35-7.45) ABG pCO2 (35-45) mmHg ABG pO2 (83-108) mmHg ABG HCO3 (21-25) mmol/L ABG O2 Saturation (94-97) % Potassium 5.9 H 5.8 H (3.5-5.1) mmol/L Chloride 109 H 111 H (98-107) mmol/L Carbon Dioxide 17 L 18 L (22-30) mmol/L BUN 57 H 59 H (7-17) mg/dL Creatinine 3.24 H 3.10 H (0.52-1.04) mg/dL Glucose 246 H 306 H (74-99) mg/dL POC Glucose (mg/dL) 314 H (70-110) mg/dL Calcium 6.6 L 7.0 L (8.4-10.2) mg/dL 07/09/24 07/09/24 07/09/24 Range/Units 12:13 15:29 16:15 WBC (3.8-10.6) k/uL RBC (3.80-5.40) m/uL Hgb (11.4-16.0) gm/dL Hct (34.0-46.0) % RDW (11.5-15.5) % Plt Count (150-450) k/uL Neutrophils # (1.3-7.7) k/uL ABG pH 7.29 L (7.35-7.45) ABG pCO2 (35-45) mmHg ABG pO2 (83-108) mmHg ABG HCO3 19 L (21-25) mmol/L ABG O2 Saturation (94-97) % Potassium (3.5-5.1) mmol/L Chloride 112 H (98-107) mmol/L Carbon Dioxide 19 L (22-30) mmol/L BUN 61 H (7-17) mg/dL Creatinine 3.12 H (0.52-1.04) mg/dL Glucose 127 H (74-99) mg/dL POC Glucose (mg/dL) 306 H (70-110) mg/dL Calcium 6.9 L (8.4-10.2) mg/dL 07/09/24 07/09/24 07/10/24 Range/Units 17:03 17:31 00:00 WBC (3.8-10.6) k/uL RBC (3.80-5.40) m/uL Hgb (11.4-16.0) gm/dL Hct (34.0-46.0) % RDW (11.5-15.5) % Plt Count (150-450) k/uL Neutrophils # (1.3-7.7) k/uL ABG pH (7.35-7.45) ABG pCO2 33 L (35-45) mmHg ABG pO2 388 H (83-108) mmHg ABG HCO3 19 L (21-25) mmol/L ABG O2 Saturation 100.3 H (94-97) % Potassium (3.5-5.1) mmol/L Chloride (98-107) mmol/L Carbon Dioxide (22-30) mmol/L BUN (7-17) mg/dL Creatinine (0.52-1.04) mg/dL Glucose (74-99) mg/dL POC Glucose (mg/dL) 113 H 66 L (70-110) mg/dL Calcium (8.4-10.2) mg/dL 07/10/24 07/10/24 07/10/24 Range/Units 00:23 06:12 06:29 WBC 17.8 H (3.8-10.6) k/uL RBC 2.59 L (3.80-5.40) m/uL Hgb 7.6 L (11.4-16.0) gm/dL Hct 24.5 L (34.0-46.0) % RDW 17.3 H (11.5-15.5) % Plt Count 112 L (150-450) k/uL Neutrophils # 15.4 H (1.3-7.7) k/uL ABG pH (7.35-7.45) ABG pCO2 31 L (35-45) mmHg ABG pO2 152 H (83-108) mmHg ABG HCO3 20 L (21-25) mmol/L ABG O2 Saturation 99.9 H (94-97) % Potassium (3.5-5.1) mmol/L Chloride (98-107) mmol/L Carbon Dioxide (22-30) mmol/L BUN (7-17) mg/dL Creatinine (0.52-1.04) mg/dL Glucose (74-99) mg/dL POC Glucose (mg/dL) 145 H (70-110) mg/dL Calcium (8.4-10.2) mg/dL 07/10/24 Range/Units 06:29 WBC (3.8-10.6) k/uL RBC (3.80-5.40) m/uL Hgb (11.4-16.0) gm/dL Hct (34.0-46.0) % RDW (11.5-15.5) % Plt Count (150-450) k/uL Neutrophils # (1.3-7.7) k/uL ABG pH (7.35-7.45) ABG pCO2 (35-45) mmHg ABG pO2 (83-108) mmHg ABG HCO3 (21-25) mmol/L ABG O2 Saturation (94-97) % Potassium (3.5-5.1) mmol/L Chloride 111 H (98-107) mmol/L Carbon Dioxide 17 L (22-30) mmol/L BUN 62 H (7-17) mg/dL Creatinine 2.96 H (0.52-1.04) mg/dL Glucose (74-99) mg/dL POC Glucose (mg/dL) (70-110) mg/dL Calcium 6.7 L (8.4-10.2) mg/dL Microbiology - Last 24 Hours (Table) 07/07/24 17:53 Urine Culture - Preliminary Urine,Voided Gram Neg Bacilli 07/07/24 18:11 Blood Culture Gram Stain - Preliminary Blood Blood Culture - Preliminary Escherichia coli Molecular ID
--- NOTE | 2024-07-11 15:10 | P.PN ---
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 Her potassium on that admission was quite bit high patient had cardiomegaly with interstitial pulmonary edema proBNP was quite bit high ejection fraction was 50-55 percentile but had tricuspid regurgitation with RVSP of 35 to 40 mmHg she was kept for total of almost 2 weeks sent back to [facility] on multi medication including Pulmicort with ipratropium albuterol, insulin lispro, hydrocodone, aspirin, atorvastatin, Plavix, gemfibrozil, Levemir, metoprolol succinate, pantoprazole, Seroquel and trazodone. She did well for the first 10 days then on July developed to have seizure activity with severe episode of hypoglycemia the patient was awake but not able to follow command at the time she was able to tell her name only but kept repeating the word take it out referring to her mitten on her hand apparently the durable Pap district attorney Lou Miranda was called and were notified of patient's condition her episode at [facility] apparently was with hypoglycemia and seizure activity with hypotension and hypertensive and hyperthermia found to have white blood cell of 12,000 hemoglobin 10.7 with creatinine 1.2 at the time lactic acid was 325 magnesium was low EKG showed sinus tachycardia with no ST changes at the time UA was suspicious for UTI. She was admitted to the hospital originally with altered mental status could be toxic versus metabolic encephalopathy rule out intracranial etiology also found to have UTI with sepsis with low-grade fever and tachycardia with leukocytosis with elevated lactic acid and active seizure activity with hypoglycemia and found to have significant decline in kidney function at the time. Found to have abnormal liver function test sent for ultrasound of the liver came back with cholelithiasis and cholecystitis no evidence of obstruction at the time kidney function start declining quite bit and become stage IV chronic kidney disease. Patient become more hypoxemic with her seizure activity ended up being intubated on mechanical ventilation. Neurology consultation was obtained with the kidney function decline and surgical consultation was obtained as well for the gallbladder patient is not in any condition to go for cholecystectomy at the time nephrology felt the need to be more aggressive with hydration and avoid any nephrotoxic agent and kidney function started improving slight bed did not require any dialysis. Neurology decided to do EEG which shows seizure activity while she is on the vent could not abort her seizure required to go on Vimpat to help with her seizure activity. Patient is more stabilized on mechanical ventilation currently but kept sedated for her seizure activity and current condition. UTI been treated kidney function has improved some patient family on the bedside all their question were answered today. 07/11/2024: She is still on mechanical ventilation, family are at the bedside as well patient apparently had more seizure activity last 24 hours but was improved significantly on Vimpat which she currently continue on. Continue aggressive management for sepsis, respiratory failure, and diabetic management. Patient still cannot be rested on mechanical ventilation at least for the next 24 hours no attempt for extubation today. REVIEW OF SYSTEMS: CONSTITUTIONAL: Very small for her age sedated on mechanical ventilation. EYES: No icterus sclerae, no conjunctivitis. EARS, NOSE, MOUTH, THROAT, and FACE: No sore throat, lymphadenopathy, carotid bruits or deformity. RESPIRATORY: Currently resting on mechanical ventilation. CARDIOVASCULAR: Mild tachycardia on monitor. GASTROINTESTINAL: Patient is currently on mechanical ventilation does not seem there is any sign of GI bleed. GENITOURINARY: Been treated for UTI. INTEGUMENT/BREAST: Negative for any muscular injury with mild osteoarthritis.. HEMATOLOGIC/LYMPHATIC: Negative for bleed or purpura. MUSCULOSKELTAL: Negative for Myalgia or arthralgia. NEURLOGICAL: Currently sedated on mechanical ventilation. BEHAVIORAL/PSYCH: Negative. ENDOCRINE: Negative. PHYSICAL EXAMINATION: General Appearance: Sedated on mechanical ventilation. Neck HEENT: Supple, no lymphadenopathy, no thyroid enlargement, no carotid bruits. ET tube back in place. Lungs: Clear to auscultation without crackles or wheezes no rhonchi, no deformity. Chest Wall: Chest wall normal expansion with deep inspiration no tenderness and no deformity was found on exam, no costochondral pain or discomfort. Heart: Regular rate and rhythm, S1, S2 normal, no murmur, rub or gallop. Back: Symmetric, no curvature, ROM normal, no CVA tenderness. Abdomen: Soft slightly distended, non-tender, bowel sounds active all four quadr ants, no masses, no organomegaly. Extremities: Extremities normal, atraumatic, no cyanosis or edema. Pulses: 2+ and symmetric. Skin: Skin color, texture, tugor normal, no rashes or lesions. Neurologic: Sedated on mechanical ventilation still withdrawing her extremity to pain stimuli. ASSESSMENT AND PLAN: _Acute hypoxic respiratory failure: Continue mechanical ventilation currently continue to see pulmonary. She is doing much better hopefully will be weanable in the next 24 to 48 hours. _Sepsis secondary to UTI and possible cholecystitis with cholelithiasis with si gns and symptoms consistent with sepsis including high lactic acid, tachycardia, leukocytosis and hypotension. Continue aggressive medical management with IV antibiotics still on Zosyn currently for good coverage of gram-negative. Her culture came back positive for E. coli mostly urine source but had a blood culture as well all susceptible to Zosyn still seen infectious disease. _Acute urinary tract infection: With E. coli being treated with IV Zosyn. _Acute kidney injury with much worsening kidney function most likely aggravated by sepsis still seen nephrology no hemodialysis required at this point continue conservative management still hydration and watching her vitals carefully contin ue to watch for urine output. _Seizure like activity: Had more aggressive management with Keppra and Vimpat patient seemed to respond better to it. _Hypotension: Her blood pressure has improved significantly was previously taking midodrine. _Cholecystitis and cholelithiasis at some point patient might have her gallbladder out she is not stable currently for any intervention or surgery. _Type 2 diabetes with significant hypo-/hyperglycemia: Will continue patient on Accu-Chek with sliding scales coverage titrate medication gradually if needed but watch for any hypoglycemia. _Recent history of intracranial hemorrhage 2 to 3 months ago still recovering from complication related to. _Recent admission with acute on chronic congestive heart failure he was seen cardiology with well-preserved ejection fraction on echocardiogram was on medical management. CODE STATUS: DO NOT RESUSCITATE. Discussion: More aggressive antiseizure medication management along with antib iotics for sepsis patient is improving some if for any reason her seizure does not controlled with current medication patient might need to be transferred to tertiary center where they can do continue EEG monitor. Objective - Vital Signs Vital signs: Vital Signs Temp 98.2 F 07/11/24 08:00 Pulse 62 09/06/24 11:00 Resp 22 07/11/24 11:00 BP 124/67 07/11/24 11:00 Pulse Ox 99 07/11/24 11:00 FiO2 40 07/11/24 11:12 Intake & Output 07/10/24 07/11/24 07/11/24 18:59 06:59 18:59 Intake Total 0001.948 1696.687 373.299 Output Total 480 475 215 Balance 723.999 577.687 158.299 Weight 65.9 kg 65.9 kg Intake: IV 325 925 300 Dextrose 5% in Water 1, 825 300 000 ml @ 75 mls/hr IV . [id number] ONE with Sodium Bicarb (1 Meq/ml) 150 ml Rx#:[id number] Piperacillin-Tazobactam 3 100 100 .375 gm In Sodium Chloride 0.9% 100 ml @ 25 mls/hr IVPB Q8HR [facility] Rx# :[id number] Sodium Chloride 0.45% 1, 225 000 ml @ 75 mls/hr IV . [id number] [facility] with Sodium Bicarb (1 Meq/ml) 100 ml Rx#:[id number] Intake, IV Titration 878.999 127.687 73.299 Amount Dextrose 5% in Water 1, 675 75 000 ml @ 75 mls/hr IV . [id number] ONE with Sodium Bicarb (1 Meq/ml) 150 ml Rx#:[id number] Piperacillin-Tazobactam 3 100 .375 gm In Sodium Chloride 0.9% 100 ml @ 25 mls/hr IVPB Q12HR [facility] Rx #:[id number] propofoL 1,000 mg In 103.999 52.687 62.299 Empty Bag 1 bag @ 15 MCG/ KG/MIN 6.695 mls/hr IV . [id number] [facility] Rx#:[id number] propofoL 100 ml @ 0 mls/ 11 hr IV .[facility] ONE Rx#: [id number] Output: Urine 480 475 215 Other: Voiding Method Indwelling Catheter Indwelling Catheter Indwelling Catheter - Labs CBC & Chem 7: 07/11/24 03:15 07/11/24 03:15 Labs: Abnormal Lab Results - Last 24 Hours (Table) 07/10/24 07/11/24 07/11/24 Range/Units 17:34 00:13 03:15 RBC 2.44 L (3.80-5.40) m/uL Hgb 7.0 L (11.4-16.0) gm/dL Hct 22.5 L (34.0-46.0) % RDW 17.0 H (11.5-15.5) % Plt Count 124 L (150-450) k/uL Neutrophils # 8.5 H (1.3-7.7) k/uL ABG pH (7.35-7.45) ABG pCO2 (35-45) mmHg ABG pO2 (83-108) mmHg ABG Total CO2 (19-24) mmol/L ABG O2 Saturation (94-97) % BUN (7-17) mg/dL Creatinine (0.52-1.04) mg/dL Glucose (74-99) mg/dL POC Glucose (mg/dL) 156 H 186 H (70-110) mg/dL Calcium (8.4-10.2) mg/dL 07/11/24 07/11/24 07/11/24 Range/Units 03:15 05:23 06:05 RBC (3.80-5.40) m/uL Hgb (11.4-16.0) gm/dL Hct (34.0-46.0) % RDW (11.5-15.5) % Plt Count (150-450) k/uL Neutrophils # (1.3-7.7) k/uL ABG pH 7.52 H (7.35-7.45) ABG pCO2 31 L (35-45) mmHg ABG pO2 159 H (83-108) mmHg ABG Total CO2 26 H (19-24) mmol/L ABG O2 Saturation 99.8 H (94-97) % BUN 61 H (7-17) mg/dL Creatinine 2.46 H (0.52-1.04) mg/dL Glucose 183 H (74-99) mg/dL POC Glucose (mg/dL) 218 H (70-110) mg/dL Calcium 6.9 L (8.4-10.2) mg/dL 07/11/24 Range/Units 11:51 RBC (3.80-5.40) m/uL Hgb (11.4-16.0) gm/dL Hct (34.0-46.0) % RDW (11.5-15.5) % Plt Count (150-450) k/uL Neutrophils # (1.3-7.7) k/uL ABG pH (7.35-7.45) ABG pCO2 (35-45) mmHg ABG pO2 (83-108) mmHg ABG Total CO2 (19-24) mmol/L ABG O2 Saturation (94-97) % BUN (7-17) mg/dL Creatinine (0.52-1.04) mg/dL Glucose (74-99) mg/dL POC Glucose (mg/dL) 232 H (70-110) mg/dL Calcium (8.4-10.2) mg/dL
[2024-07-11 17:31] LABS: Glucose,Whole Blood 209 mg/dL (70-110)
--- NOTE | 2024-07-11 19:07 | P.PN ---
Subjective Progress Note Date: 07/11/24 Patient was seen for a follow-up. Patient continues to be intubated, sedated. Patient currently on sedation with propofol 20 mcg/kg/min, also on Zosyn. No obvious seizure-like activity noted. Patient's brother and patient's niece were present. They mentioned that patient at baseline walks by herself. However lately she has been having frequent falls. She loses balance and falls. They do not know if patient passes out with the falls, or just falls without loss of consciousness or loss of awareness. Objective - Vital Signs Vital signs: Vital Signs Temp 98.4 F 07/11/24 12:00 Pulse 64 07/11/24 15:00 Resp 15 07/11/24 15:00 BP 130/59 07/11/24 15:00 Pulse Ox 99 07/11/24 15:00 FiO2 40 07/11/24 15:51 Intake & Output 07/10/24 07/11/24 07/11/24 18:59 06:59 18:59 Intake Total 6352.831 4077.687 423.299 Output Total 480 475 290 Balance 723.999 577.687 133.299 Weight 65.9 kg 65.9 kg Intake: IV 325 925 300 Dextrose 5% in Water 1, 825 300 000 ml @ 75 mls/hr IV . [id number] ONE with Sodium Bicarb (1 Meq/ml) 150 ml Rx#:[id number] Piperacillin-Tazobactam 3 100 100 .375 gm In Sodium Chloride 0.9% 100 ml @ 25 mls/hr IVPB Q8HR [facility] Rx# :[id number] Sodium Chloride 0.45% 1, 225 000 ml @ 75 mls/hr IV . [id number] [facility] with Sodium Bicarb (1 Meq/ml) 100 ml Rx#:[id number] Intake, IV Titration 878.999 127.687 123.299 Amount Dextrose 5% in Water 1, 675 75 000 ml @ 75 mls/hr IV . [id number] ONE with Sodium Bicarb (1 Meq/ml) 150 ml Rx#:[id number] Piperacillin-Tazobactam 3 100 .375 gm In Sodium Chloride 0.9% 100 ml @ 25 mls/hr IVPB Q12HR [facility] Rx #:[id number] Sodium Chloride 0.45% 1, 50 000 ml @ 50 mls/hr IV . Q20H [facility] Rx#:[id number] propofoL 1,000 mg In 103.999 52.687 62.299 Empty Bag 1 bag @ 15 MCG/ KG/MIN 6.695 mls/hr IV . [id number] [facility] Rx#:[id number] propofoL 100 ml @ 0 mls/ 11 hr IV .[facility] ONE Rx#: [id number] Output: Urine 480 475 290 Other: Voiding Method Indwelling Catheter Indwelling Catheter Indwelling Catheter - Exam Patient is sedated, also severely encephalopathic. Patient is intubated on mechanical ventilator. No obvious seizure-like activity noted. Her pupils are pinpoint, but slightly reactive to light. Both are equal in size. Gaze is m idline. Oculocephalics present. Patient does have a gag and cough. Tone is equal bilaterally. Rest of the examination could not be checked. - Labs CBC & Chem 7: 07/11/24 03:15 07/11/24 03:15 Labs: Abnormal Lab Results - Last 24 Hours (Table) 07/10/24 07/11/24 07/11/24 Range/Units 17:34 00:13 03:15 RBC 2.44 L (3.80-5.40) m/uL Hgb 7.0 L (11.4-16.0) gm/dL Hct 22.5 L (34.0-46.0) % RDW 17.0 H (11.5-15.5) % Plt Count 124 L (150-450) k/uL Neutrophils # 8.5 H (1.3-7.7) k/uL ABG pH (7.35-7.45) ABG pCO2 (35-45) mmHg ABG pO2 (83-108) mmHg ABG Total CO2 (19-24) mmol/L ABG O2 Saturation (94-97) % BUN (7-17) mg/dL Creatinine (0.52-1.04) mg/dL Glucose (74-99) mg/dL POC Glucose (mg/dL) 156 H 186 H (70-110) mg/dL Calcium (8.4-10.2) mg/dL 07/11/24 07/11/24 07/11/24 Range/Units 03:15 05:23 06:05 RBC (3.80-5.40) m/uL Hgb (11.4-16.0) gm/dL Hct (34.0-46.0) % RDW (11.5-15.5) % Plt Count (150-450) k/uL Neutrophils # (1.3-7.7) k/uL ABG pH 7.52 H (7.35-7.45) ABG pCO2 31 L (35-45) mmHg ABG pO2 159 H (83-108) mmHg ABG Total CO2 26 H (19-24) mmol/L ABG O2 Saturation 99.8 H (94-97) % BUN 61 H (7-17) mg/dL Creatinine 2.46 H (0.52-1.04) mg/dL Glucose 183 H (74-99) mg/dL POC Glucose (mg/dL) 218 H (70-110) mg/dL Calcium 6.9 L (8.4-10.2) mg/dL 07/11/24 Range/Units 11:51 RBC (3.80-5.40) m/uL Hgb (11.4-16.0) gm/dL Hct (34.0-46.0) % RDW (11.5-15.5) % Plt Count (150-450) k/uL Neutrophils # (1.3-7.7) k/uL ABG pH (7.35-7.45) ABG pCO2 (35-45) mmHg ABG pO2 (83-108) mmHg ABG Total CO2 (19-24) mmol/L ABG O2 Saturation (94-97) % BUN (7-17) mg/dL Creatinine (0.52-1.04) mg/dL Glucose (74-99) mg/dL POC Glucose (mg/dL) 232 H (70-110) mg/dL Calcium (8.4-10.2) mg/dL Assessment and Plan Assessment: * Altered mental status due to toxic metabolic encephalopathy. Reasons multifactorial as mentioned below. * Abnormal EEG, with evidence of severe encephalopathy and frequent sharp waves. Cannot rule out nonconvulsive status. * Septic encephalopathy * E. coli bacteremia * Hypoglycemia with hypoglycemic encephalopathy. * Possible cholecystitis * History of right hemispheric subdural hematoma 04/16/2024, treated conservatively. * Acute kidney injury, improving. * Acute hypoxic respiratory failure. * History of right pontine lacunar stroke 11/01/2021. * Diabetes * Hyperlipidemia * Developmental delay, and patient is half-way resident. Plan: * Patient continues to be intubated, sedated. No obvious clinical seizure-like activity noted. * Repeat prolonged EEG for 1 hour performed today. It revealed definite improvement in the amount of epileptiform activity. However in the early part of the study, there were sporadic generalized sharp wave, and relatively more frequent right hemispheric, maximal right parietal sharp waves. This epileptiform activity improved during middle and later part of the study with sporadic right parietal sharp waves. Cannot rule out nonconvulsive status. Patient probably will need prolonged, continuous EEG monitoring for further management. * Prolonged EEG for 1 hour from yesterday was severely abnormal, with background slowing and disorganization, suggestive of severe encephalopathy. Also revealed evidence of intermittent high amplitude sharp waves seen occasionally involving right hemispheric, but more often bihemispheric region. At times these sharp waves have triphasic in quality as well. No electrographic seizure was recorded. * Patient currently on Keppra 500 mg twice daily. Also start Vimpat 100 mg twice daily. * Consider transfer to higher level of care for continuous EEG monitoring. * Initial EEG 06/08/2024 was abnormal due to background slowing, suggestive of moderate to severe encephalopathy. Also evidence of sporadic generalized spike and slow wave seen at later part of the study. No electrographic seiz ure was recorded. No electrographic evidence of status epilepticus. * CT head showed no acute process. Resolution of previously seen right sided subdural hematoma. * Patient currently on Zosyn. * Avoid episodes of hypoglycemia. * Medical management as per IM/critical care. * Patient is critically sick. * Recommend patient to be transferred to higher level of care for continuous EEG monitoring. Discussed with patient's brother, and primary physician and nursing staff. * Dr. Leobardo Reid to resume neurology service in the morning.
--- NOTE | 2024-07-11 21:18 | EEG ---
ELECTROENCEPHALOGRAM REPORT PREAMBLE: This is a 79-year-old female, who had persistently abnormal EEG. This is a followup EEG. CURRENT MEDICATIONS: 1. Vimpat 100 mg b.i.d. 2. Keppra 500 mg b.i.d. 3. Zosyn. 4. Propofol. EEG FINDINGS: This is a 21-channel digital EEG recorded with video component, utilizing 10/20 international system with referential and bipolar montages. This is a prolonged study performed for 1 hour. Recording start time is 8:50 a.m. on 07/11/2024, and recording end time is 9:54 a.m. on 07/11/2024. The recording starts with presence of diffuse moderate to high amplitude mixed activities of theta and some 2 to 3 hertz delta slowing with some periods of suppression. In the early part of the study, some generalized sporadic sharp waves were seen, with relatively more frequent right parietal focal sharp waves as well. This was present more during the photic stimulation. During middle and later part of the study, probable sleep was seen with presence of lot of sleep spindles and vertex waves. Right parietal sharp waves were sporadically seen. No electrographic seizure was recorded. Photic driving response was not seen. IMPRESSION: This is an abnormal EEG due to, 1. Background slowing, suggestive of moderate to severe encephalopathy. 2. Continued presence of, but much improved, in the frequency of epileptiform activity. Some sporadic generalized sharp waves, and slightly more frequent right parietal focal sharp waves were seen sporadically, more frequently during early part of the study, but much less sporadic during the middle and later part of the study. No electrographic seizure was recorded. Suggest continuous EEG monitoring. Clinical correlation is also strongly recommended. MMODL / IJN: [id number] / JESSE
[2024-07-11 23:31] LABS: Glucose,Whole Blood 183 mg/dL (70-110)
[2024-07-12] MEDS: Lacosamide IV (ages 17+ yrs) 200 MG/20 ML ML IVP ONE (00:30)
[2024-07-12 05:30] LABS: ALT 14 U/L (4-34); AST 17 U/L (14-36); African American GFR (CKD) 26 (>60 ml/min/1.73 sqM); Albumin 2.1 g/dL (3.5-5.0); Alkaline Phosphatase 134 U/L (38-126); Anion Gap 8 mmol/L; Blood Urea Nitrogen 54 mg/dL (7-17); Calcium 6.9 mg/dL (8.4-10.2); Carbon Dioxide 25 mmol/L (22-30); Chloride 103 mmol/L (98-107); Non-African American GFR(CKD) 22 (>60 ml/min/1.73 sqM); Potassium 3.8 mmol/L (3.5-5.1); Sodium 136 mmol/L (137-145); Total Bilirubin 0.5 mg/dL (0.2-1.3); Total Protein 4.5 g/dL (6.3-8.2)
[2024-07-12 05:34] LABS: Glucose 191 mg/dL (74-99)
[2024-07-12 05:47] LABS: Anisocytosis Slight; HCT 23.3 % (34.0-46.0); HGB 7.3 gm/dL (11.4-16.0); Hypochromasia Slight; MCH 28.8 pg (25.0-35.0); MCHC 31.1 g/dL (31.0-37.0); MCV 92.7 fL (80.0-100.0); Mean Platelet Volume 11.1; Platelet Count 119 k/uL (150-450); RBC 2.52 m/uL (3.80-5.40); RDW 17.1 % (11.5-15.5); WBC 9.5 k/uL (3.8-10.6)
[2024-07-12 05:52] LABS: ABG Base Excess 1.9 mmol/L; ABG HCO3 26 mmol/L (21-25); ABG Oxygen Saturation 97.8 % (94-97); ABG PCO2 40 mmHg (35-45); ABG PH 7.43 (7.35-7.45); ABG PO2 101 mmHg (83-108); ABG TCO2 28 mmol/L (19-24); Allen Test Performed? Yes
[2024-07-12 06:17] LABS: Glucose,Whole Blood 232 mg/dL (70-110)
[2024-07-12 06:23] LABS: Eosinophils # (M) 0.48 k/uL (0-0.7); Lymphocytes # (M) 2.76 k/uL (1.0-4.8); Monocytes # (M) 0.19 k/uL (0-1.0); Neutrophils # (M) 6.08 k/uL (1.3-7.7); Neutrophils % (M) 64 %; Nucleated Red Blood Cells 0 /100 WBC (0-0); Total Cells Counted 100
--- NOTE | 2024-07-12 07:55 | XR ---
EXAMINATION TYPE: XR chest 1V portable DATE OF EXAM: 07/12/2024 5:27 AM CLINICAL INDICATION: Female, 79 years old with history of Tube placement; [facility] COMPARISON: Chest radiograph from one day prior. TECHNIQUE: XR chest 1V portable Frontal view of the chest. FINDINGS: Lungs/Pleura: There is no evidence of pleural effusion, focal consolidation, or pneumothorax. Pulmonary vascularity: Pulmonary vascular congestion. Heart/mediastinum: Cardiomediastinal silhouette is enlarged. Musculoskeletal: No acute osseous pathology. Other findings: None Lines/Tubes: Endotracheal tube with distal tip 2.0 Cm above the kimberly. Nasogastric tube with its distal tip and side-port projecting under the diaphragm. Left internal jugular central venous catheter with distal tip at the cavoatrial junction. IMPRESSION: Stable support tubes. Pulmonary edema slightly improved from prior.
[2024-07-12] MEDS: Lacosamide IV (ages 17+ yrs) 200 MG/20 ML ML IVP SCH (08:35)
--- NOTE | 2024-07-12 11:58 | P.PN ---
Subjective Patient is seen for follow-up for acute kidney injury. Patient remains on the vent. FiO2 is 40%. 2.0 mg/dL. Renal function has been improving. Serum creatinine is down to 2.0 mg/dL. Urine output at 40 to 60 cc an hour. Maintained on half-normal saline at 50 cc an hour. Objective - Vital Signs Vital signs: Vital Signs Temp 98.2 F 07/12/24 08:00 Pulse 66 07/12/24 08:00 Resp 19 07/12/24 08:00 BP 110/61 07/12/24 08:00 Pulse Ox 100 07/12/24 08:00 FiO2 40 07/12/24 08:44 Intake & Output 07/11/24 07/12/24 07/12/24 18:59 06:59 18:59 Intake Total 725.569 0481 160 Output Total 585 575 140 Balance 338.299 445 20 Weight 65.9 kg 66.3 kg Intake: IV 700 800 100 Dextrose 5% in Water 1, 700 250 000 ml @ 75 mls/hr IV . [id number] ONE with Sodium Bicarb (1 Meq/ml) 150 ml Rx#:[id number] Sodium Chloride 0.45% 1, 550 100 000 ml @ 50 mls/hr IV . Q20H [facility] Rx#:[id number] Intake, IV Titration 223.299 Amount Sodium Chloride 0.45% 1, 50 000 ml @ 50 mls/hr IV . Q20H [facility] Rx#:[id number] propofoL 1,000 mg In 162.299 Empty Bag 1 bag @ 15 MCG/ KG/MIN 6.695 mls/hr IV . [id number] [facility] Rx#:[id number] propofoL 100 ml @ 0 mls/ 11 hr IV .[facility] ONE Rx#: [id number] Tube Feeding 160 30 Other 60 30 Output: Urine 585 575 140 Other: Voiding Method Indwelling Catheter Indwelling Catheter - Exam patient is sedated and on the vent. Examination of the heart S1 and S2 Examination of the lungs bilateral breath sounds are heard Abdomen is soft, distended Examination of lower extremities shows no edema - Labs CBC & Chem 7: 07/12/24 04:33 07/12/24 04:32 Labs: Abnormal Lab Results - Last 24 Hours (Table) 07/11/24 07/11/24 07/12/24 Range/Units 17:30 23:29 04:32 RBC (3.80-5.40) m/uL Hgb (11.4-16.0) gm/dL Hct (34.0-46.0) % RDW (11.5-15.5) % Plt Count (150-450) k/uL ABG HCO3 (21-25) mmol/L ABG Total CO2 (19-24) mmol/L ABG O2 Saturation (94-97) % Sodium 136 L (137-145) mmol/L BUN 54 H (7-17) mg/dL Creatinine 2.09 H (0.52-1.04) mg/dL Glucose 191 H (74-99) mg/dL POC Glucose (mg/dL) 209 H 183 H (70-110) mg/dL Calcium 6.9 L (8.4-10.2) mg/dL Alkaline Phosphatase 134 H (38-126) U/L Total Protein 4.5 L (6.3-8.2) g/dL Albumin 2.1 L (3.5-5.0) g/dL 07/12/24 07/12/24 07/12/24 Range/Units 04:33 05:47 06:16 RBC 2.52 L (3.80-5.40) m/uL Hgb 7.3 L (11.4-16.0) gm/dL Hct 23.3 L (34.0-46.0) % RDW 17.1 H (11.5-15.5) % Plt Count 119 L (150-450) k/uL ABG HCO3 26 H (21-25) mmol/L ABG Total CO2 28 H (19-24) mmol/L ABG O2 Saturation 97.8 H (94-97) % Sodium (137-145) mmol/L BUN (7-17) mg/dL Creatinine (0.52-1.04) mg/dL Glucose (74-99) mg/dL POC Glucose (mg/dL) 232 H (70-110) mg/dL Calcium (8.4-10.2) mg/dL Alkaline Phosphatase (38-126) U/L Total Protein (6.3-8.2) g/dL Albumin (3.5-5.0) g/dL Assessment and Plan Assessment: 1. EUSEBIO, ATN, oliguric from low BP and sepsis. UA: suggestive of UTI, no evidence of obstructive uropathy based on renal u/s (07/08/24) 2. Hyperkalemia 2/2 EUSEBIO and metabolic acidosis and hyperglycemia. 3. Metabolic Acidosis. Non gap. 2/2 to EUSEBIO. 4. CKD stage III A/B, baseline Cr 1.2-1.3 mg/dl, likely etiology 2/2 diabetic kidney disease 5 Altered mental status (toxic/metabolic encephalopathy). Brain CT scan showed no acute findings. 6. Nephrolithiasis which are non- obstructive, possible non obstructing cortical calcifications noted on renal u/s 7. History of intracranial bleed about 2 to 3 months ago as per H&P 8. Hypotension 2/2 to underlying infection 9. Lactic acidosis, lactate 3.4 on admission and peaked to 5.9 (07/08) and now is 1.4. 10. Hyperglycemia 11. Volume overload/ CHF based on CXR 12. Choleystitis 13. Sepsis with gram-negative bacteremia, BCX preliminary shows E. coli 10. Urosepsis with urine culture growing E. coli 11. Anemia rule out GI bleed Plan: Check iron profile May continue with current IV fluids Repeat labs in a.m.
[2024-07-12 12:11] LABS: Glucose,Whole Blood 250 mg/dL (70-110)
--- NOTE | 2024-07-12 12:37 | P.PN ---
Subjective Progress Note Date: 07/12/24 This is a 79-year-old female patient, shelter resident with developmental delay, who was recently hospitalized at [facility] in time she was treated for pneumonia and she also had a pleural effusion that was drained. The exact site of the pneumonia and the drainage is not known to me at this point. The patient came into our hospital after having an episode of hypoglycemia with a blood sugar in the low 40s and a seizure-like activity. The patient was awake however she was not answering questions appropriately. The power of assistant district attorney was at the bedside. In the emergency, the patient was found to be septic. The white cell count was 12 with a hemoglobin 10.7 and a blood culture was positive for gram-negative bacillus. BUN was 27 with a creatinine of 1.3 and a sodium level of 134. Initial lactic acid level was at 3.3 and repeat level was also 3.3. UA was consistent with infection as the patient had blood and white cells within the urine analysis along with +2 protein and occasional bacteria and many WBC clumps. The viral screen was negative. Also, the patient's LFTs were essentially within normal limits. Nevertheless, the patient was given a ultrasound of the bladder and the kidneys. There was evidence of cholelithiasis with prominent wall and pericholecystic fluid suggestive of cholecystitis. No evidence of any obstructive uropathy. There was renal cortical scarring bilaterally possible nonobstructing cortical calcifications. No evidence of any hydronephrosis. The patient is currently on IV Zosyn. She was given a dose of Rocephin in the emergency department. The patient was also given IV fluids and currently she is on normal saline at rate of 130 cc an hour. CAT scan of the brain showed a resolution of the previously described right subdural hemorrhage from 04/16/2024. There was some nonspecific white matter changes. X-ray of the chest showed no evidence of any pleural effusion for consolidation. The patient had increased pulm vascular markings. At this point in time the patient is currently on 4 L of oxygen by nasal cannula with a pulse ox of 94%. Normotensive. Slightly tachycardic. On today's evaluation of 07/09/2024, the patient's condition is further decompensated compared to yesterday. She seems to be much more obtunded. Urine output is low. The patient has developed further increase the white cell count and has developed an acute kidney injury in addition. The patient's blood cultures positive for E. coli and the patient is prepped and IV Zosyn. Abdomen seems to be slightly more firm compared to yesterday. Is currently the patient afebrile, slightly tachycardic, on 4 L of oxygen by nasal cannula with a pulse ox of 94%. Follow-up chest x-ray from today shows evidence of pulmonary edema. IV fluids are running in the form of a normal saline at rate of 75 cc an hour. She was given another bolus of 500 cc earlier today. The white cell count is at 24.5 hemoglobin is 8 with a platelet count of 134. She has 94% neutrophilia. Sodium levels at 139 with a potassium level of 5.8. Serum bicarb is 18 with a BUN of 59 and a creatinine of 3.10. Blood sugar is at 306. As stated, urine cultures are still pending. Blood culture is positive for E. coli. Lactic acid level has improved compared to yesterday and is currently down to 1.4 from 3.2. The highest lactic acid level was at 5.9 07/10/2024, the patient is being seen for a follow-up. The patient is currently intubated on mechanical ventilator due to septic shock. Blood cultures positive for E. coli, urine cultures also positive for E. coli. Patient is currently on IV Zosyn. Repeat ultrasound the gallbladder was done and shows cholelithiasis with pericholecystic fluid collection and the patient has multiple gallstones seen in the neck and the body of the gallbladder. The amount of pericholecystic fluid is mild. Unable to evaluate the patient's Bar sign. There is also a right renal calculus. The liver function tests remain essentially within normal limits with an alkaline phosphatase of 129, and the patient's bilirubin is at 0.6. Being the source of septicemia is a urine. The patient is still on propofol which is running at 20 mcg/kg/min. She is on mechanical ventilator assist-control mode with rate of 22, tidal volume of 350, FiO2 of 50% with a PEEP of 5. Blood gas from today showed a pH of 7.41 with a pCO2 of 81 and pO2 of 152. Chest x-ray showing diffuse bilateral pulmonary for trace, could be related to interstitial edema versus acute lung injury secondary to sepsis. Serum bicarb is 18 and the patient remains on a bicarb infusion at rate of 75 cc an hour. BUN is 62 with a creatinine of 2.9 and a sodium levels at 142. LFTs are normal. The patient had dropped her platelet count 212 with a WBC count of 7.8 which is improved compared to yesterday and a hemoglobin of 7.6. Antibiotic coverage with IV Zosyn. 07/11/2024, the patient is being seen for a follow-up. The patient remains intubated on the mechanical ventilator. Of concern is her abnormal EEG which was done yesterday and it showed some background slowing suggestive of moderate to severe encephalopathy. The patient also had high amplitude sharp appearing waves from the right and often bilateral, triphasic in quality indicating cortical irritation/irritability and tendency for seizures. Based on that, the patient was covered with Vimpat 100 mg IV every 12 hours. The patient remains on propofol and Keppra in addition. This morning, propofol running at 30 mcg/kg/min. The patient is calm and comfortable and synchronous with mechanical ventilator. She remains on assist-control mode at rate of 22, tidal volume of 350, FiO2 of 45% with a PEEP of 4. Blood gas showed a pH of 7.52 with a pCO2 of 31 and pO2 of 139. Hemodynamically stable on no pressors. BUN is 61 with a creatinine of 2.46 and the creatinine continues to improve. Sodium is at 140. Potassium is at 4.0. Bicarb is at 25. WBC 10.5 with a Hemoglobin of 7 and a Platelet Count of 124. Chest X-Ray from Today Shows Cardiomegaly and Patchy Interstitial Edema/Pulmonary Edema with Slight Interval Worsening Compared to Yesterday. Nevertheless, This Has Not Affected the Patient's Oxygenation. In Terms of Antibiotic Coverage, the Patient Remains on IV Zosyn. Ultrasound the Gallbladder Was Noted. LFTs from Yesterday Was Essentially within normal limits. 07/12/2024, the patient remains intubated on mechanical ventilator. The patient remains on propofol which is currently running at 25 mcg/kg/min. No seizure activity has been noted and the patient is currently on a combination of Keppra and Vimpat. Discussed the case with neurology. Will try to get another EEG. If not, will assess clinically and gradually wean off the propofol and assess the patient's mental status. The patient remains intubated on the mechanical ventilator. She remains on assist-control mode rate of 14, tidal volume of 350, FiO2 40% with a PEEP of 5. Blood gas shows a pH of 7.43 with a pCO2 of 40 and pO2 of 151. The patient is on half-normal citrate of 50 cc an hour. No pressors. She is on vital high-protein at rate of 30 cc an hour. She remains on IV Zosyn. Labs show a drop in the white cell count down to 9.5. Hemoglobin stable at 7.3 with a platelet count of 119. The BUN is 54 with a creatinine of 2.09 and sodium levels at 136 and a potassium level of 3.8. LFTs remain normal. No significant abdominal distention. Chest x-ray is showing some improvement in the infiltrates that was noted earlier. This could have been a representation with acute lung injury/ARDS in the setting of sepsis and this is improving and the patient has adequate oxygenation. Objective - Vital Signs Vital signs: Vital Signs Temp 99.6 F 07/12/24 12:00 Pulse 65 07/12/24 12:00 Resp 18 07/12/24 12:00 BP 108/53 07/12/24 12:00 Pulse Ox 98 07/12/24 12:00 FiO2 40 07/12/24 12:10 Intake & Output 07/11/24 07/12/24 07/12/24 18:59 06:59 18:59 Intake Total 523.388 8043 540 Output Total 585 575 410 Balance 338.299 445 130 Weight 65.9 kg 66.3 kg Intake: IV 700 800 300 Dextrose 5% in Water 1, 700 250 000 ml @ 75 mls/hr IV . [id number] ONE with Sodium Bicarb (1 Meq/ml) 150 ml Rx#:[id number] Sodium Chloride 0.45% 1, 550 300 000 ml @ 50 mls/hr IV . Q20H MANDIE Rx#:[id number] Intake, IV Titration 223.299 Amount Sodium Chloride 0.45% 1, 50 000 ml @ 50 mls/hr IV . Q20H MANDIE Rx#:[id number] propofoL 1,000 mg In 162.299 Empty Bag 1 bag @ 15 MCG/ KG/MIN 6.695 mls/hr IV . [id number] MANDIE Rx#:[id number] propofoL 100 ml @ 0 mls/ 11 hr IV .[employer] ONE Rx#: [id number] Tube Feeding 160 180 Other 60 60 Output: Urine 585 575 410 Other: Voiding Method Indwelling Catheter Indwelling Catheter Indwelling Catheter # Bowel Movements 0 - Exam -GENERAL: The patient is calm and comfortable sedated on propofol, intubated and mechanically ventilated. Orogastric and orotracheal tube are both in place. HEENT: Pupils are round and equally reacting to light. EOMI. No scleral icterus. No conjunctival pallor. Normocephalic, atraumatic. No pharyngeal erythema. No thyromegaly. CARDIOVASCULAR: S1 and S2 present. No murmurs, rubs, or gallops. PULMONARY: Chest is clear to auscultation, no wheezing , no crackles. ABDOMEN: Soft, nontender, nondistended, normoactive bowel sounds. No palpable organomegaly. No direct tenderness. No rebound tenderness in the upper quadra nt. No guarding. MUSCULOSKELETAL: No joint swelling or deformity. EXTREMITIES: No cyanosis, clubbing, or pedal edema. NEUROLOGICAL: Gross neurological examination did not reveal any focal deficits. Patient remains sedated and she grimaces to painful stimulation. SKIN: No rashes. no petechiae. - Labs CBC & Chem 7: 07/12/24 04:33 07/12/24 04:32 Labs: Abnormal Lab Results - Last 24 Hours (Table) 07/11/24 07/11/24 07/12/24 Range/Units 17:30 23:29 04:32 RBC (3.80-5.40) m/uL Hgb (11.4-16.0) gm/dL Hct (34.0-46.0) % RDW (11.5-15.5) % Plt Count (150-450) k/uL ABG HCO3 (21-25) mmol/L ABG Total CO2 (19-24) mmol/L ABG O2 Saturation (94-97) % Sodium 136 L (137-145) mmol/L BUN 54 H (7-17) mg/dL Creatinine 2.09 H (0.52-1.04) mg/dL Glucose 191 H (74-99) mg/dL POC Glucose (mg/dL) 209 H 183 H (70-110) mg/dL Calcium 6.9 L (8.4-10.2) mg/dL Alkaline Phosphatase 134 H (38-126) U/L Total Protein 4.5 L (6.3-8.2) g/dL Albumin 2.1 L (3.5-5.0) g/dL 07/12/24 07/12/24 07/12/24 Range/Units 04:33 05:47 06:16 RBC 2.52 L (3.80-5.40) m/uL Hgb 7.3 L (11.4-16.0) gm/dL Hct 23.3 L (34.0-46.0) % RDW 17.1 H (11.5-15.5) % Plt Count 119 L (150-450) k/uL ABG HCO3 26 H (21-25) mmol/L ABG Total CO2 28 H (19-24) mmol/L ABG O2 Saturation 97.8 H (94-97) % Sodium (137-145) mmol/L BUN (7-17) mg/dL Creatinine (0.52-1.04) mg/dL Glucose (74-99) mg/dL POC Glucose (mg/dL) 232 H (70-110) mg/dL Calcium (8.4-10.2) mg/dL Alkaline Phosphatase (38-126) U/L Total Protein (6.3-8.2) g/dL Albumin (3.5-5.0) g/dL 07/12/24 Range/Units 12:09 RBC (3.80-5.40) m/uL Hgb (11.4-16.0) gm/dL Hct (34.0-46.0) % RDW (11.5-15.5) % Plt Count (150-450) k/uL ABG HCO3 (21-25) mmol/L ABG Total CO2 (19-24) mmol/L ABG O2 Saturation (94-97) % Sodium (137-145) mmol/L BUN (7-17) mg/dL Creatinine (0.52-1.04) mg/dL Glucose (74-99) mg/dL POC Glucose (mg/dL) 250 H (70-110) mg/dL Calcium (8.4-10.2) mg/dL Alkaline Phosphatase (38-126) U/L Total Protein (6.3-8.2) g/dL Albumin (3.5-5.0) g/dL Assessment and Plan Plan: E. coli sepsis secondary to urinary tract infection. Urine culture was positive for E. coli and blood cultures also positive for E. coli. We suspected also acute cholecystitis as a source of for E. coli septicemia and bacteremia.. LFTs are normal. . Ultrasound the gallbladder showed some pericholecystic fluid suggestive of cholecystitis. The patient had a repeat ultrasound of the gallbladder today that showed mild cholecystic/pericholecystic fluid. No evidence of any biliary obstruction. LFTs remain unchanged. Hemodynamically stable on no pressors. Acute leukocytosis, improving Seizures, could be related to hypoglycemia,, nevertheless the patient continues to have abnormal triphasic activity from the right and bilateral. Patient was started on Vimpat and Keppra. The patient is on propofol. No clinical seizures noted. Encephalopathy related to toxic/metabolic encephalopathy/sepsis. CAT scan of the brain showed no evidence of any bleed and there is resolution of the previous described subdural hematoma Lactic acidosis secondary to above, improved Acute kidney injury on top of CKD stage III, improving Acute hypoxic respiratory failure, currently intubated on mechanical ventilator. Chest x-ray shows bilateral pulmonary filtrates. No history of edema versus acute lung injury secondary to sepsis. History of kidney stone with recent hospitalization for this purpose Recent hospitalization for pneumonia and pleural effusion, post thoracentesis. This was done at [facility] History of CVA History of subdural hematoma secondary to fall/anticoagulation. Diabetes mellitus Hyperlipidemia Developmental delay and the patient is a shelter resident Thrombocytopenia, rule out underlying DIC, platelet counts are slightly improved compared to yesterday. Plan: Continue ventilator support Continue half-normal saline at rate of 50 cc an hour Continue IV Zosyn Lactic acid levels have dropped White cell count is elevated, improving Urine output is diminished and the patient has a St catheter in place, renal function continues to improve Surgery consultation Neurology consult Repeat ultrasound the gallbladder was noted. LFTs remain unchanged. The patient was started on enteral feeding for nutrition support and vital HP and she is tolerating diet without any major issues Patient is currently off pressors Monitor platelet count Lovenox for DVT prophylaxis Obtain a 2D echocardiogram from yesterday showed a preserved LV function with moderate to severe concentric ventricular hypertrophy Discussed the case with neurology. Will attempt to obtain another EEG. Following that, will give the patient a sedation holiday and assess underlying mental status. Condition remains critical. This evaluation was done more than 30 minutes. I did a full discussion with the power of assistant district attorney. I also discussed the case with the infectious disease doctor. Will continue to follow make further recommendations based on progress. Evaluation was done more than 30 minutes. Time with Patient: Greater than 30
--- NOTE | 2024-07-12 12:38 | P.PN ---
Subjective Progress Note Date: 07/12/24 Progress Note Date: 07/12/2024 This is a 79-year-old female patient, correction resident with developmental delay, who was recently hospitalized at [facility] in time she was treated for pneumonia and she also had a pleural effusion that was drained. The exact site of the pneumonia and the drainage is not known to me at this point. The patient came into our hospital after having an episode of hypoglycemia with a blood sugar in the low 40s and a seizure-like activity. The patient was awake however she was not answering questions appropriately. The power of criminal attorney was at the bedside. In the emergency, the patient was found to be septic. The white cell count was 12 with a hemoglobin 10.7 and a blood culture was positive for gram-negative bacillus. BUN was 27 with a creatinine of 1.3 and a sodium level of 134. Initial lactic acid level was at 3.3 and repeat level was also 3.3. UA was consistent with infection as the patient had blood and white cells within the urine analysis along with +2 protein and occasional bacteria and many WBC clumps. The viral screen was negative. Also, the patient's LFTs were essentially within normal limits. Nevertheless, the patient was given a ultrasound of the bladder and the kidneys. There was evidence of cholelithiasis with prominent wall and pericholecystic fluid suggestive of cholecystitis. No evidence of any obstructive uropathy. There was renal cortical scarring bilaterally possible nonobstructing cortical calcifications. No evidence of any hydronephrosis. The patient is currently on IV Zosyn. She was given a dose of Rocephin in the emergency department. The patient was also given IV fluids and currently she is on normal saline at rate of 130 cc an hour. CAT scan of the brain showed a resolution of the previously described right subdural hemorrhage from 04/16/2024. There was some nonspecific white matter changes. X-ray of the chest showed no evidence of any pleural effusion for consolidation. The patient had increased pulm vascular markings. At this point in time the patient is currently on 4 L of oxygen by nasal cannula with a pulse ox of 94%. Normotensive. Slightly tachycardic. On today's evaluation of 07/09/2024, the patient's condition is further decompensated compared to yesterday. She seems to be much more obtunded. Urine output is low. The patient has developed further increase the white cell count and has developed an acute kidney injury in addition. The patient's blood cultures positive for E. coli and the patient is prepped and IV Zosyn. Abdomen seems to be slightly more firm compared to yesterday. Is currently the patient afebrile, slightly tachycardic, on 4 L of oxygen by nasal cannula with a pulse ox of 94%. Follow-up chest x-ray from today shows evidence of pulmonary edema. IV fluids are running in the form of a normal saline at rate of 75 cc an hour. She was given another bolus of 500 cc earlier today. The white cell count is at 24.5 hemoglobin is 8 with a platelet count of 134. She has 94% neutrophilia. Sodium levels at 139 with a potassium level of 5.8. Serum bicarb is 18 with a BUN of 59 and a creatinine of 3.10. Blood sugar is at 306. As stated, urine cultures are still pending. Blood culture is positive for E. coli. Lactic acid level has improved compared to yesterday and is currently down to 1.4 from 3.2. The highest lactic acid level was at 5.9 07/10/2024, the patient is being seen for a follow-up. The patient is currently intubated on mechanical ventilator due to septic shock. Blood cultures positive for E. coli, urine cultures also positive for E. coli. Patient is currently on IV Zosyn. Repeat ultrasound the gallbladder was done and shows cholelithiasis with pericholecystic fluid collection and the patient has multiple gallstones seen in the neck and the body of the gallbladder. The amount of pericholecystic fluid is mild. Unable to evaluate the patient's Bar sign. There is also a right renal calculus. The liver function tests remain essentially within normal limits with an alkaline phosphatase of 129, and the patient's bilirubin is at 0.6. Being the source of septicemia is a urine. The patient is still on propofol which is running at 20 mcg/kg/min. She is on mechanical ventilator assist-control mode with rate of 22, tidal volume of 350, FiO2 of 50% with a PEEP of 5. Blood gas from today showed a pH of 7.41 with a pCO2 of 81 and pO2 of 152. Chest x-ray showing diffuse bilateral pulmonary for trace, could be related to interstitial edema versus acute lung injury secondary to sepsis. Serum bicarb is 18 and the patient remains on a bicarb infusion at rate of 75 cc an hour. BUN is 62 with a creatinine of 2.9 and a sodium levels at 142. LFTs are normal. The patient had dropped her platelet count 212 with a WBC count of 7.8 which is improved compared to yesterday and a hemoglobin of 7.6. Antibiotic coverage with IV Zosyn. 07/11/2024, the patient is being seen for a follow-up. The patient remains intubated on the mechanical ventilator. Of concern is her abnormal EEG which was done yesterday and it showed some background slowing suggestive of moderate to severe encephalopathy. The patient also had high amplitude sharp appearing waves from the right and often bilateral, triphasic in quality indicating cortical irritation/irritability and tendency for seizures. Based on that, the patient was covered with Vimpat 100 mg IV every 12 hours. The patient remains on propofol and Keppra in addition. This morning, propofol running at 30 mcg/kg/min. The patient is calm and comfortable and synchronous with mechanical ventilator. She remains on assist-control mode at rate of 22, tidal volume of 350, FiO2 of 45% with a PEEP of 4. Blood gas showed a pH of 7.52 with a pCO2 of 31 and pO2 of 139. Hemodynamically stable on no pressors. BUN is 61 with a cr eatinine of 2.46 and the creatinine continues to improve. Sodium is at 140. Potassium is at 4.0. Bicarb is at 25. WBC 10.5 with a Hemoglobin of 7 and a Platelet Count of 124. Chest X-Ray from Today Shows Cardiomegaly and Patchy Interstitial Edema/Pulmonary Edema with Slight Interval Worsening Compared to Yesterday. Nevertheless, This Has Not Affected the Patient's Oxygenation. In Terms of Antibiotic Coverage, the Patient Remains on IV Zosyn. Ultrasound the Gallbladder Was Noted. LFTs from Yesterday Was Essentially within normal limits. 07/12/2024, The patient is being seen for a follow up. She remained intubated on the mechanical ventilator. Of concern is her abnormal EEG which was done 07/10 and it showed some background slowing suggestive of moderate to severe encephalopathy. The patient also had high amplitude sharp appearing waves from the right and often bilateral, triphasic in quality indicating cortical irritation/irritability and tendency for seizures. Based on that, the patient was covered with Vimpat 100 mg IV every 12 hours. The patient remains on propofol and Keppra in addition. This morning, propofol running at 25 mcg/kg/min. The patient is calm and comfortable and synchronous with mechanical ventilator. She remains on assist control mode at rate of 14, tidal volume of 350, FiO2 of 40% with a PEEP of 5.0. Blood gas showed a pH of 7.43 with a pCO2 of 40 and pO2 of 101. Chest X ray from today shows pulmonary edema slightly improved. In terms of antibiotic coverage, patient remains on IV Zosyn. Objective - Vital Signs Vital signs: Vital Signs Temp 98.2 F 07/12/24 08:00 Pulse 66 07/12/24 08:00 Resp 19 07/12/24 08:00 BP 110/61 07/12/24 08:00 Pulse Ox 100 07/12/24 08:00 FiO2 40 07/12/24 08:44 Intake & Output 07/11/24 07/12/24 07/12/24 18:59 06:59 18:59 Intake Total 705.792 0299 510 Output Total 585 575 410 Balance 338.299 445 100 Weight 65.9 kg 66.3 kg Intake: IV 700 800 300 Dextrose 5% in Water 1, 700 250 000 ml @ 75 mls/hr IV . [id number] ONE with Sodium Bicarb (1 Meq/ml) 150 ml Rx#:[id number] Sodium Chloride 0.45% 1, 550 300 000 ml @ 50 mls/hr IV . Q20H [facility] Rx#:[id number] Intake, IV Titration 223.299 Amount Sodium Chloride 0.45% 1, 50 000 ml @ 50 mls/hr IV . Q20H [facility] Rx#:[id number] propofoL 1,000 mg In 162.299 Empty Bag 1 bag @ 15 MCG/ KG/MIN 6.695 mls/hr IV . [id number] [facility] Rx#:[id number] propofoL 100 ml @ 0 mls/ 11 hr IV .STK-MED ONE Rx#: [id number] Tube Feeding 160 150 Other 60 60 Output: Urine 585 575 410 Other: Voiding Method Indwelling Catheter Indwelling Catheter # Bowel Movements 0 - Exam -GENERAL: The patient is calm and comfortable sedated on propofol, intubated and mechanically ventilated. Orogastric and orotracheal tube are both in place. HEENT: Pupils are round and equally reacting to light. EOMI. No scleral icterus. No conjunctival pallor. Normocephalic, atraumatic. No pharyngeal erythema. No thyromegaly. CARDIOVASCULAR: S1 and S2 present. No murmurs, rubs, or gallops. PULMONARY: Chest is clear to auscultation, no wheezing , no crackles. ABDOMEN: Soft, nontender, nondistended, normoactive bowel sounds. No palpable organomegaly. No direct tenderness. No rebound tenderness in the upper quadrant. No guarding. MUSCULOSKELETAL: No joint swelling or deformity. EXTREMITIES: No cyanosis, clubbing, or pedal edema. NEUROLOGICAL: Gross neurological examination did not reveal any focal deficits. Patient remains sedated and she grimaces to painful stimulation. SKIN: No rashes. no petechiae. - Labs CBC & Chem 7: 07/12/24 04:33 07/12/24 04:32 Labs: Abnormal Lab Results - Last 24 Hours (Table) 07/11/24 07/11/24 07/12/24 Range/Units 17:30 23:29 04:32 RBC (3.80-5.40) m/uL Hgb (11.4-16.0) gm/dL Hct (34.0-46.0) % RDW (11.5-15.5) % Plt Count (150-450) k/uL ABG HCO3 (21-25) mmol/L ABG Total CO2 (19-24) mmol/L ABG O2 Saturation (94-97) % Sodium 136 L (137-145) mmol/L BUN 54 H (7-17) mg/dL Creatinine 2.09 H (0.52-1.04) mg/dL Glucose 191 H (74-99) mg/dL POC Glucose (mg/dL) 209 H 183 H (70-110) mg/dL Calcium 6.9 L (8.4-10.2) mg/dL Alkaline Phosphatase 134 H (38-126) U/L Total Protein 4.5 L (6.3-8.2) g/dL Albumin 2.1 L (3.5-5.0) g/dL 07/12/24 07/12/24 07/12/24 Range/Units 04:33 05:47 06:16 RBC 2.52 L (3.80-5.40) m/uL Hgb 7.3 L (11.4-16.0) gm/dL Hct 23.3 L (34.0-46.0) % RDW 17.1 H (11.5-15.5) % Plt Count 119 L (150-450) k/uL ABG HCO3 26 H (21-25) mmol/L ABG Total CO2 28 H (19-24) mmol/L ABG O2 Saturation 97.8 H (94-97) % Sodium (137-145) mmol/L BUN (7-17) mg/dL Creatinine (0.52-1.04) mg/dL Glucose (74-99) mg/dL POC Glucose (mg/dL) 232 H (70-110) mg/dL Calcium (8.4-10.2) mg/dL Alkaline Phosphatase (38-126) U/L Total Protein (6.3-8.2) g/dL Albumin (3.5-5.0) g/dL 07/12/24 Range/Units 12:09 RBC (3.80-5.40) m/uL Hgb (11.4-16.0) gm/dL Hct (34.0-46.0) % RDW (11.5-15.5) % Plt Count (150-450) k/uL ABG HCO3 (21-25) mmol/L ABG Total CO2 (19-24) mmol/L ABG O2 Saturation (94-97) % Sodium (137-145) mmol/L BUN (7-17) mg/dL Creatinine (0.52-1.04) mg/dL Glucose (74-99) mg/dL POC Glucose (mg/dL) 250 H (70-110) mg/dL Calcium (8.4-10.2) mg/dL Alkaline Phosphatase (38-126) U/L Total Protein (6.3-8.2) g/dL Albumin (3.5-5.0) g/dL Assessment and Plan Assessment: E. coli sepsis secondary to urinary tract infection. Urine culture was positive for E. coli and blood cultures also positive for E. coli. We suspected also acute cholecystitis as a source of for E. coli septicemia and bacteremia.. LFTs are normal. . Ultrasound the gallbladder showed some pericholecystic fluid suggestive of cholecystitis. The patient had a repeat ultrasound of the gallbladder today that showed mild cholecystic/pericholecystic fluid. No evidence of any biliary obstruction. LFTs remain unchanged. Hemodynamically stable on no pressors. Acute leukocytosis, improving Seizures, could be related to hypoglycemia,, nevertheless the patient continues to have abnormal triphasic activity from the right and bilateral. Patient was started on Vimpat. Repeat EEG from today is in progress. Patient remains on Keppra. Patient is also on propofol. Encephalopathy related to toxic/metabolic encephalopathy/sepsis. CAT scan of t he brain showed no evidence of any bleed and there is resolution of the previous described subdural hematoma Lactic acidosis secondary to above, improved Acute kidney injury on top of CKD stage III, improving Acute hypoxic respiratory failure, currently intubated on mechanical ventilator. Chest x-ray shows bilateral pulmonary filtrates. No history of edema versus acute lung injury secondary to sepsis. History of kidney stone with recent hospitalization for this purpose Recent hospitalization for pneumonia and pleural effusion, post thoracentesis. This was done at [facility] History of CVA History of subdural hematoma secondary to fall/anticoagulation. Diabetes mellitus Hyperlipidemia Developmental delay and the patient is a correction resident Thrombocytopenia, rule out underlying DIC, platelet counts are slightly improved compared to yesterday. Plan: Continue IV Zosyn Lactic acid levels have dropped White cell count is elevated, improving Urine output is diminished and the patient has a St catheter in place, renal function continues to improve Neurology will do an EEG today or tomorrow. Repeat ultrasound the gallbladder was noted. LFTs remain unchanged. Patient is currently off pressors The patient on an low-dose enteral feeding at rate of 10 cc an hour Monitor platelet count Lovenox for DVT prophylaxis Condition remains critical. This evaluation was done more than 30 minutes. I did a full discussion with the power of criminal attorney. I also discussed the case with the infectious disease doctor. Will continue to follow make further recommendations based on progress. Evaluation was done more than 30 minutes. Time with Patient: Greater than 30
--- NOTE | 2024-07-12 12:43 | P.PN ---
Subjective Progress Note Date: 07/12/24 Seeing the patient for the first time during this admission. Please refer to Dr. Montemayor's note for further details. Patient brother is at bedside who provides some of the history. Patient's brother stated that she came in to the hospital for issues with the gallbladder and possible elective cholecystectomy but it seems that she had hypoglycemia and it seems that she had sepsis so that was held as a result. She had altered mental status and was felt was due to to toxic metabolic encephalopathy but Dr. Montemayor did an EEG and he felt was severe encephalopathy as well as sporadic generalized spikes and slow waves and he did not feel there is any electrographic seizure was recorded on the initial EEG then he performed a prolonged EEG just and he could not rule out none convulsive status epilepticus he recommended patient to be transferred to higher level of care for continuous EEG monitoring. Spoke with the ICU attending and primary attending and it seems there is no bed availability over at [facility]. It seems that the patient's condition is improving. The ICU attending and at baseline she is has the mental delay. Patient is on Vimpat 150 mg twice daily and Keppra 500 mg twice daily. She is on IV propofol 25mcg/kg/min. Objective - Vital Signs Vital signs: Vital Signs Temp 99.6 F 07/12/24 12:00 Pulse 65 07/12/24 12:00 Resp 18 07/12/24 12:00 BP 108/53 07/12/24 12:00 Pulse Ox 98 07/12/24 12:00 FiO2 40 07/12/24 12:10 Intake & Output 07/11/24 07/12/24 07/12/24 18:59 06:59 18:59 Intake Total 632.169 2509 540 Output Total 585 575 410 Balance 338.299 445 130 Weight 65.9 kg 66.3 kg Intake: IV 700 800 300 Dextrose 5% in Water 1, 700 250 000 ml @ 75 mls/hr IV . [id number] ONE with Sodium Bicarb (1 Meq/ml) 150 ml Rx#:[id number] Sodium Chloride 0.45% 1, 550 300 000 ml @ 50 mls/hr IV . Q20H [facility] Rx#:[id number] Intake, IV Titration 223.299 Amount Sodium Chloride 0.45% 1, 50 000 ml @ 50 mls/hr IV . Q20H [facility] Rx#:[id number] propofoL 1,000 mg In 162.299 Empty Bag 1 bag @ 15 MCG/ KG/MIN 6.695 mls/hr IV . [id number] [facility] Rx#:[id number] propofoL 100 ml @ 0 mls/ 11 hr IV .STK-[facility] ONE Rx#: [id number] Tube Feeding 160 180 Other 60 60 Output: Urine 585 575 410 Other: Voiding Method Indwelling Catheter Indwelling Catheter Indwelling Catheter # Bowel Movements 0 - Exam General: Lying in bed and does not appear in acute distress. Lung: Intubated on ventilator. Cardiovascular: Has edema in distal upper and lower extremities. Neuro: Limited. Patient is on IV Propofol 25mcg/kg/min. Patient is stupor. Is not following commands I manually open her eyes and gaze is midline and the pupils are pinpoint. Primary gaze midline. No facial weakness. Patient with painful stimuli she was able to lift up the left upper extremity above gravity. There is no jerking of any extremities. - Labs CBC & Chem 7: 07/12/24 04:33 07/12/24 04:32 Labs: Abnormal Lab Results - Last 24 Hours (Table) 07/11/24 07/11/24 07/12/24 Range/Units 17:30 23:29 04:32 RBC (3.80-5.40) m/uL Hgb (11.4-16.0) gm/dL Hct (34.0-46.0) % RDW (11.5-15.5) % Plt Count (150-450) k/uL ABG HCO3 (21-25) mmol/L ABG Total CO2 (19-24) mmol/L ABG O2 Saturation (94-97) % Sodium 136 L (137-145) mmol/L BUN 54 H (7-17) mg/dL Creatinine 2.09 H (0.52-1.04) mg/dL Glucose 191 H (74-99) mg/dL POC Glucose (mg/dL) 209 H 183 H (70-110) mg/dL Calcium 6.9 L (8.4-10.2) mg/dL Alkaline Phosphatase 134 H (38-126) U/L Total Protein 4.5 L (6.3-8.2) g/dL Albumin 2.1 L (3.5-5.0) g/dL 07/12/24 07/12/24 07/12/24 Range/Units 04:33 05:47 06:16 RBC 2.52 L (3.80-5.40) m/uL Hgb 7.3 L (11.4-16.0) gm/dL Hct 23.3 L (34.0-46.0) % RDW 17.1 H (11.5-15.5) % Plt Count 119 L (150-450) k/uL ABG HCO3 26 H (21-25) mmol/L ABG Total CO2 28 H (19-24) mmol/L ABG O2 Saturation 97.8 H (94-97) % Sodium (137-145) mmol/L BUN (7-17) mg/dL Creatinine (0.52-1.04) mg/dL Glucose (74-99) mg/dL POC Glucose (mg/dL) 232 H (70-110) mg/dL Calcium (8.4-10.2) mg/dL Alkaline Phosphatase (38-126) U/L Total Protein (6.3-8.2) g/dL Albumin (3.5-5.0) g/dL 07/12/24 Range/Units 12:09 RBC (3.80-5.40) m/uL Hgb (11.4-16.0) gm/dL Hct (34.0-46.0) % RDW (11.5-15.5) % Plt Count (150-450) k/uL ABG HCO3 (21-25) mmol/L ABG Total CO2 (19-24) mmol/L ABG O2 Saturation (94-97) % Sodium (137-145) mmol/L BUN (7-17) mg/dL Creatinine (0.52-1.04) mg/dL Glucose (74-99) mg/dL POC Glucose (mg/dL) 250 H (70-110) mg/dL Calcium (8.4-10.2) mg/dL Alkaline Phosphatase (38-126) U/L Total Protein (6.3-8.2) g/dL Albumin (3.5-5.0) g/dL Assessment and Plan Assessment: * Altered mental status due to toxic metabolic encephalopathy. Reasons multifactorial as mentioned below--today she localized to pain on left upper extremity. * Abnormal EEG, with evidence of severe encephalopathy and frequent sharp waves. Cannot rule out nonconvulsive status per Dr. Montemayor. * Septic encephalopathy * E. coli bacteremia * Hypoglycemia with hypoglycemic encephalopathy. * Possible cholecystitis * History of right hemispheric subdural hematoma 04/16/2024, treated conservatively. * Acute kidney injury, improving. * Acute hypoxic respiratory failure. * History of right pontine lacunar stroke 11/01/2021. * Diabetes * Hyperlipidemia * Developmental delay, and patient is intermediate resident. Plan: * Patient continues to be intubated, sedated. No obvious clinical seizure-like activity noted. * Repeat prolonged EEG for 1 hour performed yesterday. Per Dr. Montemayor, It revealed definite improvement in the amount of epileptiform activity. However in the early part of the study, there were sporadic generalized sharp wave, and relatively more frequent right hemispheric, maximal right parietal sharp waves. This epileptiform activity improved during middle and later part of the study with sporadic right parietal sharp waves. Cannot rule out nonconvulsive status. Patient probably will need prolonged, continuous EEG monitoring for further management. * Prolonged EEG for 1 hour from two days ago and reported by Dr. Montemayor as severely abnormal, with background slowing and disorganization, suggestive of severe encephalopathy. Also revealed evidence of intermittent high amplitude sharp waves seen occasionally involving right hemispheric, but more often bih emispheric region. At times these sharp waves have triphasic in quality as well. No electrographic seizure was recorded. * Patient currently on Keppra 500 mg twice daily and Vimpat 150 mg twice daily. * Initial EEG 06/08/2024 was abnormal due to background slowing, suggestive of moderate to severe encephalopathy. Also evidence of sporadic generalized spike and slow wave seen at later part of the study. No electrographic seizure was recorded. No electrographic evidence of status epilepticus. * I spoke with the ICU attending as well as the primary attending and was felt [facility] did not have any beds and it was felt there is some improvement in her condition. Therefore will avoid the transfer to a tertiary center for long-term EEG and will obtain a repeat EEG in our facility. I spoke with patient's brother and her niece who are bedside and they are in agreement of avoiding transfer especially since it is not convenient for the family and with her her underlying cognitive issues (developmentally delayed) and medical issues. * the ICU attending felt there is some improvement * CT head showed no acute process. Resolution of previously seen right sided subdural hematoma. * Patient currently on Zosyn. * Avoid episodes of hypoglycemia. * Medical management as per IM/critical care. * Patient is critically sick. Time with Patient: Less than 30
--- NOTE | 2024-07-12 14:56 | P.PN ---
Subjective Progress Note Date: 07/12/24 Principal diagnosis: Reason for follow-up is UTI and bacteremia Patient is a 79-year-old female with a past medical history significant for diabetes mellitus hypertension hyperlipidemia CVA TIA in this patient who is a long term resident patient has been brought into the ER by EMS after apparently the patient did have some seizure-like activity, patient did have a fever positive UA and blood culture positive for E. coli. On today's evaluation that is 07/12/2024,the patient remains to be afebrile, patient is on on the ventilator FiO2 is currently stable at 40% no significant purulent secretions or eating diarrhea or any other change reported by the nursing staff patient not requiring any pressor support. Patient was normal at 9.5, creatinine is 2.09 sputum cultures pending Objective - Vital Signs Vital signs: Vital Signs Temp 99.6 F 07/12/24 12:00 Pulse 65 07/12/24 12:00 Resp 18 07/12/24 12:00 BP 108/53 07/12/24 12:00 Pulse Ox 98 07/12/24 12:00 FiO2 40 07/12/24 12:10 Intake & Output 07/11/24 07/12/24 07/12/24 18:59 06:59 18:59 Intake Total 578.898 8707 540 Output Total 585 575 410 Balance 338.299 445 130 Weight 65.9 kg 66.3 kg Intake: IV 700 800 300 Dextrose 5% in Water 1, 700 250 000 ml @ 75 mls/hr IV . [id number] ONE with Sodium Bicarb (1 Meq/ml) 150 ml Rx#:[id number] Sodium Chloride 0.45% 1, 550 300 000 ml @ 50 mls/hr IV . Q20H [facility] Rx#:[id number] Intake, IV Titration 223.299 Amount Sodium Chloride 0.45% 1, 50 000 ml @ 50 mls/hr IV . Q20H [facility] Rx#:[id number] propofoL 1,000 mg In 162.299 Empty Bag 1 bag @ 15 MCG/ KG/MIN 6.695 mls/hr IV . [id number] [facility] Rx#:[id number] propofoL 100 ml @ 0 mls/ 11 hr IV .STK-MED ONE Rx#: [id number] Tube Feeding 160 180 Other 60 60 Output: Urine 585 575 410 Other: Voiding Method Indwelling Catheter Indwelling Catheter Indwelling Catheter # Bowel Movements 0 - Exam GENERAL DESCRIPTION: An elderly female intubated on the vent RESPIRATORY SYSTEM: Unlabored breathing , decreased breath sounds at bases HEART: S1 S2 regular rate and rhythm , ABDOMEN: Soft , no tenderness EXTREMITIES: 2+ edema feet - Labs CBC & Chem 7: 07/12/24 04:33 07/12/24 04:32 Labs: Abnormal Lab Results - Last 24 Hours (Table) 07/11/24 07/11/24 07/12/24 Range/Units 17:30 23:29 04:32 RBC (3.80-5.40) m/uL Hgb (11.4-16.0) gm/dL Hct (34.0-46.0) % RDW (11.5-15.5) % Plt Count (150-450) k/uL ABG HCO3 (21-25) mmol/L ABG Total CO2 (19-24) mmol/L ABG O2 Saturation (94-97) % Sodium 136 L (137-145) mmol/L BUN 54 H (7-17) mg/dL Creatinine 2.09 H (0.52-1.04) mg/dL Glucose 191 H (74-99) mg/dL POC Glucose (mg/dL) 209 H 183 H (70-110) mg/dL Calcium 6.9 L (8.4-10.2) mg/dL Alkaline Phosphatase 134 H (38-126) U/L Total Protein 4.5 L (6.3-8.2) g/dL Albumin 2.1 L (3.5-5.0) g/dL 07/12/24 07/12/24 07/12/24 Range/Units 04:33 05:47 06:16 RBC 2.52 L (3.80-5.40) m/uL Hgb 7.3 L (11.4-16.0) gm/dL Hct 23.3 L (34.0-46.0) % RDW 17.1 H (11.5-15.5) % Plt Count 119 L (150-450) k/uL ABG HCO3 26 H (21-25) mmol/L ABG Total CO2 28 H (19-24) mmol/L ABG O2 Saturation 97.8 H (94-97) % Sodium (137-145) mmol/L BUN (7-17) mg/dL Creatinine (0.52-1.04) mg/dL Glucose (74-99) mg/dL POC Glucose (mg/dL) 232 H (70-110) mg/dL Calcium (8.4-10.2) mg/dL Alkaline Phosphatase (38-126) U/L Total Protein (6.3-8.2) g/dL Albumin (3.5-5.0) g/dL 07/12/24 Range/Units 12:09 RBC (3.80-5.40) m/uL Hgb (11.4-16.0) gm/dL Hct (34.0-46.0) % RDW (11.5-15.5) % Plt Count (150-450) k/uL ABG HCO3 (21-25) mmol/L ABG Total CO2 (19-24) mmol/L ABG O2 Saturation (94-97) % Sodium (137-145) mmol/L BUN (7-17) mg/dL Creatinine (0.52-1.04) mg/dL Glucose (74-99) mg/dL POC Glucose (mg/dL) 250 H (70-110) mg/dL Calcium (8.4-10.2) mg/dL Alkaline Phosphatase (38-126) U/L Total Protein (6.3-8.2) g/dL Albumin (3.5-5.0) g/dL Microbiology - Last 24 Hours (Table) 07/11/24 20:13 Gram Stain - Preliminary Sputum Assessment and Plan (1) Gram-negative bacteremia Current Visit: Yes Status: Acute Code(s): R78.81 - BACTEREMIA SNOMED Code(s): 859506539196 (2) UTI (urinary tract infection) Current Visit: Yes Status: Acute Code(s): N39.0 - URINARY TRACT INFECTION, SITE NOT SPECIFIED SNOMED Code(s): 47374939 Plan: 1patient presented to hospital with sepsis in this patient who did have low- grade fever tachycardia elevated white count elevated lactic acid and now with a positive blood culture likely related to the urinary source as the patient did have significantly positive UA patient also have abnormality seen of the gallbladder however did have a normal liver enzymes 2-E. coli bacteremia source likely urinary that is a sensitive pathogen, urine did grew the same pathogen 3-patient did have worsening of the respiratory status requiring intubation question of possible aspiration pneumonitis, sputum cultures currently pending 4-patient is afebrile and white count normalized continue with the Zosyn while waiting for sputum culture to finalize Dictation was produced using [employer] dictation software. please excuse any grammatical, word or spelling errors. Time with Patient: Less than 30
--- NOTE | 2024-07-12 15:44 | P.PN ---
Subjective Progress Note Date: 07/12/24 CHIEF COMPLAINT: Acute cholecystitis HISTORY OF PRESENT ILLNESS: The patient is a 79-year-old female with developmental delay, history of subdural hematoma, history of pneumonia including ARDS and sepsis being followed for acute cholecystitis in intensive care unit on full ventilatory support. At this time, patient is still requiring full ventilatory support. Patient had urinary tract infection with E. coli. ROS: No reports of nausea and vomiting. No fevers or chills. No new chest pain. No productive sputum PHYSICAL EXAM: VITAL SIGNS: Reviewed CONSTITUTIONAL: Well developed and in no acute distress. EYES: Conjuctivae without sclera icterus. Extraocular movements grossly intact. HEAD, EARS, NOSE, THROAT: Moist buccal mucosa. Head is atraumatic, normocephalic. Hears conversational speech. No nasal drainage. RESPIRATORY: Intubated with full ventilatory support CARDIOVASCULAR: Palpable 2+ radial pulses. ABDOMEN: No peritonitis. MUSCULOSKELETAL: No gross deformity of the lower extremities noted. No clubbing. No cyanosis. SKIN: Good skin turgor. Well perfused. NEUROLOGIC: Cranial nerves II through XII grossly intact. No focal or lateralizing signs. PSYCH: Sedated. CLINICAL LABS: Reviewed. WBC normal. Hemoglobin 7.3, anemia. ASSESSMENT: 1. Acute cholecystitis 2. Acute respiratory distress syndrome status post intervention 3. Sepsis with E. coli urinary tract infection 4. Subdural hematoma PLAN: 1. At this time, patient not cleared for any surgical intervention. 2. Continue antibiotics 3. Overall high risk for any surgical intervention at this time Objective - Vital Signs Vital signs: Vital Signs Temp 99.6 F 07/12/24 12:00 Pulse 65 07/12/24 12:00 Resp 18 07/12/24 12:00 BP 108/53 07/12/24 12:00 Pulse Ox 98 07/12/24 12:00 FiO2 40 07/12/24 12:10 Intake & Output 07/11/24 07/12/24 07/12/24 18:59 06:59 18:59 Intake Total 713.521 6482 540 Output Total 585 575 410 Balance 338.299 445 130 Weight 65.9 kg 66.3 kg Intake: IV 700 800 300 Dextrose 5% in Water 1, 700 250 000 ml @ 75 mls/hr IV . [id number] ONE with Sodium Bicarb (1 Meq/ml) 150 ml Rx#:[id number] Sodium Chloride 0.45% 1, 550 300 000 ml @ 50 mls/hr IV . Q20H [facility] Rx#:[id number] Intake, IV Titration 223.299 Amount Sodium Chloride 0.45% 1, 50 000 ml @ 50 mls/hr IV . Q20H [facility] Rx#:[id number] propofoL 1,000 mg In 162.299 Empty Bag 1 bag @ 15 MCG/ KG/MIN 6.695 mls/hr IV . [id number] [facility] Rx#:[id number] propofoL 100 ml @ 0 mls/ 11 hr IV .STK-MED ONE Rx#: [id number] Tube Feeding 160 180 Other 60 60 Output: Urine 585 575 410 Other: Voiding Method Indwelling Catheter Indwelling Catheter Indwelling Catheter # Bowel Movements 0 - Labs CBC & Chem 7: 07/12/24 04:33 07/12/24 04:32 Labs: Abnormal Lab Results - Last 24 Hours (Table) 07/11/24 07/11/24 07/12/24 Range/Units 17:30 23:29 04:32 RBC (3.80-5.40) m/uL Hgb (11.4-16.0) gm/dL Hct (34.0-46.0) % RDW (11.5-15.5) % Plt Count (150-450) k/uL ABG HCO3 (21-25) mmol/L ABG Total CO2 (19-24) mmol/L ABG O2 Saturation (94-97) % Sodium 136 L (137-145) mmol/L BUN 54 H (7-17) mg/dL Creatinine 2.09 H (0.52-1.04) mg/dL Glucose 191 H (74-99) mg/dL POC Glucose (mg/dL) 209 H 183 H (70-110) mg/dL Calcium 6.9 L (8.4-10.2) mg/dL Alkaline Phosphatase 134 H (38-126) U/L Total Protein 4.5 L (6.3-8.2) g/dL Albumin 2.1 L (3.5-5.0) g/dL 07/12/24 07/12/24 07/12/24 Range/Units 04:33 05:47 06:16 RBC 2.52 L (3.80-5.40) m/uL Hgb 7.3 L (11.4-16.0) gm/dL Hct 23.3 L (34.0-46.0) % RDW 17.1 H (11.5-15.5) % Plt Count 119 L (150-450) k/uL ABG HCO3 26 H (21-25) mmol/L ABG Total CO2 28 H (19-24) mmol/L ABG O2 Saturation 97.8 H (94-97) % Sodium (137-145) mmol/L BUN (7-17) mg/dL Creatinine (0.52-1.04) mg/dL Glucose (74-99) mg/dL POC Glucose (mg/dL) 232 H (70-110) mg/dL Calcium (8.4-10.2) mg/dL Alkaline Phosphatase (38-126) U/L Total Protein (6.3-8.2) g/dL Albumin (3.5-5.0) g/dL 07/12/24 Range/Units 12:09 RBC (3.80-5.40) m/uL Hgb (11.4-16.0) gm/dL Hct (34.0-46.0) % RDW (11.5-15.5) % Plt Count (150-450) k/uL ABG HCO3 (21-25) mmol/L ABG Total CO2 (19-24) mmol/L ABG O2 Saturation (94-97) % Sodium (137-145) mmol/L BUN (7-17) mg/dL Creatinine (0.52-1.04) mg/dL Glucose (74-99) mg/dL POC Glucose (mg/dL) 250 H (70-110) mg/dL Calcium (8.4-10.2) mg/dL Alkaline Phosphatase (38-126) U/L Total Protein (6.3-8.2) g/dL Albumin (3.5-5.0) g/dL Microbiology - Last 24 Hours (Table) 07/11/24 20:13 Gram Stain - Preliminary Sputum
[2024-07-12 17:53] LABS: Glucose,Whole Blood 246 mg/dL (70-110)
[2024-07-13 00:42] LABS: Glucose,Whole Blood 282 mg/dL (70-110)
[2024-07-13 05:33] LABS: Anisocytosis Slight
[2024-07-13 05:35] LABS: HCT 22.6 % (34.0-46.0); HGB 6.9 gm/dL (11.4-16.0); MCH 28.3 pg (25.0-35.0); MCHC 30.7 g/dL (31.0-37.0); MCV 92.4 fL (80.0-100.0); RBC 2.44 m/uL (3.80-5.40); WBC 8.9 k/uL (3.8-10.6)
[2024-07-13 05:36] LABS: Hypochromasia Slight; Mean Platelet Volume 10.6; Platelet Count 157 k/uL (150-450); RDW 17.1 % (11.5-15.5)
[2024-07-13 05:55] LABS: ABG Base Excess 1.8 mmol/L; ABG HCO3 27 mmol/L (21-25); ABG Oxygen Saturation 98.5 % (94-97); ABG PCO2 42 mmHg (35-45); ABG PH 7.41 (7.35-7.45); ABG PO2 110 mmHg (83-108); ABG TCO2 28 mmol/L (19-24); Allen Test Performed? Yes
[2024-07-13 05:59] LABS: African American GFR (CKD) 34 (>60 ml/min/1.73 sqM); Anion Gap 6 mmol/L; Blood Urea Nitrogen 47 mg/dL (7-17); Calcium 7.2 mg/dL (8.4-10.2); Carbon Dioxide 26 mmol/L (22-30); Chloride 107 mmol/L (98-107); Glucose 231 mg/dL (74-99); Non-African American GFR(CKD) 29 (>60 ml/min/1.73 sqM); Sodium 139 mmol/L (137-145)
[2024-07-13 06:32] LABS: Glucose,Whole Blood 260 mg/dL (70-110)
--- NOTE | 2024-07-13 06:45 | XR ---
EXAMINATION TYPE: XR chest 1V portable DATE OF EXAM: 07/13/2024 COMPARISON: 07/12/2024 HISTORY: Intubated TECHNIQUE: Single frontal view of the chest is obtained. FINDINGS: There is an ET tube approximately 1.5 cm above the kimberly. There is an NG tube within the stomach. Th ere is a left jugular central venous catheter in the SVC/RA junction. There is interval worsening in the pulmonary vascular congestion and bilateral pleural effusions. The osseous structures are intact IMPRESSION: 1. ET tube 1.5 cm above the kimberly. 2. Interval worsening in the acute cardiopulmonary disease as described above.
[2024-07-13] MEDS: FUROSEMIDE 10 MG/ML 2 ML VIAL IV STA (09:31)
--- NOTE | 2024-07-13 10:58 | P.PN ---
Subjective Progress Note Date: 07/13/24 I am following up with the patient and no new neurological event. Patient IV propofol has been held for the EEG. Objective - Vital Signs Vital signs: Vital Signs Temp 98.4 F 07/13/24 00:00 Pulse 69 07/13/24 07:00 Resp 15 07/13/24 07:00 BP 120/54 07/13/24 07:00 Pulse Ox 99 07/13/24 07:00 FiO2 40 07/13/24 09:14 Intake & Output 07/12/24 07/13/24 07/13/24 18:59 06:59 18:59 Intake Total 6560.552 6171.787 423.288 Output Total 810 920 280 Balance 539.078 315.787 143.288 Weight 66.8 kg Intake: IV 650 550 200 Sodium Chloride 0.45% 1, 650 550 200 000 ml @ 50 mls/hr IV . Q20H [facility] Rx#:[id number] Intake, IV Titration 189.078 125.787 33.288 Amount propofoL 1,000 mg In 189.078 125.787 33.288 Empty Bag 1 bag @ 15 MCG/ KG/MIN 6.695 mls/hr IV . [id number] [facility] Rx#:[id number] Tube Feeding 420 470 160 Other 90 90 30 Output: Urine 810 920 280 Other: Voiding Method Indwelling Catheter Indwelling Catheter # Bowel Movements 0 - Exam General: Lying in bed and does not appear in acute distress. Lung: Intubated on ventilator. Cardiovascular: Has edema in distal upper and lower extremities. Neuro: Limited. Patient is on IV Propofol 25mcg/kg/min which is stopped. Patient is stupor. Is not following commands I manually open her eyes and gaze is midline and the pupils are pinpoint. Primary gaze midline. No facial weakness. Withpainful stimuli attempts to open eyes. Patient with painful stimuli Not withdrawaling any extremities. Cherry is no jerking of any extremities. - Labs CBC & Chem 7: 07/13/24 05:12 07/13/24 05:12 Labs: Abnormal Lab Results - Last 24 Hours (Table) 07/12/24 07/12/24 07/13/24 Range/Units 12:09 17:52 00:41 RBC (3.80-5.40) m/uL Hgb (11.4-16.0) gm/dL Hct (34.0-46.0) % MCHC (31.0-37.0) g/dL RDW (11.5-15.5) % ABG pO2 (83-108) mmHg ABG HCO3 (21-25) mmol/L ABG Total CO2 (19-24) mmol/L ABG O2 Saturation (94-97) % BUN (7-17) mg/dL Creatinine (0.52-1.04) mg/dL Glucose (74-99) mg/dL POC Glucose (mg/dL) 250 H 246 H 282 H (70-110) mg/dL Calcium (8.4-10.2) mg/dL 07/13/24 07/13/24 07/13/24 Range/Units 05:12 05:12 05:41 RBC 2.44 L (3.80-5.40) m/uL Hgb 6.9 L* (11.4-16.0) gm/dL Hct 22.6 L (34.0-46.0) % MCHC 30.7 L (31.0-37.0) g/dL RDW 17.1 H (11.5-15.5) % ABG pO2 110 H (83-108) mmHg ABG HCO3 27 H (21-25) mmol/L ABG Total CO2 28 H (19-24) mmol/L ABG O2 Saturation 98.5 H (94-97) % BUN 47 H (7-17) mg/dL Creatinine 1.68 H (0.52-1.04) mg/dL Glucose 231 H (74-99) mg/dL POC Glucose (mg/dL) (70-110) mg/dL Calcium 7.2 L (8.4-10.2) mg/dL 07/13/24 Range/Units 06:31 RBC (3.80-5.40) m/uL Hgb (11.4-16.0) gm/dL Hct (34.0-46.0) % MCHC (31.0-37.0) g/dL RDW (11.5-15.5) % ABG pO2 (83-108) mmHg ABG HCO3 (21-25) mmol/L ABG Total CO2 (19-24) mmol/L ABG O2 Saturation (94-97) % BUN (7-17) mg/dL Creatinine (0.52-1.04) mg/dL Glucose (74-99) mg/dL POC Glucose (mg/dL) 260 H (70-110) mg/dL Calcium (8.4-10.2) mg/dL Microbiology - Last 24 Hours (Table) 07/11/24 20:13 Gram Stain - Preliminary Sputum Assessment and Plan Assessment: * Altered mental status due to toxic metabolic encephalopathy. Reasons multifactorial as mentioned below--today she localized to pain on left upper extremity. * Abnormal EEG, with evidence of severe encephalopathy and frequent sharp waves. Cannot rule out nonconvulsive status per Dr. Montemayor---but today EEG preliminary does not reveal any seizure or status epileptics and show triphasic waves. * Septic encephalopathy * E. coli bacteremia * Hypoglycemia with hypoglycemic encephalopathy. * Possible cholecystitis * History of right hemispheric subdural hematoma 04/16/2024, treated conservati vely. * Acute kidney injury, improving. * Acute hypoxic respiratory failure. * History of right pontine lacunar stroke 11/01/2021. * Diabetes * Hyperlipidemia * Developmental delay, and patient is snf resident. Plan: * Patient continues to be intubated, sedated. No obvious clinical seizure-like activity noted. * Repeat prolonged EEG for 1 hour performed two days. Per Dr. Montemayor, It revealed definite improvement in the amount of epileptiform activity. However in the early part of the study, there were sporadic generalized sharp wave, and relatively more frequent right hemispheric, maximal right parietal sharp waves. This epileptiform activity improved during middle and later part of the study with sporadic right parietal sharp waves. Cannot rule out nonconvulsive status. Patient probably will need prolonged, continuous EEG monitoring for further management. * Prolonged EEG for 1 hour from three days ago and reported by Dr. Montemayor as severely abnormal, with background slowing and disorganization, suggestive of severe encephalopathy. Also revealed evidence of intermittent high amplitude sharp waves seen occasionally involving right hemispheric, but more often bihemispheric region. At times these sharp waves have triphasic in quality as well. No electrographic seizure was recorded. * Patient currently on Keppra 500 mg twice daily and Vimpat 150 mg twice daily. * Initial EEG 06/08/2024 was abnormal due to background slowing, suggestive of moderate to severe encephalopathy. Also evidence of sporadic generalized spike and slow wave seen at later part of the study. No electrographic seizure was recorded. No electrographic evidence of status epilepticus. * I spoke with the ICU attending as well as the primary attending and was felt [facility] did not have any beds and it was felt there is some improvement in her condition. Therefore will avoid the transfer to a tertiary center for long-term EEG and will obtain a repeat EEG in our facility. I spoke with patient's brother and her niece who are bedside and they are in agreement of avoiding transfer especially since it is not convenient for the family and with her her underlying cognitive issues (developmentally delayed) and medical issues. * Today EEG preliminary does not reveal any seizure or status epileptics and show triphasic waves suggestive of toxic-metabolic encephalopathy. * CT head showed no acute process. Resolution of previously seen right sided subdural hematoma. * Patient currently on Zosyn. * Avoid episodes of hypoglycemia. * Medical management as per IM/critical care. * Patient is critically sick. Time with Patient: Less than 30
--- NOTE | 2024-07-13 11:17 | P.PN ---
Subjective Progress Note Date: 07/13/24 This is a 79-year-old female patient, jail resident with developmental delay, who was recently hospitalized at [facility] in time she was treated for pneumonia and she also had a pleural effusion that was drained. The exact site of the pneumonia and the drainage is not known to me at this point. The patient came into our hospital after having an episode of hypoglycemia with a blood sugar in the low 40s and a seizure-like activity. The patient was awake however she was not answering questions appropriately. The power of insurance defense attorney was at the bedside. In the emergency, the patient was found to be septic. The white cell count was 12 with a hemoglobin 10.7 and a blood culture was positive for gram-negative bacillus. BUN was 27 with a creatinine of 1.3 and a sodium level of 134. Initial lactic acid level was at 3.3 and repeat level was also 3.3. UA was consistent with infection as the patient had blood and white cells within the urine analysis along with +2 protein and occasional bacteria and many WBC clumps. The viral screen was negative. Also, the patient's LFTs were essentially within normal limits. Nevertheless, the patient was given a ultrasound of the bladder and the kidneys. There was evidence of cholelithiasis with prominent wall and pericholecystic fluid suggestive of cholecystitis. No evidence of any obstructive uropathy. There was renal cortical scarring bilaterally possible nonobstructing cortical calcifications. No evidence of any hydronephrosis. The patient is currently on IV Zosyn. She was given a dose of Rocephin in the emergency department. The patient was also given IV fluids and currently she is on normal saline at rate of 130 cc an hour. CAT scan of the brain showed a resolution of the previously described right subdural hemorrhage from 04/16/2024. There was some nonspecific white matter changes. X-ray of the chest showed no evidence of any pleural effusion for consolidation. The patient had increased pulm vascular markings. At this point in time the patient is currently on 4 L of oxygen by nasal cannula with a pulse ox of 94%. Normotensive. Slightly tachycardic. On today's evaluation of 07/09/2024, the patient's condition is further decompensated compared to yesterday. She seems to be much more obtunded. Urine output is low. The patient has developed further increase the white cell count and has developed an acute kidney injury in addition. The patient's blood cultures positive for E. coli and the patient is prepped and IV Zosyn. Abdomen seems to be slightly more firm compared to yesterday. Is currently the patient afebrile, slightly tachycardic, on 4 L of oxygen by nasal cannula with a pulse ox of 94%. Follow-up chest x-ray from today shows evidence of pulmonary edema. IV fluids are running in the form of a normal saline at rate of 75 cc an hour. She was given another bolus of 500 cc earlier today. The white cell count is at 24.5 hemoglobin is 8 with a platelet count of 134. She has 94% neutrophilia. Sodium levels at 139 with a potassium level of 5.8. Serum bicarb is 18 with a BUN of 59 and a creatinine of 3.10. Blood sugar is at 306. As stated, urine cultures are still pending. Blood culture is positive for E. coli. Lactic acid level has improved compared to yesterday and is currently down to 1.4 from 3.2. The highest lactic acid level was at 5.9 07/10/2024, the patient is being seen for a follow-up. The patient is currently intubated on mechanical ventilator due to septic shock. Blood cultures positive for E. coli, urine cultures also positive for E. coli. Patient is currently on IV Zosyn. Repeat ultrasound the gallbladder was done and shows cholelithiasis with pericholecystic fluid collection and the patient has multiple gallstones seen in the neck and the body of the gallbladder. The amount of pericholecystic fluid is mild. Unable to evaluate the patient's Bar sign. There is also a right renal calculus. The liver function tests remain essentially within normal limits with an alkaline phosphatase of 129, and the patient's bilirubin is at 0.6. Being the source of septicemia is a urine. The patient is still on propofol which is running at 20 mcg/kg/min. She is on mechanical ventilator assist-control mode with rate of 22, tidal volume of 350, FiO2 of 50% with a PEEP of 5. Blood gas from today showed a pH of 7.41 with a pCO2 of 81 and pO2 of 152. Chest x-ray showing diffuse bilateral pulmonary for trace, could be related to interstitial edema versus acute lung injury secondary to sepsis. Serum bicarb is 18 and the patient remains on a bicarb infusion at rate of 75 cc an hour. BUN is 62 with a creatinine of 2.9 and a sodium levels at 142. LFTs are normal. The patient had dropped her platelet count 212 with a WBC count of 7.8 which is improved compared to yesterday and a hemoglobin of 7.6. Antibiotic coverage with IV Zosyn. 07/11/2024, the patient is being seen for a follow-up. The patient remains intubated on the mechanical ventilator. Of concern is her abnormal EEG which was done yesterday and it showed some background slowing suggestive of moderate to severe encephalopathy. The patient also had high amplitude sharp appearing waves from the right and often bilateral, triphasic in quality indicating cortical irritation/irritability and tendency for seizures. Based on that, the patient was covered with Vimpat 100 mg IV every 12 hours. The patient remains on propofol and Keppra in addition. This morning, propofol running at 30 mcg/kg/min. The patient is calm and comfortable and synchronous with mechanical ventilator. She remains on assist-control mode at rate of 22, tidal volume of 350, FiO2 of 45% with a PEEP of 4. Blood gas showed a pH of 7.52 with a pCO2 of 31 and pO2 of 139. Hemodynamically stable on no pressors. BUN is 61 with a creatinine of 2.46 and the creatinine continues to improve. Sodium is at 140. Potassium is at 4.0. Bicarb is at 25. WBC 10.5 with a Hemoglobin of 7 and a Platelet Count of 124. Chest X-Ray from Today Shows Cardiomegaly and Patchy Interstitial Edema/Pulmonary Edema with Slight Interval Worsening Compared to Yesterday. Nevertheless, This Has Not Affected the Patient's Oxygenation. In Terms of Antibiotic Coverage, the Patient Remains on IV Zosyn. Ultrasound the Gallbladder Was Noted. LFTs from Yesterday Was Essentially within normal limits. 07/12/2024, the patient remains intubated on mechanical ventilator. The patient remains on propofol which is currently running at 25 mcg/kg/min. No seizure activity has been noted and the patient is currently on a combination of Keppra and Vimpat. Discussed the case with neurology. Will try to get another EEG. If not, will assess clinically and gradually wean off the propofol and assess the patient's mental status. The patient remains intubated on the mechanical ventilator. She remains on assist-control mode rate of 14, tidal volume of 350, FiO2 40% with a PEEP of 5. Blood gas shows a pH of 7.43 with a pCO2 of 40 and pO2 of 151. The patient is on half-normal citrate of 50 cc an hour. No pressors. She is on vital high-protein at rate of 30 cc an hour. She remains on IV Zosyn. Labs show a drop in the white cell count down to 9.5. Hemoglobin stable at 7.3 with a platelet count of 119. The BUN is 54 with a creatinine of 2.09 and sodium levels at 136 and a potassium level of 3.8. LFTs remain normal. No significant abdominal distention. Chest x-ray is showing some improvement in the infiltrates that was noted earlier. This could have been a representation with acute lung injury/ARDS in the setting of sepsis and this is improving and the patient has adequate oxygenation. On 07/13/2024, the patient remains intubated on the mechanical ventilator. The patient remains on propofol which is running at 25 mcg/kg/min. No seizure activity and the patient is going to undergo another EEG. Meanwhile, the patient is covered with a combination of Keppra and Vimpat. Afebrile. Hemodynamically stable. Remains on assist-control mode of mechanical ventilation at rate of 14 with a tidal volume of 350, FiO2 40% with a PEEP of 5. She remains on IV fluids. She is on half-normal saline at rate of 50 cc an hour. She is also tolerating enteral free evening for the social support and the patient is vital high-protein running at 30 cc an hour. No abdominal distention. No abdominal pain. No abdominal tenderness. The labs from today shows a hemoglobin of 6.9. No evidence of any GI bleed. This will be monitored. The white cell count is 8.9. The blood gas from today shows a pH of 7.42 with a pCO2 of 42 and pO2 of 110. BUN is 47 and the creatinine is 1.6 and the creatinine continues to improve. Sodium levels at 139. The patient remains on IV Zosyn regarding E. coli septicemia. Rest of the medications remain unchanged. She remains on Lovenox 30 mg subcu for DVT prophylaxis. Chest x-ray showing diffuse bilateral pulmonary pattern is consistent with acute lung injury in the setting of an acute sepsis Objective - Vital Signs Vital signs: Vital Signs Temp 98.2 F 07/13/24 08:00 Pulse 72 07/13/24 11:00 Resp 15 07/13/24 11:00 BP 138/67 07/13/24 11:00 Pulse Ox 97 07/13/24 11:00 FiO2 40 07/13/24 11:00 Intake & Output 07/12/24 07/13/24 07/13/24 18:59 06:59 18:59 Intake Total 7030.381 2854.787 513.288 Output Total 810 920 530 Balance 539.078 315.787 -16.712 Weight 66.8 kg Intake: IV 650 550 250 Sodium Chloride 0.45% 1, 650 550 250 000 ml @ 50 mls/hr IV . Q20H MANDIE Rx#:[id number] Intake, IV Titration 189.078 125.787 33.288 Amount propofoL 1,000 mg In 189.078 125.787 33.288 Empty Bag 1 bag @ 15 MCG/ KG/MIN 6.695 mls/hr IV . [id number] MANDIE Rx#:[id number] Tube Feeding 420 470 200 Other 90 90 30 Output: Urine 810 920 530 Other: Voiding Method Indwelling Catheter Indwelling Catheter Indwelling Catheter # Bowel Movements 0 - Exam -GENERAL: The patient is calm and comfortable sedated on propofol, intubated and mechanically ventilated. Orogastric and orotracheal tube are both in place. HEENT: Pupils are round and equally reacting to light. EOMI. No scleral icterus. No conjunctival pallor. Normocephalic, atraumatic. No pharyngeal erythema. No thyromegaly. CARDIOVASCULAR: S1 and S2 present. No murmurs, rubs, or gallops. PULMONARY: Chest is clear to auscultation, no wheezing , no crackles. ABDOMEN: Soft, nontender, nondistended, normoactive bowel sounds. No palpable organomegaly. No direct tenderness. No rebound tenderness in the upper quadrant. No guarding. MUSCULOSKELETAL: No joint swelling or deformity. EXTREMITIES: No cyanosis, clubbing, or pedal edema. NEUROLOGICAL: Gross neurological examination did not reveal any focal deficits. Patient remains sedated and she grimaces to painful stimulation. SKIN: No rashes. no petechiae. - Labs CBC & Chem 7: 07/13/24 05:12 07/13/24 05:12 Labs: Abnormal Lab Results - Last 24 Hours (Table) 07/12/24 07/12/24 07/13/24 Range/Units 12:09 17:52 00:41 RBC (3.80-5.40) m/uL Hgb (11.4-16.0) gm/dL Hct (34.0-46.0) % MCHC (31.0-37.0) g/dL RDW (11.5-15.5) % ABG pO2 (83-108) mmHg ABG HCO3 (21-25) mmol/L ABG Total CO2 (19-24) mmol/L ABG O2 Saturation (94-97) % BUN (7-17) mg/dL Creatinine (0.52-1.04) mg/dL Glucose (74-99) mg/dL POC Glucose (mg/dL) 250 H 246 H 282 H (70-110) mg/dL Calcium (8.4-10.2) mg/dL 07/13/24 07/13/24 07/13/24 Range/Units 05:12 05:12 05:41 RBC 2.44 L (3.80-5.40) m/uL Hgb 6.9 L* (11.4-16.0) gm/dL Hct 22.6 L (34.0-46.0) % MCHC 30.7 L (31.0-37.0) g/dL RDW 17.1 H (11.5-15.5) % ABG pO2 110 H (83-108) mmHg ABG HCO3 27 H (21-25) mmol/L ABG Total CO2 28 H (19-24) mmol/L ABG O2 Saturation 98.5 H (94-97) % BUN 47 H (7-17) mg/dL Creatinine 1.68 H (0.52-1.04) mg/dL Glucose 231 H (74-99) mg/dL POC Glucose (mg/dL) (70-110) mg/dL Calcium 7.2 L (8.4-10.2) mg/dL 07/13/24 Range/Units 06:31 RBC (3.80-5.40) m/uL Hgb (11.4-16.0) gm/dL Hct (34.0-46.0) % MCHC (31.0-37.0) g/dL RDW (11.5-15.5) % ABG pO2 (83-108) mmHg ABG HCO3 (21-25) mmol/L ABG Total CO2 (19-24) mmol/L ABG O2 Saturation (94-97) % BUN (7-17) mg/dL Creatinine (0.52-1.04) mg/dL Glucose (74-99) mg/dL POC Glucose (mg/dL) 260 H (70-110) mg/dL Calcium (8.4-10.2) mg/dL Microbiology - Last 24 Hours (Table) 07/11/24 20:13 Gram Stain - Preliminary Sputum Assessment and Plan Plan: E. coli sepsis secondary to urinary tract infection. Urine culture was positive for E. coli and blood cultures also positive for E. coli. We suspected also acute cholecystitis as a source of for E. coli septicemia and bacteremia.. LFTs are normal. . Ultrasound the gallbladder showed some pericholecystic fluid suggestive of cholecystitis. The patient had a repeat ultrasound of the gallbladder today that showed mild cholecystic/pericholecystic fluid. No evidence of any biliary obstruction. LFTs remain unchanged. Hemodynamically stable on no pressors. White cell count continues to improve. Hemodynamically remained stable. Acute leukocytosis, improving Seizures, could be related to hypoglycemia,, nevertheless the patient continues to have abnormal triphasic activity from the right and bilateral. Patient was started on Vimpat and Keppra. The patient is on propofol. No clinical seizures noted. Encephalopathy related to toxic/metabolic encephalopathy/sepsis. CAT scan of the brain showed no evidence of any bleed and there is resolution of the previous described subdural hematoma Lactic acidosis secondary to above, improved Acute kidney injury on top of CKD stage III, improving Acute hypoxic respiratory failure, currently intubated on mechanical ventilator. Chest x-ray shows bilateral pulmonary filtrates. No history of edema versus acute lung injury secondary to sepsis. History of kidney stone with recent hospitalization for this purpose Recent hospitalization for pneumonia and pleural effusion, post thoracentesis. This was done at [facility] History of CVA History of subdural hematoma secondary to fall/anticoagulation. Diabetes mellitus Hyperlipidemia Developmental delay and the patient is a jail resident Thrombocytopenia, rule out underlying DIC, platelet counts are slightly improved compared to yesterday. Plan: Continue ventilator support Continue half-normal saline at rate of 50 cc an hour Continue IV Zosyn Lactic acid levels have dropped White cell count is elevated, improving Urine output is diminished and the patient has a St catheter in place, renal function continues to improve Surgery consultation Neurology consult Repeat ultrasound the gallbladder was noted. LFTs remain unchanged. The patient was started on enteral feeding for nutrition support and vital HP and she is tolerating diet without any major issues Patient is currently off pressors Monitor platelet count Lovenox for DVT prophylaxis Obtain a 2D echocardiogram from yesterday showed a preserved LV function with moderate to severe concentric ventricular hypertrophy Discussed the case with neurology. The patient is going to undergo another EEG today. If negative, we will proceed with a sedation holiday and assess readiness to wean. Condition remains critical. This evaluation was done more than 30 minutes. I did a full discussion with the power of insurance defense attorney. I also discussed the case with the infectious disease doctor. Will continue to follow make further recommendations based on progress. Evaluation was done more than 30 minutes. Time with Patient: Greater than 30
[2024-07-13 11:43] LABS: Glucose,Whole Blood 202 mg/dL (70-110)
--- NOTE | 2024-07-13 11:48 | P.PN ---
Subjective Patient is seen for follow-up for acute kidney injury. Patient remains on the vent. FiO2 is 40%. Renal function has been improving. Serum creatinine is down to 1.6 mg/dL. Urine output at 40 to 60 cc an hour. Maintained on half-normal saline at 50 cc an hour. Status post IV Lasix this morning. Objective - Vital Signs Vital signs: Vital Signs Temp 98.2 F 07/13/24 08:00 Pulse 72 07/13/24 11:00 Resp 15 07/13/24 11:00 BP 138/67 07/13/24 11:00 Pulse Ox 97 07/13/24 11:00 FiO2 40 07/13/24 11:43 Intake & Output 07/12/24 07/13/24 07/13/24 18:59 06:59 18:59 Intake Total 2068.281 3639.787 583.288 Output Total 810 920 655 Balance 539.078 315.787 -71.712 Weight 66.8 kg Intake: IV 650 550 250 Sodium Chloride 0.45% 1, 650 550 250 000 ml @ 50 mls/hr IV . Q20H MANDIE Rx#:[id number] Intake, IV Titration 189.078 125.787 33.288 Amount propofoL 1,000 mg In 189.078 125.787 33.288 Empty Bag 1 bag @ 15 MCG/ KG/MIN 6.695 mls/hr IV . [id number] MANDIE Rx#:[id number] Tube Feeding 420 470 240 Other 90 90 60 Output: Urine 810 920 655 Other: Voiding Method Indwelling Catheter Indwelling Catheter Indwelling Catheter # Bowel Movements 0 - Exam patient is sedated and on the vent. Examination of the heart S1 and S2 Examination of the lungs bilateral breath sounds are heard Abdomen is soft, distended Examination of lower extremities shows 2+ edema - Labs CBC & Chem 7: 07/13/24 05:12 07/13/24 05:12 Labs: Abnormal Lab Results - Last 24 Hours (Table) 07/12/24 07/12/24 07/13/24 Range/Units 12:09 17:52 00:41 RBC (3.80-5.40) m/uL Hgb (11.4-16.0) gm/dL Hct (34.0-46.0) % MCHC (31.0-37.0) g/dL RDW (11.5-15.5) % ABG pO2 (83-108) mmHg ABG HCO3 (21-25) mmol/L ABG Total CO2 (19-24) mmol/L ABG O2 Saturation (94-97) % BUN (7-17) mg/dL Creatinine (0.52-1.04) mg/dL Glucose (74-99) mg/dL POC Glucose (mg/dL) 250 H 246 H 282 H (70-110) mg/dL Calcium (8.4-10.2) mg/dL 07/13/24 07/13/24 07/13/24 Range/Units 05:12 05:12 05:41 RBC 2.44 L (3.80-5.40) m/uL Hgb 6.9 L* (11.4-16.0) gm/dL Hct 22.6 L (34.0-46.0) % MCHC 30.7 L (31.0-37.0) g/dL RDW 17.1 H (11.5-15.5) % ABG pO2 110 H (83-108) mmHg ABG HCO3 27 H (21-25) mmol/L ABG Total CO2 28 H (19-24) mmol/L ABG O2 Saturation 98.5 H (94-97) % BUN 47 H (7-17) mg/dL Creatinine 1.68 H (0.52-1.04) mg/dL Glucose 231 H (74-99) mg/dL POC Glucose (mg/dL) (70-110) mg/dL Calcium 7.2 L (8.4-10.2) mg/dL 07/13/24 07/13/24 Range/Units 06:31 11:41 RBC (3.80-5.40) m/uL Hgb (11.4-16.0) gm/dL Hct (34.0-46.0) % MCHC (31.0-37.0) g/dL RDW (11.5-15.5) % ABG pO2 (83-108) mmHg ABG HCO3 (21-25) mmol/L ABG Total CO2 (19-24) mmol/L ABG O2 Saturation (94-97) % BUN (7-17) mg/dL Creatinine (0.52-1.04) mg/dL Glucose (74-99) mg/dL POC Glucose (mg/dL) 260 H 202 H (70-110) mg/dL Calcium (8.4-10.2) mg/dL Microbiology - Last 24 Hours (Table) 07/11/24 20:13 Gram Stain - Preliminary Sputum Assessment and Plan Assessment: 1. EUSEBIO, ATN, oliguric from low BP and sepsis. UA: suggestive of UTI, no evidence of obstructive uropathy based on renal u/s (07/08/24) 2. Hyperkalemia 2/2 EUSEBIO and metabolic acidosis and hyperglycemia. 3. Metabolic Acidosis. Non gap. 2/2 to EUSEBIO. 4. CKD stage III A/B, baseline Cr 1.2-1.3 mg/dl, likely etiology 2/2 diabetic kidney disease 5 Altered mental status (toxic/metabolic encephalopathy). Brain CT scan showed no acute findings. 6. Nephrolithiasis which are non- obstructive, possible non obstructing cortical calcifications noted on renal u/s 7. History of intracranial bleed about 2 to 3 months ago as per H&P 8. Hypotension 2/2 to underlying infection 9. Lactic acidosis, lactate 3.4 on admission and peaked to 5.9 (07/08) 10. Hyperglycemia 11. Volume overload/ CHF based on CXR 12. Choleystitis 13. Sepsis with gram-negative bacteremia, BCX preliminary shows E. coli 10. Urosepsis with urine culture growing E. coli 11. Anemia rule out GI bleed Plan: DC IV fluids. May repeat another dose of IV Lasix later today. Continue IV fluids.
[2024-07-13 12:22] LABS: Anisocytosis Slight; HCT 21.7 % (34.0-46.0); Hypochromasia Marked; MCH 27.8 pg (25.0-35.0); MCHC 30.1 g/dL (31.0-37.0); MCV 92.2 fL (80.0-100.0); Mean Platelet Volume 9.8; Platelet Count 187 k/uL (150-450); RBC 2.36 m/uL (3.80-5.40); RDW 16.9 % (11.5-15.5)
[2024-07-13 12:35] LABS: HGB 6.6 gm/dL (11.4-16.0)
--- NOTE | 2024-07-13 13:13 | EEG ---
ELECTROENCEPHALOGRAM REPORT CLINICAL HISTORY: This is a 79-year-old woman with altered mental status and concern for seizure. The video EEG is obtained to evaluate for seizure epileptiform activity. RELEVANT MEDICATIONS: Keppra, Vimpat. EEG TYPE: A routine 21-channel EEG with video using the 10/20 electrode placement system. DESCRIPTION: The patient is intubated on a ventilator. The background consists of [id number] voltage of 3 to 4 hertz activity and rare times intermixed with theta activity. The patient's background was polymorphic nonrhythmic. There was no physiological stage 2 sleep architecture. There is no focal slowing. There is high voltage anterior posterior lack with triphasic morphology noted during the study. INTERICTAL AND ICTAL: There appears to be questionable diffuse sharp slow waves activity as well as noted over the left central region. There were no clear discharges. Definitely, there is no noted seizure during the study. ACTIVATION PROCEDURE: Photic stimulation, hyperventilation is not performed. CLINICAL INTERPRETATION: This is abnormal routine EEG. The background slowing is suggestive of severe encephalopathy. The triphasic morphology is likely due to toxic metabolic derangement. There is questionable diffuse sharp activity over the left central region that can increase risk of focal irritability. But no clear, epileptiform discharges. There is no seizure during the study. Clinical correlation is recommended. MMODL / IJN: [id number] / [facility]
--- NOTE | 2024-07-13 13:40 | P.PN ---
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 Her potassium on that admission was quite bit high patient had cardiomegaly with interstitial pulmonary edema proBNP was quite bit high ejection fraction was 50-55 percentile but had tricuspid regurgitation with RVSP of 35 to 40 mmHg she was kept for total of almost 2 weeks sent back to [facility] on multi medication including Pulmicort with ipratropium albuterol, insulin lispro, hydrocodone, aspirin, atorvastatin, Plavix, gemfibrozil, Levemir, metoprolol succinate, pantoprazole, Seroquel and trazodone. She did well for the first 10 days then on July developed to have seizure activity with severe episode of hypoglycemia the patient was awake but not able to follow command at the time she was able to tell her name only but kept repeating the word take it out referring to her mitten on her hand apparently the durable Pap regulatory attorney Lou Miranda was called and were notified of patient's condition her episode at [facility] apparently was with hypoglycemia and seizure activity with hypotension and hypertensive and hyperthermia found to have white blood cell of 12,000 hemoglobin 10.7 with creatinine 1.2 at the time lactic acid was 325 magnesium was low EKG showed sinus tachycardia with no ST changes at the time UA was suspicious for UTI. She was admitted to the hospital originally with altered mental status could be toxic versus metabolic encephalopathy rule out intracranial etiology also found to have UTI with sepsis with low-grade fever and tachycardia with leukocytosis with elevated lactic acid and active seizure activity with hypoglycemia and found to have significant decline in kidney function at the time. Found to have abnormal liver function test sent for ultrasound of the liver came back with cholelithiasis and cholecystitis no evidence of obstruction at the time kidney function start declining quite bit and become stage IV chronic kidney disease. Patient become more hypoxemic with her seizure activity ended up being intubated on mechanical ventilation. Neurology consultation was obtained with the kidney function decline and surgical consultation was obtained as well for the gallbladder patient is not in any condition to go for cholecystectomy at the time nephrology felt the need to be more aggressive with hydration and avoid any nephrotoxic agent and kidney function started improving slight bed did not require any dialysis. Neurology decided to do EEG which shows seizure activity while she is on the vent could not abort her seizure required to go on Vimpat to help with her seizure activity. Patient is more stabilized on mechanical ventilation currently but kept sedated for her seizure activity and current condition. UTI been treated kidney function has improved some patient family on the bedside all their question were answered today. 07/11/2024: She is still on mechanical ventilation, family are at the bedside as well patient apparently had more seizure activity last 24 hours but was improved significantly on Vimpat which she currently continue on. Continue aggressive management for sepsis, respiratory failure, and diabetic management. Patient still cannot be rested on mechanical ventilation at least for the next 24 hours no attempt for extubation today. 07/12/2024: Shortly after rounds yesterday new development that neurology came back with idea that patient continued to have seizure despite being on Vimpat and Keppra and he preferred to have her transferred to one of the tertiary center specially done at [facility] with attempt to try to transfer the patient had failed not finding bed patient is stable currently no visible sign of seizure activity we decide to follow-up with neuro service and probably do another EEG in the next 24 hours in the meanwhile she is remain on mechanical ventilation. Repeat chest x-ray continue to show slight congestion mostly in the right side but has slight improvement in the type mostly fluid overload. REVIEW OF SYSTEMS: CONSTITUTIONAL: Very small for her age sedated on mechanical ventilation. EYES: No icterus sclerae, no conjunctivitis. EARS, NOSE, MOUTH, THROAT, and FACE: No sore throat, lymphadenopathy, carotid bruits or deformity. RESPIRATORY: Currently resting on mechanical ventilation. CARDIOVASCULAR: Mild tachycardia on monitor. GASTROINTESTINAL: Patient is currently on mechanical ventilation does not seem there is any sign of GI bleed. GENITOURINARY: Been treated for UTI. INTEGUMENT/BREAST: Negative for any muscular injury with mild osteoarthritis.. HEMATOLOGIC/LYMPHATIC: Negative for bleed or purpura. MUSCULOSKELTAL: Negative for Myalgia or arthralgia. NEURLOGICAL: Currently sedated on mechanical ventilation. BEHAVIORAL/PSYCH: Negative. ENDOCRINE: Negative. PHYSICAL EXAMINATION: General Appearance: Sedated on mechanical ventilation. Neck HEENT: Supple, no lymphadenopathy, no thyroid enlargement, no carotid bruits. ET tube back in place. Lungs: Clear to auscultation without crackles or wheezes no rhonchi, no deformity. Chest Wall: Chest wall normal expansion with deep inspiration no tenderness and no deformity was found on exam, no costochondral pain or discomfort. Heart: Regular rate and rhythm, S1, S2 normal, no murmur, rub or gallop. Back: Symmetric, no curvature, ROM normal, no CVA tenderness. Abdomen: Soft slightly distended, non-tender, bowel sounds active all four quadrants, no masses, no organomegaly. Extremities: Extremities normal, atraumatic, no cyanosis or edema. Pulses: 2+ and symmetric. Skin: Skin color, texture, tugor normal, no rashes or lesions. Neurologic: Sedated on mechanical ventilation still withdrawing her extremity to pain stimuli. ASSESSMENT AND PLAN: _Acute hypoxic respiratory failure: Continue mechanical ventilation currently continue to see pulmonary. She is being treated for combination of systolic and diastolic congestive heart failure along with sepsis for airway protection and prevention which patient might have slight aspiration before this happened. _Sepsis secondary to UTI and possible cholecystitis with cholelithiasis with signs and symptoms consistent with sepsis including high lactic acid, tachycardia, leukocytosis and hypotension. Culture came back positive for E. coli both blood and urine still on Zosyn responding well to it no intervention for the gallbladder be done. _Refractory seizure: Despite being on Vimpat and Keppra patient apparently continued to have seizure try to send her down 24 the hospital for ambulatory EEG monitor watch in ICU failed for no finding bed at the time. Repeat EEG, still seen neurology regularly. _Fluid overload: Causing worsening hypoxia require more Management of mechanical ventilation. Remain on furosemide eventually might have to do little bit bigger dose furosemide same time watch for any further evidence space of aspiration which should not have happened since intubation. _Cholecystitis and cholelithiasis at some point patient might have her gallbladder out she is not stable currently for any intervention or surgery. _Acute urinary tract infection: With E. coli being treated with IV Zosyn. _Acute kidney injury with much worsening kidney function most likely aggravated by sepsis still seen nephrology no hemodialysis required at this point continue conservative management still hydration and watching her vitals carefully continue to watch for urine output. _Seizure like activity: Had more aggressive management with Keppra and Vimpat patient seemed to respond better to it. _Hypotension: Her blood pressure has improved significantly was previously taking midodrine. _Type 2 diabetes with significant hypo-/hyperglycemia: Will continue patient on Accu-Chek with sliding scales coverage titrate medication gradually if needed but watch for any hypoglycemia. _Recent history of intracranial hemorrhage 2 to 3 months ago still recovering from complication related to. _Recent admission with acute on chronic congestive heart failure he was seen cardiology with well-preserved ejection fraction on echocardiogram was on medical management. CODE STATUS: DO NOT RESUSCITATE. Discussion: Refractory seizure remain on sedation and mechanical ventilation along with Vimpat and Keppra which seem to do slightly better with, still seen neurology. Still on mechanical ventilation not extubating today try will be done tomorrow but she is having more fluid overload and failure to extubate can be extremely high at this point. Objective - Vital Signs Vital signs: Vital Signs Temp 98.2 F 07/12/24 08:00 Pulse 66 07/12/24 08:00 Resp 19 07/12/24 08:00 BP 110/61 07/12/24 08:00 Pulse Ox 100 07/12/24 08:00 FiO2 40 07/12/24 08:44 Intake & Output 07/11/24 07/12/24 07/12/24 18:59 06:59 18:59 Intake Total 746.727 1657 160 Output Total 585 575 140 Balance 338.299 445 20 Weight 65.9 kg 66.3 kg Intake: IV 700 800 100 Dextrose 5% in Water 1, 700 250 000 ml @ 75 mls/hr IV . [id number] ONE with Sodium Bicarb (1 Meq/ml) 150 ml Rx#:[id number] Sodium Chloride 0.45% 1, 550 100 000 ml @ 50 mls/hr IV . Q20H MANDIE Rx#:[id number] Intake, IV Titration 223.299 Amount Sodium Chloride 0.45% 1, 50 000 ml @ 50 mls/hr IV . Q20H MANDIE Rx#:[id number] propofoL 1,000 mg In 162.299 Empty Bag 1 bag @ 15 MCG/ KG/MIN 6.695 mls/hr IV . [id number] MANDIE Rx#:[id number] propofoL 100 ml @ 0 mls/ 11 hr IV .[facility] ONE Rx#: [id number] Tube Feeding 160 30 Other 60 30 Output: Urine 585 575 140 Other: Voiding Method Indwelling Catheter Indwelling Catheter - Labs CBC & Chem 7: 07/13/24 12:00 07/13/24 05:12 Labs: Abnormal Lab Results - Last 24 Hours (Table) 07/11/24 07/11/24 07/11/24 Range/Units 11:51 17:30 23:29 RBC (3.80-5.40) m/uL Hgb (11.4-16.0) gm/dL Hct (34.0-46.0) % RDW (11.5-15.5) % Plt Count (150-450) k/uL ABG HCO3 (21-25) mmol/L ABG Total CO2 (19-24) mmol/L ABG O2 Saturation (94-97) % Sodium (137-145) mmol/L BUN (7-17) mg/dL Creatinine (0.52-1.04) mg/dL Glucose (74-99) mg/dL POC Glucose (mg/dL) 232 H 209 H 183 H (70-110) mg/dL Calcium (8.4-10.2) mg/dL Alkaline Phosphatase (38-126) U/L Total Protein (6.3-8.2) g/dL Albumin (3.5-5.0) g/dL 07/12/24 07/12/24 07/12/24 Range/Units 04:32 04:33 05:47 RBC 2.52 L (3.80-5.40) m/uL Hgb 7.3 L (11.4-16.0) gm/dL Hct 23.3 L (34.0-46.0) % RDW 17.1 H (11.5-15.5) % Plt Count 119 L (150-450) k/uL ABG HCO3 26 H (21-25) mmol/L ABG Total CO2 28 H (19-24) mmol/L ABG O2 Saturation 97.8 H (94-97) % Sodium 136 L (137-145) mmol/L BUN 54 H (7-17) mg/dL Creatinine 2.09 H (0.52-1.04) mg/dL Glucose 191 H (74-99) mg/dL POC Glucose (mg/dL) (70-110) mg/dL Calcium 6.9 L (8.4-10.2) mg/dL Alkaline Phosphatase 134 H (38-126) U/L Total Protein 4.5 L (6.3-8.2) g/dL Albumin 2.1 L (3.5-5.0) g/dL 07/12/24 Range/Units 06:16 RBC (3.80-5.40) m/uL Hgb (11.4-16.0) gm/dL Hct (34.0-46.0) % RDW (11.5-15.5) % Plt Count (150-450) k/uL ABG HCO3 (21-25) mmol/L ABG Total CO2 (19-24) mmol/L ABG O2 Saturation (94-97) % Sodium (137-145) mmol/L BUN (7-17) mg/dL Creatinine (0.52-1.04) mg/dL Glucose (74-99) mg/dL POC Glucose (mg/dL) 232 H (70-110) mg/dL Calcium (8.4-10.2) mg/dL Alkaline Phosphatase (38-126) U/L Total Protein (6.3-8.2) g/dL Albumin (3.5-5.0) g/dL
--- NOTE | 2024-07-13 13:43 | P.PN ---
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 Her potassium on that admission was quite bit high patient had cardiomegaly with interstitial pulmonary edema proBNP was quite bit high ejection fraction was 50-55 percentile but had tricuspid regurgitation with RVSP of 35 to 40 mmHg she was kept for total of almost 2 weeks sent back to [facility] on multi medication including Pulmicort with ipratropium albuterol, insulin lispro, hydrocodone, aspirin, atorvastatin, Plavix, gemfibrozil, Levemir, metoprolol succinate, pantoprazole, Seroquel and trazodone. She did well for the first 10 days then on July developed to have seizure activity with severe episode of hypoglycemia the patient was awake but not able to follow command at the time she was able to tell her name only but kept repeating the word take it out referring to her mitten on her hand apparently the durable Pap television tube inspector Lou Miranda was called and were notified of patient's condition her episode at [facility] apparently was with hypoglycemia and seizure activity with hypotension and hypertensive and hyperthermia found to have white blood cell of 12,000 hemoglobin 10.7 with creatinine 1.2 at the time lactic acid was 325 magnesium was low EKG showed sinus tachycardia with no ST changes at the time UA was suspicious for UTI. She was admitted to the hospital originally with altered mental status could be toxic versus metabolic encephalopathy rule out intracranial etiology also found to have UTI with sepsis with low-grade fever and tachycardia with leukocytosis with elevated lactic acid and active seizure activity with hypoglycemia and found to have significant decline in kidney function at the time. Found to have abnormal liver function test sent for ultrasound of the liver came back with cholelithiasis and cholecystitis no evidence of obstruction at the time kidney function start declining quite bit and become stage IV chronic kidney disease. Patient become more hypoxemic with her seizure activity ended up being intubated on mechanical ventilation. Neurology consultation was obtained with the kidney function decline and surgical consultation was obtained as well for the gallbladder patient is not in any condition to go for cholecystectomy at the time nephrology felt the need to be more aggressive with hydration and avoid any nephrotoxic agent and kidney function started improving slight bed did not require any dialysis. Neurology decided to do EEG which shows seizure activity while she is on the vent could not abort her seizure required to go on Vimpat to help with her seizure activity. Patient is more stabilized on mechanical ventilation currently but kept sedated for her seizure activity and current condition. UTI been treated kidney function has improved some patient family on the bedside all their question were answered today. 07/11/2024: She is still on mechanical ventilation, family are at the bedside as well patient apparently had more seizure activity last 24 hours but was improved significantly on Vimpat which she currently continue on. Continue aggressive management for sepsis, respiratory failure, and diabetic management. Patient still cannot be rested on mechanical ventilation at least for the next 24 hours no attempt for extubation today. 07/12/2024: Shortly after rounds yesterday new development that neurology came back with idea that patient continued to have seizure despite being on Vimpat and Keppra and he preferred to have her transferred to one of the tertiary center specially done at [facility] with attempt to try to transfer the patient had failed not finding bed patient is stable currently no visible sign of seizure activity we decide to follow-up with neuro service and probably do another EEG in the next 24 hours in the meanwhile she is remain on mechanical ventilation. Repeat chest x-ray continue to show slight congestion mostly in the right side but has slight improvement in the type mostly fluid overload. 07/13/2024: Trial for extubation today was not successful patient developed to have severe fatigue and hypoxia required to go back on ventilation very fast and she is back on sedation. EEG was performed today and apparently her seizure activity is much better. She still been treated for sepsis, UTI and aspiration pneumonia along with cholelithiasis and possible ascending cholangitis being on IV Zosyn which responding well to management. Significant drop in hemoglobin in the 6 levels patient will be having 2 unit of blood transfusion. Also kidney function slightly bit worse does not require anemic hemodialysis. REVIEW OF SYSTEMS: CONSTITUTIONAL: Very small for her age sedated on mechanical ventilation. EYES: No icterus sclerae, no conjunctivitis. EARS, NOSE, MOUTH, THROAT, and FACE: No sore throat, lymphadenopathy, carotid bruits or deformity. RESPIRATORY: Currently resting on mechanical ventilation. CARDIOVASCULAR: Mild tachycardia on monitor. GASTROINTESTINAL: Patient is currently on mechanical ventilation does not seem there is any sign of GI bleed. GENITOURINARY: Been treated for UTI. INTEGUMENT/BREAST: Negative for any muscular injury with mild osteoarthritis.. HEMATOLOGIC/LYMPHATIC: Negative for bleed or purpura. MUSCULOSKELTAL: Negative for Myalgia or arthralgia. NEURLOGICAL: Currently sedated on mechanical ventilation. BEHAVIORAL/PSYCH: Negative. ENDOCRINE: Negative. PHYSICAL EXAMINATION: General Appearance: Sedated on mechanical ventilation. Neck HEENT: Supple, no lymphadenopathy, no thyroid enlargement, no carotid bruits. ET tube back in place. Lungs: Clear to auscultation without crackles or wheezes no rhonchi, no deformity. Chest Wall: Chest wall normal expansion with deep inspiration no tenderness and no deformity was found on exam, no costochondral pain or discomfort. Heart: Regular rate and rhythm, S1, S2 normal, no murmur, rub or gallop. Back: Symmetric, no curvature, ROM normal, no CVA tenderness. Abdomen: Soft slightly distended, non-tender, bowel sounds active all four quadrants, no masses, no organomegaly. Extremities: Extremities normal, atraumatic, no cyanosis or edema. Pulses: 2+ and symmetric. Skin: Skin color, texture, tugor normal, no rashes or lesions. Neurologic: Sedated on mechanical ventilation still withdrawing her extremity to pain stimuli. ASSESSMENT AND PLAN: _Acute hypoxic respiratory failure: Continue mechanical ventilation currently continue to see pulmonary. She is being treated for combination of systolic and diastolic congestive heart failure along with sepsis for airway protection and prevention which patient might have slight aspiration before this happened. _Sepsis secondary to UTI and possible cholecystitis with cholelithiasis with signs and symptoms consistent with sepsis including high lactic acid, tachycardia, leukocytosis and hypotension. Culture came back positive for E. coli both blood and urine still on Zosyn responding well to it no intervention for the gallbladder be done. _Acute kidney injury with much worsening kidney function most likely aggravated by sepsis still seen nephrology no hemodialysis required at this point continue conservative management still hydration and watching her vitals carefully continue to watch for urine output. No need for hemodialysis still seen nephrology. _Severe anemia with hemoglobin down to 6.6 will require 2 unit of blood transfusion continue to watch for any active bleed. _Refractory seizure: Despite being on Vimpat and Keppra patient apparently continued to have seizure try to send her down 24 the hospital for ambulatory EEG monitor watch in ICU failed for no finding bed at the time. Repeat EEG, still seen neurology regularly. _Fluid overload: Causing worsening hypoxia require more Management of mechanical ventilation. Remain on furosemide eventually might have to do little bit bigger dose furosemide same time watch for any further evidence space of aspiration which should not have happened since intubation. _Cholecystitis and cholelithiasis at some point patient might have her gallbladder out she is not stable currently for any intervention or surgery. _Acute urinary tract infection: With E. coli being treated with IV Zosyn. _Seizure like activity: Had more aggressive management with Keppra and Vimpat patient seemed to respond better to it. _Hypotension: Her blood pressure has improved significantly was previously taking midodrine. _Type 2 diabetes with significant hypo-/hyperglycemia: Will continue patient on Accu-Chek with sliding scales coverage titrate medication gradually if needed but watch for any hypoglycemia. _Recent history of intracranial hemorrhage 2 to 3 months ago still recovering from complication related to. _Recent admission with acute on chronic congestive heart failure he was seen cardiology with well-preserved ejection fraction on echocardiogram was on medical management. CODE STATUS: DO NOT RESUSCITATE. Discussion: Patient overall is not doing well her CODE STATUS is DO NOT RESUSCITATE the patient mortality is extremely high with complication related to the current complication also with her failure to extubate today will increase a lot of require longer-term vent management which family were against idea initially. Objective - Vital Signs Vital signs: Vital Signs Temp 98.6 F 07/13/24 11:46 Pulse 70 07/13/24 12:00 Resp 14 07/13/24 12:00 BP 108/50 07/13/24 12:00 Pulse Ox 98 07/13/24 12:00 FiO2 40 07/13/24 12:19 Intake & Output 07/12/24 07/13/24 07/13/24 18:59 06:59 18:59 Intake Total 7577.363 8757.787 583.288 Output Total 810 920 655 Balance 539.078 315.787 -71.712 Weight 66.8 kg Intake: IV 650 550 250 Sodium Chloride 0.45% 1, 650 550 250 000 ml @ 50 mls/hr IV . Q20H MANDIE Rx#:[id number] Intake, IV Titration 189.078 125.787 33.288 Amount propofoL 1,000 mg In 189.078 125.787 33.288 Empty Bag 1 bag @ 15 MCG/ KG/MIN 6.695 mls/hr IV . [id number] MANDIE Rx#:[id number] Tube Feeding 420 470 240 Other 90 90 60 Output: Urine 810 920 655 Other: Voiding Method Indwelling Catheter Indwelling Catheter Indwelling Catheter # Bowel Movements 0 - Labs CBC & Chem 7: 07/13/24 12:00 07/13/24 05:12 Labs: Abnormal Lab Results - Last 24 Hours (Table) 07/12/24 07/13/24 07/13/24 Range/Units 17:52 00:41 05:12 RBC 2.44 L (3.80-5.40) m/uL Hgb 6.9 L* (11.4-16.0) gm/dL Hct 22.6 L (34.0-46.0) % MCHC 30.7 L (31.0-37.0) g/dL RDW 17.1 H (11.5-15.5) % ABG pO2 (83-108) mmHg ABG HCO3 (21-25) mmol/L ABG Total CO2 (19-24) mmol/L ABG O2 Saturation (94-97) % BUN (7-17) mg/dL Creatinine (0.52-1.04) mg/dL Glucose (74-99) mg/dL POC Glucose (mg/dL) 246 H 282 H (70-110) mg/dL Calcium (8.4-10.2) mg/dL 07/13/24 07/13/24 07/13/24 Range/Units 05:12 05:41 06:31 RBC (3.80-5.40) m/uL Hgb (11.4-16.0) gm/dL Hct (34.0-46.0) % MCHC (31.0-37.0) g/dL RDW (11.5-15.5) % ABG pO2 110 H (83-108) mmHg ABG HCO3 27 H (21-25) mmol/L ABG Total CO2 28 H (19-24) mmol/L ABG O2 Saturation 98.5 H (94-97) % BUN 47 H (7-17) mg/dL Creatinine 1.68 H (0.52-1.04) mg/dL Glucose 231 H (74-99) mg/dL POC Glucose (mg/dL) 260 H (70-110) mg/dL Calcium 7.2 L (8.4-10.2) mg/dL 07/13/24 07/13/24 Range/Units 11:41 12:00 RBC 2.36 L (3.80-5.40) m/uL Hgb 6.6 L* (11.4-16.0) gm/dL Hct 21.7 L (34.0-46.0) % MCHC 30.1 L (31.0-37.0) g/dL RDW 16.9 H (11.5-15.5) % ABG pO2 (83-108) mmHg ABG HCO3 (21-25) mmol/L ABG Total CO2 (19-24) mmol/L ABG O2 Saturation (94-97) % BUN (7-17) mg/dL Creatinine (0.52-1.04) mg/dL Glucose (74-99) mg/dL POC Glucose (mg/dL) 202 H (70-110) mg/dL Calcium (8.4-10.2) mg/dL Microbiology - Last 24 Hours (Table) 07/11/24 20:13 Gram Stain - Preliminary Sputum
--- NOTE | 2024-07-13 15:07 | P.PN ---
Subjective Progress Note Date: 07/13/24 Principal diagnosis: Reason for follow-up is UTI and bacteremia Patient is a 79-year-old female with a past medical history significant for diabetes mellitus hypertension hyperlipidemia CVA TIA in this patient who is a senior care resident patient has been brought into the ER by EMS after apparently the patient did have some seizure-like activity, patient did have a fever positive UA and blood culture positive for E. coli. On today's evaluation that is 07/13/2024, the patient continues to be afebrile, the patient is on on the ventilator FiO2 is currently 40% no significant purulent secretions through the ET, diarrhea or any other changes reported. Patient white count is 9.0 sputum is growing Azucena Objective - Vital Signs Vital signs: Vital Signs Temp 98.6 F 07/13/24 11:46 Pulse 70 07/13/24 12:00 Resp 14 07/13/24 12:00 BP 108/50 07/13/24 12:00 Pulse Ox 98 07/13/24 12:00 FiO2 40 07/13/24 12:19 Intake & Output 07/12/24 07/13/24 07/13/24 18:59 06:59 18:59 Intake Total 8245.632 6152.787 583.288 Output Total 810 920 655 Balance 539.078 315.787 -71.712 Weight 66.8 kg Intake: IV 650 550 250 Sodium Chloride 0.45% 1, 650 550 250 000 ml @ 50 mls/hr IV . Q20H [facility] Rx#:[id number] Intake, IV Titration 189.078 125.787 33.288 Amount propofoL 1,000 mg In 189.078 125.787 33.288 Empty Bag 1 bag @ 15 MCG/ KG/MIN 6.695 mls/hr IV . [id number] [facility] Rx#:[id number] Tube Feeding 420 470 240 Other 90 90 60 Output: Urine 810 920 655 Other: Voiding Method Indwelling Catheter Indwelling Catheter Indwelling Catheter # Bowel Movements 0 - Exam GENERAL DESCRIPTION: An elderly female intubated on the vent RESPIRATORY SYSTEM: Unlabored breathing , decreased breath sounds at bases HEART: S1 S2 regular rate and rhythm , ABDOMEN: Soft , no tenderness EXTREMITIES: 2+ edema feet - Labs CBC & Chem 7: 07/13/24 12:00 07/13/24 05:12 Labs: Abnormal Lab Results - Last 24 Hours (Table) 07/12/24 07/13/24 07/13/24 Range/Units 17:52 00:41 05:12 RBC 2.44 L (3.80-5.40) m/uL Hgb 6.9 L* (11.4-16.0) gm/dL Hct 22.6 L (34.0-46.0) % MCHC 30.7 L (31.0-37.0) g/dL RDW 17.1 H (11.5-15.5) % ABG pO2 (83-108) mmHg ABG HCO3 (21-25) mmol/L ABG Total CO2 (19-24) mmol/L ABG O2 Saturation (94-97) % BUN (7-17) mg/dL Creatinine (0.52-1.04) mg/dL Glucose (74-99) mg/dL POC Glucose (mg/dL) 246 H 282 H (70-110) mg/dL Calcium (8.4-10.2) mg/dL Crossmatch 07/13/24 07/13/24 07/13/24 Range/Units 05:12 05:41 06:31 RBC (3.80-5.40) m/uL Hgb (11.4-16.0) gm/dL Hct (34.0-46.0) % MCHC (31.0-37.0) g/dL RDW (11.5-15.5) % ABG pO2 110 H (83-108) mmHg ABG HCO3 27 H (21-25) mmol/L ABG Total CO2 28 H (19-24) mmol/L ABG O2 Saturation 98.5 H (94-97) % BUN 47 H (7-17) mg/dL Creatinine 1.68 H (0.52-1.04) mg/dL Glucose 231 H (74-99) mg/dL POC Glucose (mg/dL) 260 H (70-110) mg/dL Calcium 7.2 L (8.4-10.2) mg/dL Crossmatch 07/13/24 07/13/24 07/13/24 Range/Units 11:41 12:00 13:45 RBC 2.36 L (3.80-5.40) m/uL Hgb 6.6 L* (11.4-16.0) gm/dL Hct 21.7 L (34.0-46.0) % MCHC 30.1 L (31.0-37.0) g/dL RDW 16.9 H (11.5-15.5) % ABG pO2 (83-108) mmHg ABG HCO3 (21-25) mmol/L ABG Total CO2 (19-24) mmol/L ABG O2 Saturation (94-97) % BUN (7-17) mg/dL Creatinine (0.52-1.04) mg/dL Glucose (74-99) mg/dL POC Glucose (mg/dL) 202 H (70-110) mg/dL Calcium (8.4-10.2) mg/dL Crossmatch See Detail Microbiology - Last 24 Hours (Table) 07/11/24 20:13 Gram Stain - Preliminary Sputum Sputum Culture - Preliminary Azucena albicans Assessment and Plan (1) Gram-negative bacteremia Current Visit: Yes Status: Acute Code(s): R78.81 - BACTEREMIA SNOMED Code(s): 865220299130 (2) UTI (urinary tract infection) Current Visit: Yes Status: Acute Code(s): N39.0 - URINARY TRACT INFECTION, SITE NOT SPECIFIED SNOMED Code(s): 21177455 Plan: 1patient presented to hospital with sepsis in this patient who did have low- grade fever tachycardia elevated white count elevated lactic acid and now with a positive blood culture likely related to the urinary source as the patient did have significantly positive UA patient also have abnormality seen of the gallbladder however did have a normal liver enzymes 2-E. coli bacteremia source likely urinary that is a sensitive pathogen, urine did grew the same pathogen 3-patient did have worsening of the respiratory status requiring intubation question of possible aspiration pneumonitis, sputum cultures growing Azucena which is more likely colonizer 4-patient is afebrile and white count normalized 5-continue with the Zosyn while inpatient and monitor clinical course closely Dictation was produced using [employer] dictation software. please excuse any grammatical, word or spelling errors. Time with Patient: Less than 30
--- NOTE | 2024-07-13 16:39 | P.PN ---
Subjective Progress Note Date: 07/13/24 CHIEF COMPLAINT: Acute cholecystitis HISTORY OF PRESENT ILLNESS: The patient is a 79-year-old female with developmental delay, history of subdural hematoma, history of pneumonia including ARDS and sepsis being followed for acute cholecystitis in intensive care unit on full ventilatory support. Patient remains on full ventilatory support at this time. Per discussion with nursing, patient is unstable for surgery . ROS: No reports of nausea and vomiting. No fevers or chills. No new chest pain. No productive sputum PHYSICAL EXAM: VITAL SIGNS: Reviewed CONSTITUTIONAL: Well developed and in no acute distress. EYES: Conjuctivae without sclera icterus. Extraocular movements grossly intact. HEAD, EARS, NOSE, THROAT: Moist buccal mucosa. Head is atraumatic, normocephalic. Hears conversational speech. No nasal drainage. RESPIRATORY: Intubated with full ventilatory support CARDIOVASCULAR: Palpable 2+ radial pulses. ABDOMEN: No peritonitis. MUSCULOSKELETAL: No gross deformity of the lower extremities noted. No clubbing. No cyanosis. SKIN: Good skin turgor. Well perfused. NEUROLOGIC: Sedated PSYCH: Sedated. CLINICAL LABS: Reviewed. WBC normal. Hemoglobin 7.3, anemia declined to 6.6 ASSESSMENT: 1. Acute cholecystitis 2. Acute respiratory distress syndrome status post intervention 3. Sepsis with E. coli urinary tract infection 4. Subdural hematoma 5. Anemia PLAN: 1. Recommend blood transfusion for hemoglobin less than 7.0 and symptomatic. 2. Given patient global comorbidities, patient at this time not a surgical candidate Objective - Vital Signs Vital signs: Vital Signs Temp 99.1 F 07/13/24 16:00 Pulse 76 07/13/24 16:00 Resp 14 07/13/24 16:00 BP 149/69 07/13/24 16:00 Pulse Ox 99 07/13/24 16:00 FiO2 40 07/13/24 16:00 Intake & Output 07/12/24 07/13/24 07/13/24 18:59 06:59 18:59 Intake Total 6317.718 6847.787 773.288 Output Total 857 080 9943 Balance 539.078 315.787 -291.712 Weight 66.8 kg Intake: IV 650 550 250 Sodium Chloride 0.45% 1, 650 550 250 000 ml @ 50 mls/hr IV . Q20H [facility] Rx#:[id number] Intake, IV Titration 189.078 125.787 33.288 Amount propofoL 1,000 mg In 189.078 125.787 33.288 Empty Bag 1 bag @ 15 MCG/ KG/MIN 6.695 mls/hr IV . [id number] [facility] Rx#:[id number] Tube Feeding 420 470 400 Blood Product 0 Unit 0 Other 90 90 90 Output: Urine 278 710 2427 Other: Voiding Method Indwelling Catheter Indwelling Catheter Indwelling Catheter # Bowel Movements 0 0 - Labs CBC & Chem 7: 07/13/24 12:00 07/13/24 05:12 Labs: Abnormal Lab Results - Last 24 Hours (Table) 07/12/24 07/13/24 07/13/24 Range/Units 17:52 00:41 05:12 RBC 2.44 L (3.80-5.40) m/uL Hgb 6.9 L* (11.4-16.0) gm/dL Hct 22.6 L (34.0-46.0) % MCHC 30.7 L (31.0-37.0) g/dL RDW 17.1 H (11.5-15.5) % ABG pO2 (83-108) mmHg ABG HCO3 (21-25) mmol/L ABG Total CO2 (19-24) mmol/L ABG O2 Saturation (94-97) % BUN (7-17) mg/dL Creatinine (0.52-1.04) mg/dL Glucose (74-99) mg/dL POC Glucose (mg/dL) 246 H 282 H (70-110) mg/dL Calcium (8.4-10.2) mg/dL Crossmatch 07/13/24 07/13/24 07/13/24 Range/Units 05:12 05:41 06:31 RBC (3.80-5.40) m/uL Hgb (11.4-16.0) gm/dL Hct (34.0-46.0) % MCHC (31.0-37.0) g/dL RDW (11.5-15.5) % ABG pO2 110 H (83-108) mmHg ABG HCO3 27 H (21-25) mmol/L ABG Total CO2 28 H (19-24) mmol/L ABG O2 Saturation 98.5 H (94-97) % BUN 47 H (7-17) mg/dL Creatinine 1.68 H (0.52-1.04) mg/dL Glucose 231 H (74-99) mg/dL POC Glucose (mg/dL) 260 H (70-110) mg/dL Calcium 7.2 L (8.4-10.2) mg/dL Crossmatch 07/13/24 07/13/24 07/13/24 Range/Units 11:41 12:00 13:45 RBC 2.36 L (3.80-5.40) m/uL Hgb 6.6 L* (11.4-16.0) gm/dL Hct 21.7 L (34.0-46.0) % MCHC 30.1 L (31.0-37.0) g/dL RDW 16.9 H (11.5-15.5) % ABG pO2 (83-108) mmHg ABG HCO3 (21-25) mmol/L ABG Total CO2 (19-24) mmol/L ABG O2 Saturation (94-97) % BUN (7-17) mg/dL Creatinine (0.52-1.04) mg/dL Glucose (74-99) mg/dL POC Glucose (mg/dL) 202 H (70-110) mg/dL Calcium (8.4-10.2) mg/dL Crossmatch See Detail Microbiology - Last 24 Hours (Table) 07/11/24 20:13 Gram Stain - Preliminary Sputum Sputum Culture - Preliminary Azucena albicans
[2024-07-13] MEDS: PIPERACILLIN-TAZOBACTAM 3.375 GM in SODIUM CHLORIDE 0.9% 100 ML IVPB SCH (16:44)
[2024-07-13 18:38] LABS: Glucose,Whole Blood 254 mg/dL (70-110)
[2024-07-13 20:13] LABS: Anisocytosis Slight; HCT 28.3 % (34.0-46.0); Hypochromasia Moderate; MCH 28.2 pg (25.0-35.0); MCV 90.8 fL (80.0-100.0); Mean Platelet Volume 10.3; Platelet Count 187 k/uL (150-450); RBC 3.12 m/uL (3.80-5.40); RDW 17.6 % (11.5-15.5)
[2024-07-13] MEDS: FUROSEMIDE 10 MG/ML 10 ML VIAL IV STA (20:13)
[2024-07-13] MEDS: bisacodyL 10 MG SUPP RECTAL PRN (20:14)
[2024-07-13 20:19] LABS: HGB 8.8 gm/dL (11.4-16.0)
[2024-07-13 23:42] LABS: Glucose,Whole Blood 263 mg/dL (70-110)
[2024-07-14 05:53] LABS: ABG Base Excess 3.9 mmol/L; ABG HCO3 29 mmol/L (21-25); ABG Oxygen Saturation 97.4 % (94-97); ABG PCO2 44 mmHg (35-45); ABG PH 7.43 (7.35-7.45); ABG PO2 93 mmHg (83-108); ABG TCO2 30 mmol/L (19-24); Allen Test Performed? Yes
[2024-07-14 06:01] LABS: Glucose,Whole Blood 282 mg/dL (70-110)
[2024-07-14 06:43] LABS: Anisocytosis Slight; HCT 28.2 % (34.0-46.0); HGB 8.7 gm/dL (11.4-16.0); Hypochromasia Marked; MCV 90.4 fL (80.0-100.0); Mean Platelet Volume 9.3; Platelet Count 249 k/uL (150-450); RBC 3.11 m/uL (3.80-5.40); RDW 17.4 % (11.5-15.5); WBC 10.2 k/uL (3.8-10.6)
[2024-07-14 06:55] LABS: African American GFR (CKD) 40 (>60 ml/min/1.73 sqM); Anion Gap 6 mmol/L; Blood Urea Nitrogen 48 mg/dL (7-17); Calcium 7.7 mg/dL (8.4-10.2); Carbon Dioxide 29 mmol/L (22-30); Chloride 106 mmol/L (98-107); Glucose 256 mg/dL (74-99); Non-African American GFR(CKD) 35 (>60 ml/min/1.73 sqM); Sodium 141 mmol/L (137-145)
--- NOTE | 2024-07-14 08:15 | XR ---
EXAMINATION TYPE: XR chest 1V portable DATE OF EXAM: 07/14/2024 HISTORY: Shortness of breath. COMPARISON: 07/13/2024 TECHNIQUE: Single view of the chest is submitted. FINDINGS: Demonstrated are scattered senescent parenchymal change. The endotracheal and NG tubes are unchanged. Essentially stable pulmonary venous congestion with scat tered infiltrates and small effusions compatible with congestive failure. Hilar and mediastinal structures are within normal limits. Degenerative changes are seen of the dorsal spine. IMPRESSION: 1. The endotracheal and NG tubes are unchanged. Essentially stable pulmonary venous congestion with scattered infiltrates and small effusions compatible with congestive failure.
--- NOTE | 2024-07-14 08:30 | P.PN ---
Subjective Patient is seen in follow-up for acute kidney injury on chronic kidney disease. Renal function improving. Status post IV Lasix yesterday. Nonoliguric. Intubated. Vital signs are stable. General: Resting in bed. HEENT: Intubated. LUNGS: Scattered rhonchi. HEART: Rate and Rhythm are regular. ABDOMEN: No distention. EXTREMITITES: 2+ edema. Objective - Vital Signs Vital signs: Vital Signs Temp 98.6 F 07/14/24 08:00 Pulse 67 07/14/24 08:00 Resp 14 07/14/24 08:00 BP 143/60 07/14/24 08:00 Pulse Ox 97 07/14/24 08:00 FiO2 40 07/14/24 08:00 Intake & Output 07/13/24 07/14/24 07/14/24 18:59 06:59 18:59 Intake Total 1310.000 10 Output Total 1375 2160 250 Balance -65.000 -2150 -250 Weight 67.3 kg Intake: IV 370 10 Invasive Line 4 20 10 Piperacillin-Tazobactam 3 100 .375 gm In Sodium Chloride 0.9% 100 ml @ 25 mls/hr IVPB Q8HR [facility] Rx# :[id number] Sodium Chloride 0.45% 1, 250 000 ml @ 50 mls/hr IV . Q20H [facility] Rx#:[id number] Intake, IV Titration 100.000 Amount propofoL 1,000 mg In 100.000 Empty Bag 1 bag @ 15 MCG/ KG/MIN 6.695 mls/hr IV . [id number] [facility] Rx#:[id number] Tube Feeding 440 Blood Product 310 Rc As-1 Unit 310 [id number] Other 90 Output: Urine 1375 2160 250 Other: Voiding Method Indwelling Catheter Indwelling Catheter # Bowel Movements 0 1 - Labs CBC & Chem 7: 07/14/24 06:11 07/14/24 06:11 Labs: Abnormal Lab Results - Last 24 Hours (Table) 07/13/24 07/13/24 07/13/24 Range/Units 11:41 12:00 13:45 RBC 2.36 L (3.80-5.40) m/uL Hgb 6.6 L* (11.4-16.0) gm/dL Hct 21.7 L (34.0-46.0) % MCHC 30.1 L (31.0-37.0) g/dL RDW 16.9 H (11.5-15.5) % ABG HCO3 (21-25) mmol/L ABG Total CO2 (19-24) mmol/L ABG O2 Saturation (94-97) % BUN (7-17) mg/dL Creatinine (0.52-1.04) mg/dL Glucose (74-99) mg/dL POC Glucose (mg/dL) 202 H (70-110) mg/dL Calcium (8.4-10.2) mg/dL Crossmatch See Detail 07/13/24 07/13/24 07/13/24 Range/Units 18:37 19:41 23:40 RBC 3.12 L (3.80-5.40) m/uL Hgb 8.8 L D (11.4-16.0) gm/dL Hct 28.3 L (34.0-46.0) % MCHC (31.0-37.0) g/dL RDW 17.6 H (11.5-15.5) % ABG HCO3 (21-25) mmol/L ABG Total CO2 (19-24) mmol/L ABG O2 Saturation (94-97) % BUN (7-17) mg/dL Creatinine (0.52-1.04) mg/dL Glucose (74-99) mg/dL POC Glucose (mg/dL) 254 H 263 H (70-110) mg/dL Calcium (8.4-10.2) mg/dL Crossmatch 07/14/24 07/14/24 07/14/24 Range/Units 05:28 06:00 06:11 RBC 3.11 L (3.80-5.40) m/uL Hgb 8.7 L (11.4-16.0) gm/dL Hct 28.2 L (34.0-46.0) % MCHC (31.0-37.0) g/dL RDW 17.4 H (11.5-15.5) % ABG HCO3 29 H (21-25) mmol/L ABG Total CO2 30 H (19-24) mmol/L ABG O2 Saturation 97.4 H (94-97) % BUN (7-17) mg/dL Creatinine (0.52-1.04) mg/dL Glucose (74-99) mg/dL POC Glucose (mg/dL) 282 H (70-110) mg/dL Calcium (8.4-10.2) mg/dL Crossmatch 07/14/24 Range/Units 06:11 RBC (3.80-5.40) m/uL Hgb (11.4-16.0) gm/dL Hct (34.0-46.0) % MCHC (31.0-37.0) g/dL RDW (11.5-15.5) % ABG HCO3 (21-25) mmol/L ABG Total CO2 (19-24) mmol/L ABG O2 Saturation (94-97) % BUN 48 H (7-17) mg/dL Creatinine 1.45 H (0.52-1.04) mg/dL Glucose 256 H (74-99) mg/dL POC Glucose (mg/dL) (70-110) mg/dL Calcium 7.7 L (8.4-10.2) mg/dL Crossmatch Microbiology - Last 24 Hours (Table) 07/11/24 20:13 Gram Stain - Preliminary Sputum Sputum Culture - Preliminary Azucena albicans Assessment and Plan Plan: Assessment: 1. Acute kidney injury secondary to ATN secondary to severe sepsis. Creatinine peaked at 3.24 this admission and is 1.45 today. No hydronephrosis noted on kidney ultrasound. 2. Chronic kidney disease stage IIIa with baseline creatinine 1.2-1.3 secondary to diabetic kidney disease. 3. Severe sepsis secondary to E. coli bacteremia and UTI on antibiotics. 4. Volume overload. 5. Nephrolithiasis. 6. Anemia of chronic kidney disease. Avoid IV iron in the setting of acute infection. Plan: Lasix 40 mg IV once today. Add Aranesp. Avoid nephrotoxins. Wean FiO2. Maintain tube feeds.
[2024-07-14] MEDS: FUROSEMIDE 10 MG/ML 4 ML VIAL IV STA (10:06)
[2024-07-14 11:52] LABS: Glucose,Whole Blood 276 mg/dL (70-110)
--- NOTE | 2024-07-14 13:13 | P.PN ---
Subjective Progress Note Date: 07/14/24 I am following up with the patient and per the nurse and caregiver who is at bedside no clinical seizure-like activity. Patient IV propofol has been held and will assess the weaning trial. Objective - Vital Signs Vital signs: Vital Signs Temp 98.7 F 07/14/24 12:00 Pulse 78 07/14/24 12:00 Resp 16 07/14/24 12:00 BP 143/67 07/14/24 12:00 Pulse Ox 97 07/14/24 12:00 FiO2 40 07/14/24 12:00 Intake & Output 07/13/24 07/14/24 07/14/24 18:59 06:59 18:59 Intake Total 1310.000 10 592.529 Output Total 1375 2160 1075 Balance -65.000 -2150 -482.471 Weight 67.3 kg Intake: IV 370 10 130 Invasive Line 4 20 10 KVO 30 Piperacillin-Tazobactam 3 100 .375 gm In Sodium Chloride 0.9% 100 ml @ 25 mls/hr IVPB Q12HR [facility] Rx #:[id number] Piperacillin-Tazobactam 3 100 .375 gm In Sodium Chloride 0.9% 100 ml @ 25 mls/hr IVPB Q8HR [facility] Rx# :[id number] Sodium Chloride 0.45% 1, 250 000 ml @ 50 mls/hr IV . Q20H [facility] Rx#:[id number] Intake, IV Titration 100.000 102.529 Amount propofoL 1,000 mg In 100.000 102.529 Empty Bag 1 bag @ 15 MCG/ KG/MIN 6.695 mls/hr IV . [id number] [facility] Rx#:[id number] Oral 60 Tube Feeding 440 240 Blood Product 310 Rc As-1 Unit 310 [id number] Other 90 60 Output: Urine 1375 2160 1075 Other: Voiding Method Indwelling Catheter Indwelling Catheter Indwelling Catheter # Bowel Movements 0 1 ABP, PAP, CO, CI - Last Documented Arterial Blood Pressure 177/59 - Exam General: Lying in bed and does not appear in acute distress. Lung: Intubated on ventilator. Cardiovascular: Has edema in distal upper and lower extremities. Neuro: Limited. IV Propofol is held Patient is stupor. Is not following commands I manually open her eyes and gaze is midline and the pupils are pinpoint. Primary gaze midline. No facial weakness. Withpainful stimuli attempts to open eyes and grimaces face. There is no jerking of any extremities. - Labs CBC & Chem 7: 07/14/24 06:11 07/14/24 06:11 Labs: Abnormal Lab Results - Last 24 Hours (Table) 07/13/24 07/13/24 07/13/24 Range/Units 13:45 18:37 19:41 RBC 3.12 L (3.80-5.40) m/uL Hgb 8.8 L D (11.4-16.0) gm/dL Hct 28.3 L (34.0-46.0) % RDW 17.6 H (11.5-15.5) % ABG HCO3 (21-25) mmol/L ABG Total CO2 (19-24) mmol/L ABG O2 Saturation (94-97) % BUN (7-17) mg/dL Creatinine (0.52-1.04) mg/dL Glucose (74-99) mg/dL POC Glucose (mg/dL) 254 H (70-110) mg/dL Calcium (8.4-10.2) mg/dL Crossmatch See Detail 07/13/24 07/14/24 07/14/24 Range/Units 23:40 05:28 06:00 RBC (3.80-5.40) m/uL Hgb (11.4-16.0) gm/dL Hct (34.0-46.0) % RDW (11.5-15.5) % ABG HCO3 29 H (21-25) mmol/L ABG Total CO2 30 H (19-24) mmol/L ABG O2 Saturation 97.4 H (94-97) % BUN (7-17) mg/dL Creatinine (0.52-1.04) mg/dL Glucose (74-99) mg/dL POC Glucose (mg/dL) 263 H 282 H (70-110) mg/dL Calcium (8.4-10.2) mg/dL Crossmatch 07/14/24 07/14/24 07/14/24 Range/Units 06:11 06:11 11:51 RBC 3.11 L (3.80-5.40) m/uL Hgb 8.7 L (11.4-16.0) gm/dL Hct 28.2 L (34.0-46.0) % RDW 17.4 H (11.5-15.5) % ABG HCO3 (21-25) mmol/L ABG Total CO2 (19-24) mmol/L ABG O2 Saturation (94-97) % BUN 48 H (7-17) mg/dL Creatinine 1.45 H (0.52-1.04) mg/dL Glucose 256 H (74-99) mg/dL POC Glucose (mg/dL) 276 H (70-110) mg/dL Calcium 7.7 L (8.4-10.2) mg/dL Crossmatch Microbiology - Last 24 Hours (Table) 07/11/24 20:13 Gram Stain - Final Sputum Sputum Culture - Final Azucena albicans Assessment and Plan Assessment: * Altered mental status due to toxic metabolic encephalopathy. Reasons multifactorial as mentioned below--today she localized to pain on left upper extremity. * Abnormal EEG, with evidence of severe encephalopathy and frequent sharp waves. Cannot rule out nonconvulsive status per Dr. Montemayor---but routine EEG on 06/2024 no seizure. * Septic encephalopathy * E. coli bacteremia * Hypoglycemia with hypoglycemic encephalopathy. * Possible cholecystitis * History of right hemispheric subdural hematoma 04/16/2024, treated conservatively. * Acute kidney injury, improving. * Acute hypoxic respiratory failure. * History of right pontine lacunar stroke 11/01/2021. * Diabetes * Hyperlipidemia * Developmental delay, and patient is assisted resident. Plan: * Patient continues to be intubated, sedated. No obvious clinical seizure-like activity noted. * Repeat prolonged EEG for 1 hour performed two days. Per Dr. Montemayor, It revealed definite improvement in the amount of epileptiform activity. However in the early part of the study, there were sporadic generalized sharp wave, and relatively more frequent right hemispheric, maximal right parietal sharp waves. This epileptiform activity improved during middle and later part of the study with sporadic right parietal sharp waves. Cannot rule out nonconvulsive status. Patient probably will need prolonged, continuous EEG monitoring for further management. * Prolonged EEG for 1 hour from three days ago and reported by Dr. Montemayor as severely abnormal, with background slowing and disorganization, suggestive of severe encephalopathy. Also revealed evidence of intermittent high amplitude sharp waves seen occasionally involving right hemispheric, but more often b ihemispheric region. At times these sharp waves have triphasic in quality as well. No electrographic seizure was recorded. * Patient currently on Keppra 500 mg twice daily and Vimpat 150 mg twice daily. * Initial EEG 06/08/2024 was abnormal due to background slowing, suggestive of moderate to severe encephalopathy. Also evidence of sporadic generalized spike and slow wave seen at later part of the study. No electrographic seizure was recorded. No electrographic evidence of status epilepticus. * I spoke with the ICU attending as well as the primary attending and was felt [facility] did not have any beds and it was felt there is some improvement in her condition. Therefore will avoid the transfer to a tertiary center for long-term EEG and will obtain a repeat EEG in our facility. I spoke with patient's brother and her niece who are bedside and they are in agreement of avoiding transfer especially since it is not convenient for the family and with her her underlying cognitive issues (developmentally delayed) and medical issues. * On routine EEG on 07/13/2024: Background slowing suggestive of severe encephalopathy. Triphasic morphology is likely due to toxic metabolic derange ment. There is questionable diffuse sharp activity over the left central concerning for discharges but definitely no clear perform discharge. There is definitely no seizure during the study. * CT head showed no acute process. Resolution of previously seen right sided subdural hematoma. * Patient currently on Zosyn. * Avoid episodes of hypoglycemia. * Medical management as per IM/critical care. Patient IV propofol is held ICU and will assess if she improves. * Patient is critically sick. Discussed with patient caregiver who is at bedside as well as the ICU nurse. Time with Patient: Less than 30
--- NOTE | 2024-07-14 13:23 | P.PN ---
Subjective Progress Note Date: 07/14/24 CHIEF COMPLAINT: RUQ pain HISTORY OF PRESENT ILLNESS: Patient remains in the ICU intubated and sedated. As she is getting an A-line placed. She did receive a unit of blood for hemoglobin of 6.9 now up to 8.7. Afebrile. WBC 10.2 creatinine down to 1.45 PHYSICAL EXAM: VITAL SIGNS: Reviewed. GENERAL: Intubated and sedated. ABDOMEN: Soft. Nondistended. ASSESSMENT: 1. Acute cholecystitis. ultrasound reported cholelithiasis, thickened gallbladder wall and pericholecystic fluid 2. Sepsis and bacteremia 3. Acute kidney injury 4. UTI PLAN: -Continue antibiotics -Continue ICU management -No plans for surgical intervention at this time Physician Oxygen Equipment Technician note has been reviewed by physician. Signing provider agrees with the documented findings, assessment, and plan of care. Objective - Vital Signs Vital signs: Vital Signs Temp 98.6 F 07/14/24 08:00 Pulse 73 07/14/24 10:00 Resp 17 07/14/24 10:00 BP 135/68 07/14/24 10:00 Pulse Ox 98 07/14/24 10:00 FiO2 40 07/14/24 08:00 Intake & Output 07/13/24 07/14/24 07/14/24 18:59 06:59 18:59 Intake Total 1310.000 10 280.595 Output Total 1375 2160 450 Balance -65.000 -2150 -169.405 Weight 67.3 kg Intake: IV 370 10 100 Invasive Line 4 20 10 Piperacillin-Tazobactam 3 100 .375 gm In Sodium Chloride 0.9% 100 ml @ 25 mls/hr IVPB Q12HR [facility] Rx #:[id number] Piperacillin-Tazobactam 3 100 .375 gm In Sodium Chloride 0.9% 100 ml @ 25 mls/hr IVPB Q8HR [facility] Rx# :[id number] Sodium Chloride 0.45% 1, 250 000 ml @ 50 mls/hr IV . Q20H [facility] Rx#:[id number] Intake, IV Titration 100.000 100.595 Amount propofoL 1,000 mg In 100.000 100.595 Empty Bag 1 bag @ 15 MCG/ KG/MIN 6.695 mls/hr IV . [id number] [facility] Rx#:[id number] Oral 60 Tube Feeding 440 20 Blood Product 310 Rc As-1 Unit 310 [id number] Other 90 Output: Urine 1375 2160 450 Other: Voiding Method Indwelling Catheter Indwelling Catheter Indwelling Catheter # Bowel Movements 0 1 - Labs CBC & Chem 7: 07/14/24 06:11 07/14/24 06:11 Labs: Abnormal Lab Results - Last 24 Hours (Table) 07/13/24 07/13/24 07/13/24 Range/Units 11:41 12:00 13:45 RBC 2.36 L (3.80-5.40) m/uL Hgb 6.6 L* (11.4-16.0) gm/dL Hct 21.7 L (34.0-46.0) % MCHC 30.1 L (31.0-37.0) g/dL RDW 16.9 H (11.5-15.5) % ABG HCO3 (21-25) mmol/L ABG Total CO2 (19-24) mmol/L ABG O2 Saturation (94-97) % BUN (7-17) mg/dL Creatinine (0.52-1.04) mg/dL Glucose (74-99) mg/dL POC Glucose (mg/dL) 202 H (70-110) mg/dL Calcium (8.4-10.2) mg/dL Crossmatch See Detail 07/13/24 07/13/24 07/13/24 Range/Units 18:37 19:41 23:40 RBC 3.12 L (3.80-5.40) m/uL Hgb 8.8 L D (11.4-16.0) gm/dL Hct 28.3 L (34.0-46.0) % MCHC (31.0-37.0) g/dL RDW 17.6 H (11.5-15.5) % ABG HCO3 (21-25) mmol/L ABG Total CO2 (19-24) mmol/L ABG O2 Saturation (94-97) % BUN (7-17) mg/dL Creatinine (0.52-1.04) mg/dL Glucose (74-99) mg/dL POC Glucose (mg/dL) 254 H 263 H (70-110) mg/dL Calcium (8.4-10.2) mg/dL Crossmatch 07/14/24 07/14/24 07/14/24 Range/Units 05:28 06:00 06:11 RBC 3.11 L (3.80-5.40) m/uL Hgb 8.7 L (11.4-16.0) gm/dL Hct 28.2 L (34.0-46.0) % MCHC (31.0-37.0) g/dL RDW 17.4 H (11.5-15.5) % ABG HCO3 29 H (21-25) mmol/L ABG Total CO2 30 H (19-24) mmol/L ABG O2 Saturation 97.4 H (94-97) % BUN (7-17) mg/dL Creatinine (0.52-1.04) mg/dL Glucose (74-99) mg/dL POC Glucose (mg/dL) 282 H (70-110) mg/dL Calcium (8.4-10.2) mg/dL Crossmatch 07/14/24 Range/Units 06:11 RBC (3.80-5.40) m/uL Hgb (11.4-16.0) gm/dL Hct (34.0-46.0) % MCHC (31.0-37.0) g/dL RDW (11.5-15.5) % ABG HCO3 (21-25) mmol/L ABG Total CO2 (19-24) mmol/L ABG O2 Saturation (94-97) % BUN 48 H (7-17) mg/dL Creatinine 1.45 H (0.52-1.04) mg/dL Glucose 256 H (74-99) mg/dL POC Glucose (mg/dL) (70-110) mg/dL Calcium 7.7 L (8.4-10.2) mg/dL Crossmatch Microbiology - Last 24 Hours (Table) 07/11/24 20:13 Gram Stain - Final Sputum Sputum Culture - Final Azucena albicans
--- NOTE | 2024-07-14 14:04 | P.PN ---
Subjective Progress Note Date: 07/14/24 Principal diagnosis: E. coli urinary tract infection and E. coli sepsis This is a 79-year-old female patient, long-term resident with developmental delay, who was recently hospitalized at [facility] in time she was treated for pneumonia and she also had a pleural effusion that was drained. The exact site of the pneumonia and the drainage is not known to me at this point. The patient came into our hospital after having an episode of hypoglycemia with a blood sugar in the low 40s and a seizure-like activity. The patient was awake however she was not answering questions appropriately. The power of commercial litigation attorney was at the bedside. In the emergency, the patient was found to be septic. The white cell count was 12 with a hemoglobin 10.7 and a blood culture was positive for gram-negative bacillus. BUN was 27 with a creatinine of 1.3 and a sodium level of 134. Initial lactic acid level was at 3.3 and repeat level was also 3.3. UA was consistent with infection as the patient had blood and white cells within the urine analysis along with +2 protein and occasional bacteria and many WBC clumps. The viral screen was negative. Also, the patient's LFTs were essentially within normal limits. Nevertheless, the patient was given a ultrasound of the bladder and the kidneys. There was evidence of cholelithiasis with prominent wall and pericholecystic fluid suggestive of cholecystitis. No evidence of any obstructive uropathy. There was renal cortical scarring bilaterally possible nonobstructing cortical calcifications. No evidence of any hydronephrosis. The patient is currently on IV Zosyn. She was given a dose of Rocephin in the emergency department. The patient was also given IV fluids and currently she is on normal saline at rate of 130 cc an hour. CAT scan of the brain showed a resolution of the previously described right subdural hemorrhage from 04/16/2024. There was some nonspecific white matter changes. X-ray of the chest showed no evidence of any pleural effusion for consolidation. The patient had increased pulm vascular markings. At this point in time the patient is currently on 4 L of oxygen by nasal cannula with a pulse ox of 94%. Normotensive. Slightly tachycardic. On today's evaluation of 07/09/2024, the patient's condition is further decompensated compared to yesterday. She seems to be much more obtunded. Urine output is low. The patient has developed further increase the white cell count and has developed an acute kidney injury in addition. The patient's blood cultures positive for E. coli and the patient is prepped and IV Zosyn. Abdomen seems to be slightly more firm compared to yesterday. Is currently the patient afebrile, slightly tachycardic, on 4 L of oxygen by nasal cannula with a pulse ox of 94%. Follow-up chest x-ray from today shows evidence of pulmonary edema. IV fluids are running in the form of a normal saline at rate of 75 cc an hour. She was given another bolus of 500 cc earlier today. The white cell count is at 24.5 hemoglobin is 8 with a platelet count of 134. She has 94% neutrophilia. Sodium levels at 139 with a potassium level of 5.8. Serum bicarb is 18 with a BUN of 59 and a creatinine of 3.10. Blood sugar is at 306. As stated, urine cultures are still pending. Blood culture is positive for E. coli. Lactic acid level has improved compared to yesterday and is currently down to 1.4 from 3.2. The highest lactic acid level was at 5.9 07/10/2024, the patient is being seen for a follow-up. The patient is currently intubated on mechanical ventilator due to septic shock. Blood cultures positive for E. coli, urine cultures also positive for E. coli. Patient is currently on IV Zosyn. Repeat ultrasound the gallbladder was done and shows cholelithiasis with pericholecystic fluid collection and the patient has multiple gallstones seen in the neck and the body of the gallbladder. The amount of pericholecystic fluid is mild. Unable to evaluate the patient's Bar sign. There is also a right renal calculus. The liver function tests remain essentially within normal limits with an alkaline phosphatase of 129, and the patient's bilirubin is at 0.6. Being the source of septicemia is a urine. The patient is still on propofol which is running at 20 mcg/kg/min. She is on mechanical ventilator assist-control mode with rate of 22, tidal volume of 350, FiO2 of 50% with a PEEP of 5. Blood gas from today showed a pH of 7.41 with a pCO2 of 81 and pO2 of 152. Chest x-ray showing diffuse bilateral pulmonary for trace, could be related to interstitial edema versus acute lung injury secondary to sepsis. Serum bicarb is 18 and the patient remains on a bicarb infusion at rate of 75 cc an hour. BUN is 62 with a creatinine of 2.9 and a sodium levels at 142. LFTs are normal. The patient had dropped her platelet count 212 with a WBC count of 7.8 which is improved compared to yesterday and a hemoglobin of 7.6. Antibiotic coverage with IV Zosyn. 07/11/2024, the patient is being seen for a follow-up. The patient remains intubated on the mechanical ventilator. Of concern is her abnormal EEG which was done yesterday and it showed some background slowing suggestive of moderate to severe encephalopathy. The patient also had high amplitude sharp appearing waves from the right and often bilateral, triphasic in quality indicating cortical irritation/irritability and tendency for seizures. Based on that, the patient was covered with Vimpat 100 mg IV every 12 hours. The patient remains on propofol and Keppra in addition. This morning, propofol running at 30 mcg/kg/min. The patient is calm and comfortable and synchronous with mechanical ventilator. She remains on assist-control mode at rate of 22, tidal volume of 350, FiO2 of 45% with a PEEP of 4. Blood gas showed a pH of 7.52 with a pCO2 of 31 and pO2 of 139. Hemodynamically stable on no pressors. BUN is 61 with a creatinine of 2.46 and the creatinine continues to improve. Sodium is at 140. Potassium is at 4.0. Bicarb is at 25. WBC 10.5 with a Hemoglobin of 7 and a Platelet Count of 124. Chest X-Ray from Today Shows Cardiomegaly and Patchy Interstitial Edema/Pulmonary Edema with Slight Interval Worsening Compared to Yesterday. Nevertheless, This Has Not Affected the Patient's Oxygenation. In Terms of Antibiotic Coverage, the Patient Remains on IV Zosyn. Ultrasound the Gallbladder Was Noted. LFTs from Yesterday Was Essentially within normal limits. 07/12/2024, the patient remains intubated on mechanical ventilator. The patient remains on propofol which is currently running at 25 mcg/kg/min. No seizure activity has been noted and the patient is currently on a combination of Keppra and Vimpat. Discussed the case with neurology. Will try to get another EEG. If not, will assess clinically and gradually wean off the propofol and assess the patient's mental status. The patient remains intubated on the mechanical ventilator. She remains on assist-control mode rate of 14, tidal volume of 350, FiO2 40% with a PEEP of 5. Blood gas shows a pH of 7.43 with a pCO2 of 40 and pO2 of 151. The patient is on half-normal citrate of 50 cc an hour. No pressors. She is on vital high-protein at rate of 30 cc an hour. She remains on IV Zosyn. Labs show a drop in the white cell count down to 9.5. Hemoglobin stable at 7.3 with a platelet count of 119. The BUN is 54 with a creatinine of 2.09 and sodium levels at 136 and a potassium level of 3.8. LFTs remain normal. No significant abdominal distention. Chest x-ray is showing some improvement in the infiltrates that was noted earlier. This could have been a representation with acute lung injury/ARDS in the setting of sepsis and this is improving and the patient has adequate oxygenation. On 07/13/2024, the patient remains intubated on the mechanical ventilator. The patient remains on propofol which is running at 25 mcg/kg/min. No seizure activity and the patient is going to undergo another EEG. Meanwhile, the patient is covered with a combination of Keppra and Vimpat. Afebrile. H emodynamically stable. Remains on assist-control mode of mechanical ventilation at rate of 14 with a tidal volume of 350, FiO2 40% with a PEEP of 5. She remains on IV fluids. She is on half-normal saline at rate of 50 cc an hour. She is also tolerating enteral free evening for the social support and the patient is vital high-protein running at 30 cc an hour. No abdominal distention. No abdominal pain. No abdominal tenderness. The labs from today shows a hemoglobin of 6.9. No evidence of any GI bleed. This will be monitored. The white cell count is 8.9. The blood gas from today shows a pH of 7.42 with a pCO2 of 42 and pO2 of 110. BUN is 47 and the creatinine is 1.6 and the creatinine continues to improve. Sodium levels at 139. The patient remains on IV Zosyn regarding E. coli septicemia. Rest of the medications remain unchanged. She remains on Lovenox 30 mg subcu for DVT prophylaxis. Chest x-ray showing diffuse bilateral pulmonary pattern is consistent with acute lung injury in the setting of an acute sepsis Reevaluate today on 07/14/2024, patient remains in the ICU intubated and mechanically ventilated. She is on assist-control rate of 14 tidal volume 350 FiO2 40% PEEP of 5 ABG showed a pO2 of 93 pCO2 44 pH of 7.43, hence no changes were made in her ventilator settings. Patient remains on propofol at 25 mcg/kg/min, she is not requiring any pressors at this point. She is on vital AF at 40 cc/h. She is also on Zosyn for her positive urine cultures secondary to E. coli. No seizures noted in the last 24 hours, patient remains sedated, remains on seizure medications in the form of Keppra and Vimpat. WBC count is 10.2 hemoglobin 8.7. Basic metabolic profile is normal BUN is 48 creatinine 1.45 blood sugar is 256 chest x-ray continues to show mild pulmonary vascular congestion with scattered bilateral infiltrates and small pleural effusions suggestive of CHF. Patient is receiving diuretics. She remains on antibiotics/Zosyn Objective - Vital Signs Vital signs: Vital Signs Temp 98.7 F 07/14/24 12:00 Pulse 78 07/14/24 12:00 Resp 16 07/14/24 12:00 BP 143/67 07/14/24 12:00 Pulse Ox 97 07/14/24 12:00 FiO2 40 07/14/24 12:00 Intake & Output 07/13/24 07/14/24 07/14/24 18:59 06:59 18:59 Intake Total 1310.000 10 592.529 Output Total 1375 2160 1075 Balance -65.000 -2150 -482.471 Weight 67.3 kg Intake: IV 370 10 130 Invasive Line 4 20 10 KVO 30 Piperacillin-Tazobactam 3 100 .375 gm In Sodium Chloride 0.9% 100 ml @ 25 mls/hr IVPB Q12HR [facility] Rx #:[id number] Piperacillin-Tazobactam 3 100 .375 gm In Sodium Chloride 0.9% 100 ml @ 25 mls/hr IVPB Q8HR [facility] Rx# :[id number] Sodium Chloride 0.45% 1, 250 000 ml @ 50 mls/hr IV . Q20H [facility] Rx#:[id number] Intake, IV Titration 100.000 102.529 Amount propofoL 1,000 mg In 100.000 102.529 Empty Bag 1 bag @ 15 MCG/ KG/MIN 6.695 mls/hr IV . [id number] [facility] Rx#:[id number] Oral 60 Tube Feeding 440 240 Blood Product 310 Rc As-1 Unit 310 [id number] Other 90 60 Output: Urine 1375 2160 1075 Other: Voiding Method Indwelling Catheter Indwelling Catheter Indwelling Catheter # Bowel Movements 0 1 ABP, PAP, CO, CI - Last Documented Arterial Blood Pressure 177/59 - Exam GENERAL: Revealed a 79-year-old female, intubated, mechanically ventilated, on propofol. Patient will be given a sedation holiday for assessment of mental status today. HEENT: Pupils are round and equally reacting to light. EOMI. No scleral icterus. No conjunctival pallor. Normocephalic, atraumatic. No pharyngeal erythema. No thyromegaly. CARDIOVASCULAR: Distant S1-S2, no S3 gallop. PULMONARY: Crackles at the bases no rhonchi no wheezes symmetrical chest expansion ABDOMEN: Soft nontender no megaly no rebound no guarding, positive bowel sounds. MUSCULOSKELETAL: No evidence of any deformities. EXTREMITIES: No clubbing edema or cyanosis. NEUROLOGICAL: Could not assess, patient is sedated however off propofol later after my rounds, I was told the patient did not show any responses. SKIN: No rashes. no petechiae. - Labs CBC & Chem 7: 07/14/24 06:11 07/14/24 06:11 Labs: Abnormal Lab Results - Last 24 Hours (Table) 07/13/24 07/13/24 07/13/24 Range/Units 13:45 18:37 19:41 RBC 3.12 L (3.80-5.40) m/uL Hgb 8.8 L D (11.4-16.0) gm/dL Hct 28.3 L (34.0-46.0) % RDW 17.6 H (11.5-15.5) % ABG HCO3 (21-25) mmol/L ABG Total CO2 (19-24) mmol/L ABG O2 Saturation (94-97) % BUN (7-17) mg/dL Creatinine (0.52-1.04) mg/dL Glucose (74-99) mg/dL POC Glucose (mg/dL) 254 H (70-110) mg/dL Calcium (8.4-10.2) mg/dL Crossmatch See Detail 07/13/24 07/14/24 07/14/24 Range/Units 23:40 05:28 06:00 RBC (3.80-5.40) m/uL Hgb (11.4-16.0) gm/dL Hct (34.0-46.0) % RDW (11.5-15.5) % ABG HCO3 29 H (21-25) mmol/L ABG Total CO2 30 H (19-24) mmol/L ABG O2 Saturation 97.4 H (94-97) % BUN (7-17) mg/dL Creatinine (0.52-1.04) mg/dL Glucose (74-99) mg/dL POC Glucose (mg/dL) 263 H 282 H (70-110) mg/dL Calcium (8.4-10.2) mg/dL Crossmatch 07/14/24 07/14/24 07/14/24 Range/Units 06:11 06:11 11:51 RBC 3.11 L (3.80-5.40) m/uL Hgb 8.7 L (11.4-16.0) gm/dL Hct 28.2 L (34.0-46.0) % RDW 17.4 H (11.5-15.5) % ABG HCO3 (21-25) mmol/L ABG Total CO2 (19-24) mmol/L ABG O2 Saturation (94-97) % BUN 48 H (7-17) mg/dL Creatinine 1.45 H (0.52-1.04) mg/dL Glucose 256 H (74-99) mg/dL POC Glucose (mg/dL) 276 H (70-110) mg/dL Calcium 7.7 L (8.4-10.2) mg/dL Crossmatch Microbiology - Last 24 Hours (Table) 07/11/24 20:13 Gram Stain - Final Sputum Sputum Culture - Final Azucena albicans Assessment and Plan Assessment: Impression: Acute hypoxic respiratory failure secondary to E. coli sepsis, secondary to urinary tract infection and questionable cholecystitis. Acute leukocytosis, improving Seizures, could be related to hypoglycemia, remains on Keppra and Vimpat Acute metabolic encephalopathy secondary to above. Acute kidney injury on top of CKD stage III, improving Bilateral pneumonia, possible aspiration pneumonia History of kidney stone with recent hospitalization for this purpose History of CVA History of subdural hematoma secondary to fall/anticoagulation. Diabetes mellitus Hyperlipidemia Developmental delay and the patient is a long-term resident Thrombocytopenia, secondary to sepsis, resolved Recommendation: Continue ventilatory support Assessment of mental status off sedation today, sedation holiday. Continue Zosyn Continue nutritional support/enteral feeding General Surgery is addressing her abnormal ultrasound of the gallbladder. At this point no need for surgery Continue GI DVT prophylaxis Cardiology is addressing her seizure medications. Patient remains critically ill, not ready for weaning/extubation. Will continue to follow patient is critically ill Call care time is over 30 Time with Patient: Greater than 30
--- NOTE | 2024-07-14 14:37 | PCN ---
PROCEDURE NOTE PROCEDURE: Placement of a left radial arterial line. PREOPERATIVE DIAGNOSES: Acute hypoxic respiratory failure, requiring intubation and mechanical ventilation, and Escherichia coli sepsis with septic shock. POSTOPERATIVE DIAGNOSES: Acute hypoxic respiratory failure, requiring intubation and mechanical ventilation, and Escherichia coli sepsis with septic shock. ANESTHESIA USED: None deployed. DESCRIPTION OF PROCEDURE: The patient was placed in the supine position, the left wrist was prepared in a sterile fashion, drapes were applied. The left radial artery was palpated, cannulated easily. A guidewire was placed. A Cook's catheter was inserted over the guidewire, the guidewire was removed. Good blood flow, good waveform noted. No complications. Line was secured using 3.0 silk sutures. MMODL / IJN: [id number] /
[2024-07-14 17:53] LABS: Glucose,Whole Blood 273 mg/dL (70-110)
[2024-07-14] MEDS: amLODIPine 5 MG TAB PO STA (21:30)
[2024-07-14 23:31] LABS: Glucose,Whole Blood 288 mg/dL (70-110)
[2024-07-15 04:32] LABS: ABG Base Excess 5.5 mmol/L; ABG HCO3 31 mmol/L (21-25); ABG Oxygen Saturation 96.9 % (94-97); ABG PCO2 47 mmHg (35-45); ABG PH 7.43 (7.35-7.45); ABG PO2 87 mmHg (83-108); ABG TCO2 32 mmol/L (19-24); Allen Test Performed? Yes
[2024-07-15 05:47] LABS: African American GFR (CKD) 43 (>60 ml/min/1.73 sqM); Anion Gap 4 mmol/L; Blood Urea Nitrogen 42 mg/dL (7-17); Calcium 7.6 mg/dL (8.4-10.2); Carbon Dioxide 31 mmol/L (22-30); Chloride 108 mmol/L (98-107); Glucose 270 mg/dL (74-99); Non-African American GFR(CKD) 37 (>60 ml/min/1.73 sqM); Potassium 3.7 mmol/L (3.5-5.1); Sodium 143 mmol/L (137-145)
--- NOTE | 2024-07-15 05:47 | P.PN ---
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 Her potassium on that admission was quite bit high patient had cardiomegaly with interstitial pulmonary edema proBNP was quite bit high ejection fraction was 50-55 percentile but had tricuspid regurgitation with RVSP of 35 to 40 mmHg she was kept for total of almost 2 weeks sent back to [facility] on multi medication including Pulmicort with ipratropium albuterol, insulin lispro, hydrocodone, aspirin, atorvastatin, Plavix, gemfibrozil, Levemir, metoprolol succinate, pantoprazole, Seroquel and trazodone. She did well for the first 10 days then on July developed to have seizure activity with severe episode of hypoglycemia the patient was awake but not able to follow command at the time she was able to tell her name only but kept repeating the word take it out referring to her mitten on her hand apparently the durable [employer] banking attorney Lou Miranda was called and were notified of patient's condition her episode at [facility] apparently was with hypoglycemia and seizure activity with hypotension and hypertensive and hyperthermia found to have white blood cell of 12,000 hemoglobin 10.7 with creatinine 1.2 at the time lactic acid was 325 magnesium was low EKG showed sinus tachycardia with no ST changes at the time UA was suspicious for UTI. She was admitted to the hospital originally with altered mental status could be toxic versus metabolic encephalopathy rule out intracranial etiology also found to have UTI with sepsis with low-grade fever and tachycardia with leukocytosis with elevated lactic acid and active seizure activity with hypoglycemia and found to have significant decline in kidney function at the time. Found to have abnormal liver function test sent for ultrasound of the liver came back with cholelithiasis and cholecystitis no evidence of obstruction at the time kidney function start declining quite bit and become stage IV chronic kidney disease. Patient become more hypoxemic with her seizure activity ended up being intubated on mechanical ventilation. Neurology consultation was obtained with the kidney function decline and surgical consultation was obtained as well for the gallbladder patient is not in any condition to go for cholecystectomy at the time nephrology felt the need to be more aggressive with hydration and avoid any nephrotoxic agent and kidney function started improving slight bed did not require any dialysis. Neurology decided to do EEG which shows seizure activity while she is on the vent could not abort her seizure required to go on Vimpat to help with her seizure activity. Patient is more stabilized on mechanical ventilation currently but kept sedated for her seizure activity and current condition. UTI been treated kidney function has improved some patient family on the bedside all their question were answered today. 07/11/2024: She is still on mechanical ventilation, family are at the bedside as well patient apparently had more seizure activity last 24 hours but was improved significantly on Vimpat which she currently continue on. Continue aggressive management for sepsis, respiratory failure, and diabetic management. Patient still cannot be rested on mechanical ventilation at least for the next 24 hours no attempt for extubation today. 07/12/2024: Shortly after rounds yesterday new development that neurology came back with idea that patient continued to have seizure despite being on Vimpat and Keppra and he preferred to have her transferred to one of the tertiary center specially done at [facility] with attempt to try to transfer the patient had failed not finding bed patient is stable currently no visible sign of seizure activity we decide to follow-up with neuro service and probably do another EEG in the next 24 hours in the meanwhile she is remain on mechanical ventilation. Repeat chest x-ray continue to show slight congestion mostly in the right side but has slight improvement in the type mostly fluid overload. 07/13/2024: Trial for extubation today was not successful patient developed to have severe fatigue and hypoxia required to go back on ventilation very fast and she is back on sedation. EEG was performed today and apparently her seizure activity is much better. She still been treated for sepsis, UTI and aspiration pneumonia along with cholelithiasis and possible ascending cholangitis being on IV Zosyn which responding well to management. Significant drop in hemoglobin in the 6 levels patient will be having 2 unit of blood transfusion. Also kidney function slightly bit worse does not require anemic hemodialysis. 07/14/2024: Continue to be on mechanical ventilation slight improving kidney function was not require dialysis so far mostly secondary to acute kidney injury with stage IIIa chronic kidney disease still been treated for UTI and sepsis had significant anasarca we will continue furosemide 40 mg IV daily. Gallbladder was no surgical intervention will be done at this point patient is not stable 20 daily to have a gallbladder will probably look into it this patient survive this event sometimes down the road. Pulmonary sims she is still on mechanical v entilation with supportive care continue sedation currently and continue enteral feeding. Also patient is seen neurology had last EEG on Sunday and shows improvement of the amount of epileptic form patient will meanwhile remain on combination of Keppra and Vimpat which seem to do slightly better with. REVIEW OF SYSTEMS: CONSTITUTIONAL: Very small for her age sedated on mechanical ventilation. EYES: No icterus sclerae, no conjunctivitis. EARS, NOSE, MOUTH, THROAT, and FACE: No sore throat, lymphadenopathy, carotid bruits or deformity. RESPIRATORY: Currently resting on mechanical ventilation. CARDIOVASCULAR: Mild tachycardia on monitor. GASTROINTESTINAL: Patient is currently on mechanical ventilation does not seem there is any sign of GI bleed. GENITOURINARY: Been treated for UTI. INTEGUMENT/BREAST: Negative for any muscular injury with mild osteoarthritis.. HEMATOLOGIC/LYMPHATIC: Negative for bleed or purpura. MUSCULOSKELTAL: Negative for Myalgia or arthralgia. NEURLOGICAL: Currently sedated on mechanical ventilation. BEHAVIORAL/PSYCH: Negative. ENDOCRINE: Negative. PHYSICAL EXAMINATION: General Appearance: Sedated on mechanical ventilation. Neck HEENT: Supple, no lymphadenopathy, no thyroid enlargement, no carotid bruits. ET tube back in place. Lungs: Clear to auscultation without crackles or wheezes no rhonchi, no defor mity. Chest Wall: Chest wall normal expansion with deep inspiration no tenderness and no deformity was found on exam, no costochondral pain or discomfort. Heart: Regular rate and rhythm, S1, S2 normal, no murmur, rub or gallop. Back: Symmetric, no curvature, ROM normal, no CVA tenderness. Abdomen: Soft slightly distended, non-tender, bowel sounds active all four quadrants, no masses, no organomegaly. Extremities: Extremities normal, atraumatic, no cyanosis or edema. Pulses: 2+ and symmetric. Skin: Skin color, texture, tugor normal, no rashes or lesions. Neurologic: Sedated on mechanical ventilation still withdrawing her extremity to pain stimuli. ASSESSMENT AND PLAN: _Acute hypoxic respiratory failure: Continue mechanical ventilation still on high FiO2 and on sedation currently. _Sepsis secondary to UTI and possible cholecystitis with cholelithiasis with signs and symptoms consistent with sepsis including high lactic acid, tachycardia, leukocytosis and hypotension. Culture came back positive for E. coli both blood and urine still on Zosyn responding well to it no intervention for the gallbladder be done. _Acute kidney injury with much worsening kidney function still seen nephrology does not require any hemodialysis at this point continue current management.. _Severe anemia with hemoglobin down to 6.6 will require 2 unit of blood transfusion continue to watch for any active bleed. Hemoglobin has improved and up to 8.7. _Refractory seizure: Despite being on Vimpat and Keppra patient apparently continued to have seizure try to send her down 24 the hospital for ambulatory EEG monitor watch in ICU failed for no finding bed at the time. Repeat EEG, still seen neurology regularly. _Fluid overload: Will continue furosemide 40 mg IV daily keep watching her urine output and decrease fluid going in at this point. _Cholecystitis and cholelithiasis at some point patient might have her gallbladder out she is not stable currently for any intervention or surgery. _Acute urinary tract infection: With E. coli being treated with IV Zosyn. _Seizure like activity: Had more aggressive management with Keppra and Vimpat patient seemed to respond better to it. _Hypotension: Her blood pressure has improved significantly was previously taking midodrine. _Hypertension: Patient is responding more and more by creating more elevated blood pressure than being low she might benefit from having on demand amlodipine. _Type 2 diabetes with significant hypo-/hyperglycemia: Will continue patient on Accu-Chek with sliding scales coverage titrate medication gradually if needed but watch for any hypoglycemia. _Recent history of intracranial hemorrhage 2 to 3 months ago still recovering from complication related to. _Recent admission with acute on chronic congestive heart failure he was seen cardiology with well-preserved ejection fraction on echocardiogram was on medical management. CODE STATUS: DO NOT RESUSCITATE. Discussion: Patient still not doing well and still very not stable not able to get extubated I think sometimes this week with extubation is not possible we will be looking into consult general surgery for possible tracheostomy at some point which again has been a problem all along with his family might decide not to do longer-term vent management. Objective - Vital Signs Vital signs: Vital Signs Temp 99.7 F H 07/14/24 04:00 Pulse 65 07/14/24 04:00 Resp 18 07/14/24 04:00 BP 117/47 07/14/24 04:00 Pulse Ox 98 07/14/24 04:00 FiO2 40 07/14/24 04:19 Intake & Output 07/13/24 07/13/24 07/14/24 06:59 18:59 06:59 Intake Total 5148.410 8960.288 10 Output Total 920 1375 1930 Balance 315.787 -131.712 -1920 Weight 66.8 kg Intake: IV 550 370 10 Invasive Line 4 20 10 Piperacillin-Tazobactam 3 100 .375 gm In Sodium Chloride 0.9% 100 ml @ 25 mls/hr IVPB Q8HR [facility] Rx# :[id number] Sodium Chloride 0.45% 1, 550 250 000 ml @ 50 mls/hr IV . Q20H [facility] Rx#:[id number] Intake, IV Titration 125.787 33.288 Amount propofoL 1,000 mg In 125.787 33.288 Empty Bag 1 bag @ 15 MCG/ KG/MIN 6.695 mls/hr IV . [id number] [facility] Rx#:[id number] Tube Feeding 470 440 Blood Product 310 Rc As-1 Unit 310 [id number] Other 90 90 Output: Urine 920 1375 1930 Other: Voiding Method Indwelling Catheter Indwelling Catheter Indwelling Catheter # Bowel Movements 0 1 - Labs CBC & Chem 7: 07/14/24 06:11 07/14/24 06:11 Labs: Abnormal Lab Results - Last 24 Hours (Table) 07/13/24 07/13/24 07/13/24 Range/Units 06:31 11:41 12:00 RBC 2.36 L (3.80-5.40) m/uL Hgb 6.6 L* (11.4-16.0) gm/dL Hct 21.7 L (34.0-46.0) % MCHC 30.1 L (31.0-37.0) g/dL RDW 16.9 H (11.5-15.5) % ABG HCO3 (21-25) mmol/L ABG Total CO2 (19-24) mmol/L ABG O2 Saturation (94-97) % POC Glucose (mg/dL) 260 H 202 H (70-110) mg/dL Crossmatch 07/13/24 07/13/24 07/13/24 Range/Units 13:45 18:37 19:41 RBC 3.12 L (3.80-5.40) m/uL Hgb 8.8 L D (11.4-16.0) gm/dL Hct 28.3 L (34.0-46.0) % MCHC (31.0-37.0) g/dL RDW 17.6 H (11.5-15.5) % ABG HCO3 (21-25) mmol/L ABG Total CO2 (19-24) mmol/L ABG O2 Saturation (94-97) % POC Glucose (mg/dL) 254 H (70-110) mg/dL Crossmatch See Detail 07/13/24 07/14/24 07/14/24 Range/Units 23:40 05:28 06:00 RBC (3.80-5.40) m/uL Hgb (11.4-16.0) gm/dL Hct (34.0-46.0) % MCHC (31.0-37.0) g/dL RDW (11.5-15.5) % ABG HCO3 29 H (21-25) mmol/L ABG Total CO2 30 H (19-24) mmol/L ABG O2 Saturation 97.4 H (94-97) % POC Glucose (mg/dL) 263 H 282 H (70-110) mg/dL Crossmatch Microbiology - Last 24 Hours (Table) 07/11/24 20:13 Gram Stain - Preliminary Sputum Sputum Culture - Preliminary Azucena albicans
[2024-07-15 06:20] LABS: Anisocytosis Slight; HCT 27.1 % (34.0-46.0); HGB 8.5 gm/dL (11.4-16.0); Hypochromasia Slight; MCH 28.5 pg (25.0-35.0); MCHC 31.3 g/dL (31.0-37.0); MCV 91.3 fL (80.0-100.0); Mean Platelet Volume 10.1; Platelet Count 276 k/uL (150-450); RBC 2.97 m/uL (3.80-5.40); RDW 17.4 % (11.5-15.5); WBC 9.4 k/uL (3.8-10.6)
[2024-07-15 06:26] LABS: Glucose,Whole Blood 307 mg/dL (70-110)
[2024-07-15] MEDS: POTASSIUM CHLORIDE 20 MEQ in WATER FOR INJECTION 1 100ML.BAG IVPB ONE (06:59)
[2024-07-15 07:54] LABS: Anisocytosis (M) Present; Eosinophils # (M) 0.47 k/uL (0-0.7); Lymphocytes # (M) 1.79 k/uL (1.0-4.8); Monocytes # (M) 0.28 k/uL (0-1.0); Neutrophils # (M) 6.86 k/uL (1.3-7.7); Neutrophils % (M) 73 %; Nucleated Red Blood Cells 0 /100 WBC (0-0); Total Cells Counted 100
--- NOTE | 2024-07-15 08:27 | XR ---
EXAMINATION TYPE: XR chest 1V portable DATE OF EXAM: 07/15/2024 COMPARISON: 07/14/2024 HISTORY: SOB, Follow Up FINDINGS: Indwelling tubes and catheters are unchanged. No change in pulmonary venous congestion scattered infiltrates and bilateral pleural effusions as wel l as cardiomegaly. Stable appearance of the cardio-mediastinal structures at this time. IMPRESSION: 1. Stable portable chest. Clinical correlation and follow up until resolution is recommended.
[2024-07-15] MEDS: INSULIN DETEMIR (LEVEMIR) 100 UNIT/ML SYR SQ SCH (08:53)
[2024-07-15] MEDS: POTASSIUM CHLORIDE 10 MEQ in WATER FOR INJECTION 1 100ML.BAG IVPB ONE (08:55)
[2024-07-15] MEDS: amLODIPine 5 MG TAB PO PRN (09:08)
[2024-07-15] MEDS: FUROSEMIDE 10 MG/ML 4 ML VIAL IV SCH (10:15)
[2024-07-15] MEDS: CLEVIDIPINE BUTYRATE 25 MG in EMPTY BAG 1 BAG IV SCH (10:19)
--- NOTE | 2024-07-15 11:01 | P.PN ---
Subjective Progress Note Date: 07/15/24 CHIEF COMPLAINT: RUQ pain HISTORY OF PRESENT ILLNESS: Patient remains in the ICU intubated and sedated. Patient failed sedation holiday yesterday. Afebrile. WBC 9.4 Hgb 8.5 platelets 276 creatinine 1.38 Patient seen and examined with Dr. Baumann PHYSICAL EXAM: VITAL SIGNS: Reviewed. GENERAL: Intubated and sedated. ABDOMEN: Soft. Nondistended. ASSESSMENT: 1. Acute cholecystitis. ultrasound reported cholelithiasis, thickened gallbladder wall and pericholecystic fluid 2. Sepsis and bacteremia 3. Acute kidney injury 4. UTI PLAN: -Continue antibiotics -Continue ICU management -Cholecystectomy when patient is medically stable Physician Claim Service Representative note has been reviewed by physician. Signing provider agrees with the documented findings, assessment, and plan of care. Objective - Vital Signs Vital signs: Vital Signs Temp 99.3 F 07/15/24 08:00 Pulse 78 07/15/24 09:00 Resp 16 07/15/24 09:00 BP 143/62 07/15/24 09:00 Pulse Ox 98 07/15/24 09:00 FiO2 40 07/15/24 08:00 Intake & Output 07/14/24 07/15/24 07/15/24 18:59 06:59 18:59 Intake Total 828.881 3026.923 419.286 Output Total 1735 1150 175 Balance -835.320 -80.077 244.286 Weight 67.3 kg 64.8 kg Intake: IV 180 230 10 KVO 80 130 10 Piperacillin-Tazobactam 3 100 .375 gm In Sodium Chloride 0.9% 100 ml @ 25 mls/hr IVPB Q12HR [facility] Rx #:[id number] Piperacillin-Tazobactam 3 100 .375 gm In Sodium Chloride 0.9% 100 ml @ 25 mls/hr IVPB Q8HR [facility] Rx# :[id number] Intake, IV Titration 129.680 169.923 239.286 Amount Clevidipine Butyrate 25 0.233 mg In Empty Bag 1 bag @ 1 MG/HR 2 mls/hr IV .Q24H [facility] Rx#:[id number] Piperacillin-Tazobactam 3 100 .375 gm In Sodium Chloride 0.9% 100 ml @ 25 mls/hr IVPB Q8H [facility] Rx#: [id number] Potassium Chloride 10 meq 100 In Water For Injection 1 100ml.bag @ 100 mls/hr IVPB ONCE ONE Rx#: [id number] propofoL 1,000 mg In 129.680 169.923 39.053 Empty Bag 1 bag @ 15 MCG/ KG/MIN 6.695 mls/hr IV . [id number] [facility] Rx#:[id number] Oral 60 Tube Feeding 440 520 80 Other 90 150 90 Output: Urine 1735 1150 175 Other: Voiding Method Indwelling Catheter Indwelling Catheter Indwelling Catheter # Bowel Movements 1 ABP, PAP, CO, CI - Last Documented Arterial Blood Pressure 164/57 - Labs CBC & Chem 7: 07/15/24 04:45 07/15/24 04:45 Labs: Abnormal Lab Results - Last 24 Hours (Table) 07/14/24 07/14/24 07/14/24 Range/Units 11:51 17:52 23:30 RBC (3.80-5.40) m/uL Hgb (11.4-16.0) gm/dL Hct (34.0-46.0) % RDW (11.5-15.5) % ABG pCO2 (35-45) mmHg ABG HCO3 (21-25) mmol/L ABG Total CO2 (19-24) mmol/L Chloride (98-107) mmol/L Carbon Dioxide (22-30) mmol/L BUN (7-17) mg/dL Creatinine (0.52-1.04) mg/dL Glucose (74-99) mg/dL POC Glucose (mg/dL) 276 H 273 H 288 H (70-110) mg/dL Calcium (8.4-10.2) mg/dL 07/15/24 07/15/24 07/15/24 Range/Units 04:20 04:45 04:45 RBC 2.97 L (3.80-5.40) m/uL Hgb 8.5 L (11.4-16.0) gm/dL Hct 27.1 L (34.0-46.0) % RDW 17.4 H (11.5-15.5) % ABG pCO2 47 H (35-45) mmHg ABG HCO3 31 H (21-25) mmol/L ABG Total CO2 32 H (19-24) mmol/L Chloride 108 H (98-107) mmol/L Carbon Dioxide 31 H (22-30) mmol/L BUN 42 H (7-17) mg/dL Creatinine 1.38 H (0.52-1.04) mg/dL Glucose 270 H (74-99) mg/dL POC Glucose (mg/dL) (70-110) mg/dL Calcium 7.6 L (8.4-10.2) mg/dL 07/15/24 Range/Units 06:25 RBC (3.80-5.40) m/uL Hgb (11.4-16.0) gm/dL Hct (34.0-46.0) % RDW (11.5-15.5) % ABG pCO2 (35-45) mmHg ABG HCO3 (21-25) mmol/L ABG Total CO2 (19-24) mmol/L Chloride (98-107) mmol/L Carbon Dioxide (22-30) mmol/L BUN (7-17) mg/dL Creatinine (0.52-1.04) mg/dL Glucose (74-99) mg/dL POC Glucose (mg/dL) 307 H (70-110) mg/dL Calcium (8.4-10.2) mg/dL Microbiology - Last 24 Hours (Table) 07/11/24 20:13 Gram Stain - Final Sputum Sputum Culture - Final Azucena albicans
--- NOTE | 2024-07-15 11:05 | P.PN ---
Subjective Patient is seen in follow-up for acute kidney injury on chronic kidney disease. Renal function improving. Nonoliguric. Intubated. Vital signs are stable. General: Resting in bed. HEENT: Intubated. LUNGS: Scattered rhonchi. HEART: Rate and Rhythm are regular. ABDOMEN: No distention. EXTREMITITES: 2+ edema. Objective - Vital Signs Vital signs: Vital Signs Temp 99.3 F 07/15/24 08:00 Pulse 78 07/15/24 09:00 Resp 16 07/15/24 09:00 BP 143/62 07/15/24 09:00 Pulse Ox 98 07/15/24 09:00 FiO2 40 07/15/24 08:00 Intake & Output 07/14/24 07/15/24 07/15/24 18:59 06:59 18:59 Intake Total 888.741 9688.923 419.286 Output Total 1735 1150 175 Balance -835.320 -80.077 244.286 Weight 67.3 kg 64.8 kg Intake: IV 180 230 10 KVO 80 130 10 Piperacillin-Tazobactam 3 100 .375 gm In Sodium Chloride 0.9% 100 ml @ 25 mls/hr IVPB Q12HR [facility] Rx #:[id number] Piperacillin-Tazobactam 3 100 .375 gm In Sodium Chloride 0.9% 100 ml @ 25 mls/hr IVPB Q8HR [facility] Rx# :[id number] Intake, IV Titration 129.680 169.923 239.286 Amount Clevidipine Butyrate 25 0.233 mg In Empty Bag 1 bag @ 1 MG/HR 2 mls/hr IV .Q24H [facility] Rx#:[id number] Piperacillin-Tazobactam 3 100 .375 gm In Sodium Chloride 0.9% 100 ml @ 25 mls/hr IVPB Q8H [facility] Rx#: [id number] Potassium Chloride 10 meq 100 In Water For Injection 1 100ml.bag @ 100 mls/hr IVPB ONCE ONE Rx#: [id number] propofoL 1,000 mg In 129.680 169.923 39.053 Empty Bag 1 bag @ 15 MCG/ KG/MIN 6.695 mls/hr IV . [id number] [facility] Rx#:[id number] Oral 60 Tube Feeding 440 520 80 Other 90 150 90 Output: Urine 1735 1150 175 Other: Voiding Method Indwelling Catheter Indwelling Catheter Indwelling Catheter # Bowel Movements 1 ABP, PAP, CO, CI - Last Documented Arterial Blood Pressure 164/57 - Labs CBC & Chem 7: 07/15/24 04:45 07/15/24 04:45 Labs: Abnormal Lab Results - Last 24 Hours (Table) 07/14/24 07/14/24 07/14/24 Range/Units 11:51 17:52 23:30 RBC (3.80-5.40) m/uL Hgb (11.4-16.0) gm/dL Hct (34.0-46.0) % RDW (11.5-15.5) % ABG pCO2 (35-45) mmHg ABG HCO3 (21-25) mmol/L ABG Total CO2 (19-24) mmol/L Chloride (98-107) mmol/L Carbon Dioxide (22-30) mmol/L BUN (7-17) mg/dL Creatinine (0.52-1.04) mg/dL Glucose (74-99) mg/dL POC Glucose (mg/dL) 276 H 273 H 288 H (70-110) mg/dL Calcium (8.4-10.2) mg/dL 07/15/24 07/15/24 07/15/24 Range/Units 04:20 04:45 04:45 RBC 2.97 L (3.80-5.40) m/uL Hgb 8.5 L (11.4-16.0) gm/dL Hct 27.1 L (34.0-46.0) % RDW 17.4 H (11.5-15.5) % ABG pCO2 47 H (35-45) mmHg ABG HCO3 31 H (21-25) mmol/L ABG Total CO2 32 H (19-24) mmol/L Chloride 108 H (98-107) mmol/L Carbon Dioxide 31 H (22-30) mmol/L BUN 42 H (7-17) mg/dL Creatinine 1.38 H (0.52-1.04) mg/dL Glucose 270 H (74-99) mg/dL POC Glucose (mg/dL) (70-110) mg/dL Calcium 7.6 L (8.4-10.2) mg/dL 07/15/24 Range/Units 06:25 RBC (3.80-5.40) m/uL Hgb (11.4-16.0) gm/dL Hct (34.0-46.0) % RDW (11.5-15.5) % ABG pCO2 (35-45) mmHg ABG HCO3 (21-25) mmol/L ABG Total CO2 (19-24) mmol/L Chloride (98-107) mmol/L Carbon Dioxide (22-30) mmol/L BUN (7-17) mg/dL Creatinine (0.52-1.04) mg/dL Glucose (74-99) mg/dL POC Glucose (mg/dL) 307 H (70-110) mg/dL Calcium (8.4-10.2) mg/dL Microbiology - Last 24 Hours (Table) 07/11/24 20:13 Gram Stain - Final Sputum Sputum Culture - Final Azucena albicans Assessment and Plan Plan: Assessment: 1. Acute kidney injury secondary to ATN secondary to severe sepsis. Creatinine peaked at 3.24 this admission and is 1.38 today. No hydronephrosis noted on kidney ultrasound. 2. Chronic kidney disease stage IIIa with baseline creatinine 1.2-1.3 secondary to diabetic kidney disease. 3. Severe sepsis secondary to E. coli bacteremia and UTI on antibiotics. 4. Volume overload. Improving with diuresis. 5. Nephrolithiasis. 6. Anemia of chronic kidney disease. Avoid IV iron in the setting of acute infection. On Aranesp. Plan: Maintain IV Lasix. Avoid nephrotoxins. Wean FiO2. Maintain tube feeds. Potassium replaced.
[2024-07-15 11:29] LABS: Glucose,Whole Blood 282 mg/dL (70-110)
--- NOTE | 2024-07-15 13:34 | P.PN ---
Subjective Progress Note Date: 07/15/24 I am following-up with patient and she was on IV Propofol overnight and this morning and was stopped about 45 minutes prior to my examination. Per nurse she lifted left arm above gravity spontaneously. Objective - Vital Signs Vital signs: Vital Signs Temp 99.6 F 07/15/24 12:00 Pulse 99 07/15/24 12:00 Resp 20 07/15/24 12:00 BP 129/55 07/15/24 12:00 Pulse Ox 95 07/15/24 12:00 FiO2 40 07/15/24 12:00 Intake & Output 07/14/24 07/15/24 07/15/24 18:59 06:59 18:59 Intake Total 277.775 7443.923 569.286 Output Total 1735 1150 525 Balance -835.320 -80.077 44.286 Weight 67.3 kg 64.8 kg Intake: IV 180 230 10 KVO 80 130 10 Piperacillin-Tazobactam 3 100 .375 gm In Sodium Chloride 0.9% 100 ml @ 25 mls/hr IVPB Q12HR [facility] Rx #:[id number] Piperacillin-Tazobactam 3 100 .375 gm In Sodium Chloride 0.9% 100 ml @ 25 mls/hr IVPB Q8HR [facility] Rx# :[id number] Intake, IV Titration 129.680 169.923 239.286 Amount Clevidipine Butyrate 25 0.233 mg In Empty Bag 1 bag @ 1 MG/HR 2 mls/hr IV .Q24H [facility] Rx#:[id number] Piperacillin-Tazobactam 3 100 .375 gm In Sodium Chloride 0.9% 100 ml @ 25 mls/hr IVPB Q8H [facility] Rx#: [id number] Potassium Chloride 10 meq 100 In Water For Injection 1 100ml.bag @ 100 mls/hr IVPB ONCE ONE Rx#: [id number] propofoL 1,000 mg In 129.680 169.923 39.053 Empty Bag 1 bag @ 15 MCG/ KG/MIN 6.695 mls/hr IV . [id number] [facility] Rx#:[id number] Oral 60 Tube Feeding 440 520 200 Other 90 150 120 Output: Urine 1735 1150 525 Other: Voiding Method Indwelling Catheter Indwelling Catheter Indwelling Catheter # Bowel Movements 1 ABP, PAP, CO, CI - Last Documented Arterial Blood Pressure 152/49 - Exam General: Lying in bed and does not appear in acute distress. Lung: Intubated on ventilator. Cardiovascular: Has edema in distal upper and lower extremities. Neuro: Limited. IV Propofol is held for about 45 minutes prior to my examination. She is severely encephalopathic. She attempts to mild open he eyes. Is not following commands. Does not verbalize. Motor: Hard to assess because of her cooperation. - Labs CBC & Chem 7: 07/15/24 04:45 07/15/24 04:45 Labs: Abnormal Lab Results - Last 24 Hours (Table) 07/14/24 07/14/24 07/15/24 Range/Units 17:52 23:30 04:20 RBC (3.80-5.40) m/uL Hgb (11.4-16.0) gm/dL Hct (34.0-46.0) % RDW (11.5-15.5) % ABG pCO2 47 H (35-45) mmHg ABG HCO3 31 H (21-25) mmol/L ABG Total CO2 32 H (19-24) mmol/L Chloride (98-107) mmol/L Carbon Dioxide (22-30) mmol/L BUN (7-17) mg/dL Creatinine (0.52-1.04) mg/dL Glucose (74-99) mg/dL POC Glucose (mg/dL) 273 H 288 H (70-110) mg/dL Calcium (8.4-10.2) mg/dL 07/15/24 07/15/24 07/15/24 Range/Units 04:45 04:45 06:25 RBC 2.97 L (3.80-5.40) m/uL Hgb 8.5 L (11.4-16.0) gm/dL Hct 27.1 L (34.0-46.0) % RDW 17.4 H (11.5-15.5) % ABG pCO2 (35-45) mmHg ABG HCO3 (21-25) mmol/L ABG Total CO2 (19-24) mmol/L Chloride 108 H (98-107) mmol/L Carbon Dioxide 31 H (22-30) mmol/L BUN 42 H (7-17) mg/dL Creatinine 1.38 H (0.52-1.04) mg/dL Glucose 270 H (74-99) mg/dL POC Glucose (mg/dL) 307 H (70-110) mg/dL Calcium 7.6 L (8.4-10.2) mg/dL 07/15/24 Range/Units 11:27 RBC (3.80-5.40) m/uL Hgb (11.4-16.0) gm/dL Hct (34.0-46.0) % RDW (11.5-15.5) % ABG pCO2 (35-45) mmHg ABG HCO3 (21-25) mmol/L ABG Total CO2 (19-24) mmol/L Chloride (98-107) mmol/L Carbon Dioxide (22-30) mmol/L BUN (7-17) mg/dL Creatinine (0.52-1.04) mg/dL Glucose (74-99) mg/dL POC Glucose (mg/dL) 282 H (70-110) mg/dL Calcium (8.4-10.2) mg/dL Microbiology - Last 24 Hours (Table) 07/11/24 20:13 Gram Stain - Final Sputum Sputum Culture - Final Azucena albicans Assessment and Plan Assessment: * Altered mental status due to toxic metabolic encephalopathy. Reasons multifactorial as mentioned below--She lifts left upper extremity spontaneous ly and attempts to mild open eyes. * Abnormal EEG, with evidence of severe encephalopathy and frequent sharp waves. Cannot rule out nonconvulsive status per Dr. Montemayor---but routine EEG on 07/13/2024 no seizure. * Septic encephalopathy * E. coli bacteremia * Hypoglycemia with hypoglycemic encephalopathy. * Possible cholecystitis * History of right hemispheric subdural hematoma 04/16/2024, treated co nservatively. * Acute kidney injury, improving. * Acute hypoxic respiratory failure. * History of right pontine lacunar stroke 11/01/2021. * Diabetes * Hyperlipidemia * Developmental delay, and patient is shelter resident. Plan: * Patient continues to be intubated, sedated. No obvious clinical seizure-like activity noted. * Repeat prolonged EEG for 1 hour performed two days. Per Dr. Montemayor, It revealed definite improvement in the amount of epileptiform activity. However in the early part of the study, there were sporadic generalized sharp wave, and relatively more frequent right hemispheric, maximal right parietal sharp waves. This epileptiform activity improved during middle and later part of the study with sporadic right parietal sharp waves. Cannot rule out nonconvulsive status. Patient probably will need prolonged, continuous EEG monitoring for further management. * Prolonged EEG for 1 hour from three days ago and reported by Dr. Montemayor as severely abnormal, with background slowing and disorganization, suggestive of severe encephalopathy. Also revealed evidence of intermittent high amplitude sharp waves seen occasionally involving right hemispheric, but more often bihemispheric region. At times these sharp waves have triphasic in quality as well. No electrographic seizure was recorded. * Patient currently on Keppra 500 mg twice daily and Vimpat 150 mg twice daily. * Initial EEG 06/08/2024 was abnormal due to background slowing, suggestive of moderate to severe encephalopathy. Also evidence of sporadic generalized spike and slow wave seen at later part of the study. No electrographic seizure was recorded. No electrographic evidence of status epilepticus. * Per ICU attending as well as the primary attending over the weekend, it was felt [facility] did not have any beds and it was felt there is some improvement in her condition. Therefore will avoid the transfer to a tertiary center for long-term EEG and will obtain a repeat EEG in our facility. I sp keshia with patient's brother and her niece who are bedside and they are in agreement of avoiding transfer especially since it is not convenient for the family and with her her underlying cognitive issues (developmentally delayed) and medical issues. * On routine EEG on 07/13/2024: Background slowing suggestive of severe encephalopathy. Triphasic morphology is likely due to toxic metabolic derangement. There is questionable diffuse sharp activity over the left central concerning for discharges but definitely no clear perform discharge. There is definitely no seizure during the study. * CT head showed no acute process. Resolution of previously seen right sided subdural hematoma. * Patient currently on Zosyn. * Avoid episodes of hypoglycemia. * Medical management as per IM/critical care. IV propofol is held ICU and will assess if she improves. * Patient is critically sick. Discussed with ICU nurse. Time with Patient: Less than 30
[2024-07-15 13:51] VITALS: BMI 24.5
--- NOTE | 2024-07-15 14:25 | P.PN ---
Subjective Progress Note Date: 07/15/24 Principal diagnosis: E. coli urinary tract infection and E. coli sepsis This is a 79-year-old female patient, snf resident with developmental delay, who was recently hospitalized at [facility] in time she was treated for pneumonia and she also had a pleural effusion that was drained. The exact site of the pneumonia and the drainage is not known to me at this point. The patient came into our hospital after having an episode of hypoglycemia with a blood sugar in the low 40s and a seizure-like activity. The patient was awake however she was not answering questions appropriately. The power of [place] attorney was at the bedside. In the emergency, the patient was found to be septic. The white cell count was 12 with a hemoglobin 10.7 and a blood culture was positive for gram-negative bacillus. BUN was 27 with a creatinine of 1.3 and a sodium level of 134. Initial lactic acid level was at 3.3 and repeat level was also 3.3. UA was consistent with infection as the patient had blood and white cells within the urine analysis along with +2 protein and occasional bacteria and many WBC clumps. The viral screen was negative. Also, the patient's LFTs were essentially within normal limits. Nevertheless, the patient was given a ultrasound of the bladder and the kidneys. There was evidence of cholelithiasis with prominent wall and pericholecystic fluid suggestive of cholecystitis. No evidence of any obstructive uropathy. There was renal cortical scarring bilaterally possible nonobstructing cortical calcifications. No evidence of any hydronephrosis. The patient is currently on IV Zosyn. She was given a dose of Rocephin in the emergency department. The patient was also given IV fluids and currently she is on normal saline at rate of 130 cc an hour. CAT scan of the brain showed a resolution of the previously described right subdural hemorrhage from 04/16/2024. There was some nonspecific white matter changes. X-ray of the chest showed no evidence of any pleural effusion for consolidation. The patient had increased pulm vascular markings. At this point in time the patient is currently on 4 L of oxygen by nasal cannula with a pulse ox of 94%. Normotensive. Slightly tachycardic. On today's evaluation of 07/09/2024, the patient's condition is further decompensated compared to yesterday. She seems to be much more obtunded. Urine output is low. The patient has developed further increase the white cell count and has developed an acute kidney injury in addition. The patient's blood cultures positive for E. coli and the patient is prepped and IV Zosyn. Abdomen seems to be slightly more firm compared to yesterday. Is currently the patient afebrile, slightly tachycardic, on 4 L of oxygen by nasal cannula with a pulse ox of 94%. Follow-up chest x-ray from today shows evidence of pulmonary edema. IV fluids are running in the form of a normal saline at rate of 75 cc an hour. She was given another bolus of 500 cc earlier today. The white cell count is at 24.5 hemoglobin is 8 with a platelet count of 134. She has 94% neutrophilia. Sodium levels at 139 with a potassium level of 5.8. Serum bicarb is 18 with a BUN of 59 and a creatinine of 3.10. Blood sugar is at 306. As stated, urine cultures are still pending. Blood culture is positive for E. coli. Lactic acid level has improved compared to yesterday and is currently down to 1.4 from 3.2. The highest lactic acid level was at 5.9 07/10/2024, the patient is being seen for a follow-up. The patient is currently intubated on mechanical ventilator due to septic shock. Blood cultures positive for E. coli, urine cultures also positive for E. coli. Patient is currently on IV Zosyn. Repeat ultrasound the gallbladder was done and shows cholelithiasis with pericholecystic fluid collection and the patient has multiple gallstones seen in the neck and the body of the gallbladder. The amount of pericholecystic fluid is mild. Unable to evaluate the patient's Bar sign. There is also a right renal calculus. The liver function tests remain essentially within normal limits with an alkaline phosphatase of 129, and the patient's bilirubin is at 0.6. Being the source of septicemia is a urine. The patient is still on propofol which is running at 20 mcg/kg/min. She is on mechanical ventilator assist-control mode with rate of 22, tidal volume of 350, FiO2 of 50% with a PEEP of 5. Blood gas from today showed a pH of 7.41 with a pCO2 of 81 and pO2 of 152. Chest x-ray showing diffuse bilateral pulmonary for trace, could be related to interstitial edema versus acute lung injury secondary to sepsis. Serum bicarb is 18 and the patient remains on a bicarb infusion at rate of 75 cc an hour. BUN is 62 with a creatinine of 2.9 and a sodium levels at 142. LFTs are normal. The patient had dropped her platelet count 212 with a WBC count of 7.8 which is improved compared to yesterday and a hemoglobin of 7.6. Antibiotic coverage with IV Zosyn. 07/11/2024, the patient is being seen for a follow-up. The patient remains intubated on the mechanical ventilator. Of concern is her abnormal EEG which was done yesterday and it showed some background slowing suggestive of moderate to severe encephalopathy. The patient also had high amplitude sharp appearing waves from the right and often bilateral, triphasic in quality indicating cortical irritation/irritability and tendency for seizures. Based on that, the patient was covered with Vimpat 100 mg IV every 12 hours. The patient remains on propofol and Keppra in addition. This morning, propofol running at 30 mcg/kg/min. The patient is calm and comfortable and synchronous with mechanical ventilator. She remains on assist-control mode at rate of 22, tidal volume of 350, FiO2 of 45% with a PEEP of 4. Blood gas showed a pH of 7.52 with a pCO2 of 31 and pO2 of 139. Hemodynamically stable on no pressors. BUN is 61 with a creatinine of 2.46 and the creatinine continues to improve. Sodium is at 140. Potassium is at 4.0. Bicarb is at 25. WBC 10.5 with a Hemoglobin of 7 and a Platelet Count of 124. Chest X-Ray from Today Shows Cardiomegaly and Patchy Interstitial Edema/Pulmonary Edema with Slight Interval Worsening Compared to Yesterday. Nevertheless, This Has Not Affected the Patient's Oxygenation. In Terms of Antibiotic Coverage, the Patient Remains on IV Zosyn. Ultrasound the Gallbladder Was Noted. LFTs from Yesterday Was Essentially within normal limits. 07/12/2024, the patient remains intubated on mechanical ventilator. The patient remains on propofol which is currently running at 25 mcg/kg/min. No seizure activity has been noted and the patient is currently on a combination of Keppra and Vimpat. Discussed the case with neurology. Will try to get another EEG. If not, will assess clinically and gradually wean off the propofol and assess the patient's mental status. The patient remains intubated on the mechanical ventilator. She remains on assist-control mode rate of 14, tidal volume of 350, FiO2 40% with a PEEP of 5. Blood gas shows a pH of 7.43 with a pCO2 of 40 and pO2 of 151. The patient is on half-normal citrate of 50 cc an hour. No pressors. She is on vital high-protein at rate of 30 cc an hour. She remains on IV Zosyn. Labs show a drop in the white cell count down to 9.5. Hemoglobin stable at 7.3 with a platelet count of 119. The BUN is 54 with a creatinine of 2.09 and sodium levels at 136 and a potassium level of 3.8. LFTs remain normal. No significant abdominal distention. Chest x-ray is showing some improvement in the infiltrates that was noted earlier. This could have been a representation with acute lung injury/ARDS in the setting of sepsis and this is improving and the patient has adequate oxygenation. On 07/13/2024, the patient remains intubated on the mechanical ventilator. The patient remains on propofol which is running at 25 mcg/kg/min. No seizure activity and the patient is going to undergo another EEG. Meanwhile, the patient is covered with a combination of Keppra and Vimpat. Afebrile. H emodynamically stable. Remains on assist-control mode of mechanical ventilation at rate of 14 with a tidal volume of 350, FiO2 40% with a PEEP of 5. She remains on IV fluids. She is on half-normal saline at rate of 50 cc an hour. She is also tolerating enteral free evening for the social support and the patient is vital high-protein running at 30 cc an hour. No abdominal distention. No abdominal pain. No abdominal tenderness. The labs from today shows a hemoglobin of 6.9. No evidence of any GI bleed. This will be monitored. The white cell count is 8.9. The blood gas from today shows a pH of 7.42 with a pCO2 of 42 and pO2 of 110. BUN is 47 and the creatinine is 1.6 and the creatinine continues to improve. Sodium levels at 139. The patient remains on IV Zosyn regarding E. coli septicemia. Rest of the medications remain unchanged. She remains on Lovenox 30 mg subcu for DVT prophylaxis. Chest x-ray showing diffuse bilateral pulmonary pattern is consistent with acute lung injury in the setting of an acute sepsis Reevaluate today on 07/14/2024, patient remains in the ICU intubated and mechanically ventilated. She is on assist-control rate of 14 tidal volume 350 FiO2 40% PEEP of 5 ABG showed a pO2 of 93 pCO2 44 pH of 7.43, hence no changes were made in her ventilator settings. Patient remains on propofol at 25 mcg/kg/min, she is not requiring any pressors at this point. She is on vital AF at 40 cc/h. She is also on Zosyn for her positive urine cultures secondary to E. coli. No seizures noted in the last 24 hours, patient remains sedated, remains on seizure medications in the form of Keppra and Vimpat. WBC count is 10.2 hemoglobin 8.7. Basic metabolic profile is normal BUN is 48 creatinine 1.45 blood sugar is 256 chest x-ray continues to show mild pulmonary vascular congestion with scattered bilateral infiltrates and small pleural effusions suggestive of CHF. Patient is receiving diuretics. She remains on antibiotics/Zosyn Today on 07/15/2024, remains in the ICU, remains intubated and mechanically ventilated, she is on assist-control rate of 14 tidal volume 350 FiO2 45% PEEP of 5 ABG showed a pO2 of 87 pCO2 47 pH of 7.43. Patient is still requiring propofol at 25 mcg/kg/min, I have recommended holding propofol to assess mental status. Yesterday this was done, patient became agitated, but no signs significant responses were noted. Her blood pressure was also noted to go high, and today if it does go high patient could be placed on Cleviprex. Remains on vital HP at 40 cc/h, remains on Zosyn, patient will be placed on Lasix 40 mg IV push every 12 hours as her chest x-ray content continues to show evidence of interstitial edema. Status is difficult to assess, patient does have underlying history of developmental delay WBC count is 9.4 hemoglobin 8.5. Basic metabolic profile is normal BUN is 42 creatinine 1.38, down from 1.45 yesterday and 1.68 the day before Objective - Vital Signs Vital signs: Vital Signs Temp 99.6 F 07/15/24 12:00 Pulse 93 07/15/24 13:30 Resp 17 07/15/24 13:30 BP 128/63 07/15/24 13:30 Pulse Ox 95 07/15/24 13:30 FiO2 40 07/15/24 12:00 Intake & Output 07/14/24 07/15/24 07/15/24 18:59 06:59 18:59 Intake Total 874.001 0148.923 648.619 Output Total 1735 1150 625 Balance -835.320 -80.077 23.619 Weight 67.3 kg 64.8 kg 64.8 kg Intake: IV 180 230 20 KVO 80 130 20 Piperacillin-Tazobactam 3 100 .375 gm In Sodium Chloride 0.9% 100 ml @ 25 mls/hr IVPB Q12HR [facility] Rx #:[id number] Piperacillin-Tazobactam 3 100 .375 gm In Sodium Chloride 0.9% 100 ml @ 25 mls/hr IVPB Q8HR [facility] Rx# :[id number] Intake, IV Titration 129.680 169.923 268.619 Amount Clevidipine Butyrate 25 29.566 mg In Empty Bag 1 bag @ 1 MG/HR 2 mls/hr IV .Q24H [facility] Rx#:[id number] Piperacillin-Tazobactam 3 100 .375 gm In Sodium Chloride 0.9% 100 ml @ 25 mls/hr IVPB Q8H [facility] Rx#: [id number] Potassium Chloride 10 meq 100 In Water For Injection 1 100ml.bag @ 100 mls/hr IVPB ONCE ONE Rx#: [id number] propofoL 1,000 mg In 129.680 169.923 39.053 Empty Bag 1 bag @ 15 MCG/ KG/MIN 6.695 mls/hr IV . [id number] [facility] Rx#:[id number] Oral 60 Tube Feeding 440 520 240 Other 90 150 120 Output: Urine 1735 1150 625 Other: Voiding Method Indwelling Catheter Indwelling Catheter Indwelling Catheter # Bowel Movements 1 ABP, PAP, CO, CI - Last Documented Arterial Blood Pressure 132/45 - Exam GENERAL: Revealed a 79-year-old female, intubated, mechanically ventilated, on propofol. HEENT: Pupils are round and equally reacting to light. EOMI. No scleral icterus. No conjunctival pallor. Normocephalic, atraumatic. No pharyngeal erythema. No thyromegaly. CARDIOVASCULAR: Distant S1-S2, no S3 gallop. PULMONARY: Crackles at the bases no rhonchi no wheezes symmetrical chest expansion ABDOMEN: Soft nontender no megaly no rebound no guarding, positive bowel sounds. MUSCULOSKELETAL: No evidence of any deformities. EXTREMITIES: No clubbing edema or cyanosis. NEUROLOGICAL: Could not assess, SKIN: No rashes. no petechiae. - Labs CBC & Chem 7: 07/15/24 04:45 07/15/24 04:45 Labs: Abnormal Lab Results - Last 24 Hours (Table) 07/14/24 07/14/24 07/15/24 Range/Units 17:52 23:30 04:20 RBC (3.80-5.40) m/uL Hgb (11.4-16.0) gm/dL Hct (34.0-46.0) % RDW (11.5-15.5) % ABG pCO2 47 H (35-45) mmHg ABG HCO3 31 H (21-25) mmol/L ABG Total CO2 32 H (19-24) mmol/L Chloride (98-107) mmol/L Carbon Dioxide (22-30) mmol/L BUN (7-17) mg/dL Creatinine (0.52-1.04) mg/dL Glucose (74-99) mg/dL POC Glucose (mg/dL) 273 H 288 H (70-110) mg/dL Calcium (8.4-10.2) mg/dL 07/15/24 07/15/24 07/15/24 Range/Units 04:45 04:45 06:25 RBC 2.97 L (3.80-5.40) m/uL Hgb 8.5 L (11.4-16.0) gm/dL Hct 27.1 L (34.0-46.0) % RDW 17.4 H (11.5-15.5) % ABG pCO2 (35-45) mmHg ABG HCO3 (21-25) mmol/L ABG Total CO2 (19-24) mmol/L Chloride 108 H (98-107) mmol/L Carbon Dioxide 31 H (22-30) mmol/L BUN 42 H (7-17) mg/dL Creatinine 1.38 H (0.52-1.04) mg/dL Glucose 270 H (74-99) mg/dL POC Glucose (mg/dL) 307 H (70-110) mg/dL Calcium 7.6 L (8.4-10.2) mg/dL 07/15/24 Range/Units 11:27 RBC (3.80-5.40) m/uL Hgb (11.4-16.0) gm/dL Hct (34.0-46.0) % RDW (11.5-15.5) % ABG pCO2 (35-45) mmHg ABG HCO3 (21-25) mmol/L ABG Total CO2 (19-24) mmol/L Chloride (98-107) mmol/L Carbon Dioxide (22-30) mmol/L BUN (7-17) mg/dL Creatinine (0.52-1.04) mg/dL Glucose (74-99) mg/dL POC Glucose (mg/dL) 282 H (70-110) mg/dL Calcium (8.4-10.2) mg/dL Microbiology - Last 24 Hours (Table) 07/11/24 20:13 Gram Stain - Final Sputum Sputum Culture - Final Azucena albicans Assessment and Plan Assessment: Impression: Acute hypoxic respiratory failure secondary to E. coli sepsis, secondary to urinary tract infection and questionable cholecystitis. Acute leukocytosis, improving Seizures, could be related to hypoglycemia, remains on Keppra and Vimpat Acute metabolic encephalopathy secondary to above. Acute kidney injury on top of CKD stage III, improving Bilateral pneumonia, possible aspiration pneumonia History of kidney stone with recent hospitalization for this purpose History of CVA History of subdural hematoma secondary to fall/anticoagulation. Diabetes mellitus Hyperlipidemia Developmental delay and the patient is a snf resident Thrombocytopenia, secondary to sepsis, resolved Recommendation: Continue ventilatory support, however the patient will be given another sedation holiday today, and try to assess mental status. Continue Zosyn Continue nutritional support/enteral feeding General Surgery is addressing her abnormal ultrasound of the gallbladder. Continue GI DVT prophylaxis Neurology is on board for her seizure medications. Patient remains critically ill, sedation holiday will be given obviously the patient is not quite ready for any weaning at this point unless mental status is briefly assessed. Will continue to follow patient is critically ill Call care time is over 30 Time with Patient: Greater than 30
--- NOTE | 2024-07-15 14:52 | P.PN ---
Subjective Progress Note Date: 07/14/24 Principal diagnosis: Reason for follow-up is UTI and bacteremia Patient is a 79-year-old female with a past medical history significant for diabetes mellitus hypertension hyperlipidemia CVA TIA in this patient who is a [place] [facility] resident patient has been brought into the ER by EMS after apparently the patient did have some seizure-like activity, patient did have a fever positive UA and blood culture positive for E. coli. On today's evaluation that is 07/14/2024, Patient is afebrile patient remains to be debated on the vent FiO2 is currently stable at 40% no significant purulent secretion through the ET diarrhea or any other changes reported by nursing staff. Patient white count of 10.2, creatinine is 1.45 Objective - Vital Signs Vital signs: Vital Signs Temp 98.2 F 07/14/24 16:00 Pulse 59 L 07/14/24 19:00 Resp 14 07/14/24 19:00 BP 138/58 07/14/24 19:00 Pulse Ox 98 07/14/24 19:00 FiO2 40 07/14/24 20:41 Intake & Output 07/14/24 07/14/24 07/15/24 06:59 18:59 06:59 Intake Total 10 899.680 119.923 Output Total 2160 1735 100 Balance -2150 -835.320 19.923 Weight 67.3 kg 67.3 kg Intake: IV 10 180 10 Invasive Line 4 10 KVO 80 10 Piperacillin-Tazobactam 3 100 .375 gm In Sodium Chloride 0.9% 100 ml @ 25 mls/hr IVPB Q12HR [facility] Rx #:[id number] Intake, IV Titration 129.680 69.923 Amount propofoL 1,000 mg In 129.680 69.923 Empty Bag 1 bag @ 15 MCG/ KG/MIN 6.695 mls/hr IV . [id number] [facility] Rx#:[id number] Oral 60 Tube Feeding 440 40 Other 90 Output: Urine 2160 1735 100 Other: Voiding Method Indwelling Catheter Indwelling Catheter # Bowel Movements 1 ABP, PAP, CO, CI - Last Documented Arterial Blood Pressure 144/48 - Exam GENERAL DESCRIPTION: An elderly female intubated on the vent RESPIRATORY SYSTEM: Unlabored breathing , decreased breath sounds at bases HEART: S1 S2 regular rate and rhythm , ABDOMEN: Soft , no tenderness EXTREMITIES: 2+ edema feet - Labs CBC & Chem 7: 07/15/24 04:45 07/15/24 14:07 Labs: Abnormal Lab Results - Last 24 Hours (Table) 07/13/24 07/14/24 07/14/24 Range/Units 23:40 05:28 06:00 RBC (3.80-5.40) m/uL Hgb (11.4-16.0) gm/dL Hct (34.0-46.0) % RDW (11.5-15.5) % ABG HCO3 29 H (21-25) mmol/L ABG Total CO2 30 H (19-24) mmol/L ABG O2 Saturation 97.4 H (94-97) % BUN (7-17) mg/dL Creatinine (0.52-1.04) mg/dL Glucose (74-99) mg/dL POC Glucose (mg/dL) 263 H 282 H (70-110) mg/dL Calcium (8.4-10.2) mg/dL 07/14/24 07/14/24 07/14/24 Range/Units 06:11 06:11 11:51 RBC 3.11 L (3.80-5.40) m/uL Hgb 8.7 L (11.4-16.0) gm/dL Hct 28.2 L (34.0-46.0) % RDW 17.4 H (11.5-15.5) % ABG HCO3 (21-25) mmol/L ABG Total CO2 (19-24) mmol/L ABG O2 Saturation (94-97) % BUN 48 H (7-17) mg/dL Creatinine 1.45 H (0.52-1.04) mg/dL Glucose 256 H (74-99) mg/dL POC Glucose (mg/dL) 276 H (70-110) mg/dL Calcium 7.7 L (8.4-10.2) mg/dL 07/14/24 Range/Units 17:52 RBC (3.80-5.40) m/uL Hgb (11.4-16.0) gm/dL Hct (34.0-46.0) % RDW (11.5-15.5) % ABG HCO3 (21-25) mmol/L ABG Total CO2 (19-24) mmol/L ABG O2 Saturation (94-97) % BUN (7-17) mg/dL Creatinine (0.52-1.04) mg/dL Glucose (74-99) mg/dL POC Glucose (mg/dL) 273 H (70-110) mg/dL Calcium (8.4-10.2) mg/dL Microbiology - Last 24 Hours (Table) 07/11/24 20:13 Gram Stain - Final Sputum Sputum Culture - Final Azucena albicans Assessment and Plan (1) Gram-negative bacteremia Current Visit: Yes Status: Acute Code(s): R78.81 - BACTEREMIA SNOMED C ode(s): 553159124056 (2) UTI (urinary tract infection) Current Visit: Yes Status: Acute Code(s): N39.0 - URINARY TRACT INFECTION, SITE NOT SPECIFIED SNOMED Code(s): 47112784 Plan: 1patient presented to hospital with sepsis in this patient who did have low- grade fever tachycardia elevated white count elevated lactic acid and now with a positive blood culture likely related to the urinary source as the patient did have significantly positive UA patient also have abnormality seen of the gallbladder however did have a normal liver enzymes 2-E. coli bacteremia source likely urinary that is a sensitive pathogen, urine did grew the same pathogen 3-patient did have worsening of the respiratory status requiring intubation question of possible aspiration pneumonitis, sputum cultures growing Azucena which is more likely colonizer 4-patient is afebrile and white count normalized, we will continue with the Zosyn and monitor clinical course closely Dictation was produced using [employer] dictation software. please excuse any grammatical, word or spelling errors. Time with Patient: Less than 30
--- NOTE | 2024-07-15 14:53 | P.PN ---
Subjective Progress Note Date: 07/15/24 Principal diagnosis: Reason for follow-up is UTI and bacteremia Patient is a 79-year-old female with a past medical history significant for diabetes mellitus hypertension hyperlipidemia CVA TIA in this patient who is a retirement resident patient has been brought into the ER by EMS after apparently the patient did have some seizure-like activity, patient did have a fever positive UA and blood culture positive for E. coli. On today's evaluation that is 07/15/2024, patient has been afebrile, patient remains to be intubated on the vent FiO2 is stable at 40% no significant purulent secretion through the ET sedation has been put on hold still patient not waking up as reported by the nursing staff not requiring any pressor support. Patient white count is 9.4, creatinine is 1.38 Objective - Vital Signs Vital signs: Vital Signs Temp 99.6 F 07/15/24 12:00 Pulse 91 07/15/24 14:30 Resp 15 07/15/24 14:30 BP 134/62 07/15/24 14:30 Pulse Ox 94 L 07/15/24 14:30 FiO2 40 07/15/24 12:00 Intake & Output 07/14/24 07/15/24 07/15/24 18:59 06:59 18:59 Intake Total 779.619 6581.923 698.619 Output Total 1735 1150 725 Balance -835.320 -80.077 -26.381 Weight 67.3 kg 64.8 kg 64.8 kg Intake: IV 180 230 30 KVO 80 130 30 Piperacillin-Tazobactam 3 100 .375 gm In Sodium Chloride 0.9% 100 ml @ 25 mls/hr IVPB Q12HR [facility] Rx #:[id number] Piperacillin-Tazobactam 3 100 .375 gm In Sodium Chloride 0.9% 100 ml @ 25 mls/hr IVPB Q8HR [facility] Rx# :[id number] Intake, IV Titration 129.680 169.923 268.619 Amount Clevidipine Butyrate 25 29.566 mg In Empty Bag 1 bag @ 1 MG/HR 2 mls/hr IV .Q24H [facility] Rx#:[id number] Piperacillin-Tazobactam 3 100 .375 gm In Sodium Chloride 0.9% 100 ml @ 25 mls/hr IVPB Q8H [facility] Rx#: [id number] Potassium Chloride 10 meq 100 In Water For Injection 1 100ml.bag @ 100 mls/hr IVPB ONCE ONE Rx#: [id number] propofoL 1,000 mg In 129.680 169.923 39.053 Empty Bag 1 bag @ 15 MCG/ KG/MIN 6.695 mls/hr IV . [id number] [facility] Rx#:[id number] Oral 60 Tube Feeding 440 520 280 Other 90 150 120 Output: Urine 1735 1150 725 Other: Voiding Method Indwelling Catheter Indwelling Catheter Indwelling Catheter # Bowel Movements 1 ABP, PAP, CO, CI - Last Documented Arterial Blood Pressure 140/47 - Exam GENERAL DESCRIPTION: An elderly female intubated on the vent RESPIRATORY SYSTEM: Unlabored breathing , decreased breath sounds at bases HEART: S1 S2 regular rate and rhythm , ABDOMEN: Soft , no tenderness EXTREMITIES: 2+ edema feet - Labs CBC & Chem 7: 07/15/24 04:45 07/15/24 14:07 Labs: Abnormal Lab Results - Last 24 Hours (Table) 07/14/24 07/14/24 07/15/24 Range/Units 17:52 23:30 04:20 RBC (3.80-5.40) m/uL Hgb (11.4-16.0) gm/dL Hct (34.0-46.0) % RDW (11.5-15.5) % ABG pCO2 47 H (35-45) mmHg ABG HCO3 31 H (21-25) mmol/L ABG Total CO2 32 H (19-24) mmol/L Chloride (98-107) mmol/L Carbon Dioxide (22-30) mmol/L BUN (7-17) mg/dL Creatinine (0.52-1.04) mg/dL Glucose (74-99) mg/dL POC Glucose (mg/dL) 273 H 288 H (70-110) mg/dL Calcium (8.4-10.2) mg/dL 07/15/24 07/15/24 07/15/24 Range/Units 04:45 04:45 06:25 RBC 2.97 L (3.80-5.40) m/uL Hgb 8.5 L (11.4-16.0) gm/dL Hct 27.1 L (34.0-46.0) % RDW 17.4 H (11.5-15.5) % ABG pCO2 (35-45) mmHg ABG HCO3 (21-25) mmol/L ABG Total CO2 (19-24) mmol/L Chloride 108 H (98-107) mmol/L Carbon Dioxide 31 H (22-30) mmol/L BUN 42 H (7-17) mg/dL Creatinine 1.38 H (0.52-1.04) mg/dL Glucose 270 H (74-99) mg/dL POC Glucose (mg/dL) 307 H (70-110) mg/dL Calcium 7.6 L (8.4-10.2) mg/dL 07/15/24 Range/Units 11:27 RBC (3.80-5.40) m/uL Hgb (11.4-16.0) gm/dL Hct (34.0-46.0) % RDW (11.5-15.5) % ABG pCO2 (35-45) mmHg ABG HCO3 (21-25) mmol/L ABG Total CO2 (19-24) mmol/L Chloride (98-107) mmol/L Carbon Dioxide (22-30) mmol/L BUN (7-17) mg/dL Creatinine (0.52-1.04) mg/dL Glucose (74-99) mg/dL POC Glucose (mg/dL) 282 H (70-110) mg/dL Calcium (8.4-10.2) mg/dL Microbiology - Last 24 Hours (Table) 07/11/24 20:13 Gram Stain - Final Sputum Sputum Culture - Final Azucena albicans Assessment and Plan (1) Gram-negative bacteremia Current Visit: Yes Status: Acute Code(s): R78.81 - BACTEREMIA SNOMED Code(s): 860203606076 (2) UTI (urinary tract infection) Current Visit: Yes Status: Acute Code(s): N39.0 - URINARY TRACT INFECTION, SITE NOT SPECIFIED SNOMED Code(s): 90847056 Plan: 1patient presented to hospital with sepsis in this patient who did have low-g rade fever tachycardia elevated white count elevated lactic acid and now with a positive blood culture likely related to the urinary source as the patient did have significantly positive UA patient also have abnormality seen of the gallbladder however did have a normal liver enzymes 2-E. coli bacteremia source likely urinary that is a sensitive pathogen, urine did grew the same pathogen 3-patient did have worsening of the respiratory status requiring intubation question of possible aspiration pneumonitis, sputum cultures growing Azucena which is more likely colonizer 4-patient has been afebrile not requiring any pressor support mentation remains to be issue and the patient seem to be not waking up being monitored closely continue Zosyn Dictation was produced using [employer] dictation software. please excuse any grammatical, word or spelling errors. Time with Patient: Less than 30
[2024-07-15] MEDS: LORazepam 2 MG/ML INJ IV PRN (15:34)
[2024-07-15 17:54] LABS: Glucose,Whole Blood 336 mg/dL (70-110)
--- NOTE | 2024-07-15 23:26 | P.PN ---
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 Her potassium on that admission was quite bit high patient had cardiomegaly with interstitial pulmonary edema proBNP was quite bit high ejection fraction was 50-55 percentile but had tricuspid regurgitation with RVSP of 35 to 40 mmHg she was kept for total of almost 2 weeks sent back to [facility] on multi medication including Pulmicort with ipratropium albuterol, insulin lispro, hydrocodone, aspirin, atorvastatin, Plavix, gemfibrozil, Levemir, metoprolol succinate, pantoprazole, Seroquel and trazodone. She did well for the first 10 days then on July developed to have seizure activity with severe episode of hypoglycemia the patient was awake but not able to follow command at the time she was able to tell her name only but kept repeating the word take it out referring to her mitten on her hand apparently the durable Pap senior trial attorney Lou Miranda was called and were notified of patient's condition her episode at [facility] apparently was with hypoglycemia and seizure activity with hypotension and hypertensive and hyperthermia found to have white blood cell of 12,000 hemoglobin 10.7 with creatinine 1.2 at the time lactic acid was 325 magnesium was low EKG showed sinus tachycardia with no ST changes at the time UA was suspicious for UTI. She was admitted to the hospital originally with altered mental status could be toxic versus metabolic encephalopathy rule out intracranial etiology also found to have UTI with sepsis with low-grade fever and tachycardia with leukocytosis with elevated lactic acid and active seizure activity with hypoglycemia and found to have significant decline in kidney function at the time. Found to have abnormal liver function test sent for ultrasound of the liver came back with cholelithiasis and cholecystitis no evidence of obstruction at the time kidney function start declining quite bit and become stage IV chronic kidney disease. Patient become more hypoxemic with her seizure activity ended up being intubated on mechanical ventilation. Neurology consultation was obtained with the kidney function decline and surgical consultation was obtained as well for the gallbladder patient is not in any condition to go for cholecystectomy at the time nephrology felt the need to be more aggressive with hydration and avoid any nephrotoxic agent and kidney function started improving slight bed did not require any dialysis. Neurology decided to do EEG which shows seizure activity while she is on the vent could not abort her seizure required to go on Vimpat to help with her seizure activity. Patient is more stabilized on mechanical ventilation currently but kept sedated for her seizure activity and current condition. UTI been treated kidney function has improved some patient family on the bedside all their question were answered today. 07/11/2024: She is still on mechanical ventilation, family are at the bedside as well patient apparently had more seizure activity last 24 hours but was improved significantly on Vimpat which she currently continue on. Continue aggressive management for sepsis, respiratory failure, and diabetic management. Patient still cannot be rested on mechanical ventilation at least for the next 24 hours no attempt for extubation today. 07/12/2024: Shortly after rounds yesterday new development that neurology came back with idea that patient continued to have seizure despite being on Vimpat and Keppra and he preferred to have her transferred to one of the tertiary center specially done at [facility] with attempt to try to transfer the patient had failed not finding bed patient is stable currently no visible sign of seizure activity we decide to follow-up with neuro service and probably do another EEG in the next 24 hours in the meanwhile she is remain on mechanical ventilation. Repeat chest x-ray continue to show slight congestion mostly in the right side but has slight improvement in the type mostly fluid overload. 07/13/2024: Trial for extubation today was not successful patient developed to have severe fatigue and hypoxia required to go back on ventilation very fast and she is back on sedation. EEG was performed today and apparently her seizure activity is much better. She still been treated for sepsis, UTI and aspiration pneumonia along with cholelithiasis and possible ascending cholangitis being on IV Zosyn which responding well to management. Significant drop in hemoglobin in the 6 levels patient will be having 2 unit of blood transfusion. Also kidney function slightly bit worse does not require anemic hemodialysis. 07/14/2024: Continue to be on mechanical ventilation slight improving kidney function was not require dialysis so far mostly secondary to acute kidney injury with stage IIIa chronic kidney disease still been treated for UTI and sepsis had significant anasarca we will continue furosemide 40 mg IV daily. Gallbladder was no surgical intervention will be done at this point patient is not stable 20 daily to have a gallbladder will probably look into it this patient survive this event sometimes down the road. Pulmonary sims she is still on mechanical v entilation with supportive care continue sedation currently and continue enteral feeding. Also patient is seen neurology had last EEG on Sunday and shows improvement of the amount of epileptic form patient will meanwhile remain on combination of Keppra and Vimpat which seem to do slightly better with. 07/15/2024: Patient remain on mechanical ventilation still not able to tolerate her holiday trial for weaning. Still on mild sedation no sign of seizure activity ongoing still on enteral feeding currently. Blood pressure has been climbing up she is off midodrine completely did not require to be on amlodipine 5 mg up to twice a day to keep her systolic blood pressure below 150. She is still with no code and DO NOT RESUSCITATE and escalating to the point where patient might require need to be on mechanical ventilation for longer term or might require tracheostomy caregiver and family might decide at that point to do terminal weaning. It is all depend also might happen in the next few days. REVIEW OF SYSTEMS: CONSTITUTIONAL: Very small for her age sedated on mechanical ventilation. EYES: No icterus sclerae, no conjunctivitis. EARS, NOSE, MOUTH, THROAT, and FACE: No sore throat, lymphadenopathy, carotid bruits or deformity. RESPIRATORY: Currently resting on mechanical ventilation. CARDIOVASCULAR: Mild tachycardia on monitor. GASTROINTESTINAL: Patient is currently on mechanical ventilation does not seem there is any sign of GI bleed. GENITOURINARY: Been treated for UTI. INTEGUMENT/BREAST: Negative for any muscular injury with mild osteoarthritis.. HEMATOLOGIC/LYMPHATIC: Negative for bleed or purpura. MUSCULOSKELTAL: Negative for Myalgia or arthralgia. NEURLOGICAL: Currently sedated on mechanical ventilation. BEHAVIORAL/PSYCH: Negative. ENDOCRINE: Negative. PHYSICAL EXAMINATION: General Appearance: Sedated on mechanical ventilation. Neck HEENT: Supple, no lymphadenopathy, no thyroid enlargement, no carotid bruits. ET tube back in place. Lungs: Clear to auscultation without crackles or wheezes no rhonchi, no deform ity. Chest Wall: Chest wall normal expansion with deep inspiration no tenderness and no deformity was found on exam, no costochondral pain or discomfort. Heart: Regular rate and rhythm, S1, S2 normal, no murmur, rub or gallop. Back: Symmetric, no curvature, ROM normal, no CVA tenderness. Abdomen: Soft slightly distended, non-tender, bowel sounds active all four quadrants, no masses, no organomegaly. Extremities: Extremities normal, atraumatic, no cyanosis or edema. Pulses: 2+ and symmetric. Skin: Skin color, texture, tugor normal, no rashes or lesions. Neurologic: Sedated on mechanical ventilation still withdrawing her extremity to pain stimuli. ASSESSMENT AND PLAN: _Acute hypoxic respiratory failure: Continue mechanical ventilation still on high FiO2 and on sedation currently. She is still not able to wean off the vent today. _Sepsis secondary to UTI and possible cholecystitis with cholelithiasis with signs and symptoms consistent with sepsis including high lactic acid, tachycardia, leukocytosis and hypotension. Culture came back positive for E. coli both blood and urine still on Zosyn responding well to it no intervention for the gallbladder be done. _Acute kidney injury with much worsening kidney function still seen nephrology does not require any hemodialysis at this point continue current management.. _Severe anemia with hemoglobin down to 6.6 will require 2 unit of blood transfusion continue to watch for any active bleed. Hemoglobin has improved and up to 8.7. _Refractory seizure: Despite being on Vimpat and Keppra patient apparently continued to have seizure try to send her down 24 the hospital for ambulatory EEG monitor watch in ICU failed for no finding bed at the time. Repeat EEG, still seen neurology regularly. _Fluid overload: Will continue furosemide 40 mg IV daily keep watching her urine output and decrease fluid going in at this point. _Cholecystitis and cholelithiasis at some point patient might have her gallblad dillon out she is not stable currently for any intervention or surgery. _Acute urinary tract infection: With E. coli being treated with IV Zosyn. _Seizure like activity: Had more aggressive management with Keppra and Vimpat patient seemed to respond better to it. _Hypotension: Her blood pressure has improved significantly was previously taking midodrine. _Hypertension: Patient is responding more and more by creating more elevated blood pressure than being low she might benefit from having on demand amlodipine. _Type 2 diabetes with significant hypo-/hyperglycemia: Will continue patient on Accu-Chek with sliding scales coverage titrate medication gradually if needed bu t watch for any hypoglycemia. _Recent history of intracranial hemorrhage 2 to 3 months ago still recovering from complication related to. _Recent admission with acute on chronic congestive heart failure he was seen cardiology with well-preserved ejection fraction on echocardiogram was on medical management. CODE STATUS: DO NOT RESUSCITATE. Discussion: Blood pressure has been slightly bit higher require using amlodipine, also still on enteral feeding through her NG tube no final decision for trach and PEG tube is made at this point and again coming close to the point family might decide to do terminal weaning with all dependent all what happened between now and late this week. Meanwhile continue current management continue to control her blood pressure, continue present management and continue to attempt to try to wean her off the vent. Objective - Vital Signs Vital signs: Vital Signs Temp 98.5 F 07/15/24 04:00 Pulse 63 07/15/24 04:00 Resp 14 07/15/24 04:00 BP 143/66 07/15/24 04:00 Pulse Ox 97 07/15/24 04:00 FiO2 40 07/15/24 04:02 Intake & Output 07/14/24 07/14/24 07/15/24 06:59 18:59 06:59 Intake Total 10 899.680 819.923 Output Total 2160 1735 925 Balance -2150 -835.320 -105.077 Weight 67.3 kg 67.3 kg 64.8 kg Intake: IV 10 180 200 Invasive Line 4 10 KVO 80 100 Piperacillin-Tazobactam 3 100 .375 gm In Sodium Chloride 0.9% 100 ml @ 25 mls/hr IVPB Q12HR [facility] Rx #:[id number] Piperacillin-Tazobactam 3 100 .375 gm In Sodium Chloride 0.9% 100 ml @ 25 mls/hr IVPB Q8HR [facility] Rx# :[id number] Intake, IV Titration 129.680 69.923 Amount propofoL 1,000 mg In 129.680 69.923 Empty Bag 1 bag @ 15 MCG/ KG/MIN 6.695 mls/hr IV . [id number] [facility] Rx#:[id number] Oral 60 Tube Feeding 440 400 Other 90 150 Output: Urine 2160 1735 925 Other: Voiding Method Indwelling Catheter Indwelling Catheter Indwelling Catheter # Bowel Movements 1 1 ABP, PAP, CO, CI - Last Documented Arterial Blood Pressure 145/53 - Labs CBC & Chem 7: 07/15/24 04:45 07/15/24 14:07 Labs: Abnormal Lab Results - Last 24 Hours (Table) 07/14/24 07/14/24 07/14/24 Range/Units 05:28 06:00 06:11 RBC 3.11 L (3.80-5.40) m/uL Hgb 8.7 L (11.4-16.0) gm/dL Hct 28.2 L (34.0-46.0) % RDW 17.4 H (11.5-15.5) % ABG pCO2 (35-45) mmHg ABG HCO3 29 H (21-25) mmol/L ABG Total CO2 30 H (19-24) mmol/L ABG O2 Saturation 97.4 H (94-97) % BUN (7-17) mg/dL Creatinine (0.52-1.04) mg/dL Glucose (74-99) mg/dL POC Glucose (mg/dL) 282 H (70-110) mg/dL Calcium (8.4-10.2) mg/dL 07/14/24 07/14/24 07/14/24 Range/Units 06:11 11:51 17:52 RBC (3.80-5.40) m/uL Hgb (11.4-16.0) gm/dL Hct (34.0-46.0) % RDW (11.5-15.5) % ABG pCO2 (35-45) mmHg ABG HCO3 (21-25) mmol/L ABG Total CO2 (19-24) mmol/L ABG O2 Saturation (94-97) % BUN 48 H (7-17) mg/dL Creatinine 1.45 H (0.52-1.04) mg/dL Glucose 256 H (74-99) mg/dL POC Glucose (mg/dL) 276 H 273 H (70-110) mg/dL Calcium 7.7 L (8.4-10.2) mg/dL 07/14/24 07/15/24 Range/Units 23:30 04:20 RBC (3.80-5.40) m/uL Hgb (11.4-16.0) gm/dL Hct (34.0-46.0) % RDW (11.5-15.5) % ABG pCO2 47 H (35-45) mmHg ABG HCO3 31 H (21-25) mmol/L ABG Total CO2 32 H (19-24) mmol/L ABG O2 Saturation (94-97) % BUN (7-17) mg/dL Creatinine (0.52-1.04) mg/dL Glucose (74-99) mg/dL POC Glucose (mg/dL) 288 H (70-110) mg/dL Calcium (8.4-10.2) mg/dL Microbiology - Last 24 Hours (Table) 07/11/24 20:13 Gram Stain - Final Sputum Sputum Culture - Final Azucena albicans
[2024-07-16 00:18] LABS: Glucose,Whole Blood 328 mg/dL (70-110)
[2024-07-16 01:09] VITALS: BP 143/68
[2024-07-16 04:07] LABS: Anisocytosis Slight; Basophils % (A) 0 %; Eosinophils # (A) 0.2 k/uL (0-0.7); Eosinophils % (A) 2 %; HCT 29.2 % (34.0-46.0); Hypochromasia Marked; Lymphocytes # (A) 1.2 k/uL (1.0-4.8); Lymphocytes % (A) 11 %; MCH 28.2 pg (25.0-35.0); MCHC 30.7 g/dL (31.0-37.0); Mean Platelet Volume 10.1; Monocytes # (A) 0.8 k/uL (0-1.0); Monocytes % (A) 7 %; Neutrophils # (A) 8.2 k/uL (1.3-7.7); Neutrophils % (A) 75 %; Platelet Count 373 k/uL (150-450); RBC 3.18 m/uL (3.80-5.40); WBC 10.9 k/uL (3.8-10.6)
[2024-07-16 04:17] LABS: Sodium 139 mmol/L (137-145)
[2024-07-16 04:18] LABS: African American GFR (CKD) 43 (>60 ml/min/1.73 sqM); Anion Gap 4 mmol/L; Blood Urea Nitrogen 45 mg/dL (7-17); Carbon Dioxide 31 mmol/L (22-30); Chloride 104 mmol/L (98-107); Glucose 308 mg/dL (74-99); Non-African American GFR(CKD) 38 (>60 ml/min/1.73 sqM); Potassium 3.8 mmol/L (3.5-5.1)
[2024-07-16 04:54] LABS: ABG Base Excess 6.8 mmol/L; ABG HCO3 31 mmol/L (21-25); ABG Oxygen Saturation 95.6 % (94-97); ABG PCO2 43 mmHg (35-45); ABG PH 7.47 (7.35-7.45); ABG PO2 75 mmHg (83-108); ABG TCO2 33 mmol/L (19-24); Allen Test Performed? Yes
[2024-07-16 05:41] LABS: Glucose,Whole Blood 315 mg/dL (70-110)
--- NOTE | 2024-07-16 08:05 | XR ---
EXAMINATION TYPE: XR chest 1V portable DATE OF EXAM: 07/16/2024 COMPARISON: 07/15/2024 HISTORY: SOB, Follow Up FINDINGS: Indwelling tubes and catheters are unchanged. No change in pulmonary venous congestion scattered infiltrates and bilateral pleural effusions as wel l as cardiomegaly. Stable appearance of the cardio-mediastinal structures at this time. Pleural effusion unchanged. IMPRESSION: 1. Stable portable chest. Clinical correlation and follow up until resolution is recommended.
[2024-07-16 08:23] VITALS: TEMP 99.2
[2024-07-16] MEDS: POTASSIUM CHLORIDE 20 MEQ in WATER FOR INJECTION 1 100ML.BAG IVPB SCH (08:32)
--- NOTE | 2024-07-16 10:03 | P.PN ---
Subjective Patient is seen in follow-up for acute kidney injury on chronic kidney disease. Renal function stable. On IV Lasix. Nonoliguric. Intubated. Vital signs are stable. General: Resting in bed. HEENT: Intubated. LUNGS: Scattered rhonchi. HEART: Rate and Rhythm are regular. ABDOMEN: No distention. EXTREMITITES: 1+ edema. Objective - Vital Signs Vital signs: Vital Signs Temp 99.2 F 07/16/24 08:00 Pulse 93 07/16/24 09:30 Resp 16 07/16/24 09:30 BP 143/68 07/15/24 22:00 Pulse Ox 96 07/16/24 09:30 FiO2 40 07/16/24 09:07 Intake & Output 07/15/24 07/16/24 07/16/24 18:59 06:59 18:59 Intake Total 1079.219 810.400 210.533 Output Total 950 1435 325 Balance 129.219 -624.600 -114.467 Weight 64.8 kg 64 kg Intake: IV 60 153 39 KVO 60 120 30 Pressure bag 33 9 Intake, IV Titration 399.219 87.400 21.533 Amount Clevidipine Butyrate 25 60.166 87.400 21.533 mg In Empty Bag 1 bag @ 1 MG/HR 2 mls/hr IV .Q24H [facility] Rx#:[id number] Piperacillin-Tazobactam 3 200 .375 gm In Sodium Chloride 0.9% 100 ml @ 25 mls/hr IVPB Q8H [facility] Rx#: [id number] Potassium Chloride 10 meq 100 In Water For Injection 1 100ml.bag @ 100 mls/hr IVPB ONCE ONE Rx#: [id number] propofoL 1,000 mg In 39.053 Empty Bag 1 bag @ 15 MCG/ KG/MIN 6.695 mls/hr IV . [id number] [facility] Rx#:[id number] Tube Feeding 440 480 120 Other 180 90 30 Output: Urine 950 1435 325 Other: Voiding Method Indwelling Catheter Indwelling Catheter Indwelling Catheter ABP, PAP, CO, CI - Last Documented Arterial Blood Pressure 110/39 - Labs CBC & Chem 7: 07/16/24 03:55 07/16/24 03:55 Labs: Abnormal Lab Results - Last 24 Hours (Table) 07/15/24 07/15/24 07/16/24 Range/Units 11:27 17:53 00:17 WBC (3.8-10.6) k/uL RBC (3.80-5.40) m/uL Hgb (11.4-16.0) gm/dL Hct (34.0-46.0) % MCHC (31.0-37.0) g/dL RDW (11.5-15.5) % Neutrophils # (1.3-7.7) k/uL ABG pH (7.35-7.45) ABG pO2 (83-108) mmHg ABG HCO3 (21-25) mmol/L ABG Total CO2 (19-24) mmol/L Hemoglobin (11.4-16.0) gm/dL Carbon Dioxide (22-30) mmol/L BUN (7-17) mg/dL Creatinine (0.52-1.04) mg/dL Glucose (74-99) mg/dL POC Glucose (mg/dL) 282 H 336 H 328 H (70-110) mg/dL Calcium (8.4-10.2) mg/dL 07/16/24 07/16/24 07/16/24 Range/Units 03:55 03:55 04:50 WBC 10.9 H (3.8-10.6) k/uL RBC 3.18 L (3.80-5.40) m/uL Hgb 9.0 L (11.4-16.0) gm/dL Hct 29.2 L (34.0-46.0) % MCHC 30.7 L (31.0-37.0) g/dL RDW 17.0 H (11.5-15.5) % Neutrophils # 8.2 H (1.3-7.7) k/uL ABG pH 7.47 H (7.35-7.45) ABG pO2 75 L (83-108) mmHg ABG HCO3 31 H (21-25) mmol/L ABG Total CO2 33 H (19-24) mmol/L Hemoglobin 9.5 L (11.4-16.0) gm/dL Carbon Dioxide 31 H (22-30) mmol/L BUN 45 H (7-17) mg/dL Creatinine 1.36 H (0.52-1.04) mg/dL Glucose 308 H (74-99) mg/dL POC Glucose (mg/dL) (70-110) mg/dL Calcium 8.0 L (8.4-10.2) mg/dL 07/16/24 Range/Units 05:40 WBC (3.8-10.6) k/uL RBC (3.80-5.40) m/uL Hgb (11.4-16.0) gm/dL Hct (34.0-46.0) % MCHC (31.0-37.0) g/dL RDW (11.5-15.5) % Neutrophils # (1.3-7.7) k/uL ABG pH (7.35-7.45) ABG pO2 (83-108) mmHg ABG HCO3 (21-25) mmol/L ABG Total CO2 (19-24) mmol/L Hemoglobin (11.4-16.0) gm/dL Carbon Dioxide (22-30) mmol/L BUN (7-17) mg/dL Creatinine (0.52-1.04) mg/dL Glucose (74-99) mg/dL POC Glucose (mg/dL) 315 H (70-110) mg/dL Calcium (8.4-10.2) mg/dL Assessment and Plan Plan: Assessment: 1. Acute kidney injury secondary to ATN secondary to severe sepsis. Creatinine peaked at 3.24 this admission and is 1.36 today. No hydronephrosis noted on kidney ultrasound. 2. Chronic kidney disease stage IIIa with baseline creatinine 1.2-1.3 secondary to diabetic kidney disease. 3. Severe sepsis secondary to E. coli bacteremia and UTI on antibiotics. 4. Volume overload. Improving with diuresis. 5. Nephrolithiasis. 6. Anemia of chronic kidney disease. Avoid IV iron in the setting of acute infection. On Aranesp. Plan: Maintain IV Lasix. Avoid nephrotoxins. Wean FiO2. Maintain tube feeds. Potassium replaced.
[2024-07-16 11:08] VITALS: PULSE 98; RESP 17
[2024-07-16 12:09] LABS: Glucose,Whole Blood 338 mg/dL (70-110)
[2024-07-16] MEDS ORDERED: MORPHINE SULFATE 2 MG/ML SYRINGE IV PRN (12:13)
[2024-07-16] MEDS: MORPHINE SULFATE 100 MG in SODIUM CHLORIDE 0.9% 90 ML IV SCH (12:33)
[2024-07-16] MEDS: ATROPINE OPHTH SOLN 1% 5ML BTL SUBLINGUAL PRN (12:34)
[2024-07-16] MEDS: SCOPOLAMINE 1 MG/72 HR PATCH TRANSDERM SCH (12:35)
[2024-07-16] MEDS: MORPHINE SULFATE 2 MG/ML SYRINGE IVP ONE (12:58)
--- NOTE | 2024-07-16 13:00 | P.PN ---
Subjective Progress Note Date: 07/16/24 I am following-up with patient and per ICU nurse she is off sedation since yesterday morning. Objective - Vital Signs Vital signs: Vital Signs Temp 99.2 F 07/16/24 08:00 Pulse 98 07/16/24 11:00 Resp 17 07/16/24 11:00 BP 143/68 07/15/24 22:00 Pulse Ox 100 07/16/24 11:00 FiO2 40 07/16/24 12:04 Intake & Output 07/15/24 07/16/24 07/16/24 18:59 06:59 18:59 Intake Total 1079.219 810.400 432.200 Output Total 950 1435 590 Balance 129.219 -624.600 -157.8 Weight 64.8 kg 64 kg Intake: IV 60 153 78 KVO 60 120 60 Pressure bag 33 18 Intake, IV Titration 399.219 87.400 24.200 Amount Clevidipine Butyrate 25 60.166 87.400 24.200 mg In Empty Bag 1 bag @ 1 MG/HR 2 mls/hr IV .Q24H [facility] Rx#:[id number] Piperacillin-Tazobactam 3 200 .375 gm In Sodium Chloride 0.9% 100 ml @ 25 mls/hr IVPB Q8H [facility] Rx#: [id number] Potassium Chloride 10 meq 100 In Water For Injection 1 100ml.bag @ 100 mls/hr IVPB ONCE ONE Rx#: [id number] propofoL 1,000 mg In 39.053 Empty Bag 1 bag @ 15 MCG/ KG/MIN 6.695 mls/hr IV . [id number] [facility] Rx#:[id number] Oral 60 Tube Feeding 440 480 240 Other 180 90 30 Output: Urine 950 1435 590 Other: Voiding Method Indwelling Catheter Indwelling Catheter Indwelling Catheter # Bowel Movements 1 ABP, PAP, CO, CI - Last Documented Arterial Blood Pressure 177/68 - Exam General: Lying in bed and does not appear in acute distress. Lung: Intubated on ventilator. Cardiovascular: Has edema in distal upper and lower extremities. Neuro: Limited. Off sedation for 24 hours. She is severely encephalopathic. Is not following commands. Does not verbalize. Motor: Hard to assess because of her condition. - Labs CBC & Chem 7: 07/16/24 03:55 09/11/24 03:55 Labs: Abnormal Lab Results - Last 24 Hours (Table) 07/15/24 07/16/24 07/16/24 Range/Units 17:53 00:17 03:55 WBC 10.9 H (3.8-10.6) k/uL RBC 3.18 L (3.80-5.40) m/uL Hgb 9.0 L (11.4-16.0) gm/dL Hct 29.2 L (34.0-46.0) % MCHC 30.7 L (31.0-37.0) g/dL RDW 17.0 H (11.5-15.5) % Neutrophils # 8.2 H (1.3-7.7) k/uL ABG pH (7.35-7.45) ABG pO2 (83-108) mmHg ABG HCO3 (21-25) mmol/L ABG Total CO2 (19-24) mmol/L Hemoglobin (11.4-16.0) gm/dL Carbon Dioxide (22-30) mmol/L BUN (7-17) mg/dL Creatinine (0.52-1.04) mg/dL Glucose (74-99) mg/dL POC Glucose (mg/dL) 336 H 328 H (70-110) mg/dL Calcium (8.4-10.2) mg/dL 07/16/24 07/16/24 07/16/24 Range/Units 03:55 04:50 05:40 WBC (3.8-10.6) k/uL RBC (3.80-5.40) m/uL Hgb (11.4-16.0) gm/dL Hct (34.0-46.0) % MCHC (31.0-37.0) g/dL RDW (11.5-15.5) % Neutrophils # (1.3-7.7) k/uL ABG pH 7.47 H (7.35-7.45) ABG pO2 75 L (83-108) mmHg ABG HCO3 31 H (21-25) mmol/L ABG Total CO2 33 H (19-24) mmol/L Hemoglobin 9.5 L (11.4-16.0) gm/dL Carbon Dioxide 31 H (22-30) mmol/L BUN 45 H (7-17) mg/dL Creatinine 1.36 H (0.52-1.04) mg/dL Glucose 308 H (74-99) mg/dL POC Glucose (mg/dL) 315 H (70-110) mg/dL Calcium 8.0 L (8.4-10.2) mg/dL 07/16/24 Range/Units 12:08 WBC (3.8-10.6) k/uL RBC (3.80-5.40) m/uL Hgb (11.4-16.0) gm/dL Hct (34.0-46.0) % MCHC (31.0-37.0) g/dL RDW (11.5-15.5) % Neutrophils # (1.3-7.7) k/uL ABG pH (7.35-7.45) ABG pO2 (83-108) mmHg ABG HCO3 (21-25) mmol/L ABG Total CO2 (19-24) mmol/L Hemoglobin (11.4-16.0) gm/dL Carbon Dioxide (22-30) mmol/L BUN (7-17) mg/dL Creatinine (0.52-1.04) mg/dL Glucose (74-99) mg/dL POC Glucose (mg/dL) 338 H (70-110) mg/dL Calcium (8.4-10.2) mg/dL Assessment and Plan Assessment: * Altered mental status due to toxic metabolic encephalopathy. Reasons multifactorial as mentioned below--She lifts left upper extremity spontaneously and attempts to mild open eyes. * Abnormal EEG, with evidence of severe encephalopathy and frequent sharp waves. Cannot rule out nonconvulsive status per Dr. Montemayor---but routine EEG on 07/13/2024 no seizure. * Septic encephalopathy * E. coli bacteremia * Hypoglycemia with hypoglycemic encephalopathy. * Possible cholecystitis * History of right hemispheric subdural hematoma 04/16/2024, treated conservatively. * Acute kidney injury, improving. * Acute hypoxic respiratory failure. * History of right pontine lacunar stroke 11/01/2021. * Diabetes * Hyperlipidemia * Developmental delay, and patient is intermediate resident. Plan: * Patient continues to be intubated, sedated. No obvious clinical seizure-like activity noted. * Repeat prolonged EEG for 1 hour performed two days. Per Dr. Montemayor, It revealed definite improvement in the amount of epileptiform activity. However in the early part of the study, there were sporadic generalized sharp wave, and relatively more frequent right hemispheric, maximal right parietal sharp waves. This epileptiform activity improved during middle and later part of the study with sporadic right parietal sharp waves. Cannot rule out nonconvulsive status. Patient probably will need prolonged, continuous EEG monitoring for further management. * Prolonged EEG for 1 hour from three days ago and reported by Dr. Montemayor as severely abnormal, with background slowing and disorganization, suggestive of severe encephalopathy. Also revealed evidence of intermittent high amplitude sharp waves seen occasionally involving right hemispheric, but more often bihemispheric region. At times these sharp waves have triphasic in quality as well. No electrographic seizure was recorded. * Patient currently on Keppra 500 mg twice daily and Vimpat 150 mg twice daily. * Initial EEG 06/08/2024 was abnormal due to background slowing, suggestive of moderate to severe encephalopathy. Also evidence of sporadic generalized spike and slow wave seen at later part of the study. No electrographic seizure was recorded. No electrographic evidence of status epilepticus. * Per ICU attending as well as the primary attending over the weekend, it was felt [facility] did not have any beds and it was felt there is some improvement in her condition. Therefore will avoid the transfer to a tertiary center for long-term EEG and will obtain a repeat EEG in our facility. I spoke with patient's brother and her niece who are bedside and they are in agreement of avoiding transfer especially since it is not convenient for the family and with her her underlying cognitive issues (developmentally delayed) and medical issues. * On routine EEG on 07/13/2024: Background slowing suggestive of severe encephalopathy. Triphasic morphology is likely due to toxic metabolic derangement. There is questionable diffuse sharp activity over the left central concerning for discharges but definitely no clear perform discharge. There is definitely no seizure during the study. * CT head showed no acute process. Resolution of previously seen right sided subdural hematoma. * Patient currently on Zosyn. * Avoid episodes of hypoglycemia. * Medical management as per IM/critical care. If possible avoid sedation for better neurological examination. * Patient is critically sick. Discussed with ICU team Time with Patient: Less than 30
--- NOTE | 2024-07-16 13:27 | P.PN ---
Subjective Progress Note Date: 07/16/24 CHIEF COMPLAINT: RUQ pain HISTORY OF PRESENT ILLNESS: Patient remains in the ICU intubated and sedated. Patient is off of sedation. Patient had temp of 100 last night. WBC 10.9 Patient seen and examined with Dr. Baumann PHYSICAL EXAM: VITAL SIGNS: Reviewed. GENERAL: Intubated ABDOMEN: Soft. Nondistended. ASSESSMENT: 1. Acute cholecystitis. ultrasound reported cholelithiasis, thickened g allbladder wall and pericholecystic fluid 2. Sepsis and bacteremia 3. Acute kidney injury 4. UTI PLAN: -Continue antibiotics -Continue ICU management -Cholecystectomy when patient is medically stable Physician Customer Support Executive note has been reviewed by physician. Signing provider agrees with the documented findings, assessment, and plan of care. Objective - Vital Signs Vital signs: Vital Signs Temp 99.2 F 07/16/24 08:00 Pulse 98 07/16/24 11:00 Resp 17 07/16/24 11:00 BP 143/68 07/15/24 22:00 Pulse Ox 100 07/16/24 11:00 FiO2 40 07/16/24 12:04 Intake & Output 07/15/24 07/16/24 07/16/24 18:59 06:59 18:59 Intake Total 1079.219 810.400 433.558 Output Total 950 1435 590 Balance 129.219 -624.600 -156.442 Weight 64.8 kg 64 kg Intake: IV 60 153 78 KVO 60 120 60 Pressure bag 33 18 Intake, IV Titration 399.219 87.400 25.558 Amount Clevidipine Butyrate 25 60.166 87.400 24.200 mg In Empty Bag 1 bag @ 1 MG/HR 2 mls/hr IV .Q24H [facility] Rx#:[id number] Morphine Sulfate 100 mg 1.358 In Sodium Chloride 0.9% 90 ml @ 1 MG/HR 1 mls/hr IV .Q24H [facility] Rx#: [id number] Piperacillin-Tazobactam 3 200 .375 gm In Sodium Chloride 0.9% 100 ml @ 25 mls/hr IVPB Q8H [facility] Rx#: [id number] Potassium Chloride 10 meq 100 In Water For Injection 1 100ml.bag @ 100 mls/hr IVPB ONCE ONE Rx#: [id number] propofoL 1,000 mg In 39.053 Empty Bag 1 bag @ 15 MCG/ KG/MIN 6.695 mls/hr IV . [id number] [facility] Rx#:[id number] Oral 60 Tube Feeding 440 480 240 Other 180 90 30 Output: Urine 950 1435 590 Other: Voiding Method Indwelling Catheter Indwelling Catheter Indwelling Catheter # Bowel Movements 1 ABP, PAP, CO, CI - Last Documented Arterial Blood Pressure 177/68 - Labs CBC & Chem 7: 07/16/24 03:55 07/16/24 03:55 Labs: Abnormal Lab Results - Last 24 Hours (Table) 07/15/24 07/16/24 07/16/24 Range/Units 17:53 00:17 03:55 WBC 10.9 H (3.8-10.6) k/uL RBC 3.18 L (3.80-5.40) m/uL Hgb 9.0 L (11.4-16.0) gm/dL Hct 29.2 L (34.0-46.0) % MCHC 30.7 L (31.0-37.0) g/dL RDW 17.0 H (11.5-15.5) % Neutrophils # 8.2 H (1.3-7.7) k/uL ABG pH (7.35-7.45) ABG pO2 (83-108) mmHg ABG HCO3 (21-25) mmol/L ABG Total CO2 (19-24) mmol/L Hemoglobin (11.4-16.0) gm/dL Carbon Dioxide (22-30) mmol/L BUN (7-17) mg/dL Creatinine (0.52-1.04) mg/dL Glucose (74-99) mg/dL POC Glucose (mg/dL) 336 H 328 H (70-110) mg/dL Calcium (8.4-10.2) mg/dL 07/16/24 07/16/24 07/16/24 Range/Units 03:55 04:50 05:40 WBC (3.8-10.6) k/uL RBC (3.80-5.40) m/uL Hgb (11.4-16.0) gm/dL Hct (34.0-46.0) % MCHC (31.0-37.0) g/dL RDW (11.5-15.5) % Neutrophils # (1.3-7.7) k/uL ABG pH 7.47 H (7.35-7.45) ABG pO2 75 L (83-108) mmHg ABG HCO3 31 H (21-25) mmol/L ABG Total CO2 33 H (19-24) mmol/L Hemoglobin 9.5 L (11.4-16.0) gm/dL Carbon Dioxide 31 H (22-30) mmol/L BUN 45 H (7-17) mg/dL Creatinine 1.36 H (0.52-1.04) mg/dL Glucose 308 H (74-99) mg/dL POC Glucose (mg/dL) 315 H (70-110) mg/dL Calcium 8.0 L (8.4-10.2) mg/dL 07/16/24 Range/Units 12:08 WBC (3.8-10.6) k/uL RBC (3.80-5.40) m/uL Hgb (11.4-16.0) gm/dL Hct (34.0-46.0) % MCHC (31.0-37.0) g/dL RDW (11.5-15.5) % Neutrophils # (1.3-7.7) k/uL ABG pH (7.35-7.45) ABG pO2 (83-108) mmHg ABG HCO3 (21-25) mmol/L ABG Total CO2 (19-24) mmol/L Hemoglobin (11.4-16.0) gm/dL Carbon Dioxide (22-30) mmol/L BUN (7-17) mg/dL Creatinine (0.52-1.04) mg/dL Glucose (74-99) mg/dL POC Glucose (mg/dL) 338 H (70-110) mg/dL Calcium (8.4-10.2) mg/dL
[2024-07-16] MEDS: MORPHINE SULFATE 4 MG/ML SYRINGE IV PRN (13:33)
--- NOTE | 2024-07-16 14:56 | P.PN ---
Subjective Progress Note Date: 07/16/24 Principal diagnosis: E. coli urinary tract infection and E. coli sepsis This is a 79-year-old female patient, jail resident with developmental delay, who was recently hospitalized at [facility] in time she was treated for pneumonia and she also had a pleural effusion that was drained. The exact site of the pneumonia and the drainage is not known to me at this point. The patient came into our hospital after having an episode of hypoglycemia with a blood sugar in the low 40s and a seizure-like activity. The patient was awake however she was not answering questions appropriately. The power of contract attorney was at the bedside. In the emergency, the patient was found to be septic. The white cell count was 12 with a hemoglobin 10.7 and a blood culture was positive for gram-negative bacillus. BUN was 27 with a creatinine of 1.3 and a sodium level of 134. Initial lactic acid level was at 3.3 and repeat level was also 3.3. UA was consistent with infection as the patient had blood and white cells within the urine analysis along with +2 protein and occasional bacteria and many WBC clumps. The viral screen was negative. Also, the patient's LFTs were essentially within normal limits. Nevertheless, the patient was given a ultrasound of the bladder and the kidneys. There was evidence of cholelithiasis with prominent wall and pericholecystic fluid suggestive of cholecystitis. No evidence of any obstructive uropathy. There was renal cortical scarring bilaterally possible nonobstructing cortical calcifications. No evidence of any hydronephrosis. The patient is currently on IV Zosyn. She was given a dose of Rocephin in the emergency department. The patient was also given IV fluids and currently she is on normal saline at rate of 130 cc an hour. CAT scan of the brain showed a resolution of the previously described right subdural hemorrhage from 04/16/2024. There was some nonspecific white matter changes. X-ray of the chest showed no evidence of any pleural effusion for consolidation. The patient had increased pulm vascular markings. At this point in time the patient is currently on 4 L of oxygen by nasal cannula with a pulse ox of 94%. Normotensive. Slightly tachycardic. On today's evaluation of 07/09/2024, the patient's condition is further decompensated compared to yesterday. She seems to be much more obtunded. Urine output is low. The patient has developed further increase the white cell count and has developed an acute kidney injury in addition. The patient's blood cultures positive for E. coli and the patient is prepped and IV Zosyn. Abdomen seems to be slightly more firm compared to yesterday. Is currently the patient afebrile, slightly tachycardic, on 4 L of oxygen by nasal cannula with a pulse ox of 94%. Follow-up chest x-ray from today shows evidence of pulmonary edema. IV fluids are running in the form of a normal saline at rate of 75 cc an hour. She was given another bolus of 500 cc earlier today. The white cell count is at 24.5 hemoglobin is 8 with a platelet count of 134. She has 94% neutrophilia. Sodium levels at 139 with a potassium level of 5.8. Serum bicarb is 18 with a BUN of 59 and a creatinine of 3.10. Blood sugar is at 306. As stated, urine cultures are still pending. Blood culture is positive for E. coli. Lactic acid level has improved compared to yesterday and is currently down to 1.4 from 3.2. The highest lactic acid level was at 5.9 07/10/2024, the patient is being seen for a follow-up. The patient is currently intubated on mechanical ventilator due to septic shock. Blood cultures positive for E. coli, urine cultures also positive for E. coli. Patient is currently on IV Zosyn. Repeat ultrasound the gallbladder was done and shows cholelithiasis with pericholecystic fluid collection and the patient has multiple gallstones seen in the neck and the body of the gallbladder. The amount of pericholecystic fluid is mild. Unable to evaluate the patient's Bar sign. There is also a right renal calculus. The liver function tests remain essentially within normal limits with an alkaline phosphatase of 129, and the patient's bilirubin is at 0.6. Being the source of septicemia is a urine. The patient is still on propofol which is running at 20 mcg/kg/min. She is on mechanical ventilator assist-control mode with rate of 22, tidal volume of 350, FiO2 of 50% with a PEEP of 5. Blood gas from today showed a pH of 7.41 with a pCO2 of 81 and pO2 of 152. Chest x-ray showing diffuse bilateral pulmonary for trace, could be related to interstitial edema versus acute lung injury secondary to sepsis. Serum bicarb is 18 and the patient remains on a bicarb infusion at rate of 75 cc an hour. BUN is 62 with a creatinine of 2.9 and a sodium levels at 142. LFTs are normal. The patient had dropped her platelet count 212 with a WBC count of 7.8 which is improved compared to yesterday and a hemoglobin of 7.6. Antibiotic coverage with IV Zosyn. 07/11/2024, the patient is being seen for a follow-up. The patient remains intubated on the mechanical ventilator. Of concern is her abnormal EEG which was done yesterday and it showed some background slowing suggestive of moderate to severe encephalopathy. The patient also had high amplitude sharp appearing waves from the right and often bilateral, triphasic in quality indicating cortical irritation/irritability and tendency for seizures. Based on that, the patient was covered with Vimpat 100 mg IV every 12 hours. The patient remains on propofol and Keppra in addition. This morning, propofol running at 30 mcg/kg/min. The patient is calm and comfortable and synchronous with mechanical ventilator. She remains on assist-control mode at rate of 22, tidal volume of 350, FiO2 of 45% with a PEEP of 4. Blood gas showed a pH of 7.52 with a pCO2 of 31 and pO2 of 139. Hemodynamically stable on no pressors. BUN is 61 with a creatinine of 2.46 and the creatinine continues to improve. Sodium is at 140. Potassium is at 4.0. Bicarb is at 25. WBC 10.5 with a Hemoglobin of 7 and a Platelet Count of 124. Chest X-Ray from Today Shows Cardiomegaly and Patchy Interstitial Edema/Pulmonary Edema with Slight Interval Worsening Compared to Yesterday. Nevertheless, This Has Not Affected the Patient's Oxygenation. In Terms of Antibiotic Coverage, the Patient Remains on IV Zosyn. Ultrasound the Gallbladder Was Noted. LFTs from Yesterday Was Essentially within normal limits. 07/12/2024, the patient remains intubated on mechanical ventilator. The patient remains on propofol which is currently running at 25 mcg/kg/min. No seizure activity has been noted and the patient is currently on a combination of Keppra and Vimpat. Discussed the case with neurology. Will try to get another EEG. If not, will assess clinically and gradually wean off the propofol and assess the patient's mental status. The patient remains intubated on the mechanical ventilator. She remains on assist-control mode rate of 14, tidal volume of 350, FiO2 40% with a PEEP of 5. Blood gas shows a pH of 7.43 with a pCO2 of 40 and pO2 of 151. The patient is on half-normal citrate of 50 cc an hour. No pressors. She is on vital high-protein at rate of 30 cc an hour. She remains on IV Zosyn. Labs show a drop in the white cell count down to 9.5. Hemoglobin stable at 7.3 with a platelet count of 119. The BUN is 54 with a creatinine of 2.09 and sodium levels at 136 and a potassium level of 3.8. LFTs remain normal. No significant abdominal distention. Chest x-ray is showing some improvement in the infiltrates that was noted earlier. This could have been a representation with acute lung injury/ARDS in the setting of sepsis and this is improving and the patient has adequate oxygenation. On 07/13/2024, the patient remains intubated on the mechanical ventilator. The patient remains on propofol which is running at 25 mcg/kg/min. No seizure activity and the patient is going to undergo another EEG. Meanwhile, the patient is covered with a combination of Keppra and Vimpat. Afebrile. H emodynamically stable. Remains on assist-control mode of mechanical ventilation at rate of 14 with a tidal volume of 350, FiO2 40% with a PEEP of 5. She remains on IV fluids. She is on half-normal saline at rate of 50 cc an hour. She is also tolerating enteral free evening for the social support and the patient is vital high-protein running at 30 cc an hour. No abdominal distention. No abdominal pain. No abdominal tenderness. The labs from today shows a hemoglobin of 6.9. No evidence of any GI bleed. This will be monitored. The white cell count is 8.9. The blood gas from today shows a pH of 7.42 with a pCO2 of 42 and pO2 of 110. BUN is 47 and the creatinine is 1.6 and the creatinine continues to improve. Sodium levels at 139. The patient remains on IV Zosyn regarding E. coli septicemia. Rest of the medications remain unchanged. She remains on Lovenox 30 mg subcu for DVT prophylaxis. Chest x-ray showing diffuse bilateral pulmonary pattern is consistent with acute lung injury in the setting of an acute sepsis Reevaluate today on 07/14/2024, patient remains in the ICU intubated and mechanically ventilated. She is on assist-control rate of 14 tidal volume 350 FiO2 40% PEEP of 5 ABG showed a pO2 of 93 pCO2 44 pH of 7.43, hence no changes were made in her ventilator settings. Patient remains on propofol at 25 mcg/kg/min, she is not requiring any pressors at this point. She is on vital AF at 40 cc/h. She is also on Zosyn for her positive urine cultures secondary to E. coli. No seizures noted in the last 24 hours, patient remains sedated, remains on seizure medications in the form of Keppra and Vimpat. WBC count is 10.2 hemoglobin 8.7. Basic metabolic profile is normal BUN is 48 creatinine 1.45 blood sugar is 256 chest x-ray continues to show mild pulmonary vascular congestion with scattered bilateral infiltrates and small pleural effusions suggestive of CHF. Patient is receiving diuretics. She remains on antibiotics/Zosyn Today on 07/15/2024, remains in the ICU, remains intubated and mechanically ventilated, she is on assist-control rate of 14 tidal volume 350 FiO2 45% PEEP of 5 ABG showed a pO2 of 87 pCO2 47 pH of 7.43. Patient is still requiring propofol at 25 mcg/kg/min, I have recommended holding propofol to assess mental status. Yesterday this was done, patient became agitated, but no signs significant responses were noted. Her blood pressure was also noted to go high, and today if it does go high patient could be placed on Cleviprex. Remains on vital HP at 40 cc/h, remains on Zosyn, patient will be placed on Lasix 40 mg IV push every 12 hours as her chest x-ray content continues to show evidence of interstitial edema. Status is difficult to assess, patient does have underlying history of developmental delay WBC count is 9.4 hemoglobin 8.5. Basic metabolic profile is normal BUN is 42 creatinine 1.38, down from 1.45 yesterday and 1.68 the day before Evaluated today on 07/16/2024, patient remains in the ICU, intubated mechanically ventilated, has been off sedation since yesterday although she did receive intermittently few doses of Ativan for agitation. Remains unresponsive to any stimuli. Patient is again off propofol, she has significant amount of secretions from the endotracheal tube, she is on assist-control rate of 14 tidal volume 350 FiO2 40% and PEEP of 5 ABG showed a pO2 of 75 pCO2 43 pH of 7.47. Re tacho on diuretics Lasix 40 twice daily, Norvasc 5 mg daily she is also on Zosyn empirically. Patient is receiving Glucerna for nutritional support. Not much improvement noted in her mental status, patient again is unresponsive to any stimuli. And remains off sedation. My understanding is that family or legal guardian may consider comfort care measures otherwise may have to start addressing the issue of tracheostomy and PEG tube placement on this patient. WBC count 10.9 hemoglobin is 9, basic metabolic profile is normal BUN is 45 creatinine 1.36 blood sugar is 308 Objective - Vital Signs Vital signs: Vital Signs Temp 99.2 F 07/16/24 08:00 Pulse 98 07/16/24 11:00 Resp 17 07/16/24 11:00 BP 143/68 07/15/24 22:00 Pulse Ox 100 07/16/24 11:00 FiO2 40 07/16/24 12:04 Intake & Output 07/15/24 07/16/24 07/16/24 18:59 06:59 18:59 Intake Total 1079.219 810.400 444.725 Output Total 950 1435 590 Balance 129.219 -624.600 -145.275 Weight 64.8 kg 64 kg Intake: IV 60 153 78 KVO 60 120 60 Pressure bag 33 18 Intake, IV Titration 399.219 87.400 36.725 Amount Clevidipine Butyrate 25 60.166 87.400 24.200 mg In Empty Bag 1 bag @ 1 MG/HR 2 mls/hr IV .Q24H [facility] Rx#:[id number] Morphine Sulfate 100 mg 12.525 In Sodium Chloride 0.9% 90 ml @ 1 MG/HR 1 mls/hr IV .Q24H [facility] Rx#: [id number] Piperacillin-Tazobactam 3 200 .375 gm In Sodium Chloride 0.9% 100 ml @ 25 mls/hr IVPB Q8H [facility] Rx#: [id number] Potassium Chloride 10 meq 100 In Water For Injection 1 100ml.bag @ 100 mls/hr IVPB ONCE ONE Rx#: [id number] propofoL 1,000 mg In 39.053 Empty Bag 1 bag @ 15 MCG/ KG/MIN 6.695 mls/hr IV . [id number] [facility] Rx#:[id number] Oral 60 Tube Feeding 440 480 240 Other 180 90 30 Output: Urine 950 1435 590 Other: Voiding Method Indwelling Catheter Indwelling Catheter Indwelling Catheter # Bowel Movements 1 ABP, PAP, CO, CI - Last Documented Arterial Blood Pressure 177/68 - Exam GENERAL: Revealed a 79-year-old female, intubated, mechanically ventilated, off propofol for the last 24 hours HEENT: Pupils are round and equally reacting to light. EOMI. No scleral icterus. No conjunctival pallor. Normocephalic, atraumatic. No pharyngeal erythema. No thyromegaly. CARDIOVASCULAR: Distant S1-S2, no S3 gallop. PULMONARY: Crackles at the bases no rhonchi no wheezes symmetrical chest expansion ABDOMEN: Soft nontender no megaly no rebound no guarding, positive bowel sounds. MUSCULOSKELETAL: No evidence of any deformities. EXTREMITIES: No clubbing edema or cyanosis. NEUROLOGICAL: Patient is not responding to any stimuli. Being followed by [facility] urology SKIN: No rashes. no petechiae. - Labs CBC & Chem 7: 07/16/24 03:55 07/16/24 03:55 Labs: Abnormal Lab Results - Last 24 Hours (Table) 07/15/24 07/16/24 07/16/24 Range/Units 17:53 00:17 03:55 WBC 10.9 H (3.8-10.6) k/uL RBC 3.18 L (3.80-5.40) m/uL Hgb 9.0 L (11.4-16.0) gm/dL Hct 29.2 L (34.0-46.0) % MCHC 30.7 L (31.0-37.0) g/dL RDW 17.0 H (11.5-15.5) % Neutrophils # 8.2 H (1.3-7.7) k/uL ABG pH (7.35-7.45) ABG pO2 (83-108) mmHg ABG HCO3 (21-25) mmol/L ABG Total CO2 (19-24) mmol/L Hemoglobin (11.4-16.0) gm/dL Carbon Dioxide (22-30) mmol/L BUN (7-17) mg/dL Creatinine (0.52-1.04) mg/dL Glucose (74-99) mg/dL POC Glucose (mg/dL) 336 H 328 H (70-110) mg/dL Calcium (8.4-10.2) mg/dL 07/16/24 07/16/24 07/16/24 Range/Units 03:55 04:50 05:40 WBC (3.8-10.6) k/uL RBC (3.80-5.40) m/uL Hgb (11.4-16.0) gm/dL Hct (34.0-46.0) % MCHC (31.0-37.0) g/dL RDW (11.5-15.5) % Neutrophils # (1.3-7.7) k/uL ABG pH 7.47 H (7.35-7.45) ABG pO2 75 L (83-108) mmHg ABG HCO3 31 H (21-25) mmol/L ABG Total CO2 33 H (19-24) mmol/L Hemoglobin 9.5 L (11.4-16.0) gm/dL Carbon Dioxide 31 H (22-30) mmol/L BUN 45 H (7-17) mg/dL Creatinine 1.36 H (0.52-1.04) mg/dL Glucose 308 H (74-99) mg/dL POC Glucose (mg/dL) 315 H (70-110) mg/dL Calcium 8.0 L (8.4-10.2) mg/dL 07/16/24 Range/Units 12:08 WBC (3.8-10.6) k/uL RBC (3.80-5.40) m/uL Hgb (11.4-16.0) gm/dL Hct (34.0-46.0) % MCHC (31.0-37.0) g/dL RDW (11.5-15.5) % Neutrophils # (1.3-7.7) k/uL ABG pH (7.35-7.45) ABG pO2 (83-108) mmHg ABG HCO3 (21-25) mmol/L ABG Total CO2 (19-24) mmol/L Hemoglobin (11.4-16.0) gm/dL Carbon Dioxide (22-30) mmol/L BUN (7-17) mg/dL Creatinine (0.52-1.04) mg/dL Glucose (74-99) mg/dL POC Glucose (mg/dL) 338 H (70-110) mg/dL Calcium (8.4-10.2) mg/dL Assessment and Plan Assessment: Impression: Acute hypoxic respiratory failure secondary to E. coli sepsis, secondary to urinary tract infection and questionable cholecystitis. Acute leukocytosis, improving Seizures, could be related to hypoglycemia, remains on Keppra and Vimpat Acute metabolic encephalopathy secondary to above. Acute kidney injury on top of CKD stage III, improving Bilateral pneumonia, possible aspiration pneumonia History of kidney stone with recent hospitalization for this purpose History of CVA History of subdural hematoma secondary to fall/anticoagulation. Diabetes mellitus Hyperlipidemia Developmental delay and the patient is a jail resident Thrombocytopenia, secondary to sepsis, resolved Recommendation: Continue ventilatory support, Continue keeping the patient off sedation Will have to discuss with family or legal guardian the issue of tracheostomy and PEG tube placement as the patient is not weanable and not extubated above at this point in time considering her overall mental status Continue Zosyn Continue nutritional support/enteral feeding Continue GI DVT prophylaxis Neurology is on board for her seizure medications. Patient remains critically ill Will continue to follow patient Will discuss with family members or legal guardian the issue of tracheostomy and PEG tube placement if not agreeable then could consider comfort care measures Call care time is over 30 Time with Patient: Greater than 30
--- NOTE | 2024-07-17 14:02 | P.PN ---
Subjective Progress Note Date: 07/16/24 Principal diagnosis: Reason for follow-up is UTI and bacteremia Patient is a 79-year-old female with a past medical history significant for diabetes mellitus hypertension hyperlipidemia CVA TIA in this patient who is a senior living resident patient has been brought into the ER by EMS after apparently the patient did have some seizure-like activity, patient did have a fever positive UA and blood culture positive for E. coli. On today's evaluation that is 07/16/2024, Patient is afebrile this morning patient remains to be intubated on the vent currently FiO2 40% not waking up after discoloration of the sedation hemodynamic stable not requiring pressor support no vomiting or diarrhea has been reported. Patient white count is 10.9, creatinine is 1.36 Objective - Vital Signs Vital signs: Vital Signs Temp 99.2 F 07/16/24 08:00 Pulse 98 07/16/24 11:00 Resp 17 07/16/24 11:00 BP 143/68 07/15/24 22:00 Pulse Ox 100 07/16/24 11:00 FiO2 40 07/16/24 12:04 Intake & Output 07/15/24 07/16/24 07/16/24 18:59 06:59 18:59 Intake Total 1079.219 810.400 432.200 Output Total 950 1435 590 Balance 129.219 -624.600 -157.8 Weight 64.8 kg 64 kg Intake: IV 60 153 78 KVO 60 120 60 Pressure bag 33 18 Intake, IV Titration 399.219 87.400 24.200 Amount Clevidipine Butyrate 25 60.166 87.400 24.200 mg In Empty Bag 1 bag @ 1 MG/HR 2 mls/hr IV .Q24H [facility] Rx#:[id number] Piperacillin-Tazobactam 3 200 .375 gm In Sodium Chloride 0.9% 100 ml @ 25 mls/hr IVPB Q8H [facility] Rx#: [id number] Potassium Chloride 10 meq 100 In Water For Injection 1 100ml.bag @ 100 mls/hr IVPB ONCE ONE Rx#: [id number] propofoL 1,000 mg In 39.053 Empty Bag 1 bag @ 15 MCG/ KG/MIN 6.695 mls/hr IV . [id number] [facility] Rx#:[id number] Oral 60 Tube Feeding 440 480 240 Other 180 90 30 Output: Urine 950 1435 590 Other: Voiding Method Indwelling Catheter Indwelling Catheter Indwelling Catheter # Bowel Movements 1 ABP, PAP, CO, CI - Last Documented Arterial Blood Pressure 177/68 - Exam GENERAL DESCRIPTION: An elderly female intubated on the vent RESPIRATORY SYSTEM: Unlabored breathing , decreased breath sounds at bases HEART: S1 S2 regular rate and rhythm , ABDOMEN: Soft , no tenderness EXTREMITIES: 2+ edema feet - Labs CBC & Chem 7: 07/16/24 03:55 07/16/24 03:55 Labs: Abnormal Lab Results - Last 24 Hours (Table) 07/15/24 07/16/24 07/16/24 Range/Units 17:53 00:17 03:55 WBC 10.9 H (3.8-10.6) k/uL RBC 3.18 L (3.80-5.40) m/uL Hgb 9.0 L (11.4-16.0) gm/dL Hct 29.2 L (34.0-46.0) % MCHC 30.7 L (31.0-37.0) g/dL RDW 17.0 H (11.5-15.5) % Neutrophils # 8.2 H (1.3-7.7) k/uL ABG pH (7.35-7.45) ABG pO2 (83-108) mmHg ABG HCO3 (21-25) mmol/L ABG Total CO2 (19-24) mmol/L Hemoglobin (11.4-16.0) gm/dL Carbon Dioxide (22-30) mmol/L BUN (7-17) mg/dL Creatinine (0.52-1.04) mg/dL Glucose (74-99) mg/dL POC Glucose (mg/dL) 336 H 328 H (70-110) mg/dL Calcium (8.4-10.2) mg/dL 07/16/24 07/16/24 07/16/24 Range/Units 03:55 04:50 05:40 WBC (3.8-10.6) k/uL RBC (3.80-5.40) m/uL Hgb (11.4-16.0) gm/dL Hct (34.0-46.0) % MCHC (31.0-37.0) g/dL RDW (11.5-15.5) % Neutrophils # (1.3-7.7) k/uL ABG pH 7.47 H (7.35-7.45) ABG pO2 75 L (83-108) mmHg ABG HCO3 31 H (21-25) mmol/L ABG Total CO2 33 H (19-24) mmol/L Hemoglobin 9.5 L (11.4-16.0) gm/dL Carbon Dioxide 31 H (22-30) mmol/L BUN 45 H (7-17) mg/dL Creatinine 1.36 H (0.52-1.04) mg/dL Glucose 308 H (74-99) mg/dL POC Glucose (mg/dL) 315 H (70-110) mg/dL Calcium 8.0 L (8.4-10.2) mg/dL 07/16/24 Range/Units 12:08 WBC (3.8-10.6) k/uL RBC (3.80-5.40) m/uL Hgb (11.4-16.0) gm/dL Hct (34.0-46.0) % MCHC (31.0-37.0) g/dL RDW (11.5-15.5) % Neutrophils # (1.3-7.7) k/uL ABG pH (7.35-7.45) ABG pO2 (83-108) mmHg ABG HCO3 (21-25) mmol/L ABG Total CO2 (19-24) mmol/L Hemoglobin (11.4-16.0) gm/dL Carbon Dioxide (22-30) mmol/L BUN (7-17) mg/dL Creatinine (0.52-1.04) mg/dL Glucose (74-99) mg/dL POC Glucose (mg/dL) 338 H (70-110) mg/dL Calcium (8.4-10.2) mg/dL Assessment and Plan (1) Gram-negative bacteremia Status: Acute Code(s): R78.81 - BACTEREMIA SNOMED Code(s): 653574518969 (2) UTI (urinary tract infection) Status: Acute Code(s): N39.0 - URINARY TRACT INFECTION, SITE NOT SPECIFIED SNOMED Code(s): 50243714 Plan: 1patient presented to hospital with sepsis in this patient who did have low- grade fever tachycardia elevated white count elevated lactic acid and now with a positive blood culture likely related to the urinary source as the patient did have significantly positive UA patient also have abnormality seen of the gallbladder however did have a normal liver enzymes 2-E. coli bacteremia source likely urinary that is a sensitive pathogen, urine did grew the same pathogen 3-patient did have worsening of the respiratory status requiring intubation question of possible aspiration pneumonitis, sputum cultures growing Azucena which is more likely colonizer 4-patient has been afebrile however the patient apparently seem to be not waking up possible comfort measure which may be appropriate Zosyn can be discontinued Dictation was produced using [employer] dictation software. please excuse any grammatical, word or spelling errors. Time with Patient: Less than 30
--- NOTE | 2024-07-18 12:59 | P.DS ---
Providers Date of admission: 07/07/24 18:53 Expected date of discharge: 07/16/24 Attending physician: Deepak Terrazas Consults: 07/08/24 10:21 Consult Physician Routine Consulting Provider: Samuel Montemayor Consult Reason/Comments: ams, seizure at ecf Do you want consulting provider notified?: Yes 07/08/24 13:12 Consult Physician Urgent Consulting Provider: Nabil Baumann Consult Reason/Comments: cholecystitis Do you want consulting provider notified?: Yes 07/08/24 13:13 Consult Physician Urgent Consulting Provider: Neftali Webster Consult Reason/Comments: bacteremia Do you want consulting provider notified?: Yes 07/08/24 13:49 Consult Physician Routine Consulting Provider: Jude Lee Consult Reason/Comments: sepsis going for cholecystoctomy , need preop eval plz Do you want consulting provider notified?: Yes 07/09/24 08:41 Consult Physician Urgent Consulting Provider: Kirstin Mtz Consult Reason/Comments: breezy Do you want consulting provider notified?: Yes Primary care physician: [facility] Course: HISTORY OF PRESENT ILLNESS: 79-year-old with active medical history of CVA/TIA, type 2 diabetes, hyperlipidemia, hypertension, high functioning developmental disability, 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 Her potassium on that admission was quite bit high patient had cardiomegaly with interstitial pulmonary edema proBNP was quite bit high ejection fraction was 50- 55 percentile but had tricuspid regurgitation with RVSP of 35 to 40 mmHg she was kept for total of almost 2 weeks sent back to [facility] on multi medication including Pulmicort with ipratropium albuterol, insulin lispro, hydrocodone, aspirin, atorvastatin, Plavix, gemfibrozil, Levemir, metoprolol succinate, pantoprazole, Seroquel and trazodone. She did well for the first 10 days then on July developed to have seizure activity with severe episode of hypoglycemia the patient was awake but not able to follow command at the time she was able to tell her name only but kept repeating the word take it out referring to her mitten on her hand apparently the durable Pap finance attorney Lou Ruth was called and were notified of patient's condition her episode at [facility] apparently was with hypoglycemia and seizure activity with hypotension and hypertensive and hyperthermia found to have white blood cell of 12,000 hemoglobin 10.7 with creatinine 1.2 at the time lactic acid was 325 magnesium was low EKG showed sinus tachycardia with no ST changes at the time UA was suspicious for UTI. She was admitted to the hospital originally with altered mental status could be toxic versus metabolic encephalopathy rule out intracranial etiology also found to have UTI with sepsis with low-grade fever and tachycardia with leukocytosis with elevated lactic acid and active seizure activity with hypoglycemia and found to have significant decline in kidney function at the time. Found to have abnormal liver function test sent for ultrasound of the liver came back with cholelithiasis and cholecystitis no evidence of obstruction at the time kidney function start declining quite bit and become stage IV chronic kidney disease. Patient become more hypoxemic with her seizure activity ended up being intubated on mechanical ventilation. Neurology consultation was obtained with the kidney function decline and surgical consultation was obtained as well for the gallbladder patient is not in any condition to go for cholecystectomy at the time nephrology felt the need to be more aggressive with hydration and avoid any nephrotoxic agent and kidney function started improving slight bed did not require any dialysis. Neurology decided to do EEG which shows seizure activity while she is on the vent could not abort her seizure required to go on Vimpat to help with her seizure activity. Patient is more stabilized on mechanical ventilation currently but kept sedated for her seizure activity and current condition. UTI been treated kidney function has improved some patient family on the bedside all their question were answered today. 07/11/2024: She is still on mechanical ventilation, family are at the bedside as well patient apparently had more seizure activity last 24 hours but was improved significantly on Vimpat which she currently continue on. Continue aggressive management for sepsis, respiratory failure, and diabetic management. Patient still cannot be rested on mechanical ventilation at least for the next 24 hours no attempt for extubation today. 07/12/2024: Shortly after rounds yesterday new development that neurology came back with idea that patient continued to have seizure despite being on Vimpat and Keppra and he preferred to have her transferred to one of the tertiary center specially done at [facility] with attempt to try to transfer the patient had failed not finding bed patient is stable currently no visible sign of seizure activity we decide to follow-up with neuro service and probably do another EEG in the next 24 hours in the meanwhile she is remain on mechanical ventilation. Repeat chest x-ray continue to show slight congestion mostly in the right side but has slight improvement in the type mostly fluid overload. 07/13/2024: Trial for extubation today was not successful patient developed to have severe fatigue and hypoxia required to go back on ventilation very fast and she is back on sedation. EEG was performed today and apparently her seizure activity is much better. She still been treated for sepsis, UTI and aspiration pneumonia along with cholelithiasis and possible ascending cholangitis being on IV Zosyn which responding well to management. Significant drop in hemoglobin in the 6 levels patient will be having 2 unit of blood transfusion. Also kidney function slightly bit worse does not require anemic hemodialysis. 07/14/2024: Continue to be on mechanical ventilation slight improving kidney function was not require dialysis so far mostly secondary to acute kidney injury with stage IIIa chronic kidney disease still been treated for UTI and sepsis had significant anasarca we will continue furosemide 40 mg IV daily. Gallbladder was no surgical intervention will be done at this point patient is not stable 20 daily to have a gallbladder will probably look into it this patient survive this event sometimes down the road. Pulmonary sims she is still on mechanical ventilation with supportive care continue sedation currently and continue enteral feeding. Also patient is seen neurology had last EEG on Sunday and shows improvement of the amount of epileptic form patient will meanwhile remain on combination of Keppra and Vimpat which seem to do slightly better with. 07/15/2024: Patient remain on mechanical ventilation still not able to tolerate her holiday trial for weaning. Still on mild sedation no sign of seizure activity ongoing still on enteral feeding currently. Blood pressure has been climbing up she is off midodrine completely did not require to be on amlodipine 5 mg up to twice a day to keep her systolic blood pressure below 150. She is still with no code and DO NOT RESUSCITATE and escalating to the point where patient might require need to be on mechanical ventilation for longer term or might require tracheostomy caregiver and family might decide at that point to do terminal weaning. It is all depend also might happen in the next few days. 07/16/2024: She is remain on mechanical ventilation very not stable currently having to try holiday for her vent completion start hyperventilating and had significant reaction. Back on the vent and the trial had failed at this point. After discussion with the family [id number] patient at this point will be needing tracheostomy and PEG tube family decision that they wish not to go for any further advance treatment or management they wanted to terminate ventilator and extubate patient and do terminal weaning. Terminal weaning was done and patient shortly after. REVIEW OF SYSTEMS: CONSTITUTIONAL: Very small for her age sedated on mechanical ventilation. EYES: No icterus sclerae, no conjunctivitis. EARS, NOSE, MOUTH, THROAT, and FACE: No sore throat, lymphadenopathy, carotid bruits or deformity. RESPIRATORY: Currently resting on mechanical ventilation. CARDIOVASCULAR: Mild tachycardia on monitor. GASTROINTESTINAL: Patient is currently on mechanical ventilation does not seem there is any sign of GI bleed. GENITOURINARY: Been treated for UTI. INTEGUMENT/BREAST: Negative for any muscular injury with mild osteoarthritis.. HEMATOLOGIC/LYMPHATIC: Negative for bleed or purpura. MUSCULOSKELTAL: Negative for Myalgia or arthralgia. NEURLOGICAL: Currently sedated on mechanical ventilation. BEHAVIORAL/PSYCH: Negative. ENDOCRINE: Negative. PHYSICAL EXAMINATION: General Appearance: Sedated on mechanical ventilation. Neck HEENT: Supple, no lymphadenopathy, no thyroid enlargement, no carotid bruits. ET tube back in place. Lungs: Clear to auscultation without crackles or wheezes no rhonchi, no deformity. Chest Wall: Chest wall normal expansion with deep inspiration no tenderness and no deformity was found on exam, no costochondral pain or discomfort. Heart: Regular rate and rhythm, S1, S2 normal, no murmur, rub or gallop. Back: Symmetric, no curvature, ROM normal, no CVA tenderness. Abdomen: Soft slightly distended, non-tender, bowel sounds active all four quadrants, no masses, no organomegaly. Extremities: Extremities normal, atraumatic, no cyanosis or edema. Pulses: 2+ and symmetric. Skin: Skin color, texture, tugor normal, no rashes or lesions. Neurologic: Sedated on mechanical ventilation still withdrawing her extremity to pain stimuli. ASSESSMENT AND PLAN: _Acute hypoxic respiratory failure: Continue to require mechanical ventilation regularly for holiday try to wean her off vent did not go well at all the patient is vent dependent to keep her on the vent to require tracheostomy and a longer run which patient and guardian wish not to. _Sepsis secondary to UTI and possible cholecystitis with cholelithiasis with signs and symptoms consistent with sepsis including high lactic acid, tachycardia, leukocytosis and hypotension. Culture came back positive for E. coli both blood and urine still on Zosyn responding well to it no intervention for the gallbladder be done. _Acute kidney injury with much worsening kidney function still seen nephrology does not require any hemodialysis at this point continue current management.. _Severe anemia with hemoglobin down to 6.6 will require 2 unit of blood trans fusion continue to watch for any active bleed. Hemoglobin has improved and up to 8.7. _Refractory seizure: Despite being on Vimpat and Keppra patient apparently continued to have seizure try to send her down 24 the hospital for ambulatory EEG monitor watch in ICU failed for no finding bed at the time. Repeat EEG, still seen neurology regularly. _Fluid overload: Continue medication her edema and swelling is much better at this point. _Cholecystitis and cholelithiasis at some point patient might have her gallbladder out she is not stable currently for any intervention or surgery. _Acute urinary tract infection: With E. coli being treated with IV Zosyn. _Seizure like activity: Had more aggressive management with Keppra and Vimpat patient seemed to respond better to it. _Hypotension: Her blood pressure has improved significantly was previously taking midodrine. _Hypertension: Patient is responding more and more by creating more elevated blood pressure than being low she might benefit from having on demand amlodipine. _Type 2 diabetes with significant hypo-/hyperglycemia: Will continue patient on Accu-Chek with sliding scales coverage titrate medication gradually if needed but watch for any hypoglycemia. _Recent history of intracranial hemorrhage 2 to 3 months ago still recovering from complication related to. _Recent admission with acute on chronic congestive heart failure he was seen cardiology with well-preserved ejection fraction on echocardiogram was on medical management. CODE STATUS: DO NOT RESUSCITATE. Discussion: Discussion with the family about their wishes since patient failed extubation and weaning family and guardian both are on the same page not to do any tracheostomy or PEG tube and to terminate vent management extubate and allow the nature to take its course the patient had terminal weaning and shortly after. Hospital course: She was admitted to the hospital for sign and symptom of sepsis along with possibility of stroke versus CVA or seizure presented on July 07, 2024 as sent from [facility] because of episode of severe hypoglycemia and seizure activity with high suspicion for UTI was seen and evaluated found to be quite hypoxic hypotensive and had severe encephalopathy at the time with high suspicion for seizure also found to be in acute kidney failure and have signific ant abnormal liver function test with either hepatorenal syndrome or hypoperfusion causing the kidney function to decline at this point. Patient eventually was transferred to the intensive care unit on vasopressor and was kept on Keppra originally and then Vimpat to control her seizure. Patient had 2 EEG while she is on the vent and continue showing significant seizure with a second 1. Toward 11 July neurology recommendation to see if patient can be transferred to one of the bigger center where they can do ambulatory EEG as she had been manage on the vent. That sadly did not happen no bed was available at [facility] and the transfer did not do well. On the and patient did slightly bit better and of having an EEG on did not show any further seizure activity which meaning Vimpat and Keppra is controlling his seizure very well. She is continue to be treated for UTI and cholelithiasis along with sepsis remain on IV Zosyn General Surgery originally went to surgery for gallbladder removal but patient was not in any condition to be able to go for it. Also patient seen nephrology for acute kidney injury with acute tubular necrosis along with acute on chronic kidney failure and she is subtle finally on stage IIIb chronic kidney disease. Trial for extubation had fell few times and patient come to a time on July 16 where family and guardian had to face to challenge of needing longer-term vent management with tracheostomy and longer-term feeding management by doing PEG tube and they both agree not to put patient through any more extended life prolonging procedure when her quality is not that well. They decide to do terminal weaning and extubate patient and patient ended up expiring on July 16, 2024. Time spent on patient discharge was over 33 minutes. Patient Condition at Discharge: Fair Plan - Discharge Summary Discharge Rx Participant: No New Discharge Prescriptions: No Action gemfibroziL [Lopid] 600 mg PO DAILY Insulin Detemir (Levemir) [Levemir] 30 unit SQ Q12H Atorvastatin [Lipitor] 40 mg PO HS 30 Days #30 tab traZODone HCL [Desyrel] 50 mg PO DAILY Thiamine [Vitamin B-1] 100 mg PO DAILY QUEtiapine [SEROquel] 25 mg PO DAILY Magnesium Hydroxide [Milk of Magnesia Concentrate] 7,200 mg PO DAILY PRN PRN Reason: Constipation INSULIN LISPRO (humaLOG) [humaLOG] See Protocol SQ ACHS Na Phos,M-B/Na Phos,Di-Ba [Fleet Adult] 133 ml RECTAL DAILY PRN PRN Reason: Constipation Budesonide [Pulmicort] 0.5 mg INHALATION RT-Q12H Metoprolol Succinate [Toprol XL] 100 mg PO DAILY Clopidogrel [Plavix] 75 mg PO DAILY 30 Days #30 tab traZODone HCL [Desyrel] 25 mg PO DAILY Pantoprazole [Protonix] 40 mg PO BID Ipratropium-Albuterol Nebulize [Duoneb 0.5 mg-3 mg/3 ml Soln] 3 ml INHALATION RT-Q6H Insulin Lispro 5 units SQ TID-W/MEALS HYDROcodone/APAP 5-325MG [[place] 5-325] 0.5 tab PO Q6H PRN PRN Reason: Pain Folic Acid 1 mg PO DAILY bisacodyL [Dulcolax] 10 mg RECTAL DAILY PRN PRN Reason: Constipation Aspirin EC [Ecotrin Low Dose] 81 mg PO DAILY Discharge Medication List gemfibroziL [Lopid] 600 mg PO DAILY 08/26/15 [History] Insulin Detemir (Levemir) [Levemir] 30 unit SQ Q12H 10/30/21 [History] Metoprolol Succinate [Toprol XL] 100 mg PO DAILY 10/30/21 [History] Atorvastatin [Lipitor] 40 mg PO HS 30 Days #30 tab 11/02/21 [Rx] Clopidogrel [Plavix] 75 mg PO DAILY 30 Days #30 tab 11/02/21 [Rx] Aspirin EC [Ecotrin Low Dose] 81 mg PO DAILY 07/07/24 [History] Budesonide [Pulmicort] 0.5 mg INHALATION RT-Q12H 07/07/24 [History] Folic Acid 1 mg PO DAILY 07/07/24 [History] HYDROcodone/APAP 5-325MG [[place] 5-325] 0.5 tab PO Q6H PRN 07/07/24 [History] INSULIN LISPRO (humaLOG) [humaLOG] See Protocol SQ ACHS 07/07/24 [History] Insulin Lispro 5 units SQ TID-W/MEALS 07/07/24 [History] Ipratropium-Albuterol Nebulize [Duoneb 0.5 mg-3 mg/3 ml Soln] 3 ml INHALATION R T-Q6H 07/07/24 [History] Magnesium Hydroxide [Milk of Magnesia Concentrate] 7,200 mg PO DAILY PRN 07/07/24 [History] Na Phos,M-B/Na Phos,Di-Ba [Fleet Adult] 133 ml RECTAL DAILY PRN 07/07/24 [History] Pantoprazole [Protonix] 40 mg PO BID 07/07/24 [History] QUEtiapine [SEROquel] 25 mg PO DAILY 07/07/24 [History] Thiamine [Vitamin B-1] 100 mg PO DAILY 07/07/24 [History] bisacodyL [Dulcolax] 10 mg RECTAL DAILY PRN 07/07/24 [History] traZODone HCL [Desyrel] 25 mg PO DAILY 07/07/24 [History] traZODone HCL [Desyrel] 50 mg PO DAILY 07/07/24 [History] Follow up Appointment(s)/Referral(s): Lana Hunter [REFERRING] - 1-2 days Discharge Disposition: - Preliminary Cause of Preliminary Cause of : Sepsis, UTI, ascending cholangitis, refractory seizure, aspiration pneumoni
--- NOTE | 2024-08-03 22:06 | CDI ---
Documentation Clarification Form Date: 08/03/2024 09:48:29 PM From: Holly Barnes Phone: Admit Date: 07/07/2024 06:53:00 PM Patient Name: Loreto King Visit Number: [id number] Discharge Date: 07/16/2024 04:45:00 PM ATTENTION: The Clinical Documentation Specialists (CDI) and [facility] Coding Staff appreciate your assistance in clarifying documentation. Please respond to the clarification below the line at the bottom and electronically sign. The CDI & [facility] Coding staff will review the response and follow-up if needed. Please note: Queries are made part of the Legal Health Record. If you have any questions, please contact the author of this message via ITS. Doctor/Provider: Kirstin Mtz CKDstage III A/B per H&P, 07/08 Consult Note and multiple Progress Notes Stage IV chronic kidney disease per 07/10 Progress Note and multiple Progress Notes Clarification regarding the stage of CKD is requested. History/Risk Factors: 79yo F, E. coli sepsis, UTI, TM Enceph, ATN, ARDS, Hx CVA, Hx falls w TBI, IDDMII w hypo/hyperglycemia, HTN, ATN on CKD, developmental delay Creatinine at baseline 1.3, baseline 1.2-1.4 Clinical Indicators: BUN: 07/07 27 07/09 57- 59 07/10 61 07/14 48 07/16 45 CR: 07/07 1.30 07/09 3.10 07/10 2.46 07/14 1.45 07/16 1.36 GFR: 07/07 40-46 07/10 18-21 07/14 35-40 07/16 38-43 Treatment: Worsening kidney function still seen nephrology does notrequire anyHDat this point continue current mgt. Please clarify the stage of the CKD, if known: [ x ] CKD Stage 3a [ ] CKD Stage 3b [ ] CKD Stage 4 [ ] Other, please specify [ ] Unable to determine Reference: National Kid[employer] Stage 1 eGFR = 90 and kidney damage for =3 months Stage 2 eGFR 60-89 and kidney damage for =3 months Stage 3a eGFR 45-59 and kidney damage for =3 months Stage 3b eGFR 30-44 and kidney damage for =3 months Stage 4 eGFR 15-29 r and kidney damage for =3 months Stage 5 eGFR <15 and kidney damage for =3 months (Template last revised: November 2023) MTD
--- NOTE | 2024-08-03 22:24 | CDI ---
Documentation Clarification Form Date: 08/03/2024 10:08:23 PM From: Holly Barnes Phone: Admit Date: 07/07/2024 06:53:00 PM Patient Name: Loreto King Visit Number: [id number] Discharge Date: 07/16/2024 04:45:00 PM ATTENTION: The Clinical Documentation Specialists (CDI) and [facility] Coding Staff appreciate your assistance in clarifying documentation. Please respond to the clarification below the line at the bottom and electronically sign. The CDI & [facility] Coding staff will review the response and follow-up if needed. Please note: Queries are made part of the Legal Health Record. If you have any questions, please contact the author of this message via ITS. Doctor/Provider: Deepak Terrazas Your patient has the documented diagnosis of: combination ofsystolicand diastolic CHF per Progress Notes 07/12 and 07/13 in addition to a recent admission for ACSCHF. Additional information regarding the acuity of CHF is requested. History/Risk Factors: 79yo F, E. coli sepsis, UTI, TM Enceph, ATN, ARDS, Hx CVA, Hx falls w TBI, DMII, HTN, CKD, Developmental delay, volume overloaded, recent Hx ACSHF Clinical Indicators: VS/Pulse OX: 95-96 later intubated Echocardiogram Results: Recent admission with A/CCHFhe was seen cardiology with well-preserved EF onechocardiogramwas on medical management. Chest X Ray: 07/08 Heart/mediastinum: Cardiomediastinal silhouette isenlarged. 07/09 Cardiomegaly, pulmonary vascularcongestionandbilateral pleural effusions. Correlate with BNP forCHF. Treatment: Remains on diuretics Lasix 40 twice daily, Norvasc 5 mg daily she is also on Zosyn empirically. Patient is receiving Glucerna for nutritional support. Not much improvement noted in her mental status, patient again is unresponsive to any stimuli. In your professional opinion, can you please clarify the type of CHF if known? [ ] Acute Systolic Heart Failure (reduced EF) [ ] Acute on Chronic Systolic Heart Failure (reduced EF) [ ] Acute Systolic & Diastolic Heart Failure [ XX ] Chronic Systolic & Diastolic Heart Failure [ ] Acute on Chronic Heart Failure Systolic & Diastolic Heart Failure [ ] Other, please specify [ ] Unable to determine (Template Last Revised: December 2020) MTDD
== END 2024-07-16 16:45 | disposition expired | DRG 870 ==
LOC: EC 17:31 → 4SSUR 18:53 → 3SCARD 07-08 06:20 → 2SICU 07-09 12:10
PROVIDERS: ADMIT Internal Medicine Geriatric Medicine; ATTEND Internal Medicine Geriatric Medicine
PROC: 5A1955Z Respiratory Ventilation, Greater than 96 Consecutive Hours (ICD-10-PCS; principal; 2024-07-09)
PROC: 02HV33Z Insertion of Infusion Device into Superior Vena Cava, Percutaneous Approach (ICD-10-PCS; 2024-07-09)
PROC: 3E043XZ Introduction of Vasopressor into Central Vein, Percutaneous Approach (ICD-10-PCS; 2024-07-09)
PROC: 0BH18EZ Insertion of Endotracheal Airway into Trachea, Via Natural or Artificial Opening Endoscopic (ICD-10-PCS; 2024-07-09)
PROC: 03HY32Z Insertion of Monitoring Device into Upper Artery, Percutaneous Approach (ICD-10-PCS; 2024-07-14)
PROC: 4A133B1 Monitoring of Arterial Pressure, Peripheral, Percutaneous Approach (ICD-10-PCS; 2024-07-14)
PROC: 4A133J1 Monitoring of Arterial Pulse, Peripheral, Percutaneous Approach (ICD-10-PCS; 2024-07-14)
PROC: 30233N1 Transfusion of Nonautologous Red Blood Cells into Peripheral Vein, Percutaneous Approach (ICD-10-PCS; 2024-07-14)
DX: A41.51 Sepsis due to Escherichia coli [E. coli] (principal); R65.21 Severe sepsis with septic shock; J69.0 Pneumonitis due to inhalation of food and vomit; G92.8 Other toxic encephalopathy; N17.0 Acute kidney failure with tubular necrosis; J80 Acute respiratory distress syndrome; K80.12 Calculus of gallbladder with acute and chronic cholecystitis without obstruction; E87.20 Acidosis, unspecified; I13.0 Hypertensive heart and chronic kidney disease with heart failure and stage 1 through stage 4 chronic kidney disease, or unspecified chronic kidney disease; K83.09 Other cholangitis; I69.354 Hemiplegia and hemiparesis following cerebral infarction affecting left non-dominant side; N39.0 Urinary tract infection, site not specified; I50.42 Chronic combined systolic (congestive) and diastolic (congestive) heart failure; R56.9 Unspecified convulsions; E11.649 Type 2 diabetes mellitus with hypoglycemia without coma; D63.1 Anemia in chronic kidney disease; D69.59 Other secondary thrombocytopenia; E11.22 Type 2 diabetes mellitus with diabetic chronic kidney disease; E11.65 Type 2 diabetes mellitus with hyperglycemia; Z79.4 Long term (current) use of insulin; Z66 Do not resuscitate; I69.391 Dysphagia following cerebral infarction; I07.1 Rheumatic tricuspid insufficiency; E78.5 Hyperlipidemia, unspecified; F81.89 Other developmental disorders of scholastic skills; E87.5 Hyperkalemia; N20.0 Calculus of kidney; R29.6 Repeated falls; Z87.442 Personal history of urinary calculi; Z79.02 Long term (current) use of antithrombotics/antiplatelets; Z79.82 Long term (current) use of aspirin; Z79.899 Other long term (current) drug therapy; Z51.5 Encounter for palliative care; Z91.81 History of falling; Z87.820 Personal history of traumatic brain injury; N18.32 Chronic kidney disease, stage 3b
CPT/HCPCS: 36415; 36600; 51798; 70450; 71045; 76705; 76770; 80048; 80053; 81001; 82805; 83605; 83735; 84132; 85025; 85027; 85384; 85610; 86850; 86900; 86901; 86920; 87040; 87070; 87077; 87086; 87186; 87205; 87636; 93005; 93306; 94002; 94003; 94640; 95813; 95816; 95822; 96361; 96365; 96366; 96372; 99285